=== PATIENT | female | born 1940 | race Caucasian/White ===

== ENCOUNTER 2019-04-09 14:47 | Inpatient (IN) | payer MEDICARE, MEDICAID ==
[~2019-04-09] VITALS: Ht 170 cm; Wt 60.4 kg
[~2019-04-09 14:47] MED LIST: ASP81TEC PO; ATOR80TA PO; BPR150TCR PO; CLOP75TA PO; CPR250T PO; CYCL10TA9 PO; DIAZ-345 PO; ETD400T PO; HCT25T PO; INSULIN 70/30 SQ; LOSA100T16 PO; LRT10T PO; LVT.1T PO; MTF500T PO; MTP100TCR PO; NPH,100V SQ; OMEP20CA6 PO; SERT50TA PO; SITA100T PO; TIOT18CA IH
[2019-04-09] MEDS ORDERED: RT-ALBUTEROL/IPRATROPIUM 3 ML (DUONEB) VIAL INH ONE (16:00)
[2019-04-09 16:09] LABS: INR 0.8 (0.8-1.4); PROTHROMBIN TIME PATIENT 11.8 SEC (12.2-14.7)
--- NOTE | 2019-04-09 16:13 | Diagnostic Imaging Report ---
EXAMINATION: PA and lateral chest at 03:34 p.m. INDICATION: Shortness of breath. FINDINGS: The heart size is within normal limits and stable when compared to 02/29/2012. The sternotomy wires and surgical clips noted previously are again evident and no different. The lungs are clear. There is no sign of failure, pneumonia, or pleural effusion. The mediastinum is not widened. The osseous structures are intact. The distal left clavicle does seem elevated with respect to the acromion. This finding was not present on the prior exam and may be related to acromioclavicular separation which has occurred in the interval since the previous study. Clinical follow-up is recommended. IMPRESSION: 1. There is evidence of prior cardiac surgery, but there is no sign of an acute cardiopulmonary abnormality. 2. There appears to have been an interval acromioclavicular separation on the left. Clinical follow-up is recommended. Dictated by: Dictated on workstation # [id number]
[2019-04-09 16:15] LABS: BASOPHILS % (AUTO) 1 % (0-10); EOSINOPHILS % (AUTO) 3 % (0-10); HEMATOCRIT 33 % (35-52); HEMOGLOBIN 10.4 G/DL (11.5-16.0); LYMPHOCYTES # (AUTO) 1.3 X 10^3 (1.0-4.0); LYMPHOCYTES % (AUTO) 24 % (12-44); MEAN CORPUSCULAR HEMOGLOBIN 27 PG (25-34); MEAN CORPUSCULAR HGB CONC 31 G/DL (32-36); MEAN CORPUSCULAR VOLUME 86 FL (80-99); MEAN PLATELET VOLUME 10.5 FL (7.4-10.4); MONOCYTES # (AUTO) 0.6 X 10^3 (0.0-1.0); MONOCYTES % (AUTO) 11 % (0-12); NEUTROPHILS # (AUTO) 3.4 X 10^3 (1.8-7.8); NEUTROPHILS % (AUTO) 61 % (42-75); PLATELET COUNT 262 10^3/uL (130-400); RED CELL DISTRIBUTION WIDTH 13.7 % (10.0-14.5); WHITE BLOOD COUNT 5.5 10^3/uL (4.3-11.0)
[2019-04-09 16:16] LABS: EOSINOPHILS # (AUTO) 0.2 10^3/uL (0.0-0.3)
[2019-04-09 16:27] LABS: BUN/CREATININE RATIO 14; CARBON DIOXIDE 23 MMOL/L (21-32); CHLORIDE 100 MMOL/L (98-107); CREATININE SERUM 2.22 MG/DL (0.60-1.30); GFR ESTIMATED 21; POTASSIUM 4.9 MMOL/L (3.6-5.0); SODIUM 136 MMOL/L (135-145)
[2019-04-09 16:28] LABS: ALANINE AMINOTRANSFERASE 17 U/L (0-55); ALBUMIN 3.6 GM/DL (3.2-4.5); ALKALINE PHOSPHATASE 75 U/L (40-136); BILIRUBIN,TOTAL 0.2 MG/DL (0.1-1.0); GLUCOSE 228 MG/DL (70-105); TOTAL PROTEIN 6.5 GM/DL (6.4-8.2)
[2019-04-09] MEDS ORDERED: hydrALAZINE (APESOLINE) 20 MG/ML VIAL IV ONE (16:45)
[2019-04-09] MEDS ORDERED: NS IV 500 ML 500 ML IV ONE (16:53)
--- NOTE | 2019-04-09 17:21 | ED Respiratory ---
General Chief Complaint: Respiratory Problems Stated Complaint: SOB Nursing Triage Note: Patient states she has had increasing shortness of breath over the past 5 days and is having difficulty doing her normal walking down the hallway at [facility]. Also states she has had a cough and intermittent chest pain. Is not having any pain right now. History of Present Illness Date Seen by Provider: Apr 09, 2019 Time Seen by Provider: 15:15 Initial Comments The patient is a 78-year-old female with a history of hypertension, hyperlipidemia, chronic kidney disease with a baseline creatinine of less than 1 .[address] [facility], diabetes on insulin and no significant prior history of respiratory disease/tobacco abuse. The patient presents with concern for 1 week of progressive fatigue, generalized weakness and dyspnea with exertion. Patient states she has not had her usual "get up and go" at her assisted living facility over that period of time. She denies any shortness of breath at rest. She reports mild "twinges" of anterior sternal chest discomfort which last for just a few seconds at times recently, although not now. She denies fevers, nausea or vomiting, new productive cough (although she notes a mild dry cough at times recently), abdominal pain, flank pain, back pain, dysuria or hematuria, changes in bowel habits. Patient is alert and oriented and pleasantly and appropriately interactive and in absolutely no distress upon initial assessment in the emergency department. Vital signs are reassuring aside from degree of systolic hypertension noted on the monitor. Allergies and Home Medications Allergies Coded Allergies: Codeine (Unverified Allergy, NERVOUSNESS, 02/29/12) IV Dye, Iodine Containing Contrast (Unverified Allergy, HIVES, 02/29/12) Latex (Unverified Allergy, ITCHING, RASH, 02/29/12) Home Medications Aspirin 81 Mg Tabec, 81 MG PO DAILY, (Reported) Atorvastatin Calcium 80 Mg Tablet, 1 EACH PO DAILY, (Reported) Bupropion Hcl 150 Mg Tablet, 1 TAB PO DAILY, (Reported) Ciprofloxacin Hcl 250 Mg Tablet, 1 TAB PO BID, (Reported) Clopidogrel Bisulfate 75 Mg Tablet, 1 EACH PO DAILY, (Reported) Cyclobenzaprine Hcl 10 Mg Tablet, 1 EACH PO DAILY, (Reported) Diazepam 5 Mg Tablet, 1 EACH PO NEEDED, (Reported) FOR ANXIETY Etodolac 400 Mg Tab, 400 MG PO BID, (Reported) Hydrochlorothiazide 25 Mg Tablet, 1 EACH PO DAILY, (Reported) Insulin Nph Human Recom 100 U/Ml Vial, 20 U SQ EVENING, (Reported) Levothyroxine Sodium 100 Mcg Tablet, 1 EACH PO DAILY, (Reported) Loratadine 10 Mg Tab, 10 MG PO DAILY, (Reported) Losartan Potassium 100 Mg Tablet, 1 EACH PO DAILY, (Reported) Metformin Hcl 500 Mg Tab, 1,000 MG PO BID, (Reported) Metoprolol Succinate 100 Mg Tab.sr.24h, 1 EACH PO 1300, (Reported) Omeprazole 20 Mg Capsule.dr, 20 MG PO DAILY, (Reported) Sertraline Hcl 50 Mg Tablet, 50 MG PO DAILY, (Reported) Sitagliptin Phosphate 100 Mg Tablet, 1 EACH PO DAILY, (Reported) Tiotropium Lavina 1 Inh Aerp, 0 IH DAILY, (Reported) 1 INHALATION [Insulin 70/30] , 30 UNITS SQ DAILY, (Reported) Patient Home Medication List Home Medication List Reviewed: Yes Review of Systems Review of Systems Constitutional: see HPI All Other Systems Reviewed Negative Unless Noted: Yes (Negative excepted noted.) Past Kxajymx-Mibudu-Vwakjo Hx Past Med/Social Hx: Reviewed Nursing Past Med/Soc Hx Patient Social History Recent Foreign Travel: No Contact w/Someone Who Travel: No Recent Infectious Disease Expo: No Immunizations Up To Date Date of Pneumonia Vaccine: Apr 08, 2011 Past Medical History Reproductive Disorders: No Family Medical History Reviewed Nursing Family Hx Physical Exam Vital Signs - First Documented 04/09/19 14:56 Temp 37.0 Pulse 58 Resp 14 B/P (MAP) 191/61 (104) Pulse Ox 96 Capillary Refill : Less Than 3 Seconds Height: 5'8.00" Weight: 165lbs. 0.0oz. [id number]; 20.00 BMI Method: General Appearance: no apparent distress This is an elderly female appearing nontoxic and in no acute distress. Head is normocephalic and atraumatic. Neck is supple and nontender. Oropharynx is moist. Lungs are clear to auscultation in all stations. There is a normal S1 and S2 without rubs or gallops and capillary refill is appropriate, less than 2 seconds globally. Abdomen is soft, nontender and nondistended. Skin is warm and dry without cyanosis, clubbing or edema. Psychiatrically, the patient demonstrates appropriate mood and affect and is alert. Progress/Results/Core Measures Suspected Sepsis Recent Fever Within 48 Hours: No Infection Criteria Present: Suspected New Infection New/Unexplained Altered Menta: No Sepsis Screen: No Definite Risk SIRS Temperature: Pulse: 58 Respiratory Rate: 14 Laboratory Tests 04/09/19 15:13: White Blood Count 5.5 Blood Pressure 191 /61 Mean: 104 Laboratory Tests 04/09/19 15:13: Creatinine 2.22H, INR Comment 0.8, Platelet Count 262, Total Bilirubin 0.2 Results/Orders Lab Results Laboratory Tests Test 04/09/19 15:13 04/09/19 16:12 Range/Units White Blood Count 5.5 4.3-11.0 10^3/uL Red Blood Count 3.88 L 4.35-5.85 10^6/uL Hemoglobin 10.4 L 11.5-16.0 G/DL Hematocrit 33 L 35-52 % Mean Corpuscular Volume 86 80-99 FL Mean Corpuscular Hemoglobin 27 25-34 PG Mean Corpuscular Hemoglobin Concent 31 L 32-36 G/DL Red Cell Distribution Width 13.7 10.0-14.5 % Platelet Count 262 130-400 10^3/uL Mean Platelet Volume 10.5 H 7.4-10.4 FL Neutrophils (%) (Auto) 61 42-75 % Lymphocytes (%) (Auto) 24 12-44 % Monocytes (%) (Auto) 11 0-12 % Eosinophils (%) (Auto) 3 0-10 % Basophils (%) (Auto) 1 0-10 % Neutrophils # (Auto) 3.4 1.8-7.8 X 10^3 Lymphocytes # (Auto) 1.3 1.0-4.0 X 10^3 Monocytes # (Auto) 0.6 0.0-1.0 X 10^3 Eosinophils # (Auto) 0.2 0.0-0.3 10^3/uL Basophils # (Auto) 0.0 0.0-0.1 10^3/uL Prothrombin Time 11.8 L 12.2-14.7 SEC INR Comment 0.8 0.8-1.4 Activated Partial Thromboplast Time 27 24-35 SEC Sodium Level 136 135-145 MMOL/L Potassium Level 4.9 3.6-5.0 MMOL/L Chloride Level 100 98-107 MMOL/L Carbon Dioxide Level 23 21-32 MMOL/L Anion Gap 13 5-14 MMOL/L Blood Urea Nitrogen 30 H 7-18 MG/DL Creatinine 2.22 H 0.60-1.30 MG/DL Estimat Glomerular Filtration Rate 21 BUN/Creatinine Ratio 14 Glucose Level 228 H 70-105 MG/DL Calcium Level 9.0 8.5-10.1 MG/DL Corrected Calcium 9.3 8.5-10.1 MG/DL Total Bilirubin 0.2 0.1-1.0 MG/DL Aspartate Amino Transf (AST/SGOT) 20 5-34 U/L Alanine Aminotransferase (ALT/SGPT) 17 0-55 U/L Alkaline Phosphatase 75 40-136 U/L Troponin I < 0.30 <0.30 NG/ML Pro-B-Type Natriuretic Peptide 1259.0 H <75.0 PG/ML Total Protein 6.5 6.4-8.2 GM/DL Albumin 3.6 3.2-4.5 GM/DL Glucometer 194 H 70-110 MG/DL My Orders Orders - EDY HOOK MD Cbc With Automated Diff (04/09/19 15:32) Comprehensive Metabolic Panel (04/09/19 15:32) Troponin I Fs (04/09/19 15:32) Ekg Tracing (04/09/19 15:32) Probnp Fs (04/09/19 15:32) Chest Pa/Lat (2 View) (04/09/19 15:32) Protime With Inr (04/09/19 15:32) Partial Thromboplastin Time (04/09/19 15:32) Albuterol/Ipra Inhalation Soln (Duoneb I (04/09/19 16:00) Svn Small Volume Nebulizer (04/09/19 15:53) Hydralazine Injection (Apresoline Inject (04/09/19 16:45) Ua Culture If Indicated (04/09/19 16:53) Ed Iv/Invasive Line Start (04/09/19 16:53) Ns Iv 500 Ml (Sodium Chloride 0.9%) (04/09/19 16:53) Medications Given in ED Current Medications Medications Dose Ordered Sig/Nicole Route Start Time Stop Time Status Last Admin Dose Admin Albuterol/ Ipratropium 3 ml ONCE ONCE INH 04/09/19 16:00 04/09/19 16:01 DC 04/09/19 16:33 3 ML Hydralazine HCl 10 mg ONCE ONCE IV 04/09/19 16:45 04/09/19 16:46 DC 04/09/19 16:54 10 MG Vital Signs/I&O 04/09/19 14:56 Temp 37.0 Pulse 58 Resp 14 B/P (MAP) 191/61 (104) Pulse Ox 96 Capillary Refill : Less Than 3 Seconds Blood Pressure Mean: 104 Point of Care Testing Finger Stick Blood Glucose: 194 Blood Glucose Action Taken: told RN Progress Note : Time: 17:00 Progress Note Workup unremarkable and reassuring aside from apparent acute on chronic renal insufficiency with BUN and creatinine both elevated above the patient's baseline. Suspect there is a component of intravascular dehydration to the patient's overall presentationpatient does have a somewhat elevated BNP but no clinical examination findings to suggest fluid overload and chest x-rays clear and oxygenation is not negatively affected. Blood sugar mildly elevated as well and suspect hyperglycemia may have contributed to dehydration. Small fluid bolus given. Given age and comorbidities and generalized fatigue/shortness of breath, we'll bring in for observation on telemetry and further care as indicated. Patient will likely need serial troponins as well given shortness of breath and atypical chest discomfort over the past few days. Urine still pending at this time. Given bradycardia on arrival, patient given hydralazine to provide some additional blood pressure control. Patient is graciously accepted for admission to [facility] by Dr. Rivera. ECG Comment Sinus rhythm, first-degree AV block, no acute ST elevation or depression, rate 53, PO2 42, QRS 92, QTC 441, EP interpretation. Diagnostic Imaging Comments XR chest: no acute cardiopulmonary process, EP interp Departure Impression Primary Impression: Acute renal insufficiency Additional Impressions: Hyperglycemia Shortness of breath Dehydration Elevated brain natriuretic peptide (BNP) level Other chest pain Disposition: XFER SHT-TRM HOSP Condition: Improved Departure-Patient Inst. Referrals: ADOLFO RHODES MD (PCP/Family) Primary Care Physician EDY HOOK MD Apr 09, 2019 17:21
[2019-04-09 17:31] LABS: BILIRUBIN,URINE NEGATIVE (NEGATIVE); CLARITY,URINE CLEAR; COLOR,URINE YELLOW; GLUCOSE, URINE (UA) NEGATIVE (NEGATIVE); KETONES,URINE NEGATIVE (NEGATIVE); LEUKOCYTE ESTERASE ,URINE TRACE (NEGATIVE); NITRITE,URINE NEGATIVE (NEGATIVE); PROTEIN,URINE 3+ (NEGATIVE); UROBILINOGEN,URINE 0.2 MG/DL (NORMAL)
[2019-04-09 17:32] LABS: BACTERIA,URINE NEGATIVE /HPF; SQUAMOUS EPITHELIAL CELL,UR 0-2 /HPF; WBC,URINE 0-2 /HPF
[2019-04-09] MEDS ORDERED: HYDROCHLOROTHIAZIDE 25 MG (HCTZ) TAB PO STA (19:30)
[2019-04-09] MEDS ORDERED: hydrALAZINE (APESOLINE) 20 MG/ML VIAL IV STA (19:30)
[2019-04-09 23:30] VITALS: BP 148/88
[2019-04-10] MEDS: NS IV 1000 ML 1,000 ML IV SCH ×2 (01:03→13:47)
[2019-04-10 04:00] VITALS: BP 148/78
[2019-04-10 06:25] LABS: BASOPHILS % (AUTO) 0 % (0-10); EOSINOPHILS # (AUTO) 0.1 10^3/uL (0.0-0.3); EOSINOPHILS % (AUTO) 3 % (0-10); HEMATOCRIT 32 % (35-52); HEMOGLOBIN 10.1 G/DL (11.5-16.0); LYMPHOCYTES # (AUTO) 1.2 X 10^3 (1.0-4.0); LYMPHOCYTES % (AUTO) 26 % (12-44); MEAN CORPUSCULAR HEMOGLOBIN 27 PG (25-34); MEAN CORPUSCULAR HGB CONC 32 G/DL (32-36); MEAN CORPUSCULAR VOLUME 84 FL (80-99); MEAN PLATELET VOLUME 10.1 FL (7.4-10.4); MONOCYTES # (AUTO) 0.6 X 10^3 (0.0-1.0); MONOCYTES % (AUTO) 12 % (0-12); NEUTROPHILS # (AUTO) 2.7 X 10^3 (1.8-7.8); NEUTROPHILS % (AUTO) 58 % (42-75); PLATELET COUNT 214 10^3/uL (130-400); WHITE BLOOD COUNT 4.6 10^3/uL (4.3-11.0)
[2019-04-10 06:44] LABS: ALANINE AMINOTRANSFERASE 15 U/L (0-55); ALBUMIN 3.2 GM/DL (3.2-4.5); ALKALINE PHOSPHATASE 66 U/L (40-136); BILIRUBIN,TOTAL 0.4 MG/DL (0.1-1.0); BUN/CREATININE RATIO 11; CALCIUM 8.8 MG/DL (8.5-10.1); CARBON DIOXIDE 23 MMOL/L (21-32); CHLORIDE 109 MMOL/L (98-107); CREATININE SERUM 2.18 MG/DL (0.60-1.30); GFR ESTIMATED 22; GLUCOSE 125 MG/DL (70-105); POTASSIUM 4.2 MMOL/L (3.6-5.0); SODIUM 141 MMOL/L (135-145); TOTAL PROTEIN 5.6 GM/DL (6.4-8.2)
[2019-04-10 08:14] VITALS: BP 238/78
[2019-04-10] MEDS ORDERED: LOSA100T57 PO (08:39)
[2019-04-10] MEDS ORDERED: ATOR80TA76 PO (08:39)
[2019-04-10] MEDS ORDERED: INSU100I13 SC (08:39)
[2019-04-10] MEDS ORDERED: LEVO112T55 PO (08:39)
[2019-04-10] MEDS ORDERED: MEMA10TA22 PO (08:39)
[2019-04-10] MEDS ORDERED: PEG15DRO5 OU (08:39)
[2019-04-10] MEDS ORDERED: METO-395 PO (08:39)
[2019-04-10] MEDS ORDERED: CLOP75TA28 PO (08:39)
[2019-04-10] MEDS ORDERED: ALBU2.5V4 NEB (08:39)
[2019-04-10] MEDS ORDERED: DEXT15LI5 PO (08:39)
[2019-04-10] MEDS ORDERED: ACET-2267 PO (08:39)
[2019-04-10] MEDS ORDERED: BUPR200T PO (08:39)
[2019-04-10] MEDS ORDERED: BRIM5DRO OU (08:39)
[2019-04-10] MEDS ORDERED: CHOL20003 PO (08:39)
[2019-04-10] MEDS ORDERED: MAGN400T39 PO (08:39)
[2019-04-10] MEDS ORDERED: OMEP40CA36 PO (08:39)
[2019-04-10] MEDS ORDERED: DIAZ5TAB PO (08:39)
[2019-04-10] MEDS ORDERED: CELE-63 PO (08:39)
[2019-04-10] MEDS ORDERED: POLY17PO6 PO (08:39)
[2019-04-10] MEDS ORDERED: RT-ALBUINH INH (08:39)
[2019-04-10] MEDS ORDERED: DONE5TAB30 PO (08:39)
[2019-04-10] MEDS ORDERED: HYDR25TA4 PO (08:39)
[2019-04-10] MEDS ORDERED: DOCU-143 PO (08:39)
[2019-04-10] MEDS ORDERED: FLUT1DIS28 INH (08:39)
[2019-04-10] MEDS ORDERED: AMLO5TAB9 PO (08:39)
[2019-04-10] MEDS ORDERED: HYDR-3923 PO (08:39)
[2019-04-10] MEDS ORDERED: FLUT16SP22 NS (08:39)
[2019-04-10] MEDS ORDERED: MULT1TAB69 PO (08:39)
[2019-04-10] MEDS ORDERED: INSU100I10 SQ (08:39)
[2019-04-10] MEDS ORDERED: MIRT15TA6 PO (08:39)
[2019-04-10] MEDS ORDERED: CALC-6 PO (08:39)
[2019-04-10] MEDS ORDERED: METF-399 PO (08:39)
[2019-04-10] MEDS ORDERED: LORA10TA7 PO (08:39)
[2019-04-10] MEDS ORDERED: BUPR150T14 PO (08:49)
[2019-04-10] MEDS ORDERED: DONE10TA41 PO (08:49)
--- NOTE | 2019-04-10 08:50 | NUR ---
UPDATED MED REC WITH PHARMACY ORDERS FROM [facility]. THE ORDER FOR WELLBUTRIN AND DONEPEZIL ARE DIFFERENT STRENGTHS THAN WHAT I CAN SEE THE EXT MED HX SHOWS NIRANJAN MOST RECENTLY FILLED. I CALLED THEM TO VERIFY. WELLBUTRIN SR 200MG DAILY HAS BEEN CHANGED TO TAKE 2 TABS OF THE 150MG DAILY. DONEPEZIL 5MG HS HAS BEEN CHANGED TO 10MG. THE NURSE VERIFIED THE CELEBREX HAS BEEN BEING ADMINISTERED, IT HAS NOT BEEN FILLED IN SOME TIME ACCORDING TO THE EXT MED HX BUT THEY STATE THE PATIENT BROUGHT IN AN OLD FILL FROM HOME AND THAT IS THE SUPPLY THEY HAVE BEEN USING. THEY ALSO VERIFIED THE INSULIN SLIDING SCALE BEFORE MEALS AND THE SCHEDULED LONG ACTING INSULIN ARE HER ONLY INSULIN ORDERS. TOWARD THE BACK OF THE ORDER SHEET THERE IS ANOTHER ENTRY FOR INSULIN 3X DAILY HOWEVER THAT IS IN REFERENCE TO THE SLIDING SCALE.
--- NOTE | 2019-04-10 09:00 | NUR ---
LEFT MESSAGE ON DR ZAMARRIPA'S PHONE REGARDING ELEVATED BLOOD PRESSURE
[2019-04-10] MEDS ORDERED: HYDROCHLOROTHIAZIDE 25 MG (HCTZ) TAB PO SCH (10:06)
[2019-04-10] MEDS: meTOprolol SUCCINATE 100 MG (TOPROL XL) TAB PO SCH (10:22)
[2019-04-10] MEDS: hydrALAZINE (APRESOLINE) 25 MG TAB PO SCH ×3 (10:22→21:02)
[2019-04-10] MEDS: amLODIPine 5 MG (NORVASC) TAB PO SCH (10:22)
[2019-04-10] MEDS ORDERED: RT-ALBUTEROL SULF 2.5 MG/3 ML PRE-MIX VIAL INH PRN (10:30)
[2019-04-10] MEDS ORDERED: DIAZEPAM 5 MG (VALIUM) TABLET PO PRN (10:45)
[2019-04-10] MEDS ORDERED: ACETAMINOPHEN 500 MG TAB (TYLENOL) PO PRN (10:45)
[2019-04-10] MEDS ORDERED: ARTIFICAL TEARS 0.4 ML UNIT DOSE (REFRESH PLUS) OU PRN (11:00)
[2019-04-10 11:31] VITALS: BP 242/72
[2019-04-10] MEDS: CALCIUM CARB + VIT D 600 MG (CALCARB + D) TAB PO SCH (11:36)
--- NOTE | 2019-04-10 11:36 | NUR ---
left message on dr clement's phone about continued high blood pressure
[2019-04-10] MEDS ORDERED: amLODIPine 5 MG (NORVASC) TAB PO NR (11:45)
[2019-04-10] MEDS: BRIMONIDINE 0.2% (ALPHAGAN) OPHTH SOLN 5 ML BTL OU SCH ×2 (12:01→21:04)
--- NOTE | 2019-04-10 12:04 | History & Physical ---
KJ ADAM, 04/10/19 1204: HPI History of Present Illness: CC: SOB at appointment on Tuesday HPI: Pt went to receive her allergy shots and was SOB. Nurse there thought she needed seen. Has occasional SOB, but work up has been negative thus far. At ER, pt stated they told her her kidneys were failing, dehydrated, hypertensive, and hyperglycemic. Source: patient Exam Limitations: no limitations Date seen by provider: Apr 10, 2019 Time Seen by Provider: 07:41 Attending Physician Erwin Rivera MD PCP Self,Yaron MENDOZA Consult Date of Admission Apr 09, 2019 at 18:35 Home Medications Home Medications Reviewed patient Home Medication Reconciliation performed by pharmacy medication reconciliations architecture technician and/or nursing. Patients Allergies have been reviewed. Allergies Coded Allergies: Iodinated Contrast Media (Unverified Allergy, Unknown, HIVES, 04/09/19) codeine (Unverified Allergy, Unknown, NERVOUSNESS, 04/09/19) latex (Unverified Allergy, Unknown, ITCHING, RASH, 04/09/19) GXK-Lbtxij-Wljnij Hx Patient Social History Number of Children: 2 Alcohol Use: Denies Use Recreational Drug Use: No Smoking Status: Never a Smoker 2nd Hand Smoke Exposure: No Recent Foreign Travel: No Contact w/other who traveled: No Recent Hopitalizations: No Recent Infectious Disease Expo: No Immunizations Up To Date Date of Pneumonia Vaccine: Apr 08, 2011 Date of Influenza Vaccine: Mar 11, 2018 Past Medical History PMHx: 1. HTN 2. DM 3. Hypercholesterolemia 4. Diabetic retinopathy, R worse than L 5. Cervical spinal stenosis 6. Lumbar spinal stenosis PSHx: 1. Appendectomy 2. Cholecystectomy Family Medical History Significant Family History: Cancer (aunt had breast cancer), Diabetes (sister, dad), Renal Disease (PKD in most family on mom's side) Review of Systems ([facility]) Constitutional: No chills, No fever EENTM: vision loss, other (phlegm in throat) Respiratory: cough (from allergies); No orthopnea Cardiovascular: chest pain (comes with SOB; nonreproducible); No palpitations Gastrointestinal: No abdominal pain, No constipation, No diarrhea, No nausea, No vomiting Genitourinary: No dysuria, No frequency Musculoskeletal: muscle pain, neck pain Skin: No lesions, No rash Psychiatric/Neurological: Denies Anxiety; Depressed, Numbness (feet) Physical Exam-([facility]) Physical Exam Vital Signs VS - Last 72 Hours, by Label 04/09/19 04/09/19 04/09/19 04/09/19 14:56 20:14 23:30 23:30 Temp 37.0 37.0 36.6 Pulse 58 57 88 Resp 14 21 18 B/P (MAP) 191/61 (104) 168/61 148/88 Pulse Ox 96 96 96 96 O2 Delivery Room Air Room Air Room Air 04/10/19 04/10/19 04/10/19 04/10/19 00:05 01:00 04:00 07:00 Temp 37.0 Pulse 63 61 78 64 Resp 20 B/P (MAP) 148/78 (101) Pulse Ox 98 O2 Delivery Room Air 04/10/19 04/10/19 04/10/19 08:00 08:14 11:31 Temp 36.9 37.1 Pulse 66 57 Resp 20 18 B/P (MAP) 238/78 (131) 242/72 (128) Pulse Ox 95 94 O2 Delivery Room Air Room Air Room Air Capillary Refill : Less Than 3 SecondsLess Than 3 Seconds General Appearance: WD/WN, no apparent distress Eyes: Bilateral Eye Normal Inspection, Bilateral Eye EOMI HEENT: pharynx normal; No pale conjunctivae (R), No pale conjunctivae (L) Neck: supple, normal inspection Respiratory: lungs clear, normal breath sounds, no respiratory distress, no accessory muscle use Cardiovascular: regular rate, rhythm, no murmur Gastrointestinal: normal bowel sounds, non tender, soft Extremities: normal inspection, no pedal edema Neurologic/Psychiatric: alert, normal mood/affect Skin: normal color, warm/dry Lymphatic: no adenopathy Assessment/Plan Assessment/Plan Assessment & Plan Assessment: 1. Chronic kidney failure 2. Hx of HTN, DM 3. Elevated BNP and elevated BP Plan: 1. Continue fluids. Diuretics not indicated as pt has no swelling and negative CXR for fluid overload. 2. Continue home medications and start new if needed 3. Consult cardiology for BNP and elevated BP despite meds. Clinical Quality Measures DVT/VTE Risk/Contraindication: Risk Factor Score Per Nursin RFS Level Per Nursing on Admit: 2=Moderate ERWIN RIVERA MD 04/10/19 1438: HPI History of Present Illness: Date seen by provider: Apr 10, 2019 Time Seen by Provider: 10:45 Home Medications Allergies Coded Allergies: Iodinated Contrast Media (Unverified Allergy, Unknown, HIVES, 04/09/19) codeine (Unverified Allergy, Unknown, NERVOUSNESS, 04/09/19) latex (Unverified Allergy, Unknown, ITCHING, RASH, 04/09/19) Reviewed Test Results Reviewed Test Results Lab Laboratory Tests Test 04/09/19 15:13 04/09/19 16:12 04/09/19 17:10 04/10/19 00:25 Range/Units White Blood Count 5.5 4.3-11.0 10^3/uL Red Blood Count 3.88 L 4.35-5.85 10^6/uL Hemoglobin 10.4 L 11.5-16.0 G/DL Hematocrit 33 L 35-52 % Mean Corpuscular Volume 86 80-99 FL Mean Corpuscular Hemoglobin 27 25-34 PG Mean Corpuscular Hemoglobin Concent 31 L 32-36 G/DL Red Cell Distribution Width 13.7 10.0-14.5 % Platelet Count 262 130-400 10^3/uL Mean Platelet Volume 10.5 H 7.4-10.4 FL Neutrophils (%) (Auto) 61 42-75 % Lymphocytes (%) (Auto) 24 12-44 % Monocytes (%) (Auto) 11 0-12 % Eosinophils (%) (Auto) 3 0-10 % Basophils (%) (Auto) 1 0-10 % Neutrophils # (Auto) 3.4 1.8-7.8 X 10^3 Lymphocytes # (Auto) 1.3 1.0-4.0 X 10^3 Monocytes # (Auto) 0.6 0.0-1.0 X 10^3 Eosinophils # (Auto) 0.2 0.0-0.3 10^3/uL Basophils # (Auto) 0.0 0.0-0.1 10^3/uL Prothrombin Time 11.8 L 12.2-14.7 SEC INR Comment 0.8 0.8-1.4 Activated Partial Thromboplast Time 27 24-35 SEC Sodium Level 136 135-145 MMOL/L Potassium Level 4.9 3.6-5.0 MMOL/L Chloride Level 100 98-107 MMOL/L Carbon Dioxide Level 23 21-32 MMOL/L Anion Gap 13 5-14 MMOL/L Blood Urea Nitrogen 30 H 7-18 MG/DL Creatinine 2.22 H 0.60-1.30 MG/DL Estimat Glomerular Filtration Rate 21 BUN/Creatinine Ratio 14 Glucose Level 228 H 70-105 MG/DL Calcium Level 9.0 8.5-10.1 MG/DL Corrected Calcium 9.3 8.5-10.1 MG/DL Total Bilirubin 0.2 0.1-1.0 MG/DL Aspartate Amino Transf (AST/SGOT) 20 5-34 U/L Alanine Aminotransferase (ALT/SGPT) 17 0-55 U/L Alkaline Phosphatase 75 40-136 U/L Troponin I < 0.30 < 0.028 <0.028 NG/ML Pro-B-Type Natriuretic Peptide 1259.0 H <75.0 PG/ML Total Protein 6.5 6.4-8.2 GM/DL Albumin 3.6 3.2-4.5 GM/DL Glucometer 194 H 70-110 MG/DL Urine Color YELLOW Urine Clarity CLEAR Urine pH 7.0 5-9 Urine Specific [place] 1.015 L 1.016-1.022 Urine Protein 3+ H NEGATIVE Urine Glucose (UA) NEGATIVE NEGATIVE Urine Ketones NEGATIVE NEGATIVE Urine Nitrite NEGATIVE NEGATIVE Urine Bilirubin NEGATIVE NEGATIVE Urine Urobilinogen 0.2 NORMAL MG/DL Urine Leukocyte Esterase TRACE H NEGATIVE Urine RBC (Auto) NEGATIVE NEGATIVE Urine RBC NONE /HPF Urine WBC 0-2 /HPF Urine Squamous Epithelial Cells 0-2 /HPF Urine Crystals NONE /LPF Urine Bacteria NEGATIVE /HPF Urine Casts NONE /LPF Urine Mucus NONE /LPF Urine Culture Indicated NO Test 04/10/19 06:10 04/10/19 12:10 Range/Units White Blood Count 4.6 4.3-11.0 10^3/uL Red Blood Count 3.77 L 4.35-5.85 10^6/uL Hemoglobin 10.1 L 11.5-16.0 G/DL Hematocrit 32 L 35-52 % Mean Corpuscular Volume 84 80-99 FL Mean Corpuscular Hemoglobin 27 25-34 PG Mean Corpuscular Hemoglobin Concent 32 32-36 G/DL Red Cell Distribution Width 14.0 10.0-14.5 % Platelet Count 214 130-400 10^3/uL Mean Platelet Volume 10.1 7.4-10.4 FL Neutrophils (%) (Auto) 58 42-75 % Lymphocytes (%) (Auto) 26 12-44 % Monocytes (%) (Auto) 12 0-12 % Eosinophils (%) (Auto) 3 0-10 % Basophils (%) (Auto) 0 0-10 % Neutrophils # (Auto) 2.7 1.8-7.8 X 10^3 Lymphocytes # (Auto) 1.2 1.0-4.0 X 10^3 Monocytes # (Auto) 0.6 0.0-1.0 X 10^3 Eosinophils # (Auto) 0.1 0.0-0.3 10^3/uL Basophils # (Auto) 0.0 0.0-0.1 10^3/uL Sodium Level 141 135-145 MMOL/L Potassium Level 4.2 3.6-5.0 MMOL/L Chloride Level 109 H 98-107 MMOL/L Carbon Dioxide Level 23 21-32 MMOL/L Anion Gap 9 5-14 MMOL/L Blood Urea Nitrogen 25 H 7-18 MG/DL Creatinine 2.18 H 0.60-1.30 MG/DL Estimat Glomerular Filtration Rate 22 BUN/Creatinine Ratio 11 Glucose Level 125 H 70-105 MG/DL Calcium Level 8.8 8.5-10.1 MG/DL Corrected Calcium 9.4 8.5-10.1 MG/DL Total Bilirubin 0.4 0.1-1.0 MG/DL Aspartate Amino Transf (AST/SGOT) 17 5-34 U/L Alanine Aminotransferase (ALT/SGPT) 15 0-55 U/L Alkaline Phosphatase 66 40-136 U/L Troponin I < 0.028 < 0.028 <0.028 NG/ML Total Protein 5.6 L 6.4-8.2 GM/DL Albumin 3.2 3.2-4.5 GM/DL Physical Exam-([facility]) Physical Exam General Appearance: WD/WN, no apparent distress Respiratory: normal breath sounds, no respiratory distress, no accessory muscle use, wheezing ([place]) Cardiovascular: regular rate, rhythm, no murmur Gastrointestinal: normal bowel sounds, non tender, soft Extremities: no pedal edema Neurologic/Psychiatric: alert, normal mood/affect Skin: normal color, warm/dry Assessment/Plan Assessment/Plan Admission Status: Observation (1) Shortness of breath Status: Acute Assessment & Plan: Difficult to obtain history, but is on inhalers at home, will resume. CXR without pneumonia. (2) Acute renal insufficiency Status: Acute Assessment & Plan: Creatinine relatively near baseline after small amount of IVF last night. (3) Elevated brain natriuretic peptide (BNP) level Status: Acute Assessment & Plan: Suspect related to renal disease, but will follow up Cardiology recommendations. (4) Other chest pain Status: Acute Assessment & Plan: Troponin negative, BNP elevated. Cardiology consulted. (5) AC separation Assessment & Plan: Seen on CXR. Unknown chronicity, no current complaint. Qualifiers: (6) Dementia Status: Chronic Assessment & Plan: Resume home donepezil and memantine (7) Emphysema/COPD Status: Chronic (8) Chronic kidney disease Status: Chronic (9) Hypothyroidism Status: Chronic Assessment & Plan: Resume levothyroxine (10) B12 deficiency Status: Chronic (11) Iron deficiency anemia Status: Chronic (12) Coronary artery disease Status: Chronic (13) DVT prophylaxis Status: Acute Assessment & Plan: Enoxaparin Supervisory-Addendum Brief Verification & Attestation Participated in pt care: history, MDM, physical Personally performed: exam, history, MDM Care discussed with: Medical Student Procedures: n/a Verification and Attestation of Medical Student E/M Service A medical student performed and documented this service in my presence. I reviewed and verified all information documented by the medical student and made modifications to such information, when appropriate. I personally performed the physical exam and medical decision making. See my note portion for my physical exam and problem list for my assessment and plan. Erwin Rivera, Apr 10, 2019,14:43 KJ ADAM, Apr 10, 2019 12:04 ERWIN RIVERA MD Apr 10, 2019 14:38
[2019-04-10] MEDS ORDERED: NON-FORMULARY MEDICATION 1 EA EA (Hydralazine HCl 25 MG) PO SCH (13:00)
--- NOTE | 2019-04-10 14:03 | Consultation-Cardiology ---
HPI-Cardiology Cardiology Consultation: Date of Consultation 04/10/19 Time Seen by a Provider: 13:30 Date of Admission 04-09-19 Attending Physician Viki Rivera MD Admitting Physician Yaron Malik MD Consulting Physician Xu Alvarado MD HPI: Chief Complaint: Chest pain Progressive HALL Ms. Arce is a 78 year old female admitted to 423 from [facility] ED. She currently resides at [facility] in [place], [place]. She states she went to her PCP office yesterday for "allergy shots" and report SOB to the nurse, at which time she was directed to the ED in [facility]. She reports she has had progressive HALL for the last 4-5 days with ambulation of a short distance. She reports she has had episodes of ACW pain, sharp, lasting a few minutes, mild in intensity with assoc increase in SOB. No other assoc symptoms. She reports progressive gen weakness. No c/o palpitations, syncope, near syncope or LE swelling. No c/o n/v/d. No c/o fever or chills. No c/o cough. Review of Systems-Cardiology Review of Systems Constitutional: No chills, No fever; tiredness Eyes: No blindness; vision change Ears/Nose/Throat: No epistaxis, No nasal drainage, No recent hearing loss Respiratory: As described under HPI Cardiovascular: As described under HPI Gastrointestinal: No constipation, No diarrhea, No nausea, No vomiting Genitourinary: No dysuria, No hematuria Musculoskeletal: back pain (chronic) Skin: No rash on exposed areas, No ulcerations on exposed areas Psychiatric/Neurological: No anxiety, No depression, No seizure, No focal weakness, No syncope Hematologic: No bleeding abnormalities All Other Systems Reviewed Negative Unless Noted: Yes (Negative excepted noted.) DEJ-Dkxizp-Kddavh Hx Patient Social History Number of Children: 2 Alcohol Use: Denies Use Recreational Drug Use: No Smoking Status: Never a Smoker 2nd Hand Smoke Exposure: No Recent Foreign Travel: No Recent Infectious Disease Expo: No Immunizations Up To Date Date of Pneumonia Vaccine: Apr 08, 2011 Date of Influenza Vaccine: Mar 11, 2018 Past Medical History PMH As described under Assessment. Family Medical History Family Medical History: She reports her mother passed from an DC at age 66. She reports a brother with "heart trouble". Allergies and Home Medications Allergies Coded Allergies: Iodinated Contrast Media (Unverified Allergy, Unknown, HIVES, 04/09/19) codeine (Unverified Allergy, Unknown, NERVOUSNESS, 04/09/19) latex (Unverified Allergy, Unknown, ITCHING, RASH, 04/09/19) Home Medications Acetaminophen 500 Mg Tablet, 1,000 MG PO Q6H PRN for PAIN-MILD, (Reported) Albuterol Sulfate 2.5 Mg/3 Ml Vial.neb, 2.5 MG NEB Q6H PRN for SHORTNESS OF BREATH, (Reported) Albuterol Sulfate 1 Puff Puff, 2 PUFF INH Q6H PRN for SHORTNESS OF BREATH, (Reported) 1 PUFF = 90 MCG Amlodipine Besylate 5 Mg Tablet, 5 MG PO DAILY, (Reported) Atorvastatin Calcium 80 Mg Tablet, 80 MG PO HS, (Reported) Brimonidine Tartrate/Timolol 5 Ml Drops, 1 DROP OU BID, (Reported) Bupropion HCl 150 Mg Tablet.er, 300 MG PO DAILY, (Reported) TAKES 2 (150MG) TABLETS Calcium Carbonate/Vitamin D3 1 Each Tablet, 2 TAB PO DAILY, (Reported) Celecoxib 200 Mg Capsule, 200 MG PO BID, (Reported) Cholecalciferol (Vitamin D3) 2,000 Unit Capsule, 2,000 UNIT PO 1000, (Reported) Clopidogrel Bisulfate 75 Mg Tablet, 75 MG PO DAILY, (Reported) Dextromethorphan HBr 15 Mg/5 Ml Liquid, 10 ML PO Q4H PRN for COUGH, (Reported) Diazepam 5 Mg Tablet, 5 MG PO Q12H PRN for ANXIETY, (Reported) Docusate Sodium 100 Mg Capsule, 100 MG PO DAILY, (Reported) Donepezil HCl 10 Mg Tablet, 10 MG PO HS, (Reported) Fluticasone Propionate 16 Gm [place].susp, 1 SPRAY NS DAILY PRN for ALLERGIES, (Reported) Fluticasone/Salmeterol 1 Each Blst.w.dev, 1 PUFF INH BID, (Reported) Hydralazine HCl 25 Mg Tablet, 25 MG PO QID, (Reported) Hydrochlorothiazide 25 Mg Tablet, 25 MG PO DAILY, (Reported) Insulin Glargine,Hum.rec.anlog 100 Unit/1 Ml Insuln.pen, 4 UNIT SQ HS, (Reported) Insuln Asp Prt/Insulin Aspart 300 Units/3 Ml Solution, SC TIDAC, (Reported) 120 OR LESS = 0 UNITS 121-140 = 6 UNITS 141-160 = 8 UNITS 161-200 = 12 UNITS 201-250 = 14 UNITS OVER 250 = 18 UNITS Levothyroxine Sodium 112 Mcg Tablet, 112 MCG PO 0600, (Reported) Loratadine 10 Mg Tablet, 10 MG PO DAILY PRN for ALLERGIES, (Reported) Losartan Potassium 100 Mg Tablet, 100 MG PO DAILY, (Reported) Magnesium Oxide 400 Mg Tablet, 400 MG PO BID, (Reported) Memantine HCl 10 Mg Tablet, 10 MG PO DAILY, (Reported) Metformin HCl 1,000 Mg Tablet, 1,000 MG PO BID WITH MEALS, (Reported) Metoprolol Succinate 100 Mg Tab.er.24h, 100 MG PO DAILY, (Reported) Mirtazapine 15 Mg Tablet, 22.5 MG PO HS, (Reported) TAKES 1 & 1/2 (15MG) TABLET Multivitamin 1 Each Tablet, 1 TAB PO DAILY, (Reported) Omeprazole 40 Mg Capsule.dr, 40 MG PO DAILY, (Reported) Peg 400/Hypromellose/Glycerin 15 Ml Drops, 1 DROP OU UD PRN for DRY EYES, (Reported) Polyethylene Glycol 3350 17 Gm Powd.pack, 17 GM PO DAILY, (Reported) Patient Home Medication List Home Medication List Reviewed: Yes Physical Exam-Cardiology Physical Exam Vital Signs/I&O 04/11/19 04/11/19 04/11/19 04/11/19 00:00 01:00 04:20 07:00 Temp 37.0 36.9 Pulse 59 47 47 72 Resp 19 20 B/P (MAP) 169/63 (98) 191/61 (104) Pulse Ox 97 95 O2 Delivery Room Air Room Air 04/11/19 04/11/19 08:00 08:38 Temp 37.0 Pulse 70 Resp 24 B/P (MAP) 197/75 (115) Pulse Ox 95 O2 Delivery Room Air Room Air 04/11/19 00:00 Intake Total 2150 ml Output Total 1750 ml Balance 400 ml Capillary Refill : Less Than 3 SecondsLess Than 3 Seconds Constitutional: AAO x 3, well-developed, well-nourished HEENT: PERRL, hearing is well preserved, oral hygience is good Neck: No carotid bruit; carotid pulses are 2 + bilaterally Respiratory: No accessory muscle use, No respiratory distress; chest expansion is symmetric, chest is bilaterally symmetric, lungs clear to auscultation Cardiovascular: regular rate-rhythm; No JVD; S1 and S2, systolic murmur Gastrointestinal: No tender; soft, round, audible bowel sounds Rectal: deferred Extremities: no lower extremity edema bilateral Neurologic/Psychiatric: grossly intact Skin: No rash on exposed areas, No ulcerations on exposed areas Data Review Labs Laboratory Tests 04/10/19 12:10: Troponin I < 0.028 04/10/19 20:47: Glucometer 309H 04/11/19 05:20: White Blood Count 4.1L, Red Blood Count 3.64L, Hemoglobin 9.7L, Hematocrit 31L, Mean Corpuscular Volume 84, Mean Corpuscular Hemoglobin 27, Mean Corpuscular Hemoglobin Concent 32, Red Cell Distribution Width 14.1, Platelet Count 206, Mean Platelet Volume 10.2, Sodium Level 141, Potassium Level 3.8, Chloride Level 109H, Carbon Dioxide Level 24, Anion Gap 8, Blood Urea Nitrogen 23H, Creatinine 2.06H, Estimat Glomerular Filtration Rate 23, BUN/Creatinine Ratio 11, Glucose Level 112H, Calcium Level 8.7, Corrected Calcium 9.6, Magnesium Level 2.0, Total Bilirubin 0.4, Aspartate Amino Transf (AST/SGOT) 19, Alanine Aminotransferase (ALT/SGPT) 18, Alkaline Phosphatase 55, Total Protein 5.2L, Albumin 2.9L, Triglycerides Level 235H, Cholesterol Level 125, LDL Cholesterol Direct 44, VLDL Cholesterol 47H, HDL Cholesterol 34L, Thyroid Stimulating Hormone (TSH) 3.73 Radiology NAME: BECCA ARCE [facility] REC#: [id number] PT STATUS: REG ER : 1940 PHYSICIAN: EDY HOOK MD ADMIT DATE: 04/09/19/ER FS Signed Date of Exam: 04/09/19 CHEST PA/LAT (2 VIEW) EXAMINATION: PA and lateral chest at 03:34 p.m. INDICATION: Shortness of breath. FINDINGS: The heart size is within normal limits and stable when compared to 02/29/2012. The sternotomy wires and surgical clips noted previously are again evident and no different. The lungs are clear. There is no sign of failure, pneumonia, or pleural effusion. The mediastinum is not widened. The osseous structures are intact. The distal left clavicle does seem elevated with respect to the acromion. This finding was not present on the prior exam and may be related to acromioclavicular separation which has occurred in the interval since the previous study. Clinical follow-up is recommended. IMPRESSION: 1. There is evidence of prior cardiac surgery, but there is no sign of an acute cardiopulmonary abnormality. 2. There appears to have been an interval acromioclavicular separation on the left. Clinical follow-up is recommended. Dictated by: Dictated on workstation # [id number] Dict: 04/09/19 1605 Trans: 04/09/19 1654 Interpreted by: JASWANT NELSON MD Electronically signed by: JASWANT NELSON MD 04/09/19 1655 ECG Impression ECG Initial ECG Rhythm: Normal Sinus A/P-Cardiology Assessment/Admission Diagnosis Chest pain of undetermined etiology Progressive HALL Elevated BNP with no clinical evidence of CHF, likely r/t CKD H/O CAD - reports 3 vessel CABG in 2002 at [facility] Reports h/o renal disease - details unknown (records from [facility] Facility showd CKD 3) Reports h/o bilat carotid dz - details unknown HTN - uncontrolled Reports h/o TIA's DM II HLD - statin tx Chronic back pain d/t spinal stenosis Macular degeneration Family h/o CAD - mother passed from [place] age 66 Discussion and Recomendations Chest pain of undetermined etiology - no evidence of ACS thus far Acute on chronic renal insufficiency - hold diuretics Elevated BNP without clinical evidence of CHF - likely d/t acute on CKD Uncontrolled hypertension - adjust anti-hypertensive regimen Echocardiogram to eval structure and function Request records Monitor lab closely Not a suitable candidate for JADEN or ARB d/t CKD Monitor lab Further recs will be based on her hospital course We would like to thank medical services for this consult Clinical Quality Measures DVT/VTE Risk/Contraindication: Risk Factor Score Per Nursin RFS Level Per Nursing on Admit: 2=Moderate BRYAN CHARLES Apr 10, 2019 14:03
[2019-04-10] MEDS: ENOXAPARIN 30 MG/0.3 ML (LOVENOX) SYR SC SCH (15:17)
--- NOTE | 2019-04-10 15:23 | NUR ---
PATIENT REPORTED THAT SHE DID NOT WANT TO GET THE FLU VACCINE HERE. SHE WILL GET IT AT THE [facility].
[2019-04-10 16:00] VITALS: BP 156/84
--- NOTE | 2019-04-10 17:16 | Consultation-Cardiology ---
HPI-Cardiology Cardiology Consultation: Date of Consultation 04/10/19 Time Seen by a Provider: 15:00 Date of Admission Attending Physician Viki Rivera MD Admitting Physician Yaron Malik MD Consulting Physician DACIA YEUNG MD, MA, FACP, FACC, [facility], CCDS Physician requesting consult: Dr Rivera HPI: Chief Complaint: CC: Chest pain, exertional shortness of breath HPI Ms. Ross is a 78 year old female admitted to [facility] from [facility] ED. She currently resides at [facility] in [place], [place]. She states she went to her PCP office yesterday for "allergy shots" and report SOB to the nurse, at which time she was directed to the ED in [facility]. She reports she has had progressive HALL for the last 4-5 days with ambulation of a short distance. She reports she has had episodes of ACW pain, sharp, lasting a few minutes, mild in intensity with assoc increase in SOB, no radiation, sharp or dull, w/o agg ravating or relieving factors symptoms. She reports progressive gen weakness. No c/o palpitations, syncope, near syncope or LE swelling. No c/o n/v/d. No c/o fever or chills. No c/o cough. Review of Systems-Cardiology Review of Systems Constitutional: No chills, No fever; tiredness Eyes: No blindness; vision change Ears/Nose/Throat: No epistaxis, No nasal drainage, No recent hearing loss Respiratory: As described under HPI Cardiovascular: As described under HPI Gastrointestinal: No constipation, No diarrhea, No nausea, No vomiting Genitourinary: No dysuria, No hematuria Musculoskeletal: back pain (chronic) Skin: No rash on exposed areas, No ulcerations on exposed areas Psychiatric/Neurological: No anxiety, No depression, No seizure, No focal weakness, No syncope Hematologic: No bleeding abnormalities All Other Systems Reviewed Negative Unless Noted: Yes (Negative excepted noted.) DDJ-Oimwcc-Lmcvpj Hx Patient Social History Number of Children: 2 Alcohol Use: Denies Use Recreational Drug Use: No Smoking Status: Never a Smoker 2nd Hand Smoke Exposure: No Recent Foreign Travel: No Recent Infectious Disease Expo: No Immunizations Up To Date Date of Pneumonia Vaccine: Apr 08, 2011 Date of Influenza Vaccine: Mar 11, 2018 Past Medical History PMH As described under Assessment. Family Medical History Family Medical History: She reports her mother passed from an MD at age 66. She reports a brother with "heart trouble". Allergies and Home Medications Allergies Coded Allergies: Iodinated Contrast Media (Unverified Allergy, Unknown, HIVES, 04/09/19) codeine (Unverified Allergy, Unknown, NERVOUSNESS, 04/09/19) latex (Unverified Allergy, Unknown, ITCHING, RASH, 04/09/19) Home Medications Acetaminophen 500 Mg Tablet, 1,000 MG PO Q6H PRN for PAIN-MILD, (Reported) Albuterol Sulfate 2.5 Mg/3 Ml Vial.neb, 2.5 MG NEB Q6H PRN for SHORTNESS OF BREATH, (Reported) Albuterol Sulfate 1 Puff Puff, 2 PUFF INH Q6H PRN for SHORTNESS OF BREATH, (Reported) 1 PUFF = 90 MCG Amlodipine Besylate 5 Mg Tablet, 5 MG PO DAILY, (Reported) Atorvastatin Calcium 80 Mg Tablet, 80 MG PO HS, (Reported) Brimonidine Tartrate/Timolol 5 Ml Drops, 1 DROP OU BID, (Reported) Bupropion HCl 150 Mg Tablet.er, 300 MG PO DAILY, (Reported) TAKES 2 (150MG) TABLETS Calcium Carbonate/Vitamin D3 1 Each Tablet, 2 TAB PO DAILY, (Reported) Celecoxib 200 Mg Capsule, 200 MG PO BID, (Reported) Cholecalciferol (Vitamin D3) 2,000 Unit Capsule, 2,000 UNIT PO 1000, (Reported) Clopidogrel Bisulfate 75 Mg Tablet, 75 MG PO DAILY, (Reported) Dextromethorphan HBr 15 Mg/5 Ml Liquid, 10 ML PO Q4H PRN for COUGH, (Reported) Diazepam 5 Mg Tablet, 5 MG PO Q12H PRN for ANXIETY, (Reported) Docusate Sodium 100 Mg Capsule, 100 MG PO DAILY, (Reported) Donepezil HCl 10 Mg Tablet, 10 MG PO HS, (Reported) Fluticasone Propionate 16 Gm [place].susp, 1 SPRAY NS DAILY PRN for ALLERGIES, (Reported) Fluticasone/Salmeterol 1 Each Blst.w.dev, 1 PUFF INH BID, (Reported) Hydralazine HCl 25 Mg Tablet, 25 MG PO QID, (Reported) Hydrochlorothiazide 25 Mg Tablet, 25 MG PO DAILY, (Reported) Insulin Glargine,Hum.rec.anlog 100 Unit/1 Ml Insuln.pen, 4 UNIT SQ HS, (Reported) Insuln Asp Prt/Insulin Aspart 300 Units/3 Ml Solution, SC TIDAC, (Reported) 120 OR LESS = 0 UNITS 121-140 = 6 UNITS 141-160 = 8 UNITS 161-200 = 12 UNITS 201-250 = 14 UNITS OVER 250 = 18 UNITS Levothyroxine Sodium 112 Mcg Tablet, 112 MCG PO 0600, (Reported) Loratadine 10 Mg Tablet, 10 MG PO DAILY PRN for ALLERGIES, (Reported) Losartan Potassium 100 Mg Tablet, 100 MG PO DAILY, (Reported) Magnesium Oxide 400 Mg Tablet, 400 MG PO BID, (Reported) Memantine HCl 10 Mg Tablet, 10 MG PO DAILY, (Reported) Metformin HCl 1,000 Mg Tablet, 1,000 MG PO BID WITH MEALS, (Reported) Metoprolol Succinate 100 Mg Tab.er.24h, 100 MG PO DAILY, (Reported) Mirtazapine 15 Mg Tablet, 22.5 MG PO HS, (Reported) TAKES 1 & 1/2 (15MG) TABLET Multivitamin 1 Each Tablet, 1 TAB PO DAILY, (Reported) Omeprazole 40 Mg Capsule.dr, 40 MG PO DAILY, (Reported) Peg 400/Hypromellose/Glycerin 15 Ml Drops, 1 DROP OU UD PRN for DRY EYES, (Reported) Polyethylene Glycol 3350 17 Gm Powd.pack, 17 GM PO DAILY, (Reported) Patient Home Medication List Home Medication List Reviewed: Yes Physical Exam-Cardiology Physical Exam Vital Signs/I&O 04/10/19 04/10/19 04/10/19 04/10/19 07:00 08:00 08:14 11:31 Temp 36.9 37.1 Pulse 64 66 57 Resp 20 18 B/P (MAP) 238/78 (131) 242/72 (128) Pulse Ox 95 94 O2 Delivery Room Air Room Air Room Air 04/10/19 04/10/19 12:15 16:00 Temp 37.6 Pulse 54 52 Resp 16 B/P (MAP) 156/84 (108) Pulse Ox 95 O2 Delivery Room Air 04/10/19 00:00 Intake Total 500 ml Balance 500 ml Capillary Refill : Less Than 3 SecondsLess Than 3 Seconds Constitutional: AAO x 3, well-developed, well-nourished HEENT: PERRL, hearing is well preserved, oral hygience is good Neck: No carotid bruit; carotid pulses are 2 + bilaterally Respiratory: No accessory muscle use, No respiratory distress; chest expansion is symmetric, chest is bilaterally symmetric, lungs clear to auscultation Cardiovascular: regular rate-rhythm; No JVD; S1 and S2, systolic murmur Gastrointestinal: No tender; soft, round, audible bowel sounds Rectal: deferred Extremities: no lower extremity edema bilateral Neurologic/Psychiatric: grossly intact Skin: No rash on exposed areas, No ulcerations on exposed areas Data Review Labs Laboratory Tests 04/10/19 00:25: Troponin I < 0.028 04/10/19 06:10: Troponin I < 0.028, White Blood Count 4.6, Red Blood Count 3.77L, Hemoglobin 10.1L, Hematocrit 32L, Mean Corpuscular Volume 84, Mean Corpuscular Hemoglobin 27, Mean Corpuscular Hemoglobin Concent 32, Red Cell Distribution Width 14.0, Platelet Count 214, Mean Platelet Volume 10.1, Neutrophils (%) (Auto) 58, Lymphocytes (%) (Auto) 26, Monocytes (%) (Auto) 12, Eosinophils (%) (Auto) 3, Basophils (%) (Auto) 0, Neutrophils # (Auto) 2.7, Lymphocytes # (Auto) 1.2, Monocytes # (Auto) 0.6, Eosinophils # (Auto) 0.1, Basophils # (Auto) 0.0, Sodium Level 141, Potassium Level 4.2, Chloride Level 109H, Carbon Dioxide Level 23, Anion Gap 9, Blood Urea Nitrogen 25H, Creatinine 2.18H, Estimat Glomerular Filtration Rate 22, BUN/Creatinine Ratio 11, Glucose Level 125H, Calcium Level 8.8, Corrected Calcium 9.4, Total Bilirubin 0.4, Aspartate Amino Transf (AST/SGOT) 17, Alanine Aminotransferase (ALT/SGPT) 15, Alkaline Phosphatase 66, Total Protein 5.6L, Albumin 3.2 04/10/19 12:10: Troponin I < 0.028 Laboratory Tests 04/09/19 15:13 04/10/19 06:10 A/P-Cardiology Assessment/Admission Diagnosis Chest pain of undetermined etiology; no evidence of ACS Uncontrolled hypertension Shortness of breath of undetermined etiology. Elevated BNP w/o any distinct evidence of CHF, likely r/t CKD H/O CAD - reports 3 vessel CABG in 2002 at [facility] Renal insufficiency, likely diabetic nephropathy (records from [facility] Facility reports CKD 3) managed by Dr Rivera Reports h/o bilat carotid dz - details unknown Reports h/o TIA's DM II HLD - statin tx Chronic back pain d/t spinal stenosis Macular degeneration Family h/o CAD - mother passed from [place] age 66 Discussion and Recomendations Add doxazosin Increase hydralzine Not a suitable candidate for JADEN or ARB d/t CKD Monitor labs Echo done and reported above I discussed her case with Dr Rivera on the phone this am Further recs will be based on her hospital course We would like to thank Medical Services for this consult Clinical Quality Measures DVT/VTE Risk/Contraindication: Risk Factor Score Per Nursin RFS Level Per Nursing on Admit: 2=Moderate DACIA YEUNG MD FACP FAC CCDS Apr 10, 2019 17:16
[2019-04-10 19:47] VITALS: BP 228/74
[2019-04-10] MEDS ORDERED: doxAzosin 4 MG (CARDURA) TAB PO SCH (21:00)
[2019-04-10] MEDS: DONEPEZIL 10 MG (ARICEPT) TAB PO SCH (21:01)
[2019-04-10] MEDS: MAGNESIUM OXIDE (MAG-OX)400 MG TAB PO SCH (21:01)
[2019-04-10] MEDS: MIRTAZAPINE 15 MG (REMERON) TAB PO SCH (21:02)
[2019-04-10] MEDS: TIMOLOL MALEATE 0.5% 5 ML (TIMOPTIC) BTL OU SCH (21:04)
[2019-04-10] MEDS: RT-ADVAIR HFA 45/21 MCG PER PUFF IH SCH (23:24)
[2019-04-11] VITALS: BP 169/63
[2019-04-11] MEDS: NS IV 1000 ML 1,000 ML IV SCH ×2 (02:30→05:08)
[2019-04-11 04:20] VITALS: BP 191/61
[2019-04-11] MEDS: hydrALAZINE (APRESOLINE) 25 MG TAB PO SCH ×3 (05:08→21:00)
[2019-04-11] MEDS: LEVOTHYROXINE 112 MCG (LEVOTHROID) TAB PO SCH (05:08)
[2019-04-11 06:05] LABS: HEMOGLOBIN 9.7 G/DL (11.5-16.0); MEAN PLATELET VOLUME 10.2 FL (7.4-10.4); RED CELL DISTRIBUTION WIDTH 14.1 % (10.0-14.5); WHITE BLOOD COUNT 4.1 10^3/uL (4.3-11.0)
[2019-04-11 06:25] LABS: ALBUMIN 2.9 GM/DL (3.2-4.5); BILIRUBIN,TOTAL 0.4 MG/DL (0.1-1.0); CALCIUM 8.7 MG/DL (8.5-10.1); CREATININE SERUM 2.06 MG/DL (0.60-1.30); POTASSIUM 3.8 MMOL/L (3.6-5.0); TOTAL PROTEIN 5.2 GM/DL (6.4-8.2)
[2019-04-11 08:00] VITALS: BP 197/75
[2019-04-11] MEDS: RT-ADVAIR HFA 45/21 MCG PER PUFF IH SCH ×2 (08:37→20:06)
[2019-04-11] MEDS ORDERED: NON-FORMULARY MEDICATION 1 EA EA (Amlodipine Besylate 5 MG) PO SCH (09:00)
[2019-04-11] MEDS ORDERED: meTOprolol SUCCINATE 100 MG (TOPROL XL) TAB PO SCH (09:00)
[2019-04-11] MEDS ORDERED: NON-FORMULARY MEDICATION 1 EA EA (Hydrochlorothiazide 25 MG) PO SCH (09:00)
[2019-04-11] MEDS: POLYETHYLENE GLYCOL 17 GM (MIRALAX) PACK PO SCH (09:45)
--- NOTE | 2019-04-11 09:45 | NUR ---
AM MEDICATIONS: 100MG METOPROLOL AND 5MG NORVASC GIVEN FOR BP 197/75.
[2019-04-11] MEDS: MEMANTINE 10 MG (NAMENDA) TABLET PO SCH (09:47)
[2019-04-11] MEDS: amLODIPine 5 MG (NORVASC) TAB PO SCH (09:47)
[2019-04-11] MEDS: meTOprolol SUCCINATE 100 MG (TOPROL XL) TAB PO SCH (09:47)
[2019-04-11] MEDS: PANTOPRAZOLE 40 MG (PROTONIX) TAB PO SCH (09:47)
[2019-04-11] MEDS: MAGNESIUM OXIDE (MAG-OX)400 MG TAB PO SCH ×2 (09:48→21:01)
[2019-04-11] MEDS: VITAMIN D3 1,000 UNITS (CHOLECALCIFEROL) TABLET PO SCH (09:48)
[2019-04-11] MEDS: CALCIUM CARB + VIT D 600 MG (CALCARB + D) TAB PO SCH (09:48)
[2019-04-11] MEDS: CLOPIDOGREL 75 MG (PLAVIX) TABLET PO SCH (09:48)
[2019-04-11] MEDS: MULTIVIT W/MINERALS TAB (THERAGRAN M) PO SCH (09:48)
[2019-04-11] MEDS: buPROPion SR 150 MG (WELLBUTRIN SR) TAB PO SCH (09:48)
[2019-04-11] MEDS: BRIMONIDINE 0.2% (ALPHAGAN) OPHTH SOLN 5 ML BTL OU SCH ×3 (09:53→21:03)
[2019-04-11] MEDS: TIMOLOL MALEATE 0.5% 5 ML (TIMOPTIC) BTL OU SCH ×2 (09:54→21:03)
--- NOTE | 2019-04-11 10:04 | Progress Note - Cardiology ---
Cardiology SOAP Progress Note Subjective: Sitting up in bed. Denies any c/o CP or SOB this morning. No c/o palpitations. Objective: I&O/Vital Signs 04/11/19 04/11/19 04/11/19 04/11/19 04:20 07:00 08:00 08:38 Temp 36.9 37.0 Pulse 47 72 70 Resp 20 24 B/P (MAP) 191/61 (104) 197/75 (115) Pulse Ox 95 95 O2 Delivery Room Air Room Air Room Air 04/11/19 04/11/19 08:45 13:00 Pulse 62 Pulse Ox 95 O2 Delivery Room Air 04/11/19 00:00 Intake Total 2150 ml Output Total 1750 ml Balance 400 ml Weight (Pounds): 165 Weight (Ounces): 0.0 Weight (Calculated Kilograms): [phone] Constitutional: AAO x 3, well-developed, well-nourished Respiratory: No accessory muscle use, No respiratory distress; chest expansion is symmetric, chest is bilaterally symmetric, lungs clear to auscultation Cardiovascular: regular rate-rhythm; No JVD; S1 and S2, systolic murmur Gastrointestional: No tender; soft, round, audible bowel sounds Extremities: no lower extremity edema bilateral Neurologic/Psychiatric: grossly intact Skin: No rash on exposed areas, No ulcerations on exposed areas Results/Procedures: Labs Laboratory Tests 04/10/19 20:47: Glucometer 309H 04/11/19 05:20: White Blood Count 4.1L, Red Blood Count 3.64L, Hemoglobin 9.7L, Hematocrit 31L, Mean Corpuscular Volume 84, Mean Corpuscular Hemoglobin 27, Mean Corpuscular Hemoglobin Concent 32, Red Cell Distribution Width 14.1, Platelet Count 206, Mean Platelet Volume 10.2, Sodium Level 141, Potassium Level 3.8, Chloride Level 109H, Carbon Dioxide Level 24, Anion Gap 8, Blood Urea Nitrogen 23H, Creatinine 2.06H, Estimat Glomerular Filtration Rate 23, BUN/Creatinine Ratio 11, Glucose Level 112H, Calcium Level 8.7, Corrected Calcium 9.6, Magnesium Level 2.0, Total Bilirubin 0.4, Aspartate Amino Transf (AST/SGOT) 19, Alanine Aminotransferase (ALT/SGPT) 18, Alkaline Phosphatase 55, Total Protein 5.2L, Albumin 2.9L, Triglycerides Level 235H, Cholesterol Level 125, LDL Cholesterol Direct 44, VLDL Cholesterol 47H, HDL Cholesterol 34L, Thyroid Stimulating Hormone (TSH) 3.73 A/P: Assessment: Chest pain of undetermined etiology; no evidence of ACS Uncontrolled hypertension Shortness of breath of undetermined etiology. Elevated BNP w/o any distinct evidence of CHF, likely r/t CKD Echo of 04/10/19: LVEF 55-65%, mild MR, RVSP 25 mmHg H/O CAD - reports 3 vessel CABG in 2002 at [facility] Renal insufficiency, likely diabetic nephropathy (records from [facility] Facility reports CKD 3) managed by Dr Rivera Reports h/o bilat carotid dz - details unknown Reports h/o TIA's DM II HLD - statin tx Chronic back pain d/t spinal stenosis Macular degeneration Family h/o CAD - mother passed from [place] age 66 Plan: BP improved, but not ideal - adjust anti-hypertensive regimen Not a suitable candidate for JADEN or ARB d/t CKD Monitor labs Renal function improving Physician Assessment Physician Assessment Shortness of breath improved No cp or palp or syncope Lungs: fair bilat air entry Cor: reg Ext: no significant edema A&R * As documented in our note above that I updated (italics) and as noted below * BP still not well controlled * Adjust meds as needed and as tolerated * Monitor labs BRYAN CHARLES [employer] Apr 11, 2019 10:04 DACIA YEUNG MD [facility] CCDS Apr 11, 2019 14:21
[2019-04-11 12:00] VITALS: BP 198/58
--- NOTE | 2019-04-11 12:02 | NUR ---
RD ASSESSMENT PMHx: DM, HTN, Hypercholesterolemia PT INTERACTION: Pt was awake and pleasant during nutrition assessment. Pt states current appetite is good and that she is "not generally a big eater." Pt states no current problems with chewing/swallowing. Pt states no current issues with n/v at this time. Pt states some episodes of constipation and has not had a BM since 04/08. Pt states no recent weight changes. Note unable to determine recent wt hx, per chart review. Pt states current management of DM is good. Note current glu of 112, as of this AM. ABNORMAL NUTRITION-RELATED LAB VALUES: Cl 109 (H); BUN 23 (H); cr 2.06 (H); glu 112 (H); TG 235 (H); Pro 5.2 (L); alb 2.9 (L); Hgb 9.7 (L); Hct 31 (L); Est. kcal needs: 6225-5844 kcal (25-30 kcal/kg) Est. Pro needs: 60-72 g Pro (1.0-1.2 g Pro/kg) PES STATEMENT: Altered GI function related to changes in gastric motility as evidenced by constipation | No BM since 04/08 INTERVENTION: Continue with current diet order of CHO 75g/m 3snack. Pt may require bowel regimen if constipation persists. MONITOR/EVALUATE: PO Intake Stool Output Weight Status Hydration Status Lab Values Rajesh Virk, MS, RD [phone]
[2019-04-11] MEDS ORDERED: amLODIPine 5 MG (NORVASC) TAB PO NR (12:20)
--- NOTE | 2019-04-11 12:30 | NUR ---
DR ZAMARRIPA AWARE OF ELEVATED BP. WILL GIVE SECOND DOSE OF 5MG PO NORVASC ORDERED.
--- NOTE | 2019-04-11 14:15 | NUR ---
CM/SS, initial interview. Patient resides at [facility] in [place] and will return there when released. She has been there since July 2018. Patient's daughter, Gi Dyer, will transport her when she is discharged. Patient uses FWW when ambulating. She converses well, activities as independent as able. No needs indicated. Patient said physician told her once her blood pressure is better controlled she could return home.
--- NOTE | 2019-04-11 14:56 | Progress Note ---
KJ ADAM, 04/11/19 1456: Subjective Subjective/Events-last exam Pt denies chest pain and shortness of breath. Has not been ambulating around halls but is walking to the bathroom. Takes her a bit to get going once she's up but she can ambulate there. C/o sore R arm. Feels fine. Denies other complaints. On exam, pt is having uncontrolled BP despite adjusting medications. Objective Exam Last Set of Vital Signs Vital Signs Date Time Temp Pulse Resp B/P (MAP) Pulse Ox O2 Delivery O2 Flow Rate FiO2 04/11/19 13:00 62 04/11/19 12:00 37.0 16 198/58 (104) 93 Room Air Capillary Refill : Less Than 3 SecondsLess Than 3 Seconds I&O Intake and Output 04/11/19 00:00 Intake Total 2250 ml Output Total 2100 ml Balance 150 ml Intake Oral 1250 ml IV Total 1000 ml Output Urine Total 2100 ml General: Alert, Cooperative Lungs: Clear to Auscultation Heart: Regular Rate, No Murmurs Abdomen: Normal Bowel Sounds, No Tenderness Results/Procedures Lab Laboratory Tests 04/10/19 20:47: Glucometer 309H 04/11/19 05:20: White Blood Count 4.1L, Red Blood Count 3.64L, Hemoglobin 9.7L, Hematocrit 31L, Mean Corpuscular Volume 84, Mean Corpuscular Hemoglobin 27, Mean Corpuscular Hemoglobin Concent 32, Red Cell Distribution Width 14.1, Platelet Count 206, Mean Platelet Volume 10.2, Sodium Level 141, Potassium Level 3.8, Chloride Level 109H, Carbon Dioxide Level 24, Anion Gap 8, Blood Urea Nitrogen 23H, Creatinine 2.06H, Estimat Glomerular Filtration Rate 23, BUN/Creatinine Ratio 11, Glucose Level 112H, Calcium Level 8.7, Corrected Calcium 9.6, Magnesium Level 2.0, Total Bilirubin 0.4, Aspartate Amino Transf (AST/SGOT) 19, Alanine Aminotransferase (ALT/SGPT) 18, Alkaline Phosphatase 55, Total Protein 5.2L, Albumin 2.9L, Triglycerides Level 235H, Cholesterol Level 125, LDL Cholesterol Direct 44, VLDL Cholesterol 47H, HDL Cholesterol 34L, Thyroid Stimulating Hormone (TSH) 3.73 Radiology NAME: BECCA ARCE [facility] REC#: [id number] PT STATUS: REG ER : 1940 PHYSICIAN: EDY HOOK MD ADMIT DATE: 04/09/19/ER FS Signed Date of Exam: 04/09/19 CHEST PA/LAT (2 VIEW) EXAMINATION: PA and lateral chest at 03:34 p.m. INDICATION: Shortness of breath. FINDINGS: The heart size is within normal limits and stable when compared to 02/29/2012. The sternotomy wires and surgical clips noted previously are again evident and no different. The lungs are clear. There is no sign of failure, pneumonia, or pleural effusion. The mediastinum is not widened. The osseous structures are intact. The distal left clavicle does seem elevated with respect to the acromion. This finding was not present on the prior exam and may be related to acromioclavicular separation which has occurred in the interval since the previous study. Clinical follow-up is recommended. IMPRESSION: 1. There is evidence of prior cardiac surgery, but there is no sign of an acute cardiopulmonary abnormality. 2. There appears to have been an interval acromioclavicular separation on the left. Clinical follow-up is recommended. Dictated by: Dictated on workstation # [id number] Dict: 04/09/19 1605 Trans: 04/09/194 Interpreted by: JASWANT NELSON MD Electronically signed by: JASWANT NELSON MD 04/09/19 1654 Assessment/Plan Assessment/Plan Assessment & Plan Assessment: 1. Chronic kidney failure 2. Uncontrolled HTN 3. Elevated BNP Plan: 1. Continue fluids. Diuretics not indicated as pt has no swelling and negative CXR for fluid overload. 2. Keep inpatient to further monitor BP and response to medications. Cardiology has increased doxazosin dosage. 3. Likely d/t kidney failure (1) Shortness of breath Status: Resolved Assessment & Plan: Difficult to obtain history, but is on inhalers at home, will resume. CXR without pneumonia. (2) Acute renal insufficiency Status: Acute Assessment & Plan: Creatinine relatively near baseline after small amount of IVF last night. (3) Elevated brain natriuretic peptide (BNP) level Status: Resolved Assessment & Plan: Suspect related to renal disease, but will follow up C ardiology recommendations. (4) Other chest pain Status: Resolved Assessment & Plan: Troponin negative, BNP elevated. Cardiology consulted. (5) AC separation Assessment & Plan: Seen on CXR. Unknown chronicity, no current complaint. Qualifiers: (6) Dementia Status: Chronic Assessment & Plan: Resume home donepezil and memantine (7) Emphysema/COPD Status: Chronic (8) Chronic kidney disease Status: Chronic (9) Hypothyroidism Status: Chronic Assessment & Plan: Resume levothyroxine (10) B12 deficiency Status: Chronic (11) Iron deficiency anemia Status: Chronic (12) Coronary artery disease Status: Chronic (13) DVT prophylaxis Status: Acute Assessment & Plan: Enoxaparin Clinical Quality Measures DVT/VTE Risk/Contraindication: Risk Factor Score Per Nursin RFS Level Per Nursing on Admit: 2=Moderate VIKI ZAMARRIPA MD 04/12/192027: Supervisory-Addendum Brief Verification & Attestation Participated in pt care: history, MDM, physical Personally performed: exam, history, MDM Care discussed with: Medical Student Procedures: n/a Verification and Attestation of Medical Student E/M Service A medical student performed and documented this service in my presence. I reviewed and verified all information documented by the medical student and made modifications to such information, when appropriate. I personally performed the physical exam and medical decision making. Viki Zamarripa, Apr 12, 2019,20:28 KJ ADAM, Apr 11, 2019 14:56 VIKI ZAMARRIPA MD Apr 12, 2019 20:28
--- NOTE | 2019-04-11 15:53 | Physical Therapy Evaluation ---
PT Evaluation-General Medical Diagnosis Admission Date Apr 11, 2019 at 13:40 Medical Diagnosis: SOB Onset Date: Apr 10, 2019 Therapy Diagnosis Therapy Diagnosis: impaired mobility, strength, endurance Height/Weight Height (Feet): 5 Height (Inches): 8.00 Weight (Pounds): 165 Weight (Ounces): 0.0 Precautions Precautions/Isolations: Fall Prevention, Standard Precautions Weight Bear Status Right Lower Extremity: Right Weight Bearing/Tolerated Left Lower Extremity: Left Weight Bearing/Tolerated Referral Physician: Miguel Reason for Referral: Evaluation/Treatment Medical History Additional Medical History Past Medical History PMHx: 1. HTN 2. DM 3. Hypercholesterolemia 4. Diabetic retinopathy, R worse than L 5. Cervical spinal stenosis 6. Lumbar spinal stenosis PSHx: 1. Appendectomy 2. Cholecystectomy Social History Home: Snf Entry Into Home: Level Entry Prior Prior Level of Function Therapy Quality Codes: 6 Independent with activity with or without an assistive device 5 Patient requires set up or clean up by helper. Patient completes activity by themselves 4 Supervision or touching assist (CGA). Phillips provide cues , steadying assist 3 The helper provides less than half the effort to complete the activity 2 The helper provides more than half the effort to complete the activity 1 Dependent. The helper does all the effort to complete an activity 7 Patient refused to complete or attempt activity 9 The patient did not perform the activity before the current illness or injury 88 Not attempted due to Medical conditions or safety concerns Bed Mobility: 6 Transfers (B,C,W/C): 6 Gait: 6 Indoor Mobility (Ambulation): Independent Patient used a 4-wheeled walker previously. PT Evaluation-Current Subjective Patient in bed pre tx, agrees to PT, has no complaints of pain at rest. Pt/Family Goals to be independent at home Objective Patient Orientation: Person, Place, Situation ROM/Strength ROM Lower Extremities WNL Strength Lower Extremities 4/5 gross BLE Sensory Hearing: Functional Sensation Right Lower Extremit: Intact Sensation Left Lower Extremity: Intact Transfers Roll Left to Right (QC): 6 Sit to Lying (QC): 6 Lying to Sitting/Side of Bed(Q: 6 Sit to Stand (QC): 4 Chair/Doj-up-Bmqhk Xfer(QC): 4 SBA for sit to stand and transfers Gait Does the Patient Walk?: Yes Anticipated Mode of Locomotion: Walk Walk 10 feet (QC): 4 Walk 50 ft with 2 Turns(QC): 4 Walk 150 ft (QC): 4 Distance: 200' Gait Level of Assist: 5 Gait Persons Needed: 1 Gait Assistive Device: FWW Comments/Gait Description slow but steady ambulation Balance Sitting Static: Normal Sitting Dynamic: Normal Standing Static: Good Standing Dynamic: Good Treatment seated BLE exercises x15 (AP, LAQ), patient on toilet post tx, instructed to use nurse call when done Assessment/Needs Patient has impaired mobility, strength, endurance. Steady ambulation, no dizziness or LOB. Rehab Potential: Fair PT Short Term Goals Short Term Goals Time Frame: Apr 18, 2019 Gait Distance Comment: 300' Gait Assistive Device: FWW (SBA) Additional Short Term Goals bed mobility and transfers mod I PT Plan Problem List Problem List: Activity Tolerance, Functional Strength, Safety, Balance, Gait, Transfer Treatment/Plan Treatment Plan: Continue Plan of Care Treatment Plan: Bed Mobility, Education, Functional Activity Jenny, Functional Strength, Gait, Safety, Therapeutic Exercise, Transfers Treatment Duration: Apr 18, 2019 Frequency: 6 times per week Estimated Hrs Per Day: .25 hour per day Patient and/or Family Agrees t: Yes Safety Risks/Education Patient Education: Gait Training, Transfer Techniques, Correct Positioning, Safety Issues Teaching Recipient: Patient Teaching Methods: Demonstration, Discussion Response to Teaching: Reinforcement Needed Discharge Recommendations Plan Patient will perform bed mobility and transfer training, balance and endurance training, functional strengthening, gait training, and education, to improve functional mobility and independence at home. Therapy Discharge Recommendati: Other, See Comments (back to NH) Time/GCodes Time In: 1325 Time Out: 1344 Total Billed Treatment Time: 19 Total Billed Treatment 1 visit EVM 19' MAURO WRIGHT PT Apr 11, 2019 15:53
[2019-04-11] MEDS: ENOXAPARIN 30 MG/0.3 ML (LOVENOX) SYR SC SCH (16:24)
[2019-04-11 16:30] VITALS: BP 172/59
[2019-04-11 20:53] VITALS: BP 170/52
[2019-04-11] MEDS ORDERED: doxAzosin 4 MG (CARDURA) TAB PO SCH (21:00)
[2019-04-11] MEDS: DONEPEZIL 10 MG (ARICEPT) TAB PO SCH (21:00)
[2019-04-11] MEDS: MIRTAZAPINE 15 MG (REMERON) TAB PO SCH (21:01)
[2019-04-12 00:15] VITALS: BP 184/87
[2019-04-12 04:00] VITALS: BP 187/89
[2019-04-12] MEDS: hydrALAZINE (APRESOLINE) 25 MG TAB PO SCH ×2 (05:20→14:20)
[2019-04-12] MEDS: LEVOTHYROXINE 112 MCG (LEVOTHROID) TAB PO SCH (05:20)
[2019-04-12 06:53] LABS: BASOPHILS % (AUTO) 1 % (0-10); EOSINOPHILS # (AUTO) 0.2 10^3/uL (0.0-0.3); EOSINOPHILS % (AUTO) 5 % (0-10); HEMATOCRIT 30 % (35-52); HEMOGLOBIN 9.6 G/DL (11.5-16.0); LYMPHOCYTES % (AUTO) 30 % (12-44); MEAN CORPUSCULAR HEMOGLOBIN 27 PG (25-34); MEAN CORPUSCULAR HGB CONC 32 G/DL (32-36); MEAN CORPUSCULAR VOLUME 85 FL (80-99); MEAN PLATELET VOLUME 10.7 FL (7.4-10.4); MONOCYTES # (AUTO) 0.5 X 10^3 (0.0-1.0); MONOCYTES % (AUTO) 16 % (0-12); NEUTROPHILS # (AUTO) 1.6 X 10^3 (1.8-7.8); NEUTROPHILS % (AUTO) 48 % (42-75); PLATELET COUNT 190 10^3/uL (130-400); RED CELL DISTRIBUTION WIDTH 13.9 % (10.0-14.5); WHITE BLOOD COUNT 3.4 10^3/uL (4.3-11.0)
[2019-04-12 07:14] LABS: CALCIUM 8.6 MG/DL (8.5-10.1); CREATININE SERUM 2.14 MG/DL (0.60-1.30); POTASSIUM 3.8 MMOL/L (3.6-5.0)
[2019-04-12] MEDS: RT-ADVAIR HFA 45/21 MCG PER PUFF IH SCH (08:05)
[2019-04-12 08:49] VITALS: BP 136/80
--- NOTE | 2019-04-12 08:49 | Progress Note - Cardiology ---
Cardiology SOAP Progress Note Subjective: Sitting up in bed eating morning meal. States she feels well and would like to go home. No c/o CP, palpitations, dyspnea, syncope or near syncope. Objective: I&O/Vital Signs 04/12/19 04/12/19 04/12/19 04/12/19 01:45 04:00 07:00 08:00 Temp 36.0 Pulse 61 58 55 Resp 21 B/P (MAP) 187/89 (121) Pulse Ox 92 O2 Delivery Room Air Room Air 04/12/19 04/12/19 04/12/19 08:07 08:49 12:00 Temp 36.6 36.8 Pulse 57 51 Resp 18 18 B/P (MAP) 136/80 (98) 174/90 (118) Pulse Ox 95 94 O2 Delivery Room Air Room Air Room Air FiO2 94 04/12/19 00:00 Intake Total 1280 ml Output Total 2000 ml Balance -720 ml Weight (Pounds): 165 Weight (Ounces): 0.0 Weight (Calculated Kilograms): 74.762994 Constitutional: AAO x 3, well-developed, well-nourished Respiratory: No accessory muscle use, No respiratory distress; chest expansion is symmetric, chest is bilaterally symmetric, lungs clear to auscultation Cardiovascular: regular rate-rhythm; No JVD; S1 and S2, systolic murmur Gastrointestional: No tender; soft, round, audible bowel sounds Extremities: no lower extremity edema bilateral Neurologic/Psychiatric: grossly intact Skin: No rash on exposed areas, No ulcerations on exposed areas Results/Procedures: Labs Laboratory Tests 04/11/19 21:01: Glucometer 249H 04/12/19 05:49: White Blood Count 3.4L, Red Blood Count 3.56L, Hemoglobin 9.6L, Hematocrit 30L, Mean Corpuscular Volume 85, Mean Corpuscular Hemoglobin 27, Mean Corpuscular Hem oglobin Concent 32, Red Cell Distribution Width 13.9, Platelet Count 190, Mean Platelet Volume 10.7H, Neutrophils (%) (Auto) 48, Lymphocytes (%) (Auto) 30, Monocytes (%) (Auto) 16H, Eosinophils (%) (Auto) 5, Basophils (%) (Auto) 1, Neutrophils # (Auto) 1.6L, Lymphocytes # (Auto) 1.0, Monocytes # (Auto) 0.5, Eosinophils # (Auto) 0.2, Basophils # (Auto) 0.0, Sodium Level 141, Potassium Level 3.8, Chloride Level 108H, Carbon Dioxide Level 27, Anion Gap 6, Blood Urea Nitrogen 19H, Creatinine 2.14H, Estimat Glomerular Filtration Rate 22, BUN/Creatinine Ratio 9, Glucose Level 132H, Calcium Level 8.6 A/P: Assessment: Chest pain of undetermined etiology; no evidence of ACS Uncontrolled hypertension - improving Shortness of breath of undetermined etiology. Elevated BNP w/o any distinct evidence of CHF, likely r/t CKD Echo of 04/10/19: LVEF 55-65%, mild MR, RVSP 25 mmHg H/O CAD - reports 3 vessel CABG in 2002 at [facility] Renal insufficiency, likely diabetic nephropathy (records from [facility] Facility reports CKD 3) managed by Dr Rivera Reports h/o bilat carotid dz - details unknown Reports h/o TIA's DM II HLD - statin tx Chronic back pain d/t spinal stenosis Macular degeneration Family h/o CAD - mother passed from [place] age 66 Plan: BP improved, but not ideal - adjust anti-hypertensive regimen Not a suitable candidate for JADEN or ARB d/t CKD Monitor labs Renal function stable OK to discharge home from cardiac stand point with close out pt f/u Physician Assessment Physician Assessment Feels better. Denies short of breath. No cp or palp or syncope Wishes to go home Lungs: fair to good air entry Cor: reg Ext: no c/c/e A&R * As documented in our note above that I updated (italics) and as noted below * Increase doxazosin for bp control * Advised to keep log of bp at home * Close outpt f/u advised * Ok to d/c from card standpoint * I answered her questions in detail BRYAN CHARLES [employer] INVESTIGATOR Apr 12, 2019 08:49 DACIA YEUNG MD [facility] Apr 12, 2019 13:25
[2019-04-12] MEDS ORDERED: HYDR-3924 PO (08:58)
[2019-04-12] MEDS ORDERED: AMLO10TA4 PO (08:58)
[2019-04-12] MEDS ORDERED: DOXA4TAB PO (08:58)
[2019-04-12] MEDS ORDERED: amLODIPine 5 MG (NORVASC) TAB PO SCH (09:00)
[2019-04-12] MEDS: TIMOLOL MALEATE 0.5% 5 ML (TIMOPTIC) BTL OU SCH (09:13)
[2019-04-12] MEDS ORDERED: doxAzosin 4 MG (CARDURA) TAB PO NR (09:15)
[2019-04-12] MEDS: VITAMIN D3 1,000 UNITS (CHOLECALCIFEROL) TABLET PO SCH (09:22)
[2019-04-12] MEDS: buPROPion SR 150 MG (WELLBUTRIN SR) TAB PO SCH (09:22)
[2019-04-12] MEDS: CALCIUM CARB + VIT D 600 MG (CALCARB + D) TAB PO SCH (09:22)
[2019-04-12] MEDS: BRIMONIDINE 0.2% (ALPHAGAN) OPHTH SOLN 5 ML BTL OU SCH ×2 (09:26→14:21)
[2019-04-12] MEDS: MEMANTINE 10 MG (NAMENDA) TABLET PO SCH (09:27)
[2019-04-12] MEDS: PANTOPRAZOLE 40 MG (PROTONIX) TAB PO SCH (09:27)
[2019-04-12] MEDS: meTOprolol SUCCINATE 100 MG (TOPROL XL) TAB PO SCH (09:27)
[2019-04-12] MEDS: MULTIVIT W/MINERALS TAB (THERAGRAN M) PO SCH (09:27)
[2019-04-12] MEDS: CLOPIDOGREL 75 MG (PLAVIX) TABLET PO SCH (09:28)
[2019-04-12] MEDS: MAGNESIUM OXIDE (MAG-OX)400 MG TAB PO SCH (09:28)
[2019-04-12] MEDS: POLYETHYLENE GLYCOL 17 GM (MIRALAX) PACK PO SCH (09:36)
[2019-04-12 12:00] VITALS: BP 174/90
--- NOTE | 2019-04-12 12:25 | Discharge Summary ---
Discharge Summary Hospital Course Problems Reviewed?: Yes Problems/Diagnosis: (1) Shortness of breath Status: Resolved Resolution Date/Time: 04/12/19 @ 12:15 Assessment & Plan: Difficult to obtain history, but is on inhalers at home, will resume. CXR without pneumonia. (2) Acute renal insufficiency Status: Acute Assessment & Plan: Creatinine relatively near baseline after small amount of IVF last night. 04/12 creatinine on d/c 2.14, stable during admission (3) Elevated brain natriuretic peptide (BNP) level Status: Resolved Resolution Date/Time: 04/12/19 @ 12:19 Assessment & Plan: Suspect related to renal disease rather than congestive heart failure given no symptoms of congestive failure (4) Other chest pain Status: Resolved Resolution Date/Time: 04/12/19 @ 12:18 Assessment & Plan: Troponin negative, BNP elevated. Cardiology consulted. Echocardiogram done and EF 55-65%, mild MR. (5) AC separation Assessment & Plan: Seen on CXR. Unknown chronicity, no current complaint. Qualifiers: (6) Dementia Status: Chronic Assessment & Plan: Resume home donepezil and memantine (7) Emphysema/COPD Status: Chronic (8) Chronic kidney disease Status: Chronic (9) Hypothyroidism Status: Chronic Assessment & Plan: Resume levothyroxine (10) B12 deficiency Status: Chronic (11) Iron deficiency anemia Status: Chronic (12) Coronary artery disease Status: Chronic (13) Diabetes mellitus, type 2 Status: Chronic Assessment & Plan: Stopped metformin due to GFR, continued home insulin. (14) HTN (hypertension) Assessment & Plan: Difficult to control, Cardiology adjusted meds- discontinued HCTZ and losartan, added Cardura, increased dose of hydralazine and amlodipine and continued metoprolol. Qualifiers: Qualified Codes: I10 - Essential (primary) hypertension Hospital Course Date of Admission: Apr 11, 2019 at 13:40 Admission Diagnosis : Family Physician/Provider: Yaron Malik MD Date of Discharge: 04/12/19 Discharge Diagnosis: See problems Hospital Course: See problems Labs and Pending Lab Test: Laboratory Tests 04/11/19 21:01: Glucometer 249H 04/12/19 05:49: White Blood Count 3.4L, Red Blood Count 3.56L, Hemoglobin 9.6L, Hematocrit 30L, Mean Corpuscular Volume 85, Mean Corpuscular Hemoglobin 27, Mean Corpuscular Hemoglobin Concent 32, Red Cell Distribution Width 13.9, Platelet Count 190, Mean Platelet Volume 10.7H, Neutrophils (%) (Auto) 48, Lymphocytes (%) (Auto) 30, Monocytes (%) (Auto) 16H, Eosinophils (%) (Auto) 5, Basophils (%) (Auto) 1, Neutrophils # (Auto) 1.6L, Lymphocytes # (Auto) 1.0, Monocytes # (Auto) 0.5, Eosinophils # (Auto) 0.2, Basophils # (Auto) 0.0, Sodium Level 141, Potassium Level 3.8, Chloride Level 108H, Carbon Dioxide Level 27, Anion Gap 6, Blood Urea Nitrogen 19H, Creatinine 2.14H, Estimat Glomerular Filtration Rate 22, BUN/Creatinine Ratio 9, Glucose Level 132H, Calcium Level 8.6 Home Meds Active Norvasc (Amlodipine Besylate) 10 Mg Tablet 10 Mg PO DAILY Cardura (Doxazosin Mesylate) 4 Mg Tablet 4 Mg PO BID Hold for SBP less than 150 mmHg Hydralazine HCl 50 Mg Tablet 50 Mg PO Q8H Reported Bupropion HCl Sr (Bupropion HCl) 150 Mg Tablet.er 300 Mg PO DAILY TAKES 2 (150MG) TABLETS Donepezil HCl 10 Mg Tablet 10 Mg PO HS Fluticasone Propionate 16 Gm [place].susp 1 [place] NS DAILY PRN Loratadine 10 Mg Tablet 10 Mg PO DAILY PRN Artificial Tears Drops (Peg 400/Hypromellose/Glycerin) 15 Ml Drops 1 Drop OU UD PRN Ventolin Hfa (Albuterol Sulfate) 1 Puff Puff 2 Puff INH Q6H PRN 1 PUFF = 90 MCG Albuterol Sulfate 2.5 Mg/3 Ml Vial.neb 2.5 Mg NEB Q6H PRN Valium (Diazepam) 5 Mg Tablet 5 Mg PO Q12H PRN Tylenol Extra Strength (Acetaminophen) 500 Mg Tablet 1,000 Mg PO Q6H PRN Tussin Cough (Dextromethorphan HBr) 15 Mg/5 Ml Liquid 10 Ml PO Q4H PRN Combigan Eye Drops (Brimonidine Tartrate/Timolol) 5 Ml Drops 1 Drop OU BID Clopidogrel (Clopidogrel Bisulfate) 75 Mg Tablet 75 Mg PO DAILY Memantine HCl 10 Mg Tablet 10 Mg PO DAILY Miralax (Polyethylene Glycol 3350) 17 Gm Powd.pack 17 Gm PO DAILY Vitamin D3 (Cholecalciferol (Vitamin D3)) 2,000 Unit Capsule 2,000 Unit PO 1000 Multivitamins (Multivitamin) 1 Each Tablet 1 Tab PO DAILY Omeprazole 40 Mg Capsule.dr 40 Mg PO DAILY Mirtazapine 15 Mg Tablet 22.5 Mg PO HS TAKES 1 & 1/2 (15MG) TABLET Metoprolol Succinate 100 Mg Tab.er.24h 100 Mg PO DAILY Colace (Docusate Sodium) 100 Mg Capsule 100 Mg PO DAILY Calcium 600 + Vit D 200 Tablet (Calcium Carbonate/Vitamin D3) 1 Each Tablet 2 Tab PO DAILY Atorvastatin Calcium 80 Mg Tablet 80 Mg PO HS Levothyroxine Sodium 112 Mcg Tablet 112 Mcg PO 0600 Advair 100-50 Diskus (Fluticasone/Salmeterol) 1 Each Blst.w.dev 1 Puff INH BID Lantus Solostar (Insulin Glargine,Hum.rec.anlog) 100 Unit/1 Ml Insuln.pen 4 Unit SQ HS Novolog Mix 70-30 Flexpen Syrn (Insuln Asp Prt/Insulin Aspart) 300 Units/3 Ml Solution SC TIDAC 120 OR LESS = 0 UNITS 121-140 = 6 UNITS 141-160 = 8 UNITS 161-200 = 12 UNITS 201-250 = 14 UNITS OVER 250 = 18 UNITS Assessment/Pt DC Instructions Follow up with Dr. Malik on 04/16 at 9:45 am. Follow up with Cardiology in a week. Discharge Diet: ADA Diet, Cardiac Diet Consulations Consultations Dr. Alvarado, Cardiology Discharge Physical Examination Allergies: Coded Allergies: Iodinated Contrast Media (Unverified Allergy, Unknown, HIVES, 04/09/19) codeine (Unverified Allergy, Unknown, NERVOUSNESS, 04/09/19) latex (Unverified Allergy, Unknown, ITCHING, RASH, 04/09/19) General Appearance: No Apparent Distress, WD/WN Respiratory: Lungs Clear, Normal Breath Sounds Cardiovascular: Regular Rate, Rhythm, No Edema, No Murmur Gastrointestinal: Normal Bowel Sounds, Non Tender, Soft Extremity: No Pedal Edema Skin: Normal Color, Warm/Dry Neurologic/Psychiatric: Alert, Normal Mood/Affect Copy Copies To 1: YARON MALIK MD Discharge Summary Date of Admission Apr 11, 2019 at 13:40 Date of Discharge Clinical Quality Measures DVT/VTE Risk/Contraindication: Risk Factor Score Per Nursin RFS Level Per Nursing on Admit: 2=Moderate ERWIN ZAMARRIPA MD Apr 12, 2019 12:21
--- NOTE | 2019-04-12 13:42 | NUR ---
CM/SS faxed discharge information to [facility]. Daughter will transport this day around 1430. Patient was trying to get herself ready and asked PCCTs to assist her.
[2019-04-12 15:00] VITALS: BP 174/90
--- NOTE | 2019-04-12 15:00 | NUR ---
BECCA ARCE demonstrates understanding of discharge instructions and accurately returns instructions upon questioning. Copy of Post-Discharge Instructions given to PT AND [facility] [place]. BECCA ARCE is able to manage continuing needs after discharge WITH ASSISTANCE OF [facility]. Patients belongings returned to PT. Patient discharged from [facility]- on 04/12/19 at 1500. BECCA ARCE left floor via W/C, accompanied by STAFF AND DAUGHTER PER AUTO.
[2019-04-12] MEDS ORDERED: doxAzosin 4 MG (CARDURA) TAB PO SCH (21:00)
== END 2019-04-12 15:00 | DRG 700 ==
LOC: EDUNIT# 14:47 → ER FS 14:48 → 4TH 18:35 → UNDOADMOB 18:35 → 4TH 23:00 → UNDOADMOB 23:00 → INTOOBSV 04-11 13:40 → OBSVTOIN 04-11 13:40 → UNDODISIN 04-12 15:00
PROVIDERS: ADMIT Family Medicine; ATTEND Family Medicine
DX: N28.9 Disorder of kidney and ureter, unspecified (principal); E11.22 Type 2 diabetes mellitus with diabetic chronic kidney disease; E86.0 Dehydration; I12.9 Hypertensive chronic kidney disease with stage 1 through stage 4 chronic kidney disease, or unspecified chronic kidney disease; N18.3 Chronic kidney disease, stage 3 (moderate); E11.65 Type 2 diabetes mellitus with hyperglycemia; R07.89 Other chest pain; J43.9 Emphysema, unspecified; F03.90 Unspecified dementia, unspecified severity, without behavioral disturbance, psychotic disturbance, mood disturbance, and anxiety; E78.5 Hyperlipidemia, unspecified; E03.9 Hypothyroidism, unspecified; E53.8 Deficiency of other specified B group vitamins; D50.9 Iron deficiency anemia, unspecified; I25.10 Atherosclerotic heart disease of native coronary artery without angina pectoris; I65.23 Occlusion and stenosis of bilateral carotid arteries; Z82.49 Family history of ischemic heart disease and other diseases of the circulatory system
CPT/HCPCS: 36415; 71046; 80048; 80053; 80061; 81000; 82962; 83735; 83880; 84443; 84484; 85025; 85027; 85610; 85730; 93005; 93306; 94640; 94760; 96361; 96374; 96376; G0378

== ENCOUNTER → 2019-05-07 | Outpatient (CLI) | payer MEDICARE, MEDICAID ==
[~2019-05-07] MED LIST changes: +ACET-2267 PO; +ALBU2.5V4 NEB; +AMLO10TA4 PO; +AMLO5TAB9 PO; +ATOR80TA76 PO; +BRIM5DRO OU; +BUPR150T14 PO; +BUPR200T PO; +CALC-6 PO; +CELE-63 PO; +CHOL20003 PO; +CLOP75TA28 PO; +DEXT15LI5 PO; +DIAZ5TAB PO; +DOCU-143 PO; +DONE10TA41 PO; +DONE5TAB30 PO; +DOXA4TAB PO; +FLUT16SP22 NS; +FLUT1DIS28 INH; +HYDR-3923 PO; +HYDR-3924 PO; +HYDR25TA4 PO; +INSU100I10 SQ; +INSU100I13 SC; +LEVO112T55 PO; +LORA10TA7 PO; +LOSA100T57 PO; +MAGN400T39 PO; +MEMA10TA22 PO; +METF-399 PO; +METO-395 PO; +MIRT15TA6 PO; +MULT1TAB69 PO; +OMEP40CA36 PO; +PEG15DRO5 OU; +POLY17PO6 PO; +RT-ALBUINH INH
[2019-05-07 14:55] LABS: WHITE BLOOD COUNT 3.9 10^3/uL (4.3-11.0)
[2019-05-07 14:56] LABS: HEMATOCRIT 27 % (35-52); HEMOGLOBIN 8.5 G/DL (11.5-16.0); MEAN CORPUSCULAR HEMOGLOBIN 28 PG (25-34); MEAN CORPUSCULAR HGB CONC 31 G/DL (32-36); MEAN CORPUSCULAR VOLUME 88 FL (80-99); MEAN PLATELET VOLUME 10.5 FL (7.4-10.4); NEUTROPHILS % (AUTO) 69 % (42-75); PLATELET COUNT 191 10^3/uL (130-400); RED CELL DISTRIBUTION WIDTH 14.4 % (10.0-14.5)
[2019-05-07 14:57] LABS: BASOPHILS % (AUTO) 1 % (0-10); EOSINOPHILS # (AUTO) 0.1 10^3/uL (0.0-0.3); EOSINOPHILS % (AUTO) 3 % (0-10); LYMPHOCYTES # (AUTO) 0.6 X 10^3 (1.0-4.0); LYMPHOCYTES % (AUTO) 15 % (12-44); MONOCYTES # (AUTO) 0.5 X 10^3 (0.0-1.0); MONOCYTES % (AUTO) 12 % (0-12); NEUTROPHILS # (AUTO) 2.7 X 10^3 (1.8-7.8)
[2019-05-07 15:16] LABS: CALCIUM 8.6 MG/DL (8.5-10.1); CREATININE SERUM 2.44 MG/DL (0.60-1.30); POTASSIUM 4.3 MMOL/L (3.6-5.0)
[2019-05-07 15:17] LABS: BILIRUBIN,TOTAL 0.4 MG/DL (0.1-1.0); TOTAL PROTEIN 6.4 GM/DL (6.4-8.2)
--- NOTE | 2019-05-07 15:23 | Diagnostic Imaging Report ---
INDICATION: Cough and wheeze. COMPARISON: 04/09/2019. FINDINGS: There is a left pleural effusion having developed in the interim, [id number], and there is a tiny right pleural effusion also new. There is some air trapping as a chronic finding. Adjacent to the left pleural fluid there is some pulmonary opacity likely partial atelectasis. Component of pneumonia could not be definitively excluded. The heart is stable in size. The sternal wires are midline. IMPRESSION: Left greater than right pleural effusions as a new finding. Likely subjacent left basilar partial atelectasis superimposed. Dictated by: Dictated on workstation # [id number]
== END ==
LOC: RAD FS 14:28
PROVIDERS: ATTEND Family Medicine
DX: J90 Pleural effusion, not elsewhere classified (principal); N18.4 Chronic kidney disease, stage 4 (severe)
CPT/HCPCS: 36415; 71046; 80053; 85025

== ENCOUNTER 2019-05-08 12:35 | Emergency (ER) | payer MEDICARE, MEDICAID | END 2019-05-08 12:51 | disposition left against medical advice (07) | LOC: EDUNIT# 12:35 → ER FS 12:36 | DX: R07.89 Other chest pain (principal) ==

== ENCOUNTER → 2019-05-15 | Outpatient (CLI) | payer MEDICARE, MEDICAID ==
[~2019-05-15] VITALS: Ht 170 cm; Wt 62.0 kg
[~2019-05-15] MED LIST changes: +REGADENOSON 0.4 MG/5 ML SYR (LEXISCAN) IV ONE
[2019-05-15] MEDS: CATHETER FLUSH 10 ML SYR IV PRN ×2 (11:21→12:49)
[2019-05-15 12:47] VITALS: BP 231/69
--- NOTE | 2019-05-17 13:14 | STRESS TEST ---
DATE OF SERVICE: 05/15/2019 RESTING AND POST REGADENOSON TECHNETIUM-99M TETROFOSMIN SPECT CT IMAGING Baseline images were carried out after injection of 10.43 mCi of technetium-99m Tetrofosmin. This was followed by 0.4 mg regadenoson and 28.3 mCi of technetium-99m Tetrofosmin for stress imaging. The electrocardiogram showed sinus rhythm at baseline. The electrocardiogram did not change significantly with regadenoson infusion. The patient noted mild shortness of breath following regadenoson infusion, which resolved in a few minutes. Review of images at rest and following stress does not indicate any significant perfusion defects consistent with significant myocardial ischemia or infarction. Gated images show normal global left ventricular systolic function with normal regional wall motion. Left ventricular ejection fraction is calculated to be 71%. Left ventricular end diastolic volume is 70 mL. TID is absent (1.04). CONCLUSIONS: 1. No evidence of any significant myocardial ischemia or infarction on this study. 2. Normal regional wall motion. 3. Normal global left ventricular systolic function with a calculated ejection fraction of 71%. Job ID: [id number] DocumentID: [id number] Dictated Date: 05/17/2019 13:04:39 [place] Coper Date: 05/17/2019 13:14:03 Dictated By: DACIA YEUNG MD, MA, FACP, FACC,
== END ==
LOC: CARD 10:49
PROVIDERS: ATTEND Internal Medicine Cardiovascular Disease
DX: E78.5 Hyperlipidemia, unspecified (principal); E11.9 Type 2 diabetes mellitus without complications; I10 Essential (primary) hypertension; R07.89 Other chest pain; R06.02 Shortness of breath
CPT/HCPCS: 78452; 93017

== ENCOUNTER 2019-06-13 13:25 | Emergency (ER) | payer MEDICARE, MEDICAID ==
[~2019-06-13] VITALS: Ht 170.1 cm; Wt 67.5 kg
[~2019-06-13 13:25] MED LIST changes: -MEMA10TA22 PO; +MEMA10TA57 PO; -METO-395 PO; +OMEP40CA27 PO; -OMEP40CA36 PO; -REGADENOSON 0.4 MG/5 ML SYR (LEXISCAN) IV ONE
--- NOTE | 2019-06-13 14:00 | NUR ---
Call to Transfer [place] [facility] aand reached a triage nurse for assistance. Pt report given that ER physician needs to speak with Dr Mendes, Telephone Advice Nurse regarding the request to administer liter LR then redraw labs as a common practice with pt's PCP doing NS bolus in office when rising CR/BUN. The nurse reports last visit 05/24/19 and pt was elevated to Stage 4 CKD from Stage 3 and she was given a detailed discussion of entrance into worsening kidney function and began educating on risks and benefits of dialysis. Pt's labs are over 1 yr old in office. Reported the 05/26/19 and 06/13/19 labs drawn thru [facility]. Pt's GFR 18 [address] Mendes to return call to ED for MD to discuss best plan for patient with these labs.
--- NOTE | 2019-06-13 14:08 | ED General ---
General Chief Complaint: General Problems/Pain Stated Complaint: ABNORMAL LAB RESULTS History of Present Illness Date Seen by Provider: Jun 13, 2019 Time Seen by Provider: 13:50 Initial Comments Patient is here to get IV fluids evidently had a rising creatinine with a GFR in the teens reason creatinine 2.7 does produce a lot of urine is able to consume fluids got lab and fluids about a month ago and was sent here for another liter today. She has no complaints is not sure why they're doing this is seen in stoneworking sander in [place] and saw him a couple weeks ago evidently they had a plan at that point Timing/Duration: Changing Over Time Associated Systoms: No Chest Pain, No Cough, No Loss of Appetite, No Malaise, No Nausea/Vomiting, No Syncope, No Weakness Allergies and Home Medications Allergies Coded Allergies: Iodinated Contrast Media (Unverified Allergy, Unknown, HIVES, 04/09/19) codeine (Unverified Allergy, Unknown, NERVOUSNESS, 04/09/19) latex (Unverified Allergy, Unknown, ITCHING, RASH, 04/09/19) Home Medications Acetaminophen 500 Mg Tablet, 1,000 MG PO Q6H PRN for PAIN-MILD, (Reported) Albuterol Sulfate 2.5 Mg/3 Ml Vial.neb, 2.5 MG NEB Q6H PRN for SHORTNESS OF BREATH, (Reported) Albuterol Sulfate 1 Puff Puff, 2 PUFF INH Q6H PRN for SHORTNESS OF BREATH, (Reported) 1 PUFF = 90 MCG Amlodipine Besylate 10 Mg Tablet, 10 MG PO DAILY Prescribed by: BRYAN CHARLES on 04/12/19 0858 Atorvastatin Calcium 80 Mg Tablet, 80 MG PO HS, (Reported) Brimonidine Tartrate/Timolol 5 Ml Drops, 1 DROP OU BID, (Reported) Bupropion HCl 150 Mg Tablet.er, 300 MG PO DAILY, (Reported) TAKES 2 (150MG) TABLETS Calcium Carbonate/Vitamin D3 1 Each Tablet, 2 TAB PO DAILY, (Reported) Cholecalciferol (Vitamin D3) 2,000 Unit Capsule, 2,000 UNIT PO 1000, (Reported) Clopidogrel Bisulfate 75 Mg Tablet, 75 MG PO DAILY, (Reported) Dextromethorphan HBr 15 Mg/5 Ml Liquid, 10 ML PO Q4H PRN for COUGH, (Reported) Diazepam 5 Mg Tablet, 5 MG PO Q12H PRN for ANXIETY, (Reported) Docusate Sodium 100 Mg Capsule, 100 MG PO DAILY, (Reported) Donepezil HCl 10 Mg Tablet, 10 MG PO HS, (Reported) Doxazosin Mesylate 4 Mg Tablet, 4 MG PO BID Hold for SBP less than 150 mmHg Prescribed by: BRYAN CHALRES on 04/12/19857 Fluticasone Propionate 16 Gm [place].susp, 1 SPRAY NS DAILY PRN for ALLERGIES, (Reported) Fluticasone/Salmeterol 1 Each Blst.w.dev, 1 PUFF INH BID, (Reported) Hydralazine HCl 50 Mg Tablet, 50 MG PO Q8H Prescribed by: BRYAN CHARLES on 04/12/19857 Insulin Glargine,Hum.rec.anlog 100 Unit/1 Ml Insuln.pen, 4 UNIT SQ HS, (Reported) Insuln Asp Prt/Insulin Aspart 300 Units/3 Ml Solution, SC TIDAC, (Reported) 120 OR LESS = 0 UNITS 121-140 = 6 UNITS 141-160 = 8 UNITS 161-200 = 12 UNITS 201-250 = 14 UNITS OVER 250 = 18 UNITS Levothyroxine Sodium 112 Mcg Tablet, 112 MCG PO 0600, (Reported) Loratadine 10 Mg Tablet, 10 MG PO DAILY PRN for ALLERGIES, (Reported) Memantine HCl 10 Mg Tablet, 10 MG PO DAILY, (Reported) Metoprolol Succinate 100 Mg Tab.er.24h, 100 MG PO DAILY, (Reported) Mirtazapine 15 Mg Tablet, 22.5 MG PO HS, (Reported) TAKES 1 & 1/2 (15MG) TABLET Multivitamin 1 Each Tablet, 1 TAB PO DAILY, (Reported) Omeprazole 40 Mg Capsule.dr, 40 MG PO DAILY, (Reported) Peg 400/Hypromellose/Glycerin 15 Ml Drops, 1 DROP OU UD PRN for DRY EYES, (Reported) Polyethylene Glycol 3350 17 Gm Powd.pack, 17 GM PO DAILY, (Reported) Patient Home Medication List Home Medication List Reviewed: Yes Review of Systems Review of Systems Constitutional: no symptoms reported EENTM: no symptoms reported Respiratory: no symptoms reported Cardiovascular: no symptoms reported Gastrointestinal: No abdominal pain, No nausea, No vomiting Genitourinary: no symptoms reported Musculoskeletal: no symptoms reported Skin: no symptoms reported Review of systems could not be ascertained due to patient's mentation. All Other Systems Reviewed Negative Unless Noted: Yes Past Tlxfeya-Rvijim-Iwwtml Hx Past Med/Social Hx: Reviewed Nursing Past Med/Soc Hx Patient Social History 2nd Hand Smoke Exposure: No Recent Foreign Travel: No Recent Hopitalizations: No Immunizations Up To Date Date of Pneumonia Vaccine: Apr 08, 2011 Date of Influenza Vaccine: Mar 11, 2018 Seasonal Allergies Seasonal Allergies: No Past Medical History Appendectomy, CABG, Gallbladder, 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, Oophorectomy, Orthopedic Respiratory: Yes Emphysema Cardiac: Yes (hypertensive crisis; ) Angina, High Cholesterol, Hypertension Neurological: Yes Reproductive Disorders: No Genitourinary: Yes (incontinence) Gastrointestinal: Yes (hepatitis B) Gastroesophageal Reflux Musculoskeletal: Yes (neck injury ) Arthritis Endocrine: Yes Hypothyroidsim, Diabetes, Non-Insulin dep, Lupus HEENT: Yes Cataract, Glaucoma Psychosocial: Yes Depression Blood Disorders: Yes Family Medical History Cancer, Diabetes, Renal Disease Physical Exam Vital Signs Vital Signs - First Documented 06/13/19 13:35 Temp 36.3 Pulse 58 Resp 16 B/P (MAP) 154/40 (78) Pulse Ox 97 O2 Delivery Room Air Capillary Refill : Height, Weight, BMI Height: 5'8.00" Weight: 165lbs. 0.0oz. [id number]; 21.45 BMI Method: General Appearance: No Apparent Distress, WD/WN, Thin Eyes: Bilateral Eye PERRL, Bilateral Eye EOMI HEENT: PERRL/EOMI, TMs Normal, Pharynx Normal Neck: Normal Inspection, Non Tender Respiratory: Lungs Clear, Normal Breath Sounds Cardiovascular: Regular Rate, Rhythm, No Murmur Gastrointestinal: Normal Bowel Sounds, Non Tender; No Distended Extremity: Normal Range of Motion, Non Tender Neurologic/Psychiatric: Alert, Oriented x3 Progress/Results/Core Measures Suspected Sepsis SIRS Temperature: Pulse: Respiratory Rate: Blood Pressure / Mean: Results/Orders Vital Signs/I&O 06/13/19 13:35 Temp 36.3 Pulse 58 Resp 16 B/P (MAP) 154/40 (78) Pulse Ox 97 O2 Delivery Room Air Capillary Refill : Progress Note : Time: 14:58 Progress Note This point understand the episodic fluid boluses attempted to contact her stoneworking sander got in touch of the office which was able to access the chart and see that the renal disease is progressive but no mention of any sort of fluid bolus strategy at this time will redirect her back to her stoneworking sander continue to consume her normal amounts of fluid will follow-up with him for a longer term plan Departure Impression Primary Impression: Chronic kidney disease Qualified Codes: N18.4 - Chronic kidney disease, stage 4 (severe) Disposition: 01 HOME, SELF-CARE Condition: Stable Departure-Patient Inst. Referrals: SELF,ADOLFO MENDOZA (PCP/Family) Primary Care Physician Patient Instructions: Chronic Kidney Disease BENITA KIDD JR, MD Jun 13, 2019 14:08 POS
--- NOTE | 2019-06-13 15:00 | NUR ---
Return call from [employer] at [facility] to speak with Dr Wade. Plan for re-evaluation in near future with dgt to call to get appt to be seen soon in their office. Will send [facility] labs with dgt to that appt. No IV fluids recommended, pt reports eating and drinking well. Pt states she is still voiding sometimes even every few hrs.
[2019-06-13 15:10] VITALS: BP 163/39
--- NOTE | 2019-06-13 15:10 | NUR ---
Pt discharged at this time with dgt verbalizing understanding of instructions reviewed.
--- OUTSIDE RECORDS SUMMARY | 2019-07-09 08:46 | XMS REPORT | Continuity of Care Document ---
Author Organization Unknown Address Unknown Phone Unavailable Allergies Active Description Code Type Severity Reaction Onset Reported/Identified Relationship to Patient Clinical Status Yes codeine [id number] Drug Allergy Unknown NERVOUSNESS 04/09/2019 Yes Iodinated Contrast Media [id number] Drug Allergy Unknown HIVES 04/09/2019 Yes latex [id number] Drug Allergy Unknown ITCHING, RASH 04/09/2019 Medications There is no data. 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 04/12/2019 ERWIN ZAMARRIPA MD, Ot E11.65 TYPE 2 DIABETES MELLITUS WITH HYPERGLYCE 04/12/2019 ERWIN ZAMARRIPA MD, Ot E53 .8 DEFICIENCY OF OTHER SPECIFIED B GROUP 04/12/2019 ERWIN ZAMARRIPA MD, Ot E78 .5 HYPERLIPIDEMIA, UNSPECIFIED 04/12/2019 ERWIN ZAMARRIPA MD, Ot E86 .0 DEHYDRATION 04/12/2019 ERWIN ZAMARRIPA MD Ot F03.90 UNSPECIFIED DEMENTIA WITHOUT BEHAVIORAL 04/12/2019 ERWIN ZAMARRPIA MD, Ot I12 .9 HYPERTENSIVE CHRONIC KIDNEY DISEASE W ST 04/12/2019 ERWIN ZAMARRIPA MD, Ot I25.10 ATHSCL HEART DISEASE OF [place] CORONARY 04/12/2019 ERWIN ZAMARRIPA MD, Ot I65.23 OCCLUSION AND STENOSIS OF BILATERAL [place] 04/12/2019 ERWIN ZAMARRIPA MD, Ot J43 .9 EMPHYSEMA, UNSPECIFIED 04/12/2019 ERWIN ZAMARRIPA MD, Ot N18 .3 CHRONIC KIDNEY DISEASE, STAGE 3 (MODERAT 04/12/2019 ERWIN ZAMARRIPA MD, Ot N28 .9 DISORDER OF KIDNEY AND URETER, UNSPECIFI 04/12/2019 ERWIN ZAMARRIPA MD Ot R07.89 OTHER CHEST PAIN 04/12/2019 ERWIN ZAMARRIPA MD Ot Z82.49 FAMILY HX OF ISCHEM HEART DIS AND OTH DI 05/11/2019 REBEKA SANTIAGO DO Ot R07.89 OTHER CHEST PAIN 05/11/2019 REBEKA SANTIAGO DO Ot R07 .9 CHEST PAIN, UNSPECIFIED 05/17/2019 GAMAL MENDOZA FACC, ALI FACP CCDS Ot E11.9 TYPE 2 DIABETES MELLITUS WITHOUT COMPLIC 05/17/2019 GAMAL MENDOZA FACC, ALI FACP CCDS Ot E78.5 HYPERLIPIDEMIA, UNSPECIFIED 05/17/2019 GAMAL MENDOZA FACC, ALI FACP CCDS Ot I10 ESSENTIAL (PRIMARY) HYPERTENSION 05/17/2019 GAMAL MENDOZA FACC, ALI FACP CCDS Ot R06.02 SHORTNESS OF BREATH 05/17/2019 GAMAL MENDOZA FACC, ALI FACP CCDS Ot R07.89 OTHER CHEST PAIN 05/31/2019 REBEKA SANTIAGO DO Ot R07.89 OTHER CHEST PAIN 05/31/2019 REBEKA SANTIAGO DO Ot R07 .9 CHEST PAIN, UNSPECIFIED 05/31/2019 ADOLFO RHODES MD Ot J90 PLEURAL EFFUSION, NOT ELSEWHERE CLASSIFI 05/31/2019 ADOLFO RHODES MD Ot N18.4 CHRONIC KIDNEY DISEASE, STAGE 4 (SEVERE) 06/05/2019 GAMAL GALLARDOC, ALI FACP CCDS Ot E11.9 TYPE 2 DIABETES MELLITUS WITHOUT COMPLIC 06/05/2019 GAMAL MENDOZA FACC, ALI FACP CCDS Ot E78.5 HYPERLIPIDEMIA, UNSPECIFIED 06/05/2019 GAMAL MENDOZA FACC, ALI FACP CCDS Ot I10 ESSENTIAL (PRIMARY) HYPERTENSION 06/05/2019 GAMAL MENDOZA FACC, ALI FACP CCDS Ot R06.02 SHORTNESS OF BREATH 06/05/2019 GAMAL MENDOZA FACC, ALI FACP CCDS Ot R07.89 OTHER CHEST PAIN 06/06/2019 ADOLFO RHODES MD Ot J90 PLEURAL EFFUSION, NOT ELSEWHERE CLASSIFI 06/06/2019 ADOLFO RHODES MD Ot N18.4 CHRONIC KIDNEY DISEASE, STAGE 4 (SEVERE) 06/18/2019 BENITA KIDD MD Ot E03.9 HYPOTHYROIDISM, UNSPECIFIED 06/18/2019 BENITA KIDD MD Ot 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 06/18/2019 BENITA KIDD MD, Ot E78.00 PURE HYPERCHOLESTEROLEMIA, UNSPECIFIED 06/18/2019 BENITA KIDD MD, Ot F32.9 MAJOR DEPRESSIVE DISORDER, SINGLE EPISOD 06/18/2019 BENITA KIDD MD, Ot I12.9 HYPERTENSIVE CHRONIC KIDNEY DISEASE W ST 06/18/2019 BENITA KIDD MD, Ot I16.9 HYPERTENSIVE CRISIS, UNSPECIFIED 06/18/2019 BENITA KIDD MD, Ot J43.9 EMPHYSEMA, UNSPECIFIED 06/18/2019 BENITA KIDD MD, Ot K21.9 GASTRO-ESOPHAGEAL REFLUX DISEASE WITHOUT 06/18/2019 BENITA KIDD MD, Ot N18.9 CHRONIC KIDNEY DISEASE, UNSPECIFIED 06/18/2019 BENITA KIDD MD, Ot Z79.02 HALFWAY (CURRENT) USE OF ANTITHROMBOTI 06/18/2019 BENITA KIDD MD, Ot Z79.4 INTERNATIONAL MARKETING MANAGER (CURRENT) USE OF INSULIN 06/18/2019 BENITA KIDD MD, Ot Z79.51 INTERNATIONAL MARKETING MANAGER (CURRENT) USE OF INHALED STERO 06/18/2019 BENITA KIDD MD, Ot Z88.5 ALLERGY STATUS TO NARCOTIC AGENT STATUS 06/18/2019 BENITA KIDD MD, Ot Z90.49 ACQUIRED ABSENCE OF OTHER SPECIFIED PART 06/18/2019 BENITA KIDD MD, Ot Z90.710 ACQUIRED ABSENCE OF BOTH CERVIX AND UTER 06/18/2019 BENITA KIDD MD, Ot Z91.040 LATEX ALLERGY STATUS 06/18/2019 BENITA KIDD MD, Ot Z91.041 RADIOGRAPHIC DYE ALLERGY STATUS 06/18/2019 BENITA KIDD MD, Ot Z95.1 PRESENCE OF AORTOCORONARY BYPASS GRAFT 07/05/2019 ADOLFO RHODES MD Ot J90 PLEURAL EFFUSION, NOT ELSEWHERE CLASSIFI 07/05/2019 ADOLFO RHODES MD, Ot N18.4 CHRONIC KIDNEY DISEASE, STAGE 4 (SEVERE) Procedures There is no data. Results Test Result Range Complete blood count (CBC) with automate d white blood cell (WBC) differential - 04/09/19 15:13 Blood leukocytes automated count (number/volume) 5.5 10*3/uL 4.3-11.0 Blood erythrocytes automated count (number/volume) 3.88 10*6/uL 4.35-5.85 Venous blood hemoglobin measurement (mass/volume) 10.4 g/dL 11.5-16.0 Blood hematocrit (volume fraction) 33 % 35-52 Automated erythrocyte mean corpuscular volume 86 [ foz_us] 80-99 Automated erythrocyte mean corpuscular h emoglobin (mass per erythrocyte) 27 pg 25-34 Automated erythrocyte mean corpuscular h emoglobin concentration measurement (mass/volume) 31 g/dL 32-36 Automated erythrocyte distribution width ratio 13. 7 % 10.0- 14.5 Automated blood platelet count (count/volume) 262 10*3/uL 130-400 Automated blood platelet mean volume measurement 10.5 [foz_us] 7.4-10.4 Automated blood neutrophils/100 leukocytes 61 % 42-75 Automated blood lymphocytes/100 leukocytes 24 % 12-44 Blood monocytes/100 leukocytes 11 % 0-12 Automated blood eosinophils/100 leukocytes 3 % 0-10 Automated blood basophils/100 leukocytes 1 % 0-10 Blood neutrophils automated count (number/volume) 3.4 10*3 1.8-7.8 Blood lymphocytes automated count (number/volume) 1.3 10*3 1.0-4.0 Blood monocytes automated count (number/volume) 0. 6 10*3 0.0-1.0 Automated eosinophil count 0.2 10*3/uL 0 .0-0.3 Automated blood basophil count (count/volume) 0.0 10*3/uL 0.0-0.1 PT panel in platelet poor plasma by coag ulation assay - 04/09/19 15:13 Prothrombin time (PT) in platelet poor plasma by coagu lation assay 11.8 s 12.2-14.7 INR in platelet poor plasma or blood by coagulation as say 0.8 0.8-1.4 Activated partial thromboplastin time (a PTT) in platelet poor plasma bycoagulation assay - 04/09/19 15:13 Activated partial thromboplastin time (a PTT) in platelet poor plasma bycoagulation assay 27 s 24-35 Comprehensive metabolic panel - 04/09/19 15:13 Serum or plasma sodium measurement (moles/volume) 136 mmol/L 135-145 Serum or plasma potassium measurement (moles/volume) 4.9 mmol/L 3.6-5.0 Serum or plasma chloride measurement (moles/volume) 100 mmol/L 98-107 Carbon dioxide 23 mmol/L 21-32 Serum or plasma anion gap determination (moles/volume) 13 mmol/L 5-14 Serum or plasma urea nitrogen measurement (mass/volume ) 30 mg/dL 7-18 Serum or plasma creatinine measurement (mass/volume) 2.22 mg/dL 0.60-1.30 Serum or plasma urea nitrogen/creatinine mass ratio 14 NRG Serum or plasma creatinine measurement w ith calculation of estimated glomerular filtration rate 21 NRG Serum or plasma glucose measurement (mass/volume) 228 mg/dL 70-105 Serum or plasma calcium measurement (mass/volume) 9.0 mg/dL 8.5-10.1 Serum or plasma total bilirubin measurement (mass/volu me) 0.2 mg/dL 0.1-1.0 Serum or plasma alkaline phosphatase frank surement (enzymatic activity/volume) 75 U/L 40-136 Serum or plasma aspartate aminotransfera se measurement (enzymatic activity/volume) 20 U/L 5-34 Serum or plasma alanine aminotransferase measurement (enzymatic activity/volume) 17 U/L 0-55 Serum or plasma protein measurement (mass/volume) 6.5 g/dL 6.4-8.2 Serum or plasma albumin measurement (mass/volume) 3.6 g/dL 3.2-4.5 CALCIUM CORRECTED 9.3 mg/dL 8.5-10.1 TROPONIN I FS - 04/09/19 15:13 TROPONIN I FS < 0.30 <0.30 PROBNP FS - 04/09/19 15:13 PROBNP FS 1259.0 pg/mL <75.0 Capillary blood glucose measurement by g lucometer (mass/volume) - 04/09/19 16:12 Capillary blood glucose measurement by glucometer (mas s/volume) 194 mg/dL 70-110 Complete urinalysis with reflex to cultu re - 04/09/19 17:10 Urine color determination YELLOW NRG Urine clarity determination CLEAR NR G Urine pH measurement by test strip 7.0 5-9 Specific gravity of urine by test strip 1.015 1.016-1.022 Urine protein assay by test strip, semi-quantitative 3+ NEGATIVE Urine glucose detection by automated test strip NE GATIVE NEGATIVE Erythrocytes detection in urine sediment by light micr oscopy NEGATIVE NEGATIVE Urine ketones detection by automated test strip NE GATIVE NEGATIVE Urine nitrite detection by test strip NEGATIVE NEGATIVE Urine total bilirubin detection by test strip NEGA TIVE NEGATIVE Urine urobilinogen measurement by automated test strip (mass/volume) 0.2 mg/dL NORMAL Urine leukocyte esterase detection by dipstick TRA CE NEGATIVE Automated urine sediment erythrocyte cou nt by microscopy (number/high power field) NONE NRG Automated urine sediment leukocyte count by microscopy (number/high power field) [HPF] NRG Bacteria detection in urine sediment by light microsco py NEGATIVE NRG Squamous epithelial cells detection in u rine sediment by light microscopy 0-2 NRG Crystals detection in urine sediment by light microsco py NONE NRG Casts detection in urine sediment by light microscopy NONE NRG Mucus detection in urine sediment by light microscopy NONE NRG Complete urinalysis with reflex to culture NO NRG Serum or plasma troponin i.cardiac measu rement (mass/volume) - 04/10/19 00:25 Serum or plasma troponin i.cardiac measurement (mass/v olume) < ng/mL <0.028 Complete blood count (CBC) with automate d white blood cell (WBC) differential - 04/10/19 06:10 Blood leukocytes automated count (number/volume) 4.6 10*3/uL 4.3-11.0 Blood erythrocytes automated count (number/volume) 3.77 10*6/uL 4.35-5.85 Venous blood hemoglobin measurement (mass/volume) 10.1 g/dL 11.5-16.0 Blood hematocrit (volume fraction) 32 % 35-52 Automated erythrocyte mean corpuscular volume 84 [ foz_us] 80-99 Automated erythrocyte mean corpuscular h emoglobin (mass per erythrocyte) 27 pg 25-34 Automated erythrocyte mean corpuscular h emoglobin concentration measurement (mass/volume) 32 g/dL 32-36 Automated erythrocyte distribution width ratio 14. 0 % 10.0- 14.5 Automated blood platelet count (count/volume) 214 10*3/uL 130-400 Automated blood platelet mean volume measurement 10.1 [foz_us] 7.4-10.4 Automated blood neutrophils/100 leukocytes 58 % 42-75 Automated blood lymphocytes/100 leukocytes 26 % 12-44 Blood monocytes/100 leukocytes 12 % 0-12 Automated blood eosinophils/100 leukocytes 3 % 0-10 Automated blood basophils/100 leukocytes 0 % 0-10 Blood neutrophils automated count (number/volume) 2.7 10*3 1.8-7.8 Blood lymphocytes automated count (number/volume) 1.2 10*3 1.0-4.0 Blood monocytes automated count (number/volume) 0. 6 10*3 0.0-1.0 Automated eosinophil count 0.1 10*3/uL 0 .0-0.3 Automated blood basophil count (count/volume) 0.0 10*3/uL 0.0-0.1 Comprehensive metabolic panel - 04/10/19 06:10 Serum or plasma sodium measurement (moles/volume) 141 mmol/L 135-145 Serum or plasma potassium measurement (moles/volume) 4.2 mmol/L 3.6-5.0 Serum or plasma chloride measurement (moles/volume) 109 mmol/L 98-107 Carbon dioxide 23 mmol/L 21-32 Serum or plasma anion gap determination (moles/volume) 9 mmol/L 5-14 Serum or plasma urea nitrogen measurement (mass/volume ) 25 mg/dL 7-18 Serum or plasma creatinine measurement (mass/volume) 2.18 mg/dL 0.60-1.30 Serum or plasma urea nitrogen/creatinine mass ratio 11 NRG Serum or plasma creatinine measurement w ith calculation of estimated glomerular filtration rate 22 NRG Serum or plasma glucose measurement (mass/volume) 125 mg/dL 70-105 Serum or plasma calcium measurement (mass/volume) 8.8 mg/dL 8.5-10.1 Serum or plasma total bilirubin measurement (mass/volu me) 0.4 mg/dL 0.1-1.0 Serum or plasma alkaline phosphatase frank surement (enzymatic activity/volume) 66 U/L 40-136 Serum or plasma aspartate aminotransfera se measurement (enzymatic activity/volume) 17 U/L 5-34 Serum or plasma alanine aminotransferase measurement (enzymatic activity/volume) 15 U/L 0-55 Serum or plasma protein measurement (mass/volume) 5.6 g/dL 6.4-8.2 Serum or plasma albumin measurement (mass/volume) 3.2 g/dL 3.2-4.5 CALCIUM CORRECTED 9.4 mg/dL 8.5-10.1 Serum or plasma troponin i.cardiac measu rement (mass/volume) - 04/10/19 06:10 Serum or plasma troponin i.cardiac measurement (mass/v olume) < ng/mL <0.028 Serum or plasma troponin i.cardiac measu rement (mass/volume) - 04/10/19 12:10 Serum or plasma troponin i.cardiac measurement (mass/v olume) < ng/mL <0.028 Capillary blood glucose measurement by g lucometer (mass/volume) - 04/10/19 20:47 Capillary blood glucose measurement by glucometer (mas s/volume) 309 mg/dL 70-110 Automated blood complete blood count (he mogram) panel - 04/11/19 05:20 Blood leukocytes automated count (number/volume) 4.1 10*3/uL 4.3-11.0 Blood erythrocytes automated count (number/volume) 3.64 10*6/uL 4.35-5.85 Venous blood hemoglobin measurement (mass/volume) 9.7 g/dL 11.5-16.0 Blood hematocrit (volume fraction) 31 % 35-52 Automated erythrocyte mean corpuscular volume 84 [ foz_us] 80-99 Automated erythrocyte mean corpuscular h emoglobin (mass per erythrocyte) 27 pg 25-34 Automated erythrocyte mean corpuscular h emoglobin concentration measurement (mass/volume) 32 g/dL 32-36 Automated erythrocyte distribution width ratio 14. 1 % 10.0- 14.5 Automated blood platelet count (count/volume) 206 10*3/uL 130-400 Automated blood platelet mean volume measurement 10.2 [foz_us] 7.4-10.4 Comprehensive metabolic panel - 04/11/19 05:20 Serum or plasma sodium measurement (moles/volume) 141 mmol/L 135-145 Serum or plasma potassium measurement (moles/volume) 3.8 mmol/L 3.6-5.0 Serum or plasma chloride measurement (moles/volume) 109 mmol/L 98-107 Carbon dioxide 24 mmol/L 21-32 Serum or plasma anion gap determination (moles/volume) 8 mmol/L 5-14 Serum or plasma urea nitrogen measurement (mass/volume ) 23 mg/dL 7-18 Serum or plasma creatinine measurement (mass/volume) 2.06 mg/dL 0.60-1.30 Serum or plasma urea nitrogen/creatinine mass ratio 11 NRG Serum or plasma creatinine measurement w ith calculation of estimated glomerular filtration rate 23 NRG Serum or plasma glucose measurement (mass/volume) 112 mg/dL 70-105 Serum or plasma calcium measurement (mass/volume) 8.7 mg/dL 8.5-10.1 Serum or plasma total bilirubin measurement (mass/volu me) 0.4 mg/dL 0.1-1.0 Serum or plasma alkaline phosphatase frank surement (enzymatic activity/volume) 55 U/L 40-136 Serum or plasma aspartate aminotransfera se measurement (enzymatic activity/volume) 19 U/L 5-34 Serum or plasma alanine aminotransferase measurement (enzymatic activity/volume) 18 U/L 0-55 Serum or plasma protein measurement (mass/volume) 5.2 g/dL 6.4-8.2 Serum or plasma albumin measurement (mass/volume) 2.9 g/dL 3.2-4.5 CALCIUM CORRECTED 9.6 mg/dL 8.5-10.1 Magnesium - 04/11/19 05:20 Magnesium 2.0 mg/dL 1.6-2.4 Lipid 1996 panel - 04/11/19 05:20 Serum or plasma triglyceride measurement (mass/volume) 235 mg/dL <150 Serum or plasma cholesterol measurement (mass/volume) 125 mg/dL < 200 Serum or plasma cholesterol in HDL measurement (mass/v olume) 34 mg/dL 40-60 Cholesterol in LDL [mass/volume] in serum or plasma by direct assay 44 mg/dL 1-129 Serum or plasma cholesterol in VLDL measurement (mass/ volume) 47 mg/dL 5-40 THYROID STIMULATING HORMONE - 04/11/19 0 5:20 THYROID STIMULATING HORMONE 3.73 u[iU]/mL 0.35-4.94 Capillary blood glucose measurement by g lucometer (mass/volume) - 04/11/19 21:01 Capillary blood glucose measurement by glucometer (mas s/volume) 249 mg/dL 70-110 Complete blood count (CBC) with automate d white blood cell (WBC) differential - 04/12/19 05:49 Blood leukocytes automated count (number/volume) 3.4 10*3/uL 4.3-11.0 Blood erythrocytes automated count (number/volume) 3.56 10*6/uL 4.35-5.85 Venous blood hemoglobin measurement (mass/volume) 9.6 g/dL 11.5-16.0 Blood hematocrit (volume fraction) 30 % 35-52 Automated erythrocyte mean corpuscular volume 85 [ foz_us] 80-99 Automated erythrocyte mean corpuscular h emoglobin (mass per erythrocyte) 27 pg 25-34 Automated erythrocyte mean corpuscular h emoglobin concentration measurement (mass/volume) 32 g/dL 32-36 Automated erythrocyte distribution width ratio 13. 9 % 10.0- 14.5 Automated blood platelet count (count/volume) 190 10*3/uL 130-400 Automated blood platelet mean volume measurement 10.7 [foz_us] 7.4-10.4 Automated blood neutrophils/100 leukocytes 48 % 42-75 Automated blood lymphocytes/100 leukocytes 30 % 12-44 Blood monocytes/100 leukocytes 16 % 0-12 Automated blood eosinophils/100 leukocytes 5 % 0-10 Automated blood basophils/100 leukocytes 1 % 0-10 Blood neutrophils automated count (number/volume) 1.6 10*3 1.8-7.8 Blood lymphocytes automated count (number/volume) 1.0 10*3 1.0-4.0 Blood monocytes automated count (number/volume) 0. 5 10*3 0.0-1.0 Automated eosinophil count 0.2 10*3/uL 0 .0-0.3 Automated blood basophil count (count/volume) 0.0 10*3/uL 0.0-0.1 Whole blood basic metabolic panel - 09/26 05:49 Serum or plasma sodium measurement (moles/volume) 141 mmol/L 135-145 Serum or plasma potassium measurement (moles/volume) 3.8 mmol/L 3.6-5.0 Serum or plasma chloride measurement (moles/volume) 108 mmol/L 98-107 Carbon dioxide 27 mmol/L 21-32 Serum or plasma anion gap determination (moles/volume) 6 mmol/L 5-14 Serum or plasma urea nitrogen measurement (mass/volume ) 19 mg/dL 7-18 Serum or plasma creatinine measurement (mass/volume) 2.14 mg/dL 0.60-1.30 Serum or plasma urea nitrogen/creatinine mass ratio 9 NRG Serum or plasma creatinine measurement w ith calculation of estimated glomerular filtration rate 22 NRG Serum or plasma glucose measurement (mass/volume) 132 mg/dL 70-105 Serum or plasma calcium measurement (mass/volume) 8.6 mg/dL 8.5-10.1 Complete blood count (CBC) with automate d white blood cell (WBC) differential - 05/07/19 14:44 Blood leukocytes automated count (number/volume) 3.9 10*3/uL 4.3-11.0 Blood erythrocytes automated count (number/volume) 3.07 10*6/uL 4.35-5.85 Venous blood hemoglobin measurement (mass/volume) 8.5 g/dL 11.5-16.0 Blood hematocrit (volume fraction) 27 % 35-52 Automated erythrocyte mean corpuscular volume 88 [ foz_us] 80-99 Automated erythrocyte mean corpuscular h emoglobin (mass per erythrocyte) 28 pg 25-34 Automated erythrocyte mean corpuscular h emoglobin concentration measurement (mass/volume) 31 g/dL 32-36 Automated erythrocyte distribution width ratio 14. 4 % 10.0- 14.5 Automated blood platelet count (count/volume) 191 10*3/uL 130-400 Automated blood platelet mean volume measurement 10.5 [foz_us] 7.4-10.4 Automated blood neutrophils/100 leukocytes 69 % 42-75 Automated blood lymphocytes/100 leukocytes 15 % 12-44 Blood monocytes/100 leukocytes 12 % 0-12 Automated blood eosinophils/100 leukocytes 3 % 0-10 Automated blood basophils/100 leukocytes 1 % 0-10 Blood neutrophils automated count (number/volume) 2.7 10*3 1.8-7.8 Blood lymphocytes automated count (number/volume) 0.6 10*3 1.0-4.0 Blood monocytes automated count (number/volume) 0. 5 10*3 0.0-1.0 Automated eosinophil count 0.1 10*3/uL 0 .0-0.3 Automated blood basophil count (count/volume) 0.0 10*3/uL 0.0-0.1 Comprehensive metabolic panel - 05/07/19 14:44 Serum or plasma sodium measurement (moles/volume) 137 mmol/L 135-145 Serum or plasma potassium measurement (moles/volume) 4.3 mmol/L 3.6-5.0 Serum or plasma chloride measurement (moles/volume) 102 mmol/L 98-107 Carbon dioxide 23 mmol/L 21-32 Serum or plasma anion gap determination (moles/volume) 12 mmol/L 5-14 Serum or plasma urea nitrogen measurement (mass/volume ) 30 mg/dL 7-18 Serum or plasma creatinine measurement (mass/volume) 2.44 mg/dL 0.60-1.30 Serum or plasma urea nitrogen/creatinine mass ratio 12 NRG Serum or plasma creatinine measurement w ith calculation of estimated glomerular filtration rate 19 NRG Serum or plasma glucose measurement (mass/volume) 332 mg/dL 70-105 Serum or plasma calcium measurement (mass/volume) 8.6 mg/dL 8.5-10.1 Serum or plasma total bilirubin measurement (mass/volu me) 0.4 mg/dL 0.1-1.0 Serum or plasma alkaline phosphatase frank surement (enzymatic activity/volume) 69 U/L 40-136 Serum or plasma aspartate aminotransfera se measurement (enzymatic activity/volume) 16 U/L 5-34 Serum or plasma alanine aminotransferase measurement (enzymatic activity/volume) 16 U/L 0-55 Serum or plasma protein measurement (mass/volume) 6.4 g/dL 6.4-8.2 Serum or plasma albumin measurement (mass/volume) 3.0 g/dL 3.2-4.5 CALCIUM CORRECTED 9.4 mg/dL 8.5-10.1 Encounters ACCT No. Visit Date/Time Discharge Status Pt. Type Provider Facility Loc./Unit Complaint [id number] 06/13/2019 13:27:00 15:10:00 DIS Outpatient BENITA KIDD MD [facility] ER FS ABNORMAL LAB RESULTS [id number] 05/15/2019 10:49:00 23:59:59 CLS Outpatient GAMAL MENDOZA FACC, DACIA LEVINE CC DS [facility] CARD CHEST DISCOMFORT,SOB,HYPERLIPIDEMIA [id number] 05/08/2019 12:36:00 12:51:00 DIS Outpatient REBEKA SANTIAGO DO [facility] ER FS LUNG PAIN [id number] 05/07/2019 14:28:00 23:59:59 CLS Outpatient ADOLFO RHODES MD [facility] RAD FS R05 N18.4 [id number] 04/11/2019 13:40:00 15:00:00 DIS Inpatient MARILOU MENDOZA, ERWIN Mathews [facility] 4TH ARNOLDO ON CVD DEHYDRATIO N CHEST PAIN SOA
[2019-08-06] MEDS ORDERED: DOXA4TAB PO (13:15)
[2019-08-06] MEDS ORDERED: HYDR-3924 PO (13:15)
[2019-08-06] MEDS ORDERED: CYAN250010 PO (13:15)
[2019-08-06] MEDS ORDERED: CHOL200012 PO (13:15)
[2019-08-06] MEDS ORDERED: AMLO10TA4 PO (13:15)
== END 2019-06-13 15:10 | disposition home or self-care (01) ==
LOC: EDUNIT# 13:25 → ER FS 13:27
DX: E11.22 Type 2 diabetes mellitus with diabetic chronic kidney disease (principal); I12.9 Hypertensive chronic kidney disease with stage 1 through stage 4 chronic kidney disease, or unspecified chronic kidney disease; N18.9 Chronic kidney disease, unspecified; J43.9 Emphysema, unspecified; I16.9 Hypertensive crisis, unspecified; E78.00 Pure hypercholesterolemia, unspecified; K21.9 Gastro-esophageal reflux disease without esophagitis; E03.9 Hypothyroidism, unspecified; F32.9 Major depressive disorder, single episode, unspecified; Z90.49 Acquired absence of other specified parts of digestive tract; Z90.710 Acquired absence of both cervix and uterus; Z95.1 Presence of aortocoronary bypass graft; Z88.5 Allergy status to narcotic agent; Z91.041 Radiographic dye allergy status; Z91.040 Latex allergy status; Z79.02 Long term (current) use of antithrombotics/antiplatelets; Z79.51 Long term (current) use of inhaled steroids; Z79.4 Long term (current) use of insulin
CPT/HCPCS: 99281

== ENCOUNTER 2019-08-03 16:57 | Emergency (ER) | payer MEDICARE, MEDICAID ==
[~2019-08-03] VITALS: Ht 170 cm; Wt 85.6 kg
[2019-08-03] MEDS ORDERED: NS IV 500 ML 500 ML IV ONE ×2 (17:45→18:30)
--- NOTE | 2019-08-03 17:50 | ED Cough/URI ---
General Chief Complaint: Cough/Cold/Flu Symptoms Stated Complaint: FLU SYMPTOMS Nursing Triage Note: COUGHING FOR 3-4 DAYS Sepsis Screen: No Definite Risk Source: patient Exam Limitations: clinical condition (feels weak) History of Present Illness Date Seen by Provider: Aug 03, 2019 Time Seen by Provider: 17:26 Initial Comments 78-year-old female with 5 day history of coughing 4 days of coughing up phlegm yellow patient admits that she's feeling worse and worse has chills and fever patient on chest x-ray shows that she has some consolidation consistent with pneumonia. Patient has given informed consent for diagnostic and therapeutic services. Azithromycin 500 and ceftriaxone 2 g IV have been ordered for the patient. Also because of the congestion and exacerbation of COPD DuoNeb will be given as a nebulizer. Timing/Duration: week Severity/Quality: moderate, productive cough (with yellow sputum), sputum (at times yellow) Prior Episodes/Possible Cause: occasional episodes (but this is the worst episode) Modifying Factors: Improves With Activity, Improves With Lying Down Associated Symptoms: chest pain/soreness (from coughing), cough, lightheadedness, nasal congestion, sore throat Allergies and Home Medications Allergies Coded Allergies: Iodinated Contrast Media (Unverified Allergy, Unknown, HIVES, 04/09/19) codeine (Unverified Allergy, Unknown, NERVOUSNESS, 04/09/19) latex (Unverified Allergy, Unknown, ITCHING, RASH, 04/09/19) Home Medications Acetaminophen 500 Mg Tablet, 1,000 MG PO Q6H PRN for PAIN-MILD, (Reported) Albuterol Sulfate 2.5 Mg/3 Ml Vial.neb, 2.5 MG NEB Q6H PRN for SHORTNESS OF BREATH, (Reported) Albuterol Sulfate 1 Puff Puff, 2 PUFF INH Q6H PRN for SHORTNESS OF BREATH, (Reported) 1 PUFF = 90 MCG Amlodipine Besylate 10 Mg Tablet, 10 MG PO DAILY Prescribed by: BRYAN CHARLES on 04/12/19 0858 Atorvastatin Calcium 80 Mg Tablet, 80 MG PO HS, (Reported) Brimonidine Tartrate/Timolol 5 Ml Drops, 1 DROP OU BID, (Reported) Bupropion HCl 150 Mg Tablet.er, 300 MG PO DAILY, (Reported) TAKES 2 (150MG) TABLETS Calcium Carbonate/Vitamin D3 1 Each Tablet, 2 TAB PO DAILY, (Reported) Cholecalciferol (Vitamin D3) 2,000 Unit Capsule, 2,000 UNIT PO 1000, (Reported) Clopidogrel Bisulfate 75 Mg Tablet, 75 MG PO DAILY, (Reported) Dextromethorphan HBr 15 Mg/5 Ml Liquid, 10 ML PO Q4H PRN for COUGH, (Reported) Diazepam 5 Mg Tablet, 5 MG PO Q12H PRN for ANXIETY, (Reported) Docusate Sodium 100 Mg Capsule, 100 MG PO DAILY, (Reported) Donepezil HCl 10 Mg Tablet, 10 MG PO HS, (Reported) Doxazosin Mesylate 4 Mg Tablet, 4 MG PO BID Hold for SBP less than 150 mmHg Prescribed by: BRYAN CHARLES on 04/12/19857 Fluticasone Propionate 16 Gm [place].susp, 1 SPRAY NS DAILY PRN for ALLERGIES, (Reported) Fluticasone/Salmeterol 1 Each Blst.w.dev, 1 PUFF INH BID, (Reported) Hydralazine HCl 50 Mg Tablet, 50 MG PO Q8H Prescribed by: BRYAN CHARLES on 04/12/19857 Insulin Glargine,Hum.rec.anlog 100 Unit/1 Ml Insuln.pen, 4 UNIT SQ HS, (Reported) Insuln Asp Prt/Insulin Aspart 300 Units/3 Ml Solution, SC TIDAC, (Reported) 120 OR LESS = 0 UNITS 121-140 = 6 UNITS 141-160 = 8 UNITS 161-200 = 12 UNITS 201-250 = 14 UNITS OVER 250 = 18 UNITS Levothyroxine Sodium 112 Mcg Tablet, 112 MCG PO 0600, (Reported) Loratadine 10 Mg Tablet, 10 MG PO DAILY PRN for ALLERGIES, (Reported) Memantine HCl 10 Mg Tablet, 10 MG PO DAILY, (Reported) Metoprolol Succinate 100 Mg Tab.er.24h, 100 MG PO DAILY, (Reported) Mirtazapine 15 Mg Tablet, 22.5 MG PO HS, (Reported) TAKES 1 & 1/2 (15MG) TABLET Multivitamin 1 Each Tablet, 1 TAB PO DAILY, (Reported) Omeprazole 40 Mg Capsule.dr, 40 MG PO DAILY, (Reported) Peg 400/Hypromellose/Glycerin 15 Ml Drops, 1 DROP OU UD PRN for DRY EYES, (Reported) Polyethylene Glycol 3350 17 Gm Powd.pack, 17 GM PO DAILY, (Reported) Patient Home Medication List Home Medication List Reviewed: Yes Review of Systems Review of Systems Constitutional: chills, fever, malaise, weakness EENTM: hearing loss, throat pain Respiratory: cough, dyspnea on exertion, phlegm, short of breath, wheezing Cardiovascular: other (weakness) Gastrointestinal: nausea (with coughing) Genitourinary: no symptoms reported Musculoskeletal: back pain, muscle stiffness Skin: no symptoms reported Psychiatric/Neurological: Anxiety Hematologic/Lymphatic: No Symptoms Reported Immunological/Allergic: no symptoms reported Past Txehdiu-Dslhko-Ustdsr Hx Patient Social History Alcohol Use: Denies Use Recreational Drug Use: No 2nd Hand Smoke Exposure: No Recent Foreign Travel: No Contact w/Someone Who Travel: No Recent Infectious Disease Expo: No Recent Hopitalizations: No Physical Abuse: No Sexual Abuse: No Mistreated: No Fear: No Immunizations Up To Date Date of Pneumonia Vaccine: Apr 08, 2011 Date of Influenza Vaccine: Apr 23, 2019 Seasonal Allergies Seasonal Allergies: No Past Medical History Surgeries: Yes (inguinal hernia repair; egd; colonoscopy; ) Appendectomy, CABG, Gallbladder, 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, Oophorectomy, Orthopedic Respiratory: Yes Emphysema Cardiac: Yes (hypertensive crisis ) Angina, High Cholesterol, Hypertension Neurological: Yes Neuropathy Reproductive Disorders: No Genitourinary: Yes (incontinence) Gastrointestinal: Yes (Hepatitis B) Gastroesophageal Reflux Musculoskeletal: Yes (neck injury ) Arthritis Endocrine: Yes Hypothyroidsim, Diabetes, Non-Insulin dep, Lupus HEENT: Yes Cataract, Glaucoma Cancer: No Psychosocial: Yes Depression Integumentary: No Blood Disorders: Yes Family Medical History Reviewed Nursing Family Hx Cancer, Diabetes, Renal Disease Physical Exam Vital Signs - First Documented 08/03/19 17:19 Temp 37.3 Pulse 75 Resp 20 B/P (MAP) 221/52 (108) Pulse Ox 95 O2 Delivery Room Air Capillary Refill : Less Than 3 Seconds Height: 5'8.00" Weight: 165lbs. 0.0oz. 74.634925bf; 29.00 BMI Method: General Appearance: moderate distress, other (coughing muscle aches feels weak) Eyes: Bilateral Eye Normal Inspection, Bilateral Eye PERRL, Bilateral Eye EOMI HEENT: PERRL/EOMI, normal ENT inspection, pharynx normal, other (missing teeth) Neck: non-tender, full range of motion, supple, normal inspection Respiratory: chest non-tender, no accessory muscle use, crackles, rales, wheezing, expiration Cardiovascular: regular rate, rhythm, no edema, no gallop, no JVD, no murmur Gastrointestinal: normal bowel sounds, non tender, soft, no organomegaly, no pulsatile mass Extremities: normal range of motion (with arthritic changes consistent with age), non-tender, normal inspection, no pedal edema, no calf tenderness 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, normal mood/affect, oriented x 3, abnormal gait (weak), motor weakness Skin: normal color, warm/dry, damp Focused Exam Lactate Level 08/03/19 17:55: Lactic Acid Level 1.07 Lactic Acid Level Laboratory Tests Test 08/03/19 17:55 Lactic Acid Level 1.07 MMOL/L (0.50-2.00) Progress/Results/Core Measures Suspected Sepsis Recent Fever Within 48 Hours: Yes Infection Criteria Present: Suspected New Infection New/Unexplained Altered Menta: No Sepsis Screen: No Definite Risk SIRS Temperature: Pulse: 75 Respiratory Rate: 20 Laboratory Tests 08/03/19 17:30: White Blood Count 5.6 Blood Pressure 221 /52 Mean: 108 08/03/19 17:55: Lactic Acid Level 1.07 Laboratory Tests 08/03/19 17:30: Platelet Count 145 08/03/19 17:55: Creatinine 3.29H, Total Bilirubin 0.3 Results/Orders Lab Results Laboratory Tests Test 08/03/19 17:30 08/03/19 17:55 Range/Units White Blood Count 5.6 4.3-11.0 10^3/uL Red Blood Count 3.63 L 4.35-5.85 10^6/uL Hemoglobin 9.9 L 11.5-16.0 G/DL Hematocrit 32 L 35-52 % Mean Corpuscular Volume 88 80-99 FL Mean Corpuscular Hemoglobin 27 25-34 PG Mean Corpuscular Hemoglobin Concent 31 L 32-36 G/DL Red Cell Distribution Width 13.4 10.0-14.5 % Platelet Count 145 130-400 10^3/uL Mean Platelet Volume 10.6 H 7.4-10.4 FL Neutrophils (%) (Auto) 83 H 42-75 % Lymphocytes (%) (Auto) 8 L 12-44 % Monocytes (%) (Auto) 8 0-12 % Eosinophils (%) (Auto) 0 0-10 % Basophils (%) (Auto) 0 0-10 % Neutrophils # (Auto) 4.6 1.8-7.8 X 10^3 Lymphocytes # (Auto) 0.5 L 1.0-4.0 X 10^3 Monocytes # (Auto) 0.5 0.0-1.0 X 10^3 Eosinophils # (Auto) 0.0 0.0-0.3 10^3/uL Basophils # (Auto) 0.0 0.0-0.1 10^3/uL Neutrophils % (Manual) 90 % Lymphocytes % (Manual) 3 % Monocytes % (Manual) 5 % Eosinophils % (Manual) 0 % Basophils % (Manual) 0 % Band Neutrophils 2 % Platelet Estimate ADEQUATE Sodium Level 138 135-145 MMOL/L Potassium Level 4.5 3.6-5.0 MMOL/L Chloride Level 103 98-107 MMOL/L Carbon Dioxide Level 19 L 21-32 MMOL/L Anion Gap 16 H 5-14 MMOL/L Blood Urea Nitrogen 52 H 7-18 MG/DL Creatinine 3.29 H 0.60-1.30 MG/DL Estimat Glomerular Filtration Rate 14 BUN/Creatinine Ratio 16 Glucose Level 253 H 70-105 MG/DL Lactic Acid Level 1.07 0.50-2.00 MMOL/L Calcium Level 8.9 8.5-10.1 MG/DL Corrected Calcium 9.4 8.5-10.1 MG/DL Total Bilirubin 0.3 0.1-1.0 MG/DL Aspartate Amino Transf (AST/SGOT) 25 5-34 U/L Alanine Aminotransferase (ALT/SGPT) 24 0-55 U/L Alkaline Phosphatase 86 40-136 U/L Total Protein 6.6 6.4-8.2 GM/DL Albumin 3.4 3.2-4.5 GM/DL Micro Results Microbiology 08/03/19 Influenza Types A,B Antigen (AUGIE) - Final, Complete My Orders Orders - CAMERON ZAMORA DO Influenza A And B Antigens (08/03/19 17:02) Urinalysis (08/03/19 17:02) Cbc And Manual Diff (08/03/19 17:37) Comprehensive Metabolic Panel (08/03/19 17:37) Lactic Acid Analyzer (08/03/19 17:37) Blood Culture (08/03/19 17:37) Chest Pa/Lat (2 View) (08/03/19 17:37) Ns Iv 500 Ml (Sodium Chloride 0.9%) (08/03/19 17:45) Ns Iv 500 Ml (Sodium Chloride 0.9%) (08/03/19 18:30) Ns Iv 500 Ml (Sodium Chloride 0.9%) (08/03/19 18:30) Azithromycin Injection (Zithromax Inject (08/03/19 18:30) Ceftriaxone For Iv Use (Rocephin For I (08/03/19 18:30) Albuterol/Ipra Inhalation Soln (Duoneb I (08/03/19 18:30) Svn Small Volume Nebulizer (08/03/19 18:19) Ekg Tracing (08/03/19 18:24) Medications Given in ED Current Medications Medications Dose Ordered Sig/Nicole Route Start Time Stop Time Status Last Admin Dose Admin Albuterol/ Ipratropium 3 ml ONCE ONCE INH 08/03/19 18:30 08/03/19 18:31 DC 08/03/19 18:28 3 ML Azithromycin 500 mg/Sodium Chloride 250 ml @ 250 mls/hr ONCE ONCE IV 08/03/19 18:30 08/03/19 19:29 DC 08/03/19 18:32 250 MLS/HR Ceftriaxone Sodium 2000 mg/ Sterile Water 20 ml @ 240 mls/hr ONCE ONCE IV 08/03/19 18:30 08/03/19 18:34 DC 08/03/19 18:29 240 MLS/HR Sodium Chloride 500 ml @ 30 mls/hr [id number] ONCE IV 08/03/19 17:45 08/04/19 10:24 08/03/19 17:57 30 MLS/HR Sodium Chloride 500 ml @ 30 mls/hr [id number] ONCE IV 08/03/19 18:30 08/04/19 11:09 08/03/19 18:32 30 MLS/HR Vital Signs/I&O 08/03/19 17:19 Temp 37.3 Pulse 75 Resp 20 B/P (MAP) 221/52 (108) Pulse Ox 95 O2 Delivery Room Air Capillary Refill : Less Than 3 Seconds 2 Blood Pressure Mean: 108 Departure Impression Primary Impression: Acute bronchitis Additional Impression: COPD exacerbation Disposition: [facility] Condition: Stable Departure-Patient Inst. Decision time for Depature: 19:53 Referrals: ADOLFO RHODES MD (PCP/Family) Primary Care Physician Patient Instructions: Acute Bronchitis Add. Discharge Instructions: Patient has been evaluated for acute exacerbation of chronic bronchitis. She was given azithromycin 500 mg IV and ceftriaxone 2 g IV. Patient will follow up with azithromycin 250 daily. She'll be monitored in the extended care facility and I have recommended that she receive chest percussion and clot meant to help produce and clear her chronic bronchitis with acute exacerbation. The patient become short of breath febrile or unstable she should return to the emergency room. Follow-up with Dr. Rhodes All discharge instructions reviewed with patient and/or family. Voiced understanding. Scripts Azithromycin (Azithromycin) 250 Mg Tablet 250 MG PO UD for 6 Days, #6 TAB TAKE 2 TABLETS ON DAY ONE THEN TAKE 1 TABLET DAILY FOR FOUR MORE DAYS Prov: CAMERON ZAMORA DO 08/03/19 CAMERON ZAMORA DO Aug 03, 2019 17:50
[2019-08-03 17:54] LABS: WHITE BLOOD COUNT 5.6 10^3/uL (4.3-11.0)
[2019-08-03 17:55] LABS: HEMATOCRIT 32 % (35-52); HEMOGLOBIN 9.9 G/DL (11.5-16.0); MEAN CORPUSCULAR HEMOGLOBIN 27 PG (25-34); MEAN CORPUSCULAR HGB CONC 31 G/DL (32-36); MEAN CORPUSCULAR VOLUME 88 FL (80-99); MEAN PLATELET VOLUME 10.6 FL (7.4-10.4); NEUTROPHILS % (AUTO) 83 % (42-75); PLATELET COUNT 145 10^3/uL (130-400); RED CELL DISTRIBUTION WIDTH 13.4 % (10.0-14.5)
[2019-08-03 17:56] LABS: BASOPHILS % (AUTO) 0 % (0-10); EOSINOPHILS % (AUTO) 0 % (0-10); LYMPHOCYTES # (AUTO) 0.5 X 10^3 (1.0-4.0); LYMPHOCYTES % (AUTO) 8 % (12-44); MONOCYTES # (AUTO) 0.5 X 10^3 (0.0-1.0); MONOCYTES % (AUTO) 8 % (0-12); NEUTROPHILS # (AUTO) 4.6 X 10^3 (1.8-7.8)
[2019-08-03 18:02] LABS: BAND NEUTROPHILS 2 %; BASOPHILS % (MANUAL) 0 %; EOSINOPHILS % (MANUAL) 0 %; LYMPHOCYTES % (MANUAL) 3 %; MONOCYTES % (MANUAL) 5 %; NEUTROPHILS % (MANUAL) 90 %
--- NOTE | 2019-08-03 18:02 | Diagnostic Imaging Report ---
EXAMINATION: Chest 2 views. HISTORY: Cough. COMPARISON: 05/07/2019. FINDINGS: The lung volumes are hyperexpanded. Patchy opacities are seen in the left lung base with possible small left pleural effusion. No large pneumothorax is seen. The cardiomediastinal silhouette is normal in size and contour. Post-CABG changes are noted. There is calcified aortic atherosclerotic plaque. No acute osseous abnormality is seen. IMPRESSION: 1. Patchy opacities in the left lung base with possible small left pleural effusion. 2. Hyperexpanded lungs, which can be seen with COPD. Dictated by: Dictated on workstation # [id number]
[2019-08-03 18:03] LABS: PLATELET ESTIMATE ADEQUATE
[2019-08-03] MEDS ORDERED: cefTRIAXone FOR IV USE 2,000 MG in WATER (STERILE) FOR INJECTION 20 ML IV ONE (18:30)
[2019-08-03] MEDS ORDERED: AZITHROMYCIN INJECTION 500 MG in NS (IVPB) 250 ML IV ONE (18:30)
[2019-08-03] MEDS ORDERED: RT-ALBUTEROL/IPRATROPIUM 3 ML (DUONEB) VIAL INH ONE (18:30)
[2019-08-03] MEDS ORDERED: NS IV 500 ML 500 ML IV SCH (18:30)
[2019-08-03 18:39] LABS: CREATININE SERUM 3.29 MG/DL (0.60-1.30); POTASSIUM 4.5 MMOL/L (3.6-5.0)
[2019-08-03 18:40] LABS: ALBUMIN 3.4 GM/DL (3.2-4.5); BILIRUBIN,TOTAL 0.3 MG/DL (0.1-1.0); CALCIUM 8.9 MG/DL (8.5-10.1); TOTAL PROTEIN 6.6 GM/DL (6.4-8.2)
[2019-08-03] MEDS ORDERED: AZIT250T12 PO (19:55)
[2019-08-03 20:10] VITALS: BP 188/53
[2019-08-03] MEDS ORDERED: ONDANSETRON 4 MG/2 ML (SDV) Z0FRAN IVP ONE (20:15)
[2019-08-06] MEDS ORDERED: AMLO10TA4 PO (13:15)
[2019-08-06] MEDS ORDERED: CHOL200012 PO (13:15)
[2019-08-06] MEDS ORDERED: DOXA4TAB PO (13:15)
[2019-08-06] MEDS ORDERED: CYAN250010 PO (13:15)
[2019-08-06] MEDS ORDERED: HYDR-3924 PO (13:15)
== END 2019-08-03 20:10 ==
LOC: EDUNIT# 16:57 → ER FS 16:59
DX: J20.9 Acute bronchitis, unspecified (principal); J44.1 Chronic obstructive pulmonary disease with (acute) exacerbation; I10 Essential (primary) hypertension; E78.00 Pure hypercholesterolemia, unspecified; I16.9 Hypertensive crisis, unspecified; E11.40 Type 2 diabetes mellitus with diabetic neuropathy, unspecified; F32.9 Major depressive disorder, single episode, unspecified; K21.9 Gastro-esophageal reflux disease without esophagitis; E03.9 Hypothyroidism, unspecified; Z88.5 Allergy status to narcotic agent; Z91.040 Latex allergy status; Z91.041 Radiographic dye allergy status; Z79.02 Long term (current) use of antithrombotics/antiplatelets; Z87.39 Personal history of other diseases of the musculoskeletal system and connective tissue; Z79.51 Long term (current) use of inhaled steroids; Z79.4 Long term (current) use of insulin; Z95.1 Presence of aortocoronary bypass graft; Z90.710 Acquired absence of both cervix and uterus
CPT/HCPCS: 36415; 71046; 80053; 83605; 85007; 85027; 87804; 93005

== ENCOUNTER 2019-10-21 00:03 | Emergency (ER) | payer MEDICARE, MEDICAID ==
[~2019-10-21] VITALS: Ht 170 cm; Wt 69.0 kg
[~2019-10-21 00:03] MED LIST changes: +AZIT250T12 PO; +CHOL200012 PO; +CYAN250010 PO
--- NOTE | 2019-10-21 00:12 | ED Fall/Injury ---
General Stated Complaint: FALL Source: patient, EMS, RN notes reviewed, EMS notes reviewed, old records History of Present Illness Date Seen by Provider: Oct 21, 2019 Time Seen by Provider: 00:03 Initial Comments This patient is a 78-year-old female presents to the emergency department complaining of small follow-up bubble head. Patient states she had a little bit of a scratch in a posterior head that was bleeding. Patient was sent to the emerge from for laceration evaluation. Patient has no complaints and has no active bleeding at this time. Patient had no loss of consciousness is an awake and alert 3 with no other complaints. Occurred: just prior to arrival Severity: mild Injuries/Pain Location: head Context: lost balance Loss of Consciousness: no loss of consciousness Modifying Factors: Improves With Cold Therapy; Worse With Immobilization, Worse With Jarring, Worse With Movement, Worse With Pain Medication, Worse With Rest, Worse With Other Associated Symptoms (Fall): No Denies Symptoms, No Abdominal Pain, No Chest Pain, No Confusion, No Dizziness, No Headache, No Lightheadedness, No Muscle Spasms, No Nausea/Vomiting, No Neck Pain, No Ringing in Ears, No Seizures, No Shortness of Air, No Slurred Speech, No Trouble Walking, No Vision Changes, No Other Allergies and Home Medications Allergies Coded Allergies: Iodinated Contrast Media (Unverified Allergy, Unknown, HIVES, 04/09/19) codeine (Unverified Allergy, Unknown, NERVOUSNESS, 04/09/19) latex (Unverified Allergy, Unknown, ITCHING, RASH, 04/09/19) Home Medications Acetaminophen 500 Mg Tablet, 1,000 MG PO Q6H PRN for PAIN-MILD, (Reported) Albuterol Sulfate 2.5 Mg/3 Ml Vial.neb, 2.5 MG NEB Q6H PRN for SHORTNESS OF BREATH, (Reported) Albuterol Sulfate 1 Puff Puff, 2 PUFF INH Q6H PRN for SHORTNESS OF BREATH, (Reported) Amlodipine Besylate 10 Mg Tablet, 10 MG PO DAILY, (Reported) Atorvastatin Calcium 80 Mg Tablet, 80 MG PO HS, (Reported) Brimonidine Tartrate/Timolol 5 Ml Drops, 1 DROP OU BID, (Reported) Bupropion HCl 150 Mg Tablet.er, 300 MG PO DAILY, (Reported) TAKES 2 (150MG) TABLETS Calcium Carbonate/Vitamin D3 1 Each Tablet, 2 TAB PO DAILY, (Reported) Cholecalciferol (Vitamin D3) 50 Mcg Capsule, 50 MCG PO 1000, (Reported) Clopidogrel Bisulfate 75 Mg Tablet, 75 MG PO DAILY, (Reported) Cyanocobalamin (Vitamin B-12) 2,500 Mcg Tablet, 2,500 MCG PO DAILY, (Reported) Dextromethorphan HBr 15 Mg/5 Ml Liquid, 10 ML PO Q4H PRN for COUGH, (Reported) Diazepam 5 Mg Tablet, 5 MG PO Q12H PRN for ANXIETY, (Reported) Docusate Sodium 100 Mg Capsule, 100 MG PO DAILY, (Reported) Donepezil HCl 10 Mg Tablet, 10 MG PO HS, (Reported) Doxazosin Mesylate 4 Mg Tablet, 4 MG PO BID, (Reported) HOLD FOR SYSTOLIC BP KESS THEN 150 Fluticasone Propionate 16 Gm [place].susp, 1 SPRAY NS DAILY PRN for ALLERGIES, (Reported) Fluticasone/Salmeterol 1 Each Blst.w.dev, 1 PUFF INH BID, (Reported) Hydralazine HCl 50 Mg Tablet, 50 MG PO Q8H, (Reported) TAKES AT 0600, 1400 AND 2200 Insulin Glargine,Hum.rec.anlog 100 Unit/1 Ml Insuln.pen, 4 UNIT SQ HS, (Reported) Insuln Asp Prt/Insulin Aspart 300 Units/3 Ml Solution, SC TIDAC, (Reported) 120 OR LESS = 0 UNITS 121-140 = 6 UNITS 141-160 = 8 UNITS 161-200 = 12 UNITS 201-250 = 14 UNITS OVER 250 = 18 UNITS Levothyroxine Sodium 112 Mcg Tablet, 112 MCG PO 0600, (Reported) Loratadine 10 Mg Tablet, 10 MG PO DAILY PRN for ALLERGIES, (Reported) Memantine HCl 10 Mg Tablet, 10 MG PO DAILY, (Reported) Metoprolol Succinate 100 Mg Tab.er.24h, 100 MG PO DAILY, (Reported) Mirtazapine 15 Mg Tablet, 22.5 MG PO HS, (Reported) TAKES 1 & 1/2 (15MG) TABLET Multivitamin 1 Each Tablet, 1 TAB PO DAILY, (Reported) Omeprazole 40 Mg Capsule.dr, 40 MG PO DAILY, (Reported) Peg 400/Hypromellose/Glycerin 15 Ml Drops, 1 DROP OU UD PRN for DRY EYES, (Reported) Polyethylene Glycol 3350 17 Gm Powd.pack, 17 GM PO DAILY, (Reported) Patient Home Medication List Home Medication List Reviewed: Yes Review of Systems Review of Systems Constitutional: see HPI Eyes: Denies No Symptoms Reported, Denies See HPI, Denies Blindness, Denies Blurred Vision, Denies Drainage, Denies Decreased Acuity, Denies Foreign Body Sensation, Denies Inflammation, Denies Pain, Denies Photophobia, Denies Previous Injury, Denies Shadows, Denies Tunnel Vision, Denies Vision Changes, Denies Contact Lenses, Denies Glasses, Denies Other Ears, Nose, Mouth, Throat: denies no symptoms reported, denies see HPI, denies ear pain, denies ear discharge, denies nose pain, denies nose discharge, denies epistaxis, denies mouth pain, denies mouth swelling, denies loose teeth, denies throat pain, denies throat swelling Respiratory: No no symptoms reported, No see HPI, No cough, No dyspnea on exertion, No hemoptysis, No orthopnea, No phlegm, No short of breath, No stridor, No wheezing, No other Cardiovascular: No no symptoms reported, No see HPI, No chest pain, No edema, No Hx of Intervention, No palpitations, No syncope, No vascular heart diseas, No other Gastrointestinal: No RUQ, No LUQ, No RLQ, No LLQ, No no symptoms reported, No see HPI, No abdominal pain, No constipation, No diarrhea, No dysphagia, No hematemesis, No heartburn, No jaundice, No loss of appetite, No melena, No nausea, No vomiting, No other Musculoskeletal: No no symptoms reported, No see HPI, No back pain, No gout, No joint pain, No joint swelling, No muscle pain, No muscle stiffness, No muscle cramps, No muscle twitching, No muscle weakness, No neck pain, No other Skin: see HPI All Other Systems Reviewed Negative Unless Noted: Yes Past Lnhcwvu-Hdkikn-Fohsig Hx Patient Social History Type Used: Cigarettes 2nd Hand Smoke Exposure: No Recent Foreign Travel: No Contact w/Someone Who Travel: No Recent Hopitalizations: No Immunizations Up To Date Date of Pneumonia Vaccine: Apr 08, 2011 Date of Influenza Vaccine: Jun 25, 2019 Seasonal Allergies Seasonal Allergies: No Past Medical History Surgeries: Yes (inguinal hernia repair; egd; colonoscopy; ) Appendectomy, CABG, Gallbladder, 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, Oophorectomy, Orthopedic Respiratory: Yes Emphysema Cardiac: Yes (hypertensive crisis ) High Cholesterol, Hypertension Neurological: Yes Dementia, Neuropathy Reproductive Disorders: No [employer] History: 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 Genitourinary: Yes (incontinence) Gastrointestinal: Yes (Hepatitis B) Gastroesophageal Reflux Musculoskeletal: Yes (neck injury ) Arthritis, Back Injury Endocrine: Yes Diabetes, Insulin dep, Hypothyroidsim, Lupus HEENT: Yes Cataract, Glaucoma Loss of Vision: Bilateral Hearing Impairment: Denies Cancer: No Psychosocial: Yes Depression Integumentary: No Blood Disorders: Yes Family Medical History Heart Disease, Cancer, Diabetes, Renal Disease Physical Exam Vital Signs Capillary Refill : Height, Weight, BMI Height: 5'8.00" Weight: 165lbs. 0.0oz. 74.275243nd; 24.67 BMI Method: General Appearance: WD/WN, no apparent distress HEENT: PERRL/EOMI, normal ENT inspection, TMs normal, pharynx normal, other (small scalp contusion posteriorly and right lower side. Small abrasion that does not require any sutures or ronel. Patient is awake and alert and has no complaints.) Neck: non-tender, full range of motion, supple, normal inspection Cardiovascular: normal peripheral pulses, regular rate, rhythm, no edema, no gallop, no JVD, no murmur Respiratory: chest non-tender, lungs clear, normal breath sounds, no respiratory distress, no accessory muscle use Gastrointestinal: normal bowel sounds, non tender, soft, no organomegaly, no pulsatile mass Back: normal inspection, no CVA tenderness, no vertebral tenderness Extremities: normal range of motion, non-tender, normal inspection, no pedal edema, no calf tenderness, normal capillary refill 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 Patient states she does want to make sure she didn't need a stitch are stable. I did discuss with the reji lott about all her chronic medications and chronic conditions and on for a full medical screening exam and the patient has declined. I had my and the nurse were present in the room and I asked multiple times if she would like me to do a CT scan on her head to rule out any intracranial hemorrhage or any injury. Her do any lab work. Patient states that she will decline. Patient states she has chronic conditions but are stable. And has a long history of slipping and losing her balance when she bends over forward. Patient states she bent over forward plug-in according to the wall because her to fall. Patient states she has no complaints. She was just concerned because she had a little bleeding on her scalp. Review patient's injury. Very minimal blood loss of any. Small abrasion that does not require any suturing or stapling. We'll have her put a small dressing over the wound. He patient's Tylenol. Patient will be discharged back to her living facility per her request. Patient is instructed in nursing staff at the facility will be instructed her that the patient return immediately that the symptoms don't improve or worsen. Further medical screening exam patient states understanding. Departure Impression Primary Impression: Fall Additional Impressions: Scalp abrasion Scalp contusion Disposition: SNF Condition: Stable Departure-Patient Inst. Decision time for Depature: 00:30 Referrals: ADOLFO RHODES MD (PCP/Family) Primary Care Physician Patient Instructions: Preventing Falls in the Older Adult, Skin Abrasions (DC), Skin Abrasions Add. Discharge Instructions: Small abrasion that does not require any suturing or stapling. We'll have her put a small dressing over the wound. patient's Tylenol. Patient will be discharged back to her living facility per her request. Patient is instructed in nursing staff at the facility will be instructed her that the patient return immediately that the symptoms don't improve or worsen. Further medical screening exam patient states understanding. Patient be discharged per her request EDUARDO ONEIL MD Oct 21, 2019 00:12
[2019-10-21 00:18] VITALS: BP 184/61
--- OUTSIDE RECORDS SUMMARY | 2019-10-21 05:22 | XMS REPORT | Continuity of Care Document ---
Author Organization Unknown Address Unknown Phone Unavailable Allergies Active Description Code Type Severity Reaction Onset Reported/Identified Relationship to Patient Clinical Status Yes codeine [id number] Drug Allergy Unknown NERVOUSNESS 04/09/2019 Yes Iodinated Contrast Media [id number] Drug Allergy Unknown HIVES 04/09/2019 Yes latex [id number] Drug Allergy Unknown ITCHING, RASH 04/09/2019 Medications There is no data. 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 04/12/2019 ERWIN ZAMARRIPA MD, Ot E11.65 TYPE 2 DIABETES MELLITUS WITH HYPERGLYCE 04/12/2019 ERWIN ZAMARRIPA MD, Ot E53 .8 DEFICIENCY OF OTHER SPECIFIED B GROUP 04/12/2019 ERWIN ZAMARRIPA MD, Ot E78 .5 HYPERLIPIDEMIA, UNSPECIFIED 04/12/2019 ERWIN ZAMARRIPA MD, Ot E86 .0 DEHYDRATION 04/12/2019 ERWIN ZAMARRIPA MD Ot F03.90 UNSPECIFIED DEMENTIA WITHOUT BEHAVIORAL 04/12/2019 ERWIN ZAMARRIPA MD, Ot I12 .9 HYPERTENSIVE CHRONIC KIDNEY DISEASE W ST 04/12/2019 ERWIN ZAMARRIPA MD, Ot I25.10 ATHSCL HEART DISEASE OF [place] CORONARY 04/12/2019 ERWIN ZAMARRIPA MD, Ot I65.23 [...] N18.4 CHRONIC KIDNEY DISEASE, STAGE 4 (SEVERE) 06/13/2019 BENITA KIDD MD Ot E03.9 HYPOTHYROIDISM, UNSPECIFIED 06/13/2019 BENITA KIDD MD Ot 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 06/13/2019 BENITA KIDD MD Ot E78.00 PURE HYPERCHOLESTEROLEMIA, UNSPECIFIED 06/13/2019 BENITA KIDD MD, Ot F32.9 MAJOR DEPRESSIVE DISORDER, SINGLE EPISOD 06/13/2019 BENITA KIDD MD Ot I12.9 HYPERTENSIVE CHRONIC KIDNEY DISEASE W ST 06/13/2019 BENITA KIDD MD Ot I16.9 HYPERTENSIVE CRISIS, UNSPECIFIED 06/13/2019 BENITA KIDD MD Ot J43.9 EMPHYSEMA, UNSPECIFIED 06/13/2019 BNEITA KIDD MD Ot K21.9 GASTRO-ESOPHAGEAL REFLUX DISEASE WITHOUT 06/13/2019 BENITA KIDD MD, Ot N18.9 CHRONIC KIDNEY DISEASE, UNSPECIFIED 06/13/2019 BENITA KIDD MD, Ot Z79.02 [facility] (CURRENT) USE OF ANTITHROMBOTI 06/13/2019 BENITA KIDD MD Ot Z79.4 SCUTCHER TENDER (CURRENT) USE OF INSULIN 06/13/2019 BENITA KIDD MD Ot Z79.51 SCUTCHER TENDER (CURRENT) USE OF INHALED STERO 06/13/2019 BENITA KIDD MD Ot Z88.5 ALLERGY STATUS TO NARCOTIC AGENT STATUS 06/13/2019 BENITA KIDD MD Ot Z90.49 ACQUIRED ABSENCE OF OTHER SPECIFIED PART 06/13/2019 BENITA KIDD MD Ot Z90.710 ACQUIRED ABSENCE OF BOTH CERVIX AND UTER 06/13/2019 BENITA KIDD MD Ot Z91.040 LATEX ALLERGY STATUS 06/13/2019 BENITA KIDD MD Ot Z91.041 RADIOGRAPHIC DYE ALLERGY STATUS 06/13/2019 BENITA KIDD MD Ot Z95.1 PRESENCE OF AORTOCORONARY BYPASS GRAFT 06/18/2019 BENITA KIDD MD Ot E03.9 HYPOTHYROIDISM, UNSPECIFIED 06/18/2019 BENITA KIDD MD Ot 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 06/18/2019 BENITA KIDD MD, Ot E78.00 PURE HYPERCHOLESTEROLEMIA, UNSPECIFIED 06/18/2019 BENITA KIDD MD, Ot F32.9 MAJOR DEPRESSIVE DISORDER, SINGLE EPISOD 06/18/2019 BENITA KIDD MD Ot I12.9 HYPERTENSIVE CHRONIC KIDNEY DISEASE W ST 06/18/2019 BENITA KIDD MD Ot I16.9 HYPERTENSIVE CRISIS, UNSPECIFIED 06/18/2019 BENITA KIDD MD Ot J43.9 EMPHYSEMA, UNSPECIFIED 06/18/2019 BENITA KIDD MD, Ot K21.9 GASTRO-ESOPHAGEAL REFLUX DISEASE WITHOUT 06/18/2019 BENITA KIDD MD, Ot N18.9 CHRONIC KIDNEY DISEASE, UNSPECIFIED 06/18/2019 BENITA KIDD MD Ot Z79.02 [facility] (CURRENT) USE OF ANTITHROMBOTI 06/18/2019 BENITA KIDD MD Ot Z79.4 [facility] (CURRENT) USE OF INSULIN 06/18/2019 BENITA KIDD MD, Ot Z79.51 SCUTCH[employer] TENDER (CURRENT) USE OF INHALED STERO 06/18/2019 BENITA KIDD MD Ot Z88.5 ALLERGY STATUS TO NARCOTIC AGENT STATUS 06/18/2019 BENITA KIDD MD, Ot Z90.49 ACQUIRED ABSENCE OF OTHER SPECIFIED PART 06/18/2019 BENITA KIDD MD Ot Z90.710 ACQUIRED ABSENCE OF BOTH CERVIX AND UTER 06/18/2019 BENITA KIDD MD Ot Z91.040 LATEX ALLERGY STATUS 06/18/2019 BENITA KIDD MD, Ot Z91.041 RADIOGRAPHIC DYE ALLERGY STATUS 06/18/2019 BENITA KIDD MD Ot Z95.1 PRESENCE OF AORTOCORONARY BYPASS GRAFT 07/05/2019 ADOLFO RHODES MD Ot J90 PLEURAL EFFUSION, NOT ELSEWHERE CLASSIFI 07/05/2019 ADOLFO RHODES MD Ot N18.4 CHRONIC KIDNEY DISEASE, STAGE 4 (SEVERE) 08/03/2019 SERA CAMERON HANLEY Ot E03.9 HYPOTHYROIDISM, UNSPECIFIED 08/03/2019 [facility] DOC[facility] Ot E11.40 TYPE 2 DIABETES MELLITUS WITH DIABETIC N 08/03/2019 SERA CAMERON HANLEY Ot E78.00 PURE HYPERCHOLESTEROLEMIA, UNSPECIFIED 08/03/[address] [facility] F[facility].9 MAJOR DEPRESSIVE DISORDER, SINGLE EPISOD 08/03/2019 [facility] Ot I1 0 ESSENTIAL (PRIMARY) HYPERTENSION 08/03/2019 SERA CAMERON HANLEY Ot I16.9 HYPERTENSIVE CRISIS, UNSPECIFIED 08/03/[address] [facility] Ot J20.9 ACUTE BRONCHITIS, UNSPECIFIED 08/03/2019 [facility] CAMERON HANLEY Ot J44.1 CHRONIC OBSTRUCTIVE PULMONARY DISEASE W 08/03/2019 SERA CAMERON HANLEY Ot K21.9 GASTRO-ESOPHAGEAL REFLUX DISEASE WITHOUT 08/03/[address] [facility] [place] Castillo Ot R09.89 OTH SYMPTOMS AND SIGNS INVOLVING THE CIR 08/03/[address] [facility] [place] Castillo Ot Z79.02 [facility] (CURRENT) USE OF ANTITHROMBOTI 08/03/[address] [facility] [place] Castillo Ot Z79.4 [facility] (CURRENT) USE OF INSULIN 08/03/[address] [facility] [place] Castillo Ot Z79.51 [facility] (CURRENT) USE OF INHALED STERO 08/03/[address] [facility] [place] Castillo Ot Z87.39 PERSONAL HISTORY OF DISEASES OF THE MS S 08/03/[address] [facility] [place] Castillo Ot Z88.5 ALLERGY STATUS TO NARCOTIC AGENT STATUS 08/03/[address] [facility] [place] Castillo Ot Z90.710 ACQUIRED ABSENCE OF BOTH CERVIX AND UTER 08/03/[address] [facility] [place] Castillo Ot Z91.040 LATEX ALLERGY STATUS 08/03/[address] [facility] Ot Z91.041 RADIOGRAPHIC DYE ALLERGY STATUS 08/03/[address] [facility] [place] Castillo Ot Z95.1 PRESENCE OF AORTOCORONARY BYPASS GRAFT 08/08/2019 MINNIE HANLEY MALIHA Ot B19.10 UNSPECIFIED VIRAL HEPATITIS B WITHOUT HE 08/08/2019 MINNIE HANLEY, MALIHA Ot E03.9 HYPOTHYROIDISM, UNSPECIFIED 08/08/2019 MINNIE DO MALIHA Ot E11.40 TYPE 2 DIABETES MELLITUS WITH DIABETIC N 08/08/2019 MINNIE DO, MALIHA Ot E78.00 PURE HYPERCHOLESTEROLEMIA, UNSPECIFIED 08/08/2019 MINNIE DO, MALIHA Ot F32.9 MAJOR DEPRESSIVE DISORDER, SINGLE EPISOD 08/08/2019 MINNIE DO MALIHA Ot F41.9 ANXIETY DISORDER, UNSPECIFIED 08/08/2019 HARTMAN DO, MALIHA Ot H40.9 UNSPECIFIED GLAUCOMA 08/08/2019 MINNIE DO, MALIHA Ot I12.9 HYPERTENSIVE CHRONIC KIDNEY DISEASE W ST 08/08/2019 MINNIE DO MALIHA Ot I20.9 ANGINA PECTORIS, UNSPECIFIED 08/08/2019 MINNIE DO, MALIHA Ot I51.7 CARDIOMEGALY 08/08/2019 MINNIE DO MALIHA Ot J18.9 PNEUMONIA, UNSPECIFIED ORGANISM 08/08/2019 MINNIE HANLEY MALIHA Ot J43.9 EMPHYSEMA, UNSPECIFIED 08/08/2019 HARTMAN DO, MALIHA Ot J90 PLEURAL EFFUSION, NOT ELSEWHERE CLASSIFI 08/08/2019 HARTMAN DO, MALIHA Ot K21.9 GASTRO-ESOPHAGEAL REFLUX DISEASE WITHOUT 08/08/2019 HARTMAN DO, MALIHA Ot M19.91 PRIMARY OSTEOARTHRITIS, UNSPECIFIED SITE 08/08/2019 HARTMAN DO, MALIHA Ot M54.9 DORSALGIA, UNSPECIFIED 08/08/2019 HARTMAN DO, MALIHA Ot N18.9 CHRONIC KIDNEY DISEASE, UNSPECIFIED 08/08/2019 HARTMAN DO, MALIHA Ot R32 UNSPECIFIED URINARY INCONTINENCE 08/08/2019 HARTMAN DO, MALIHA Ot Z87.89 1 PERSONAL HISTORY OF NICOTINE DEPENDENCE 08/08/2019 HARTMAN DO, MALIHA Ot Z95.1 PRESENCE OF AORTOCORONARY BYPASS GRAFT 08/09/2019 HARTMAN DO, MALIHA Ot B19.10 UNSPECIFIED VIRAL HEPATITIS B WITHOUT HE 08/09/2019 HARTMAN DO, MALIHA Ot E03.9 HYPOTHYROIDISM, UNSPECIFIED 08/09/2019 HARTMAN DO, MALIHA Ot E11.40 TYPE 2 DIABETES MELLITUS WITH DIABETIC N 08/09/2019 HARTMAN DO, MALIHA Ot E78.00 PURE HYPERCHOLESTEROLEMIA, UNSPECIFIED 08/09/2019 HARTMAN DO, MALIHA Ot F32.9 MAJOR DEPRESSIVE DISORDER, SINGLE EPISOD 08/09/2019 HARTMAN DO, MALIHA Ot F41.9 ANXIETY DISORDER, UNSPECIFIED 08/09/2019 HARTMAN DO, MALIHA Ot H40.9 UNSPECIFIED GLAUCOMA 08/09/2019 HARTMAN DO, MALIHA Ot I12.9 HYPERTENSIVE CHRONIC KIDNEY DISEASE W ST 08/09/2019 HARTMAN DO, MALIHA Ot I20.9 ANGINA PECTORIS, UNSPECIFIED 08/09/2019 HARTMAN DO, MALIHA Ot I51.7 CARDIOMEGALY 08/09/2019 HARTMAN DO, MALIHA Ot J18.9 PNEUMONIA, UNSPECIFIED ORGANISM 08/09/2019 HARTMAN DO, MALIHA Ot J43.9 EMPHYSEMA, UNSPECIFIED 08/09/2019 HARTMAN DO, MALIHA Ot J90 PLEURAL EFFUSION, NOT ELSEWHERE CLASSIFI 08/09/2019 HARTMAN DO, MALIHA Ot K21.9 GASTRO-ESOPHAGEAL REFLUX DISEASE WITHOUT 08/09/2019 HARTMAN DO, MALIHA Ot M19.91 PRIMARY OSTEOARTHRITIS, UNSPECIFIED SITE 08/09/2019 HARTMAN DO, MALIHA Ot M54.9 DORSALGIA, UNSPECIFIED 08/09/2019 HARTMAN DO, MALIHA Ot N18.9 CHRONIC KIDNEY DISEASE, UNSPECIFIED 08/09/2019 HARTMAN DO, MALIHA Ot R32 UNSPECIFIED URINARY INCONTINENCE 08/09/2019 HARTMAN DO, MALIHA Ot Z87.89 1 PERSONAL HISTORY OF NICOTINE DEPENDENCE 08/09/2019 HARTMAN DO, MALIHA Ot Z95.1 PRESENCE OF AORTOCORONARY BYPASS GRAFT 08/09/2019 HARTMAN DO, MALIHA Ot B19.10 UNSPECIFIED VIRAL HEPATITIS B WITHOUT HE 08/09/2019 HARTMAN DO, MALIHA Ot E03.9 HYPOTHYROIDISM, UNSPECIFIED 08/09/2019 HARTMAN DO, MALIHA Ot E11.40 TYPE 2 DIABETES MELLITUS WITH DIABETIC N 08/09/2019 HARTMAN DO, MALIHA Ot E11.64 9 TYPE 2 DIABETES MELLITUS WITH HYPOGLYCEM 08/09/2019 HARTMAN DO, MALIHA Ot E78.00 PURE HYPERCHOLESTEROLEMIA, UNSPECIFIED 08/09/2019 HARTMAN DO, MALIHA Ot E87.2 ACIDOSIS 08/09/2019 HARTMAN DO, MALIHA Ot F32.9 MAJOR DEPRESSIVE DISORDER, SINGLE EPISOD 08/09/2019 HARTMAN DO, MALIHA Ot F41.9 ANXIETY DISORDER, UNSPECIFIED 08/09/2019 HARTMAN DO, MALIHA Ot H40.9 UNSPECIFIED GLAUCOMA 08/09/2019 HARTMAN DO, MALIHA Ot I12.9 HYPERTENSIVE CHRONIC KIDNEY DISEASE W ST 08/09/2019 HARTMAN DO, MALIHA Ot I25.11 9 ATHSCL HEART DISEASE OF [place] COR ART W 08/09/2019 HARTMAN DO, MALIHA Ot I51.7 CARDIOMEGALY 08/09/2019 HARTMAN DO, MALIHA Ot J18.9 PNEUMONIA, UNSPECIFIED ORGANISM 08/09/2019 HARTMAN DO, MALIHA Ot J43.9 EMPHYSEMA, UNSPECIFIED 08/09/2019 HARTMAN DO, MALIHA Ot J90 PLEURAL EFFUSION, NOT ELSEWHERE CLASSIFI 08/09/2019 HARTMAN DO, MALIHA Ot K21.9 GASTRO-ESOPHAGEAL REFLUX DISEASE WITHOUT 08/09/2019 HARTMAN DO, MALIHA Ot M19.91 PRIMARY OSTEOARTHRITIS, UNSPECIFIED SITE 08/09/2019 HARTMAN DO, MALIHA Ot M54.9 DORSALGIA, UNSPECIFIED 08/09/2019 HARTMAN DO, MALIHA Ot N17.9 ACUTE KIDNEY FAILURE, UNSPECIFIED 08/09/2019 GABBY HARTMAN DOI Ot N18.4 CHRONIC KIDNEY DISEASE, STAGE 4 (SEVERE) 08/09/2019 MALIHA HARTMAN DO Ot R32 UNSPECIFIED URINARY INCONTINENCE 08/09/2019 GABBY HARTMAN DOI Ot Z79.4 [facility] (CURRENT) USE OF INSULIN 08/09/2019 GABBY HARTMAN DOI Ot Z87.89 1 PERSONAL HISTORY OF NICOTINE DEPENDENCE 08/09/2019 MINNIE HANLEY MALIHA Ot Z90.49 ACQUIRED ABSENCE OF OTHER SPECIFIED PART 08/09/2019 MINNIE HANLEY MALIHA Ot Z90.71 0 ACQUIRED ABSENCE OF BOTH CERVIX AND UTER 08/09/2019 GABBY HARTMAN DOI Ot Z90.72 2 ACQUIRED ABSENCE OF OVARIES, BILATERAL 08/09/2019 GABBY HARTMAN DOI Ot Z95.1 PRESENCE OF AORTOCORONARY BYPASS GRAFT Procedures There is no data. Results Test [...] mg/dL 70-110 Automated blood complete blood count ( mogram) panel - 04/11/19 05:20 Blood leukocytes [...] g/dL 3.2-4.5 CALCIUM CORRECTED 9.4 mg/dL 8.5-10.1 Influenza virus A and B antigen detectio n - 08/03/19 17:07 FLU RESULT NEGATIVE FOR INFLUENZA A AND B ANTIGENS BY IA NRG Blood CBC with ordered manual differenti al panel - 08/03/19 17:30 Blood leukocytes automated count (number/volume) 5.6 10*3/uL 4.3-11.0 Blood erythrocytes automated count (number/volume) 3.63 10*6/uL 4.35-5.85 Venous blood hemoglobin measurement (mass/volume) 9.9 g/dL 11.5-16.0 Blood hematocrit (volume fraction) 32 % 35-52 Automated erythrocyte mean corpuscular volume 88 [ foz_us] 80-99 Automated erythrocyte mean corpuscular h emoglobin (mass per erythrocyte) 27 pg 25-34 Automated erythrocyte mean corpuscular h emoglobin concentration measurement (mass/volume) 31 g/dL 32-36 Automated erythrocyte distribution width ratio 13. 4 % 10.0- 14.5 Automated blood platelet count (count/volume) 145 10*3/uL 130-400 Automated blood platelet mean volume measurement 10.6 [foz_us] 7.4-10.4 Automated blood neutrophils/100 leukocytes 83 % 42-75 Automated blood lymphocytes/100 leukocytes 8 % 12-44 Blood monocytes/100 leukocytes 5 % NRG Automated blood eosinophils/100 leukocytes 0 % 0-10 Automated blood basophils/100 leukocytes 0 % 0-10 Blood neutrophils automated count (number/volume) 4.6 10*3 1.8-7.8 Blood lymphocytes automated count (number/volume) 0.5 10*3 1.0-4.0 Blood monocytes automated count (number/volume) 0. 5 10*3 0.0-1.0 Automated eosinophil count 0.0 10*3/uL 0 .0-0.3 Automated blood basophil count (count/volume) 0.0 10*3/uL 0.0-0.1 Manual blood segmented neutrophils/100 leukocytes 90 % NRG Blood band neutrophils/100 leukocytes 2 % NRG Manual blood lymphocytes/100 leukocytes 3 % NRG Manual eosinophils/100 leukocytes in nose 0 % NRG Manual blood basophils/100 leukocytes 0 % NRG Blood platelet adequacy detection by light microscopy ADEQUATE NRG Comprehensive metabolic panel - 08/03/19 17:55 Serum or plasma sodium measurement (moles/volume) 138 mmol/L 135-145 Serum or plasma potassium measurement (moles/volume) 4.5 mmol/L 3.6-5.0 Serum or plasma chloride measurement (moles/volume) 103 mmol/L 98-107 Carbon dioxide 19 mmol/L 21-32 Serum or plasma anion gap determination (moles/volume) 16 mmol/L 5-14 Serum or plasma urea nitrogen measurement (mass/volume ) 52 mg/dL 7-18 Serum or plasma creatinine measurement (mass/volume) 3.29 mg/dL 0.60-1.30 Serum or plasma urea nitrogen/creatinine mass ratio 16 NRG Serum or plasma creatinine measurement w ith calculation of estimated glomerular filtration rate 14 NRG Serum or plasma glucose measurement (mass/volume) 253 mg/dL 70-105 Serum or plasma calcium measurement (mass/volume) 8.9 mg/dL 8.5-10.1 Serum or plasma total bilirubin measurement (mass/volu me) 0.3 mg/dL 0.1-1.0 Serum or plasma alkaline phosphatase frank surement (enzymatic activity/volume) 86 U/L 40-136 Serum or plasma aspartate aminotransfera se measurement (enzymatic activity/volume) 25 U/L 5-34 Serum or plasma alanine aminotransferase measurement (enzymatic activity/volume) 24 U/L 0-55 Serum or plasma protein measurement (mass/volume) 6.6 g/dL 6.4-8.2 Serum or plasma albumin measurement (mass/volume) 3.4 g/dL 3.2-4.5 CALCIUM CORRECTED 9.4 mg/dL 8.5-10.1 Blood lactic acid measurement (moles/vol ume) - 08/03/19 17:55 Blood lactic acid measurement (moles/volume) 1.07 mmol/L 0.50-2.00 Blood CBC with ordered manual differenti al panel - 08/05/19 16:10 Blood leukocytes automated count (number/volume) 4.8 10*3/uL 4.3-11.0 Blood erythrocytes automated count (number/volume) 3.44 10*6/uL 4.35-5.85 Venous blood hemoglobin measurement (mass/volume) 9.5 g/dL 11.5-16.0 Blood hematocrit (volume fraction) 30 % 35-52 Automated erythrocyte mean corpuscular volume 87 [ foz_us] 80-99 Automated erythrocyte mean corpuscular h emoglobin (mass per erythrocyte) 28 pg 25-34 Automated erythrocyte mean corpuscular h emoglobin concentration measurement (mass/volume) 32 g/dL 32-36 Automated erythrocyte distribution width ratio 13. 2 % 10.0- 14.5 Automated blood platelet count (count/volume) 149 10*3/uL 130-400 Automated blood platelet mean volume measurement 10.7 [foz_us] 7.4-10.4 Automated blood neutrophils/100 leukocytes 69 % 42-75 Automated blood lymphocytes/100 leukocytes 17 % 12-44 Blood monocytes/100 leukocytes 13 % NRG Automated blood eosinophils/100 leukocytes 0 % 0-10 Automated blood basophils/100 leukocytes 1 % 0-10 Blood neutrophils automated count (number/volume) 3.3 10*3 1.8-7.8 Blood lymphocytes automated count (number/volume) 0.8 10*3 1.0-4.0 Blood monocytes automated count (number/volume) 0. 6 10*3 0.0-1.0 Automated eosinophil count 0.0 10*3/uL 0 .0-0.3 Automated blood basophil count (count/volume) 0.1 10*3/uL 0.0-0.1 Manual blood segmented neutrophils/100 leukocytes 71 % NRG Blood band neutrophils/100 leukocytes 1 % NRG Manual blood lymphocytes/100 leukocytes 14 % NRG Manual eosinophils/100 leukocytes in nose 1 % NRG Blood platelet adequacy detection by light microscopy ADEQUATE NRG Blood lactic acid measurement (moles/vol ume) - 08/05/19 16:10 Blood lactic acid measurement (moles/volume) 0.93 mmol/L 0.50-2.00 Comprehensive metabolic panel - 08/05/19 16:10 Serum or plasma sodium measurement (moles/volume) 139 mmol/L 135-145 Serum or plasma potassium measurement (moles/volume) 3.9 mmol/L 3.6-5.0 Serum or plasma chloride measurement (moles/volume) 105 mmol/L 98-107 Carbon dioxide 18 mmol/L 21-32 Serum or plasma anion gap determination (moles/volume) 16 mmol/L 5-14 Serum or plasma urea nitrogen measurement (mass/volume ) 66 mg/dL 7-18 Serum or plasma creatinine measurement (mass/volume) 3.81 mg/dL 0.60-1.30 Serum or plasma urea nitrogen/creatinine mass ratio 17 NRG Serum or plasma creatinine measurement w ith calculation of estimated glomerular filtration rate 11 NRG Serum or plasma glucose measurement (mass/volume) 94 mg/dL 70-105 Serum or plasma calcium measurement (mass/volume) 8.3 mg/dL 8.5-10.1 Serum or plasma total bilirubin measurement (mass/volu me) 0.3 mg/dL 0.1-1.0 Serum or plasma alkaline phosphatase frank surement (enzymatic activity/volume) 79 U/L 40-136 Serum or plasma aspartate aminotransfera se measurement (enzymatic activity/volume) 38 U/L 5-34 Serum or plasma alanine aminotransferase measurement (enzymatic activity/volume) 22 U/L 0-55 Serum or plasma protein measurement (mass/volume) 6.0 g/dL 6.4-8.2 Serum or plasma albumin measurement (mass/volume) 3.1 g/dL 3.2-4.5 CALCIUM CORRECTED 9.0 mg/dL 8.5-10.1 Magnesium - 08/05/19 16:10 Magnesium 2.3 mg/dL 1.6-2.4 TROPONIN I FS - 08/05/19 16:10 TROPONIN I FS < 0.30 <0.30 Bacterial blood culture - 08/05/19 16:10 Bacterial blood culture NG NRG Bacterial blood culture - 08/05/19 17:15 Bacterial blood culture NG NRG Complete blood count (CBC) with automate d white blood cell (WBC) differential - 08/06/19 06:15 Blood leukocytes automated count (number/volume) 2.5 10*3/uL 4.3-11.0 Blood erythrocytes automated count (number/volume) 3.19 10*6/uL 4.35-5.85 Venous blood hemoglobin measurement (mass/volume) 8.6 g/dL 11.5-16.0 Blood hematocrit (volume fraction) 27 % 35-52 Automated erythrocyte mean corpuscular volume 86 [ foz_us] 80-99 Automated erythrocyte mean corpuscular h emoglobin (mass per erythrocyte) 27 pg 25-34 Automated erythrocyte mean corpuscular h emoglobin concentration measurement (mass/volume) 31 g/dL 32-36 Automated erythrocyte distribution width ratio 13. 4 % 10.0- 14.5 Automated blood platelet count (count/volume) 142 10*3/uL 130-400 Automated blood platelet mean volume measurement 10.9 [foz_us] 7.4-10.4 Automated blood neutrophils/100 leukocytes 84 % 42-75 Automated blood lymphocytes/100 leukocytes 13 % 12-44 Blood monocytes/100 leukocytes 2 % 0-12 Automated blood eosinophils/100 leukocytes 0 % 0-10 Automated blood basophils/100 leukocytes 0 % 0-10 Blood neutrophils automated count (number/volume) 2.1 10*3 1.8-7.8 Blood lymphocytes automated count (number/volume) 0.3 10*3 1.0-4.0 Blood monocytes automated count (number/volume) 0. 1 10*3 0.0-1.0 Automated eosinophil count 0.0 10*3/uL 0 .0-0.3 Automated blood basophil count (count/volume) 0.0 10*3/uL 0.0-0.1 Comprehensive metabolic panel - 08/06/19 06:15 Serum or plasma sodium measurement (moles/volume) 138 mmol/L 135-145 Serum or plasma potassium measurement (moles/volume) 4.4 mmol/L 3.6-5.0 Serum or plasma chloride measurement (moles/volume) 112 mmol/L 98-107 Carbon dioxide 12 mmol/L 21-32 Serum or plasma anion gap determination (moles/volume) 14 mmol/L 5-14 Serum or plasma urea nitrogen measurement (mass/volume ) 64 mg/dL 7-18 Serum or plasma creatinine measurement (mass/volume) 3.77 mg/dL 0.60-1.30 Serum or plasma urea nitrogen/creatinine mass ratio 17 NRG Serum or plasma creatinine measurement w ith calculation of estimated glomerular filtration rate 12 NRG Serum or plasma glucose measurement (mass/volume) 249 mg/dL 70-105 Serum or plasma calcium measurement (mass/volume) 7.3 mg/dL 8.5-10.1 Serum or plasma total bilirubin measurement (mass/volu me) 0.3 mg/dL 0.1-1.0 Serum or plasma alkaline phosphatase frank surement (enzymatic activity/volume) 65 U/L 40-136 Serum or plasma aspartate aminotransfera se measurement (enzymatic activity/volume) 58 U/L 5-34 Serum or plasma alanine aminotransferase measurement (enzymatic activity/volume) 52 U/L 0-55 Serum or plasma protein measurement (mass/volume) 5.6 g/dL 6.4-8.2 Serum or plasma albumin measurement (mass/volume) 2.8 g/dL 3.2-4.5 CALCIUM CORRECTED 8.3 mg/dL 8.5-10.1 Serum or plasma lithium measurement (mol es/volume) - 08/06/19 06:15 BNP PT 454.6 pg/mL <100.0 Complete blood count (CBC) with automate d white blood cell (WBC) differential - 08/07/19 05:40 Blood leukocytes automated count (number/volume) 4.2 10*3/uL 4.3-11.0 Blood erythrocytes automated count (number/volume) 3.42 10*6/uL 4.35-5.85 Venous blood hemoglobin measurement (mass/volume) 9.3 g/dL 11.5-16.0 Blood hematocrit (volume fraction) 29 % 35-52 Automated erythrocyte mean corpuscular volume 84 [ foz_us] 80-99 Automated erythrocyte mean corpuscular h emoglobin (mass per erythrocyte) 27 pg 25-34 Automated erythrocyte mean corpuscular h emoglobin concentration measurement (mass/volume) 32 g/dL 32-36 Automated erythrocyte distribution width ratio 13. 0 % 10.0- 14.5 Automated blood platelet count (count/volume) 154 10*3/uL 130-400 Automated blood platelet mean volume measurement 10.8 [foz_us] 7.4-10.4 Automated blood neutrophils/100 leukocytes 86 % 42-75 Automated blood lymphocytes/100 leukocytes 10 % 12-44 Blood monocytes/100 leukocytes 4 % 0-12 Automated blood eosinophils/100 leukocytes 0 % 0-10 Automated blood basophils/100 leukocytes 0 % 0-10 Blood neutrophils automated count (number/volume) 3.6 10*3 1.8-7.8 Blood lymphocytes automated count (number/volume) 0.4 10*3 1.0-4.0 Blood monocytes automated count (number/volume) 0. 2 10*3 0.0-1.0 Automated eosinophil count 0.0 10*3/uL 0 .0-0.3 Automated blood basophil count (count/volume) 0.0 10*3/uL 0.0-0.1 Comprehensive metabolic panel - 08/07/19 05:40 Serum or plasma sodium measurement (moles/volume) 134 mmol/L 135-145 Serum or plasma potassium measurement (moles/volume) 4.2 mmol/L 3.6-5.0 Serum or plasma chloride measurement (moles/volume) 111 mmol/L 98-107 Carbon dioxide 11 mmol/L 21-32 Serum or plasma anion gap determination (moles/volume) 12 mmol/L 5-14 Serum or plasma urea nitrogen measurement (mass/volume ) 62 mg/dL 7-18 Serum or plasma creatinine measurement (mass/volume) 3.68 mg/dL 0.60-1.30 Serum or plasma urea nitrogen/creatinine mass ratio 17 NRG Serum or plasma creatinine measurement w ith calculation of estimated glomerular filtration rate 12 NRG Serum or plasma glucose measurement (mass/volume) 445 mg/dL 70-105 Serum or plasma calcium measurement (mass/volume) 7.5 mg/dL 8.5-10.1 Serum or plasma total bilirubin measurement (mass/volu me) 0.2 mg/dL 0.1-1.0 Serum or plasma alkaline phosphatase frank surement (enzymatic activity/volume) 58 U/L 40-136 Serum or plasma aspartate aminotransfera se measurement (enzymatic activity/volume) 40 U/L 5-34 Serum or plasma alanine aminotransferase measurement (enzymatic activity/volume) 56 U/L 0-55 Serum or plasma protein measurement (mass/volume) 5.5 g/dL 6.4-8.2 Serum or plasma albumin measurement (mass/volume) 2.8 g/dL 3.2-4.5 CALCIUM CORRECTED 8.5 mg/dL 8.5-10.1 Capillary blood glucose measurement by g lucometer (mass/volume) - 08/07/19 11:13 Capillary blood glucose measurement by glucometer (mas s/volume) 410 mg/dL 70-110 Capillary blood glucose measurement by g lucometer (mass/volume) - 08/07/19 15:41 Capillary blood glucose measurement by glucometer (mas s/volume) 163 mg/dL 70-110 Vancomycin trough - 08/07/19 20:59 Vancomycin trough 22.7 ug/mL 10.0-20.0 Complete blood count (CBC) with automate d white blood cell (WBC) differential - 08/08/19 06:00 Blood leukocytes automated count (number/volume) 8.5 10*3/uL 4.3-11.0 Blood erythrocytes automated count (number/volume) 3.73 10*6/uL 4.35-5.85 Venous blood hemoglobin measurement (mass/volume) 10.1 g/dL 11.5-16.0 Blood hematocrit (volume fraction) 31 % 35-52 Automated erythrocyte mean corpuscular volume 83 [ foz_us] 80-99 Automated erythrocyte mean corpuscular h emoglobin (mass per erythrocyte) 27 pg 25-34 Automated erythrocyte mean corpuscular h emoglobin concentration measurement (mass/volume) 33 g/dL 32-36 Automated erythrocyte distribution width ratio 13. 4 % 10.0- 14.5 Automated blood platelet count (count/volume) 221 10*3/uL 130-400 Automated blood platelet mean volume measurement 10.7 [foz_us] 7.4-10.4 Automated blood neutrophils/100 leukocytes 91 % 42-75 Automated blood lymphocytes/100 leukocytes 7 % 12-44 Blood monocytes/100 leukocytes 2 % 0-12 Automated blood eosinophils/100 leukocytes 0 % 0-10 Automated blood basophils/100 leukocytes 0 % 0-10 Blood neutrophils automated count (number/volume) 7.7 10*3 1.8-7.8 Blood lymphocytes automated count (number/volume) 0.6 10*3 1.0-4.0 Blood monocytes automated count (number/volume) 0. 1 10*3 0.0-1.0 Automated eosinophil count 0.0 10*3/uL 0 .0-0.3 Automated blood basophil count (count/volume) 0.0 10*3/uL 0.0-0.1 Comprehensive metabolic panel - 08/08/19 06:00 Serum or plasma sodium measurement (moles/volume) 140 mmol/L 135-145 Serum or plasma potassium measurement (moles/volume) 3.5 mmol/L 3.6-5.0 Serum or plasma chloride measurement (moles/volume) 117 mmol/L 98-107 Carbon dioxide 12 mmol/L 21-32 Serum or plasma anion gap determination (moles/volume) 11 mmol/L 5-14 Serum or plasma urea nitrogen measurement (mass/volume ) 64 mg/dL 7-18 Serum or plasma creatinine measurement (mass/volume) 3.62 mg/dL 0.60-1.30 Serum or plasma urea nitrogen/creatinine mass ratio 18 NRG Serum or plasma creatinine measurement w ith calculation of estimated glomerular filtration rate 12 NRG Serum or plasma glucose measurement (mass/volume) 53 mg/dL 70-105 Serum or plasma calcium measurement (mass/volume) 7.8 mg/dL 8.5-10.1 Serum or plasma total bilirubin measurement (mass/volu me) 0.2 mg/dL 0.1-1.0 Serum or plasma alkaline phosphatase frank surement (enzymatic activity/volume) 56 U/L 40-136 Serum or plasma aspartate aminotransfera se measurement (enzymatic activity/volume) 44 U/L 5-34 Serum or plasma alanine aminotransferase measurement (enzymatic activity/volume) 61 U/L 0-55 Serum or plasma protein measurement (mass/volume) 5.8 g/dL 6.4-8.2 Serum or plasma albumin measurement (mass/volume) 2.9 g/dL 3.2-4.5 CALCIUM CORRECTED 8.7 mg/dL 8.5-10.1 Vancomycin trough - 08/08/19 06:00 Vancomycin trough 20.0 ug/mL 10.0-20.0 Capillary blood glucose measurement by g lucometer (mass/volume) - 08/08/19 07:58 Capillary blood glucose measurement by glucometer (mas s/volume) 39 mg/dL 70-110 Capillary blood glucose measurement by g lucometer (mass/volume) - 08/08/19 08:23 Capillary blood glucose measurement by glucometer (mas s/volume) 154 mg/dL 70-110 Capillary blood glucose measurement by g lucometer (mass/volume) - 08/08/19 11:51 Capillary blood glucose measurement by glucometer (mas s/volume) 166 mg/dL 70-110 Capillary blood glucose measurement by g lucometer (mass/volume) - 08/08/19 15:43 Capillary blood glucose measurement by glucometer (mas s/volume) 183 mg/dL 70-110 Capillary blood glucose measurement by g lucometer (mass/volume) - 08/09/19 04:45 Capillary blood glucose measurement by glucometer (mas s/volume) 214 mg/dL 70-110 Complete blood count (CBC) with automate d white blood cell (WBC) differential - 08/09/19 05:00 Blood leukocytes automated count (number/volume) 7.9 10*3/uL 4.3-11.0 Blood erythrocytes automated count (number/volume) 3.78 10*6/uL 4.35-5.85 Venous blood hemoglobin measurement (mass/volume) 10.5 g/dL 11.5-16.0 Blood hematocrit (volume fraction) 32 % 35-52 Automated erythrocyte mean corpuscular volume 85 [ foz_us] 80-99 Automated erythrocyte mean corpuscular h emoglobin (mass per erythrocyte) 28 pg 25-34 Automated erythrocyte mean corpuscular h emoglobin concentration measurement (mass/volume) 33 g/dL 32-36 Automated erythrocyte distribution width ratio 13. 6 % 10.0- 14.5 Automated blood platelet count (count/volume) 210 10*3/uL 130-400 Automated blood platelet mean volume measurement 10.5 [foz_us] 7.4-10.4 Automated blood neutrophils/100 leukocytes 82 % 42-75 Automated blood lymphocytes/100 leukocytes 7 % 12-44 Blood monocytes/100 leukocytes 11 % 0-12 Automated blood eosinophils/100 leukocytes 0 % 0-10 Automated blood basophils/100 leukocytes 0 % 0-10 Blood neutrophils automated count (number/volume) 6.5 10*3 1.8-7.8 Blood lymphocytes automated count (number/volume) 0.6 10*3 1.0-4.0 Blood monocytes automated count (number/volume) 0. 9 10*3 0.0-1.0 Automated eosinophil count 0.0 10*3/uL 0 .0-0.3 Automated blood basophil count (count/volume) 0.0 10*3/uL 0.0-0.1 Manual absolute plasma cell count - 07/13 05:00 Blood monocytes/100 leukocytes 10 % NRG Manual blood segmented neutrophils/100 leukocytes 82 % NRG Blood band neutrophils/100 leukocytes 0 % NRG Manual blood lymphocytes/100 leukocytes 8 % NRG Manual eosinophils/100 leukocytes in nose 0 % NRG Manual blood basophils/100 leukocytes 0 % NRG Blood poikilocytosis detection by light microscopy SLIGHT NRG Blood caryn cells detection by light microscopy I [facility] Comprehensive metabolic panel - 08/09/19 05:00 Serum or plasma sodium measurement (moles/volume) 141 mmol/L 135-145 Serum or plasma potassium measurement (moles/volume) 3.9 mmol/L 3.6-5.0 Serum or plasma chloride measurement (moles/volume) 121 mmol/L 98-107 Carbon dioxide 9 mmol/L 21-32 Serum or plasma anion gap determination (moles/volume) 11 mmol/L 5-14 Serum or plasma urea nitrogen measurement (mass/volume ) 55 mg/dL 7-18 Serum or plasma creatinine measurement (mass/volume) 3.45 mg/dL 0.60-1.30 Serum or plasma urea nitrogen/creatinine mass ratio 16 NRG Serum or plasma creatinine measurement w ith calculation of estimated glomerular filtration rate 13 NRG Serum or plasma glucose measurement (mass/volume) 203 mg/dL 70-105 Serum or plasma calcium measurement (mass/volume) 7.3 mg/dL 8.5-10.1 Serum or plasma total bilirubin measurement (mass/volu me) 0.2 mg/dL 0.1-1.0 Serum or plasma alkaline phosphatase frank surement (enzymatic activity/volume) 56 U/L 40-136 Serum or plasma aspartate aminotransfera se measurement (enzymatic activity/volume) 82 U/L 5-34 Serum or plasma alanine aminotransferase measurement (enzymatic activity/volume) 107 U/L 0-55 Serum or plasma protein measurement (mass/volume) 5.3 g/dL 6.4-8.2 Serum or plasma albumin measurement (mass/volume) 2.6 g/dL 3.2-4.5 CALCIUM CORRECTED 8.4 mg/dL 8.5-10.1 Arterial blood gas measurement - 0 11:03 Blood pCO2 27 mm[Hg] 35-45 Blood pO2 66 mm[Hg] 79-93 Arterial blood bicarbonate measurement (moles/volume) 13 mmol/L 23-27 Arterial blood base excess by calculation -12.0 mm ol/L -2.5-2.5 Arterial blood oxygen saturation measurement 94 % 94-100 * Inhaled oxygen flow rate ROOM AIR NRG Arterial blood pH measurement with patient temperature correction 7.31 7.37-7.43 Arterial blood carbon dioxide, total measurement (mole s/volume) 13.8 mmol/L 21.0-31.0 Body site RT RADIAL NRG Assessment of wrist artery patency prior to arterial p uncture YES-POS NRG Setting of ventilation mode NO NR G Measurement of body temperature 37.0 NRG Blood lactic acid measurement (moles/vol ume) - 08/09/19 11:05 Blood lactic acid measurement (moles/volume) 0.56 mmol/L 0.50-2.00 Serum or plasma phosphate measurement (m ass/volume) - 08/09/19 11:05 Serum or plasma phosphate measurement (mass/volume) 3.9 mg/dL 2.3-4.7 Magnesium - 08/09/19 11:05 Magnesium 1.8 mg/dL 1.6-2.4 Capillary blood glucose measurement by g lucometer (mass/volume) - 08/09/19 11:40 Capillary blood glucose measurement by glucometer (mas s/volume) 216 mg/dL 70-110 Encounters ACCT No. Visit Date/Time Discharge Status Pt. Type Provider Facility Loc./Unit Complaint [id number] 08/05/2019 18:01:00 15:45:00 DIS Inpatient MALIHA HARTMAN DO, [facility] 4TH COUGH,SOB,CHEST PAIN [id number] 08/03/2019 16:59:00 20:10:00 DIS Emergency CAMERON ZAMORA DO [facility] ER FS FLU SYMPTOMS [id number] 06/13/2019 13:27:00 15:10:00 DIS Emergency BENITA KIDD MD [facility] ER FS ABNORMAL LAB RESULTS [id number] 05/15/2019 10:49:00 23:59:59 CLS Outpatient GAMAL MENDOZA FACC, DACIA LEVINE CC DS [facility] CARD CHEST DISCOMFORT,SOB,HYPERLIPIDEMIA [id number] 05/08/2019 12:36:00 12:51:00 DIS Outpatient REBEKA SANTIAGO DO [facility] ER FS LUNG PAIN [id number] 05/07/2019 14:28:00 23:59:59 CLS Outpatient ADOLFO RHODES MD [facility] RAD FS R05 N18.4 [id number] 04/11/2019 13:40:00 15:00:00 DIS Inpatient ERWIN ZAMARRIPA MD [facility] 4TH ARNOLDO ON CVD DEHYDRATIO N CHEST PAIN SOA
== END 2019-10-21 00:26 ==
LOC: EDUNIT# 00:03 → ER FS 00:05
DX: S00.03XA Contusion of scalp, initial encounter (principal); J43.9 Emphysema, unspecified; I10 Essential (primary) hypertension; E78.00 Pure hypercholesterolemia, unspecified; E11.40 Type 2 diabetes mellitus with diabetic neuropathy, unspecified; E03.9 Hypothyroidism, unspecified; K21.9 Gastro-esophageal reflux disease without esophagitis; F32.9 Major depressive disorder, single episode, unspecified; F03.90 Unspecified dementia, unspecified severity, without behavioral disturbance, psychotic disturbance, mood disturbance, and anxiety; Z91.040 Latex allergy status; Z91.041 Radiographic dye allergy status; Z88.5 Allergy status to narcotic agent; Z79.02 Long term (current) use of antithrombotics/antiplatelets; Z79.51 Long term (current) use of inhaled steroids; Z79.4 Long term (current) use of insulin; Z95.1 Presence of aortocoronary bypass graft; Z82.49 Family history of ischemic heart disease and other diseases of the circulatory system; W18.39XA Other fall on same level, initial encounter
CPT/HCPCS: 99283

== ENCOUNTER 2020-01-16 11:43 | Emergency (ER) | payer MEDICARE, MEDICAID ==
[~2020-01-16] VITALS: Ht 172.7 cm; Wt 74.9 kg
[~2020-01-16 11:43] MED LIST changes: +MULT-567 PO; -MULT1TAB69 PO
[2020-01-16 12:08] LABS: BACTERIA,URINE NEGATIVE /HPF; BILIRUBIN,URINE NEGATIVE (NEGATIVE); CLARITY,URINE CLEAR; COLOR,URINE YELLOW; GLUCOSE, URINE (UA) 3+ (NEGATIVE); KETONES,URINE NEGATIVE (NEGATIVE); LEUKOCYTE ESTERASE ,URINE NEGATIVE (NEGATIVE); NITRITE,URINE NEGATIVE (NEGATIVE); PROTEIN,URINE 2+ (NEGATIVE); RENAL EPITHELIAL CELLS,URINE 0-2 /HPF; SQUAMOUS EPITHELIAL CELL,UR RARE /HPF; WBC,URINE 0-2 /HPF
[2020-01-16 12:19] LABS: BASOPHILS % (AUTO) 1 % (0-10); EOSINOPHILS % (AUTO) 3 % (0-10); HEMATOCRIT 33 % (35-52); HEMOGLOBIN 10.3 G/DL (11.5-16.0); LYMPHOCYTES % (AUTO) 14 % (12-44); MEAN CORPUSCULAR HEMOGLOBIN 29 PG (25-34); MEAN CORPUSCULAR HGB CONC 31 G/DL (32-36); MEAN CORPUSCULAR VOLUME 92 FL (80-99); MONOCYTES % (AUTO) 10 % (0-12); NEUTROPHILS % (AUTO) 73 % (42-75); PLATELET COUNT 226 10^3/uL (130-400); RED CELL DISTRIBUTION WIDTH 13.8 % (10.0-14.5)
[2020-01-16 12:20] LABS: EOSINOPHILS # (AUTO) 0.2 10^3/uL (0.0-0.3); LYMPHOCYTES # (AUTO) 0.7 X 10^3 (1.0-4.0); MONOCYTES # (AUTO) 0.5 X 10^3 (0.0-1.0); NEUTROPHILS # (AUTO) 3.6 X 10^3 (1.8-7.8)
--- NOTE | 2020-01-16 12:37 | ED Psychosocial ---
General Chief Complaint: Psych/Social Disorder Stated Complaint: AMS Nursing Triage Note: Patient to ED via POV, dgt Brenda brought patient from Dr Lopez office @ [facility]. Pt reportedly used a lancet for diab testing and scratched left forearm yesterday stating "I tried to draw blood as I wanted to kill myself." Pt reports Xochitl RN at her facility yelling all the time at her and is her older dgt Brenda. Pt reports shutting her phone off to avoid conversations with older dgt. History of Present Illness Date Seen by Provider: Jan 16, 2020 Time Seen by Provider: 12:36 Initial Comments 79-year-old female lives in assisted living has a long list of medications has insulin-dependent diabetes COPD renal insuff patient says she was just playing bingo and suddenly they whisked her off to the ER, but would like her kidneys checked while she's here she thinks they may be going bad she's been very upset with one of the caretakers or personnel at her living facility and also with one of her daughters in frustration she caused a bunch of scratches to her left antecubital and left wrist yesterday today she was seeing a clinical psychologist who discovered this and sent her to the ER she is alert oriented 3 vaguely describes some dyspnea on exertion some low back pain neither of those is acute or is the reason for her ER visit denies intent to cause further harm to herself Allergies and Home Medications Allergies Coded Allergies: Iodinated Contrast Media (Unverified Allergy, Unknown, HIVES, 04/09/19) codeine (Unverified Allergy, Unknown, NERVOUSNESS, 04/09/19) latex (Unverified Allergy, Unknown, ITCHING, RASH, 04/09/19) Home Medications Acetaminophen 500 Mg Tablet, 1,000 MG PO Q6H PRN for PAIN-MILD, (Reported) Albuterol Sulfate 2.5 Mg/3 Ml Vial.neb, 2.5 MG NEB Q6H PRN for SHORTNESS OF BREATH, (Reported) Albuterol Sulfate 1 Puff Puff, 2 PUFF INH Q6H PRN for SHORTNESS OF BREATH, (Reported) Amlodipine Besylate 10 Mg Tablet, 10 MG PO DAILY, (Reported) Atorvastatin Calcium 80 Mg Tablet, 80 MG PO HS, (Reported) Brimonidine Tartrate/Timolol 5 Ml Drops, 1 DROP OU BID, (Reported) Bupropion HCl 150 Mg Tablet.er, 300 MG PO DAILY, (Reported) TAKES 2 (150MG) TABLETS Calcium Carbonate/Vitamin D3 1 Each Tablet, 2 TAB PO DAILY, (Reported) Cholecalciferol (Vitamin D3) 50 Mcg Capsule, 50 MCG PO 1000, (Reported) Clopidogrel Bisulfate 75 Mg Tablet, 75 MG PO DAILY, (Reported) Cyanocobalamin (Vitamin B-12) 2,500 Mcg Tablet, 2,500 MCG PO DAILY, (Reported) Dextromethorphan HBr 15 Mg/5 Ml Liquid, 10 ML PO Q4H PRN for COUGH, (Reported) Diazepam 5 Mg Tablet, 5 MG PO Q12H PRN for ANXIETY, (Reported) Docusate Sodium 100 Mg Capsule, 100 MG PO DAILY, (Reported) Donepezil HCl 10 Mg Tablet, 10 MG PO HS, (Reported) Doxazosin Mesylate 4 Mg Tablet, 4 MG PO BID, (Reported) HOLD FOR SYSTOLIC BP KESS THEN 150 Fluticasone Propionate 16 Gm [place].susp, 1 SPRAY NS DAILY PRN for ALLERGIES, (Reported) Fluticasone/Salmeterol 1 Each Blst.w.dev, 1 PUFF INH BID, (Reported) Hydralazine HCl 50 Mg Tablet, 50 MG PO Q8H, (Reported) TAKES AT 0600, 1400 AND 2200 Insulin Glargine,Hum.rec.anlog 100 Unit/1 Ml Insuln.pen, 4 UNIT SQ HS, (Reported) Insuln Asp Prt/Insulin Aspart 300 Units/3 Ml Solution, SC TIDAC, (Reported) 120 OR LESS = 0 UNITS 121-140 = 6 UNITS 141-160 = 8 UNITS 161-200 = 12 UNITS 201-250 = 14 UNITS OVER 250 = 18 UNITS Levothyroxine Sodium 112 Mcg Tablet, 112 MCG PO 0600, (Reported) Loratadine 10 Mg Tablet, 10 MG PO DAILY PRN for ALLERGIES, (Reported) Memantine HCl 10 Mg Tablet, 10 MG PO DAILY, (Reported) Metoprolol Succinate 100 Mg Tab.er.24h, 100 MG PO DAILY, (Reported) Mirtazapine 15 Mg Tablet, 22.5 MG PO HS, (Reported) TAKES 1 & 1/2 (15MG) TABLET Multivitamin 1 Each Tablet, 1 TAB PO DAILY, (Reported) Omeprazole 40 Mg Capsule.dr, 40 MG PO DAILY, (Reported) Peg 400/Hypromellose/Glycerin 15 Ml Drops, 1 DROP OU UD PRN for DRY EYES, (Reported) Polyethylene Glycol 3350 17 Gm Powd.pack, 17 GM PO DAILY, (Reported) Patient Home Medication List Home Medication List Reviewed: Yes Review of Systems Constitutional: no symptoms reported EENTM: no symptoms reported Respiratory: other (HALL) Cardiovascular: no symptoms reported Gastrointestinal: no symptoms reported Musculoskeletal: other (chronic low back pain) Skin: other (self-inflicted scratches left arm) Psychiatric/Neurological: Depressed (upset with others as described) Past Hftdpfg-Vuysxh-Vgxllz Hx Patient Social History Type Used: Cigarettes 2nd Hand Smoke Exposure: No Recent Foreign Travel: No Contact w/Someone Who Travel: No Recent Infectious Disease Expo: No Recent Hopitalizations: No Immunizations Up To Date Date of Pneumonia Vaccine: Apr 08, 2011 Date of Influenza Vaccine: Jun 25, 2019 Seasonal Allergies Seasonal Allergies: No Past Medical History Surgeries: Yes (inguinal hernia repair; egd; colonoscopy; ) Appendectomy, CABG, Gallbladder, 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, Oophorectomy, Orthopedic Respiratory: Yes Emphysema Cardiac: Yes (hypertensive crisis ) High Cholesterol, Hypertension Neurological: Yes Dementia, Neuropathy Reproductive Disorders: No [employer] TE[employer] History: 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 Genitourinary: Yes (incontinence) Gastrointestinal: Yes (Hepatitis B) Gastroesophageal Reflux Musculoskeletal: Yes (neck injury ) Arthritis, Back Injury Endocrine: Yes Diabetes, Insulin dep, Hypothyroidsim, Lupus HEENT: Yes Cataract, Glaucoma Loss of Vision: Bilateral Hearing Impairment: Denies Cancer: No Psychosocial: Yes Depression Integumentary: No Blood Disorders: Yes Family Medical History Heart Disease, Cancer, Diabetes, Renal Disease Physical Exam Vital Signs - First Documented 01/16/20 11:50 Temp 36.7 Pulse 112 Resp 20 B/P (MAP) 127/65 (85) Pulse Ox 99 O2 Delivery Room Air Capillary Refill : Less Than 3 Seconds Height, Weight, BMI Height: 5'8.00" Weight: 165lbs. 0.0oz. 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, no motor/sensory deficits, alert, normal mood/affect Progress/Results/Core Measures Results/Orders Lab Results Laboratory Tests Test 01/16/20 11:50 01/16/20 12:08 Range/Units Urine Color YELLOW Urine Clarity CLEAR Urine pH 7.0 5-9 Urine Specific [place] 1.020 1.016-1.022 Urine Protein 2+ H NEGATIVE Urine Glucose (UA) 3+ H NEGATIVE Urine Ketones NEGATIVE NEGATIVE Urine Nitrite NEGATIVE NEGATIVE Urine Bilirubin NEGATIVE NEGATIVE Urine Urobilinogen 0.2 < = 1.0 MG/DL Urine Leukocyte Esterase NEGATIVE NEGATIVE Urine RBC (Auto) NEGATIVE NEGATIVE Urine RBC NONE /HPF Urine WBC 0-2 /HPF Urine Squamous Epithelial Cells RARE /HPF Urine Renal Epithelial Cells 0-2 /HPF Urine Crystals NONE /LPF Urine Bacteria NEGATIVE /HPF Urine Casts NONE /LPF Urine Mucus NEGATIVE /LPF Urine Culture Indicated NO White Blood Count 5.0 4.3-11.0 10^3/uL Red Blood Count 3.56 L 4.35-5.85 10^6/uL Hemoglobin 10.3 L 11.5-16.0 G/DL Hematocrit 33 L 35-52 % Mean Corpuscular Volume 92 80-99 FL Mean Corpuscular Hemoglobin 29 25-34 PG Mean Corpuscular Hemoglobin Concent 31 L 32-36 G/DL Red Cell Distribution Width 13.8 10.0-14.5 % Platelet Count 226 130-400 10^3/uL Mean Platelet Volume 10.0 7.4-10.4 FL Neutrophils (%) (Auto) 73 42-75 % Lymphocytes (%) (Auto) 14 12-44 % Monocytes (%) (Auto) 10 0-12 % Eosinophils (%) (Auto) 3 0-10 % Basophils (%) (Auto) 1 0-10 % Neutrophils # (Auto) 3.6 1.8-7.8 X 10^3 Lymphocytes # (Auto) 0.7 L 1.0-4.0 X 10^3 Monocytes # (Auto) 0.5 0.0-1.0 X 10^3 Eosinophils # (Auto) 0.2 0.0-0.3 10^3/uL Basophils # (Auto) 0.0 0.0-0.1 10^3/uL Sodium Level 139 135-145 MMOL/L Potassium Level 5.3 H 3.6-5.0 MMOL/L Chloride Level 102 98-107 MMOL/L Carbon Dioxide Level 23 21-32 MMOL/L Anion Gap 14 5-14 MMOL/L Blood Urea Nitrogen 75 H 7-18 MG/DL Creatinine 5.32 H 0.60-1.30 MG/DL Estimat Glomerular Filtration Rate 8 BUN/Creatinine Ratio 14 Glucose Level 279 H 70-105 MG/DL Calcium Level 9.1 8.5-10.1 MG/DL Corrected Calcium 9.7 8.5-10.1 MG/DL Total Bilirubin 0.3 0.1-1.0 MG/DL Aspartate Amino Transf (AST/SGOT) 23 5-34 U/L Alanine Aminotransferase (ALT/SGPT) 21 0-55 U/L Alkaline Phosphatase 86 40-136 U/L Troponin I < 0.30 <0.30 NG/ML Total Protein 6.4 6.4-8.2 GM/DL Albumin 3.3 3.2-4.5 GM/DL Salicylates Level < 0.3 L 5.0-20.0 MG/DL Acetaminophen Level < 10 L 10-30 UG/ML Serum Alcohol < 10 <10 MG/DL My Orders Orders - SIDNEY CARRASCO MD Urinalysis (01/16/20 11:46) Cbc With Automated Diff (01/16/20 12:06) Comprehensive Metabolic Panel (01/16/20 12:06) Ct Head Wo (01/16/20 12:06) Ekg Tracing (01/16/20 12:06) Troponin I Fs (01/16/20 12:06) Alcohol (01/16/20 12:06) Acetaminophen (01/16/20 12:06) Salicylate (01/16/20 12:06) Monitor-Rhythm Ecg Trace Only (01/16/20 12:06) Chest Pa/Lat (2 View) (01/16/20 12:34) Tetanus/Diphtheria Inj (Adult) (Tenivac (01/16/20 12:45) Insulin (Regular) Human (Novolin R (Per (01/16/20 13:45) Ed Iv/Invasive Line Start (01/16/20 13:40) Ns Iv 1000 Ml (Sodium Chloride 0.9%) (01/16/20 13:40) Insulin (Regular) Human (Novolin R (Per (01/16/20 13:48) Ekg Tracing (01/16/20 13:17) Medications Given in ED Current Medications Medications Dose Ordered Sig/Nicole Route Start Time Stop Time Status Last Admin Dose Admin Tetanus/ Diphtheria Toxoids 0.5 ml ONCE ONCE IM 01/16/20 12:45 01/16/20 12:46 DC 01/16/20 13:03 0.5 ML Vital Signs/I&O 01/16/20 11:50 Temp 36.7 Pulse 112 Resp 20 B/P (MAP) 127/65 (85) Pulse Ox 99 O2 Delivery Room Air Blood Pressure Mean: 85 Initial ECG Impression Date: Jan 16, 2020 Initial ECG Impression Time: 12:44 EKG : Comment EKG shows a narrow complex rate of 96 mostly regular but occasional irregular beat the computer reads this as atrial flutter 2-1 it does appear that flutter waves map out a 2-1 in lead V1 can't find that this has been noted before CT head -atrophic changes moderate chronic ischemic chnages 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 Malik [facility] discussed with hospitalist Dr. Salvador feeling is that with a creatinine now over 5 she should go where nephrology is available no nephrology available in [place] she has seen nephrology at call has been placed there to arrange transfer Pt accepted for transfer to [facility] Dr. Alison Callaway awaiting bed assignment Departure Impression Primary Impression: Renal failure (ARF), acute on chronic Qualified Codes: N17.9 - Acute kidney failure, unspecified; N18.9 - Chronic kidney disease, unspecified Additional Impressions: Atrial flutter Qualified Codes: I48.92 - Unspecified atrial flutter Suicide gesture Qualified Codes: X83.8XXA - Intentional self-harm by other specified means, initial encounter Disposition: XF [facility]-TRM HOSP Condition: Stable Transfer Transfer Reason: Exceeds level of care (discussed with hospitalist they request transfer were nephrology available) Time Spoke to Accepting Phy: 13:53 Transfer Facility: Patient has seen nephrology [facility] discussed with family will transfer there Method of Transfer: EMS Departure-Patient Inst. Referrals: ADOLFO MALIK MD (PCP/Family) Primary Care Physician SIDNEY CARRASCO MD Jan 16, 2020 12:37
[2020-01-16 12:45] LABS: BILIRUBIN,TOTAL 0.3 MG/DL (0.1-1.0); BUN/CREATININE RATIO 14; CALCIUM 9.1 MG/DL (8.5-10.1); CARBON DIOXIDE 23 MMOL/L (21-32); CHLORIDE 102 MMOL/L (98-107); CREATININE SERUM 5.32 MG/DL (0.60-1.30); GFR ESTIMATED 8; GLUCOSE 279 MG/DL (70-105); POTASSIUM 5.3 MMOL/L (3.6-5.0); SODIUM 139 MMOL/L (135-145)
[2020-01-16] MEDS ORDERED: TETANUS & DIPHTHERIA TOX,ADULT 0.5 ML (TENIVAC) IM ONE (12:45)
[2020-01-16 12:46] LABS: ALANINE AMINOTRANSFERASE 21 U/L (0-55); ALBUMIN 3.3 GM/DL (3.2-4.5); ALKALINE PHOSPHATASE 86 U/L (40-136); SALICYLATE < 0.3 MG/DL (5.0-20.0); TOTAL PROTEIN 6.4 GM/DL (6.4-8.2)
[2020-01-16 12:47] LABS: ACETAMINOPHEN < 10 UG/ML (10-30)
--- NOTE | 2020-01-16 12:57 | Diagnostic Imaging Report ---
EXAMINATION: CHEST (PA AND LATERAL). CLINICAL INDICATION: 79-year-old female, altered mental status. COMPARISON: August 09, 2019. CT chest August 07, 2019. FINDINGS: There are median sternotomy wires. Stable overall appearance of the cardiomediastinal silhouette. There is no identified pneumothorax. There is mild blunting of the right lateral costophrenic angle. There is significantly improved aeration of the right lung base since the comparison radiograph. There are streaky opacities in the left lung base which appear similar to the comparison exam. There is a redemonstrated displaced fracture deformity of the left clavicle. IMPRESSION: 1. Significantly improved aeration of the right lung base since the comparison exam with persistent mild blunting of the right lateral costophrenic angle which could relate to scarring, small effusion, atelectasis, and/or infiltrate. 2. Persistent nonspecific left basilar airspace consolidation which may relate to small effusion, scarring, atelectasis, and/or infiltrate. Dictated by: Dictated on workstation # [id number]
--- NOTE | 2020-01-16 13:02 | Diagnostic Imaging Report ---
INDICATION: Altered mental status. TECHNIQUE: Multiple contiguous axial images were obtained through the brain without the use of intravenous contrast. Auto Exposure Controls were utilized during the CT exam to meet ALARA standards for radiation dose reduction. There is no previous study for comparison. There are mild diffuse atrophic changes. There is no subdural or epidural collection. There is no intracranial hemorrhage. There are patchy low-density changes throughout the deep white matter and subcortical white matter both hemispheres compatible with chronic ischemic change. There appears to be an old infarct in the right occipital lobe medially. Ventricles are nondilated. Calvarial windows appear normal. IMPRESSION: Atrophic changes with moderate chronic ischemic changes in the deep and subcortical white matter of both hemispheres. 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 Dictated by: Dictated on workstation # [id number]
--- OUTSIDE RECORDS SUMMARY | 2020-01-16 13:05 | XMS REPORT | Continuity of Care Document ---
Author Organization Unknown Address Unknown Phone Unavailable Allergies Active Description Code Type Severity Reaction Onset Reported/Identified Relationship to Patient Clinical Status Yes codeine [id number] Drug Allergy Unknown NERVOUSNESS 04/09/2019 Yes Iodinated Contrast Media [id number] Drug Allergy Unknown HIVES 04/09/2019 Yes latex [id number] Drug Allergy Unknown ITCHING, RASH 04/09/2019 Medications There is no data. 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 06/13/2019 BENITA KIDD MD Ot E78.00 PURE HYPERCHOLESTEROLEMIA, UNSPECIFIED 06/13/2019 BENITA KIDD MD, Ot F32.9 MAJOR DEPRESSIVE DISORDER, SINGLE EPISOD 06/13/2019 BENITA KIDD MD Ot I12.9 HYPERTENSIVE CHRONIC KIDNEY DISEASE W ST 06/13/2019 BENITA KIDD MD Ot I16.9 HYPERTENSIVE CRISIS, UNSPECIFIED 06/13/2019 BENITA KIDD MD Ot J43.9 EMPHYSEMA, UNSPECIFIED 06/13/2019 BENITA KIDD MD Ot K21.9 GASTRO-ESOPHAGEAL REFLUX DISEASE WITHOUT 06/13/2019 BENITA KIDD MD, Ot N18.9 CHRONIC KIDNEY DISEASE, UNSPECIFIED 06/13/2019 BENITA KIDD MD, Ot Z79.02 MCC (CURRENT) USE OF ANTITHROMBOTI 06/13/2019 BENITA KIDD MD Ot 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 06/13/2019 BENITA KIDD MD Ot 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 06/13/2019 BENITA KIDD MD Ot Z88.5 ALLERGY STATUS TO NARCOTIC AGENT STATUS 06/13/2019 BEINTA KIDD MD Ot Z90.49 ACQUIRED ABSENCE OF [...] 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 06/18/2019 BENITA KIDD MD, Ot E78.00 PURE [...] UNSPECIFIED 06/18/2019 BENITA KIDD MD Ot 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.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 06/18/2019 BENITA KIDD MD Ot Z79.4 MCC (CURRENT) USE OF INSULIN 06/18/2019 BENITA KIDD MD, Ot 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 06/18/2019 BENITA [...] CAMERON HANLEY Ot E03.9 HYPOTHYROIDISM, UNSPECIFIED 08/03/2019 [facility] DOC[facility] Ot E11.40 TYPE 2 DIABETES MELLITUS WITH DIABETIC N 08/03/2019 SERA CAMERON HANLEY Ot E78.00 PURE HYPERCHOLESTEROLEMIA, UNSPECIFIED 08/03/2019 [facility] MAJOR DEPRESSIVE DISORDER, SINGLE EPISOD 08/03/2019 [facility] DOC[facility] Ot I1 0 ESSENTIAL (PRIMARY) HYPERTENSION 08/03/2019 SERA CAMERON HANLEY Ot I16.9 HYPERTENSIVE CRISIS, UNSPECIFIED 08/03/2019 [facility] J20.9 ACUTE BRONCHITIS, UNSPECIFIED 08/03/2019 [facility] CAMERON HANLEY Ot J44.1 CHRONIC OBSTRUCTIVE PULMONARY DISEASE W 08/03/2019 SERA CAMERON HANLEY Ot K21.9 GASTRO-ESOPHAGEAL REFLUX DISEASE WITHOUT 08/03/2019 [facility], CAMERON Castillo Ot R09.89 OTH SYMPTOMS AND SIGNS INVOLVING THE CIR 08/03/2019 [facility], CAMERON Castillo Ot 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.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 08/03/2019 [facility], CAMERON Castillo Ot Z79.4 MCC (CURRENT) USE OF INSULIN 08/03/2019 [facility], CAMERON Castillo Ot 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 08/03/2019 [facility], CAMERON Castillo Ot Z87.39 PERSONAL HISTORY OF DISEASES OF THE MS S 08/03/2019 [facility], CAMERON Castillo Ot Z88.5 ALLERGY STATUS TO NARCOTIC AGENT STATUS 08/03/2019 [facility], CAMERON Castillo Ot Z90.710 ACQUIRED ABSENCE OF BOTH CERVIX AND UTER 08/03/2019 [facility], CAMERON Castillo Ot Z91.040 LATEX ALLERGY STATUS 08/03/2019 [facility] Z91.041 RADIOGRAPHIC DYE ALLERGY STATUS 08/03/2019 [facility], CAMERON Castillo Ot Z95.1 PRESENCE OF AORTOCORONARY [...] DO, MALIHA Ot H40.9 UNSPECIFIED GLAUCOMA 08/09/2019 AHRTMAN DO, MALIHA Ot I12.9 HYPERTENSIVE CHRONIC KIDNEY [...] Ot I25.11 9 ATHSCL HEART DISEASE OF [place] COR ART W 08/09/2019 HARTMAN DO, MALIHA [...] Ot N17.9 ACUTE KIDNEY FAILURE, UNSPECIFIED 08/09/2019 HARTMAN DO, MALIHA Ot N18.4 CHRONIC KIDNEY DISEASE, STAGE 4 (SEVERE) 08/09/2019 HARTMAN DO, MALIHA Ot R32 UNSPECIFIED URINARY INCONTINENCE 08/09/2019 MINNIE HANLEY, MALIHA Ot Z79.4 MCC (CURRENT) USE OF INSULIN 08/09/2019 MINNIE HANLEY, MALIHA Ot Z87.89 1 PERSONAL HISTORY OF NICOTINE DEPENDENCE 08/09/2019 MINNIE HANLEY, MALIHA Ot Z90.49 ACQUIRED ABSENCE OF OTHER SPECIFIED PART 08/09/2019 HARTMAN DO, MALIHA Ot Z90.71 0 ACQUIRED ABSENCE OF BOTH CERVIX AND UTER 08/09/2019 HARTMAN DO, MALIHA Ot Z90.72 2 ACQUIRED ABSENCE OF OVARIES, BILATERAL 08/09/2019 MINNIE HANLEY, MALIHA Ot Z95.1 PRESENCE OF AORTOCORONARY BYPASS GRAFT 10/21/2019 EDUARDO ONEIL MD, Ot E03.9 HYPOTHYROIDISM, UNSPECIFIED 10/21/2019 EDUARDO ONEIL MD, Ot E11.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 2 DIABETES MELLITUS WITH DIABETIC N 10/21/2019 EDUARDO ONEIL MD, Ot E78.00 PURE HYPERCHOLESTEROLEMIA, UNSPECIFIED 10/21/2019 EDUARDO ONEIL MD, Ot F03.90 UNSPECIFIED DEMENTIA WITHOUT BEHAVIORAL 10/21/2019 EDUARDO ONEIL MD, Ot F32.9 MAJOR DEPRESSIVE DISORDER, SINGLE EPISOD 10/21/2019 EDUARDO ONEIL MD, Ot I1 0 ESSENTIAL (PRIMARY) HYPERTENSION 10/21/2019 EDUARDO ONEIL MD, Ot J43.9 EMPHYSEMA, UNSPECIFIED 10/21/2019 EDUARDO ONEIL MD, Ot K21.9 GASTRO-ESOPHAGEAL REFLUX DISEASE WITHOUT 10/21/2019 EDUARDO ONEIL MD, Ot S00.03XA CONTUSION OF SCALP, INITIAL ENCOUNTER 10/21/2019 EDUARDO ONEIL MD, Ot W18.39XA OTHER FALL ON SAME LEVEL, INITIAL ENCOUN 10/21/2019 EDUARDO ONEIL MD, Ot Z79.02 MCC (CURRENT) USE OF ANTITHROMBOTI 10/21/2019 EDUARDO ONEIL MD, Ot 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 10/21/2019 EDUARDO ONEIL MD, Ot 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 10/21/2019 EDUARDO ONEIL MD, Ot Z82.49 FAMILY HX OF [place] HEART DIS AND OTH DI 10/21/2019 EDUARDO ONEIL MD, Ot Z88.5 ALLERGY STATUS TO NARCOTIC AGENT STATUS 10/21/2019 EDUARDO ONEIL MD Ot Z91.040 LATEX ALLERGY STATUS 10/21/2019 EDUARDO ONEIL MD, Ot Z91.041 RADIOGRAPHIC DYE ALLERGY STATUS 10/21/2019 EDUARDO ONEIL MD, Ot Z95.1 PRESENCE OF AORTOCORONARY BYPASS GRAFT 10/23/2019 EDUARDO ONEIL MD, Ot E03.9 HYPOTHYROIDISM, UNSPECIFIED 10/23/2019 EDUARDO ONEIL MD, Ot E11.40 TYPE 2 DIABETES MELLITUS WITH DIABETIC N 10/23/2019 EDUARDO ONEIL MD, Ot E78.00 PURE HYPERCHOLESTEROLEMIA, UNSPECIFIED 10/23/2019 EDUARDO ONEIL MD, Ot F03.90 UNSPECIFIED DEMENTIA WITHOUT BEHAVIORAL 10/23/2019 EDUARDO ONEIL MD, Ot F32.9 MAJOR DEPRESSIVE DISORDER, SINGLE EPISOD 10/23/2019 EDUARDO ONEIL MD, Ot I1 0 ESSENTIAL (PRIMARY) HYPERTENSION 10/23/2019 EDUARDO ONEIL MD, Ot J43.9 EMPHYSEMA, UNSPECIFIED 10/23/2019 EDUARDO ONEIL MD, Ot K21.9 GASTRO-ESOPHAGEAL REFLUX DISEASE WITHOUT 10/23/2019 EDUARDO ONEIL MD, Ot S00.03XA CONTUSION OF SCALP, INITIAL ENCOUNTER 10/23/2019 EDUARDO ONEIL MD, Ot W18.39XA OTHER FALL ON SAME LEVEL, INITIAL ENCOUN 10/23/2019 EDUARDO ONEIL MD, Ot Z79.02 MCC (CURRENT) USE OF ANTITHROMBOTI 10/23/2019 EDUARDO ONEIL MD, Ot Z79.4 MCC (CURRENT) USE OF INSULIN 10/23/2019 EDUARDO ONEIL MD, Ot Z79.51 MCC (CURRENT) USE OF INHALED STERO 10/23/2019 EDUARDO ONEIL MD, Ot Z82.49 FAMILY HX OF [place] HEART DIS AND OTH DI 10/23/2019 EDUARDO ONEIL MD, Ot Z88.5 ALLERGY STATUS TO NARCOTIC AGENT STATUS 10/23/2019 EDUARDO ONEIL MD, Ot Z91.040 LATEX ALLERGY STATUS 10/23/2019 EDUARDO ONEIL MD, Ot Z91.041 RADIOGRAPHIC DYE ALLERGY STATUS 10/23/2019 EDUARDO ONEIL MD, Ot Z95.1 PRESENCE OF AORTOCORONARY BYPASS GRAFT 10/23/2019 EDUARDO ONEIL MD, Ot E03.9 HYPOTHYROIDISM, UNSPECIFIED 10/23/2019 EDUARDO ONEIL MD, Ot E11.40 TYPE 2 DIABETES MELLITUS WITH DIABETIC N 10/23/2019 EDUARDO ONEIL MD, Ot E78.00 PURE HYPERCHOLESTEROLEMIA, UNSPECIFIED 10/23/2019 EDUARDO ONEIL MD, Ot F03.90 UNSPECIFIED DEMENTIA WITHOUT BEHAVIORAL 10/23/2019 EDUARDO ONEIL MD, Ot F32.9 MAJOR DEPRESSIVE DISORDER, SINGLE EPISOD 10/23/2019 EDUARDO ONEIL MD, Ot I1 0 ESSENTIAL (PRIMARY) HYPERTENSION 10/23/2019 EDUARDO ONEIL MD, Ot J43.9 EMPHYSEMA, UNSPECIFIED 10/23/2019 EDUARDO ONEIL MD, Ot K21.9 GASTRO-ESOPHAGEAL REFLUX DISEASE WITHOUT 10/23/2019 EDUARDO ONEIL MD, Ot S00.03XA CONTUSION OF SCALP, INITIAL ENCOUNTER 10/23/2019 EDUARDO ONEIL MD, Ot W18.39XA OTHER FALL ON SAME LEVEL, INITIAL ENCOUN 10/23/2019 EDUARDO ONEIL MD, Ot Z79.02 MCC (CURRENT) USE OF ANTITHROMBOTI 10/23/2019 EDUARDO ONEIL MD, Ot Z79.4 MCC (CURRENT) USE OF INSULIN 10/23/2019 EDUARDO ONEIL MD, Ot 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 10/23/2019 EDUARDO ONEIL MD, Ot Z82.49 FAMILY HX OF [place] HEART DIS AND OTH DI 10/23/2019 EDUARDO ONEIL MD, Ot Z88.5 ALLERGY STATUS TO NARCOTIC AGENT STATUS 10/23/2019 EDUARDO ONEIL MD, Ot Z91.040 LATEX ALLERGY STATUS 10/23/2019 EDUARDO ONEIL MD, Ot Z91.041 RADIOGRAPHIC DYE ALLERGY STATUS 10/23/2019 EDUARDO ONEIL MD, Ot Z95.1 PRESENCE OF AORTOCORONARY BYPASS [...] 0.0-0.1 Whole blood basic metabolic panel - 1009/26 05:49 Serum or plasma sodium measurement (moles/volume) [...] INFLUENZA A AND B ANTIGENS BY [facility] Blood CBC with ordered manual differenti al [...] platelet adequacy detection by light microscopy [facility] Comprehensive metabolic panel - 08/03/19 17:55 Serum [...] CALCIUM CORRECTED 9.0 mg/dL 8.5-10.1 Magnesium - 01/26/20 16:10 Magnesium 2.3 mg/dL 1.6-2.4 TROPONIN I [...] Blood caryn cells detection by light microscopy [facility] Comprehensive metabolic panel - 08/09/19 05:00 Serum [...] by glucometer (mas s/volume) 216 mg/dL 70-110 Complete urinalysis with reflex to cultu re - 01/16/20 11:50 Urine color determination YELLOW NRG Urine clarity determination CLEAR NR G Urine pH measurement by test strip 7.0 5-9 Specific gravity of urine by test strip 1.020 1.016-1.022 Urine protein assay by test strip, semi-quantitative 2+ NEGATIVE Urine glucose detection by automated test strip 3+ NEGATIVE Erythrocytes detection in urine sediment by light micr oscopy NEGATIVE NEGATIVE Urine ketones detection by automated test strip NE GATIVE NEGATIVE Urine nitrite detection by test strip NEGATIVE NEGATIVE Urine total bilirubin detection by test strip NEGA TIVE NEGATIVE Urine urobilinogen measurement by automated test strip (mass/volume) 0.2 mg/dL < = 1.0 Urine leukocyte esterase detection by dipstick NEG ATIVE NEGATIVE Automated urine sediment erythrocyte cou nt by microscopy (number/high power field) NONE NRG Automated urine sediment leukocyte count by microscopy (number/high power field) [HPF] NRG Bacteria detection in urine sediment by light microsco py NEGATIVE NRG Squamous epithelial cells detection in u rine sediment by light microscopy RARE NRG Crystals detection in urine sediment by light microsco py NONE NRG Casts detection in urine sediment by light microscopy NONE NRG Mucus detection in urine sediment by light microscopy NEGATIVE NRG Complete urinalysis with reflex to culture NO NRG Renal epithelial cells detection in urin e sediment by light microscopy 0-2 NRG Complete blood count (CBC) with automate d white blood cell (WBC) differential - 01/16/20 12:08 Blood leukocytes automated count (number/volume) 5.0 10*3/uL 4.3-11.0 Blood erythrocytes automated count (number/volume) 3.56 10*6/uL 4.35-5.85 Venous blood hemoglobin measurement (mass/volume) 10.3 g/dL 11.5-16.0 Blood hematocrit (volume fraction) 33 % 35-52 Automated erythrocyte mean corpuscular volume 92 [ foz_us] 80-99 Automated erythrocyte mean corpuscular h emoglobin (mass per erythrocyte) 29 pg 25-34 Automated erythrocyte mean corpuscular h emoglobin concentration measurement (mass/volume) 31 g/dL 32-36 Automated erythrocyte distribution width ratio 13. 8 % 10.0- 14.5 Automated blood platelet count (count/volume) 226 10*3/uL 130-400 Automated blood platelet mean volume measurement 10.0 [foz_us] 7.4-10.4 Automated blood neutrophils/100 leukocytes 73 % 42-75 Automated blood lymphocytes/100 leukocytes 14 % 12-44 Blood monocytes/100 leukocytes 10 % 0-12 Automated blood eosinophils/100 leukocytes 3 % 0-10 Automated blood basophils/100 leukocytes 1 % 0-10 Blood neutrophils automated count (number/volume) 3.6 10*3 1.8-7.8 Blood lymphocytes automated count (number/volume) 0.7 10*3 1.0-4.0 Blood monocytes automated count (number/volume) 0. 5 10*3 0.0-1.0 Automated eosinophil count 0.2 10*3/uL 0 .0-0.3 Automated blood basophil count (count/volume) 0.0 10*3/uL 0.0-0.1 Comprehensive metabolic panel - 01/16/20 12:08 Serum or plasma sodium measurement (moles/volume) 139 mmol/L 135-145 Serum or plasma potassium measurement (moles/volume) 5.3 mmol/L 3.6-5.0 Serum or plasma chloride measurement (moles/volume) 102 mmol/L 98-107 Carbon dioxide 23 mmol/L 21-32 Serum or plasma anion gap determination (moles/volume) 14 mmol/L 5-14 Serum or plasma urea nitrogen measurement (mass/volume ) 75 mg/dL 7-18 Serum or plasma creatinine measurement (mass/volume) 5.32 mg/dL 0.60-1.30 Serum or plasma urea nitrogen/creatinine mass ratio 14 NRG Serum or plasma creatinine measurement w ith calculation of estimated glomerular filtration rate 8 NRG Serum or plasma glucose measurement (mass/volume) 279 mg/dL 70-105 Serum or plasma calcium measurement (mass/volume) 9.1 mg/dL 8.5-10.1 Serum or plasma total bilirubin measurement (mass/volu me) 0.3 mg/dL 0.1-1.0 Serum or plasma alkaline phosphatase frank surement (enzymatic activity/volume) 86 U/L 40-136 Serum or plasma aspartate aminotransfera se measurement (enzymatic activity/volume) 23 U/L 5-34 Serum or plasma alanine aminotransferase measurement (enzymatic activity/volume) 21 U/L 0-55 Serum or plasma protein measurement (mass/volume) 6.4 g/dL 6.4-8.2 Serum or plasma albumin measurement (mass/volume) 3.3 g/dL 3.2-4.5 CALCIUM CORRECTED 9.7 mg/dL 8.5-10.1 TROPONIN I FS - 01/16/20 12:08 TROPONIN I FS < 0.30 <0.30 Serum or plasma salicylates measurement (mass/volume) - 01/16/20 12:08 Serum or plasma salicylates measurement (mass/volume) < mg/dL 5.0-20.0 Serum or plasma acetaminophen measuremen t (mass/volume) - 01/16/20 12:08 Serum or plasma acetaminophen measurement (mass/volume ) < ug/mL 10-30 Serum or plasma ethanol measurement (mas s/volume) - 01/16/20 12:08 Serum or plasma ethanol measurement (mass/volume) < mg/dL <10 Encounters ACCT No. Visit Date/Time Discharge Status Pt. Type Provider Facility Loc./Unit Complaint [id number] 10/21/2019 00:05:00 00:26:00 DIS Emergency THAD MENDOZA, EDUARDO Velasquez [facility] ER FS FALL [id number] 08/05/2019 18:01:00 15:45:00 DIS Inpatient MALIHA HARTMAN DO, V [facility] 4TH COUGH,SOB,CHEST PAIN [id number] 08/03/2019 16:59:00 20:10:00 DIS Emergency CAMERON ZAMORA DO [facility] ER FS FLU SYMPTOMS [id number] 06/13/2019 13:27:00 15:10:00 DIS Emergency BERNABE MENDOZA, BENITA Billingsley [facility] ER FS ABNORMAL LAB RESULTS [id number] 05/15/2019 10:49:00 23:59:59 CLS Outpatient GAMAL MENDOZA FACC, DACIA GALLARDOP CC DS [facility] CARD CHEST DISCOMFORT,SOB,HYPERLIPIDEMIA [id number] 05/08/2019 12:36:00 12:51:00 DIS Outpatient REBEKA SANTIAGO DO [facility] ER FS LUNG PAIN [id number] 05/07/2019 14:28:00 23:59:59 CLS Outpatient ADOLFO RHODES MD [facility] RAD FS R05 N18.4 [id number] 04/11/2019 13:40:00 15:00:00 DIS Inpatient ERWIN ZAMARRIPA MD [facility] 4TH ARNOLDO ON CVD DEHYDRATIO N CHEST PAIN SOA [id number] 01/16/2020 12:09:00 Document Registration
[2020-01-16] MEDS ORDERED: NS IV 1000 ML 1,000 ML IV SCH (13:40)
[2020-01-16] MEDS ORDERED: inSUlin (REGULAR) HUMAN 1 UNIT/0.01 ML (CHARGE PER UNIT) IV SCH (13:45)
[2020-01-16] MEDS ORDERED: inSUlin (REGULAR) HUMAN 1 UNIT/0.01 ML (CHARGE PER UNIT) ONE (13:48)
--- NOTE | 2020-01-16 14:00 | NUR ---
Pt's dgt Brenda Sharif notified of planned admit to [facility] for renal failure. Pt with worsening lab values since beginning of year CR/BUN. Per Dgt, Rossi was to see a Clinical Pathologist Dr Mendes at [facility] on Tuesday.
--- NOTE | 2020-01-16 14:15 | NUR ---
Call to [facility] to report admission to [facility] plan r/t renal failure
--- NOTE | 2020-01-16 14:59 | NUR ---
Accepted to [facility] per Dr Alison Callaway.
--- NOTE | 2020-01-16 15:13 | NUR ---
Spoke with Rina BAUTISTA at [facility] Call Center and pt has no bed assignment as they have no beds currently. They will return a call in a few hrs.
--- NOTE | 2020-01-16 15:20 | NUR ---
Call to patient's dgt October to report the delay in transfer. No beds availaable at [facility]. Pt wants her wheeled walker picked up and she will take her purse/glasses with her. Pt placing her houseshoes in the storage on walker.
--- NOTE | 2020-01-16 16:30 | NUR ---
Continue to pend transfer as no bed avaialble currently at [facility]. Pt resting at intervals in room, no voiced c/o. Pt remains oriented to name, place, time, situation. Monitor remains ST around 107, no PVC's noted. SaO2 95% Rm Air.
--- NOTE | 2020-01-16 17:30 | NUR ---
Continue to observe patient resting quietly in bed. No verbalized c/o. Monitor ST 106 without ectopy. VSS, pt's saba cath patent light clear urine. Pt's IV patent NS at 100 ml/hr to RAC.
--- NOTE | 2020-01-16 18:06 | NUR ---
Patient bed number called to . [id number]. Phone number for report rec'd
--- NOTE | 2020-01-16 18:08 | NUR ---
EMS CALLED FOR TRANSFER AT THIS TIME.
--- NOTE | 2020-01-16 18:20 | NUR ---
Call to give report and RN busy with new admit. Wait a return call from Winnie.
--- NOTE | 2020-01-16 18:28 | NUR ---
Call to Dgt, October and notified of Rm assigned @ [facility] [id number], report pt resting and no new c/o, and plan for EMS departure at 1900.
--- NOTE | 2020-01-16 18:50 | NUR ---
Winnie BAUTISTA called from [facility] to receive report from this RN. Pt is planned for depart around 1900 with oncoming ACLS crew.
--- NOTE | 2020-01-16 19:12 | NUR ---
Continue to await EMS arrival.
--- NOTE | 2020-01-16 19:15 | NUR ---
Call for EMS ETA. Approx 5 min to arrival.
--- NOTE | 2020-01-16 19:20 | NUR ---
EMS presently pulling into ER.
[2020-01-16 19:30] VITALS: BP 121/57
--- NOTE | 2020-01-16 19:30 | NUR ---
EMS departing to [facility] with patient in stable condition. VSS. Continue to remain on cardiac monitoring and IV fluids NS at 100 ml/hr. Ledesma catheter remains in place with output 300 ml. Pt did void 200 ml on arrival.
== END 2020-01-16 19:30 | disposition short-term general hospital (02) ==
LOC: EDUNIT# 11:43 → ER FS 11:45
DX: N17.9 Acute kidney failure, unspecified (principal); E11.22 Type 2 diabetes mellitus with diabetic chronic kidney disease; I12.9 Hypertensive chronic kidney disease with stage 1 through stage 4 chronic kidney disease, or unspecified chronic kidney disease; N18.9 Chronic kidney disease, unspecified; I48.92 Unspecified atrial flutter; R45.851 Suicidal ideations; J43.9 Emphysema, unspecified; E78.00 Pure hypercholesterolemia, unspecified; E11.40 Type 2 diabetes mellitus with diabetic neuropathy, unspecified; K21.9 Gastro-esophageal reflux disease without esophagitis; E03.9 Hypothyroidism, unspecified; F32.9 Major depressive disorder, single episode, unspecified; F03.90 Unspecified dementia, unspecified severity, without behavioral disturbance, psychotic disturbance, mood disturbance, and anxiety; Z82.49 Family history of ischemic heart disease and other diseases of the circulatory system; Z91.041 Radiographic dye allergy status; Z79.51 Long term (current) use of inhaled steroids; Z88.5 Allergy status to narcotic agent; Z79.890 Hormone replacement therapy; Z91.040 Latex allergy status; Z79.4 Long term (current) use of insulin; Z95.1 Presence of aortocoronary bypass graft; Z79.02 Long term (current) use of antithrombotics/antiplatelets
CPT/HCPCS: 36415; 51702; 70450; 71046; 80053; 81000; 84484; 85025; 93005; 93041; 99285; G0480 ×3; 80320; 80329; 90714

== ENCOUNTER → 2020-04-08 | Outpatient (CLI) | payer MEDICARE, MEDICAID | LOC: CARD 11:36 | PROVIDERS: ATTEND Internal Medicine Cardiovascular Disease | DX: I48.0 Paroxysmal atrial fibrillation (principal); E78.5 Hyperlipidemia, unspecified; I25.10 Atherosclerotic heart disease of native coronary artery without angina pectoris; I12.9 Hypertensive chronic kidney disease with stage 1 through stage 4 chronic kidney disease, or unspecified chronic kidney disease; N18.3 Chronic kidney disease, stage 3 (moderate) | CPT/HCPCS: 93225; 93226 ==

== ENCOUNTER 2020-08-24 15:17 | Emergency (ER) | payer MEDICARE, MEDICAID ==
[~2020-08-24] VITALS: Ht 170.1 cm; Wt 77.2 kg
[~2020-08-24 15:17] MED LIST changes: +AMLO-250 PO; -AMLO5TAB9 PO; -BUPR200T PO; +BUPR200T3 PO; -CALC-6 PO; +CALC1TAB84 PO
[2020-08-24] MEDS ORDERED: ONDANSETRON 4 MG/2 ML (SDV) Z0FRAN IVP ONE (15:45)
[2020-08-24] MEDS ORDERED: fentaNYL INJECTION 100 MCG/2 ML AMP IVP ONE (15:45)
[2020-08-24 15:54] LABS: BASOPHILS % (AUTO) 1 % (0-10); EOSINOPHILS # (AUTO) 0.1 10^3/uL (0.0-0.3); EOSINOPHILS % (AUTO) 3 % (0-10); HEMATOCRIT 33 % (35-52); HEMOGLOBIN 10.7 G/DL (11.5-16.0); LYMPHOCYTES # (AUTO) 0.8 X 10^3 (1.0-4.0); LYMPHOCYTES % (AUTO) 16 % (12-44); MEAN CORPUSCULAR HEMOGLOBIN 28 PG (25-34); MEAN CORPUSCULAR HGB CONC 32 G/DL (32-36); MEAN CORPUSCULAR VOLUME 88 FL (80-99); MEAN PLATELET VOLUME 10.5 FL (7.4-10.4); MONOCYTES # (AUTO) 0.5 X 10^3 (0.0-1.0); MONOCYTES % (AUTO) 11 % (0-12); NEUTROPHILS # (AUTO) 3.3 X 10^3 (1.8-7.8); NEUTROPHILS % (AUTO) 69 % (42-75); PLATELET COUNT 210 10^3/uL (130-400); WHITE BLOOD COUNT 4.7 10^3/uL (4.3-11.0)
[2020-08-24 16:12] LABS: BACTERIA,URINE LARGE /HPF; BILIRUBIN,URINE NEGATIVE (NEGATIVE); CLARITY,URINE SL CLOUDY; COLOR,URINE YELLOW; GLUCOSE, URINE (UA) 2+ (NEGATIVE); KETONES,URINE NEGATIVE (NEGATIVE); LEUKOCYTE ESTERASE ,URINE 1+ (NEGATIVE); NITRITE,URINE NEGATIVE (NEGATIVE); PH,URINE 6.5 (5-9); PROTEIN,URINE 2+ (NEGATIVE); WBC,URINE 25-50 /HPF
[2020-08-24 16:18] LABS: ALANINE AMINOTRANSFERASE < 5 U/L (0-55); ALBUMIN 3.5 GM/DL (3.2-4.5); ALKALINE PHOSPHATASE 87 U/L (40-136); BILIRUBIN,TOTAL 0.2 MG/DL (0.1-1.0); BUN/CREATININE RATIO 10; CALCIUM 8.6 MG/DL (8.5-10.1); CARBON DIOXIDE 24 MMOL/L (21-32); CHLORIDE 100 MMOL/L (98-107); CREATININE SERUM 5.04 MG/DL (0.60-1.30); GFR ESTIMATED 8; GLUCOSE 318 MG/DL (70-105); POTASSIUM 4.6 MMOL/L (3.6-5.0); SODIUM 138 MMOL/L (135-145); TOTAL PROTEIN 6.4 GM/DL (6.4-8.2)
--- NOTE | 2020-08-24 17:41 | ED General ---
General Chief Complaint: Back Problems Stated Complaint: RT LUNG PAIN Nursing Triage Note: Pt present to ED per POV brought by [email or web address]. Pt reports pain to right side of thoracic back region. Denies fall/injury/fever/or dysuria. Pt describes an increase of pain with movement/inspiration Nursing Sepsis Screen: No Definite Risk Exam Limitations: No Limitations History of Present Illness Date Seen by Provider: Aug 24, 2020 Time Seen by Provider: 16:00 Initial Comments Patient is an 79-year-old skilled nursing patient with history of chronic kidney disease and dementia who presents with intermittent right flank pain for the past several days. Patient denies trauma or injury. Pain is described as dull moderate and worse with position change and movement. She denies fever chills, nausea vomiting or sweats. She denies lower abdominal pain., Urinary frequency urgency dysuria and hematuria. No diarrhea. No other acute symptoms or comp laints. No history of kidney stones. History is limited due to the presence of dementia. Timing/Duration: 3-4 Days, Other Associated Systoms: Other Allergies and Home Medications Allergies Coded Allergies: Iodinated Contrast Media (Unverified Allergy, Unknown, HIVES, 04/09/19) codeine (Unverified Allergy, Unknown, NERVOUSNESS, 04/09/19) latex (Unverified Allergy, Unknown, ITCHING, RASH, 04/09/19) lisinopril (Unverified Adverse Reaction, Unknown, 08/24/20) Per [facility] records shrimp (Unverified Adverse Reaction, Unknown, 08/24/20) per [facility] records sulfamethoxazole (Unverified Adverse Reaction, Unknown, 08/24/20) per [facility] record trimethoprim (Unverified Adverse Reaction, Unknown, 08/24/20) per [facility] record Home Medications Acetaminophen 500 Mg Tablet, 1,000 MG PO Q6H PRN for PAIN-MILD, (Reported) Albuterol Sulfate 2.5 Mg/3 Ml Vial.neb, 2.5 MG NEB Q6H PRN for SHORTNESS OF BREATH, (Reported) Albuterol Sulfate 1 Puff Puff, 2 PUFF INH Q6H PRN for SHORTNESS OF BREATH, (Reported) Amlodipine Besylate 10 Mg Tablet, 10 MG PO DAILY, (Reported) Atorvastatin Calcium 80 Mg Tablet, 80 MG PO HS, (Reported) Brimonidine Tartrate/Timolol 5 Ml Drops, 1 DROP OU BID, (Reported) Bupropion HCl 150 Mg Tablet.er, 300 MG PO DAILY, (Reported) TAKES 2 (150MG) TABLETS Calcium Carbonate/Vitamin D3 1 Each Tablet, 2 TAB PO DAILY, (Reported) Cholecalciferol (Vitamin D3) 50 Mcg Capsule, 50 MCG PO 1000, (Reported) Clopidogrel Bisulfate 75 Mg Tablet, 75 MG PO DAILY, (Reported) Cyanocobalamin (Vitamin B-12) 2,500 Mcg Tablet, 2,500 MCG PO DAILY, (Reported) Dextromethorphan HBr 15 Mg/5 Ml Liquid, 10 ML PO Q4H PRN for COUGH, (Reported) Diazepam 5 Mg Tablet, 5 MG PO Q12H PRN for ANXIETY, (Reported) Docusate Sodium 100 Mg Capsule, 100 MG PO DAILY, (Reported) Donepezil HCl 10 Mg Tablet, 10 MG PO HS, (Reported) Doxazosin Mesylate 4 Mg Tablet, 4 MG PO BID, (Reported) HOLD FOR SYSTOLIC BP KESS THEN 150 Fluticasone Propionate 16 Gm [place].susp, 1 SPRAY NS DAILY PRN for ALLERGIES, (Reported) Fluticasone/Salmeterol 1 Each Blst.w.dev, 1 PUFF INH BID, (Reported) Hydralazine HCl 50 Mg Tablet, 50 MG PO Q8H, (Reported) TAKES AT 0600, 1400 AND 2200 Insulin Glargine,Hum.rec.anlog 100 Unit/1 Ml Insuln.pen, 4 UNIT SQ HS, (Reported) Insuln Asp Prt/Insulin Aspart 300 Units/3 Ml Solution, SC TIDAC, (Reported) 120 OR LESS = 0 UNITS 121-140 = 6 UNITS 141-160 = 8 UNITS 161-200 = 12 UNITS 201-250 = 14 UNITS OVER 250 = 18 UNITS Levothyroxine Sodium 112 Mcg Tablet, 112 MCG PO 0600, (Reported) Loratadine 10 Mg Tablet, 10 MG PO DAILY PRN for ALLERGIES, (Reported) Memantine HCl 10 Mg Tablet, 10 MG PO DAILY, (Reported) Metoprolol Succinate 100 Mg Tab.er.24h, 100 MG PO DAILY, (Reported) Mirtazapine 15 Mg Tablet, 22.5 MG PO HS, (Reported) TAKES 1 & 1/2 (15MG) TABLET Multivitamin 1 Each Tablet, 1 TAB PO DAILY, (Reported) Omeprazole 40 Mg Capsule.dr, 40 MG PO DAILY, (Reported) Peg 400/Hypromellose/Glycerin 15 Ml Drops, 1 DROP OU UD PRN for DRY EYES, (Reported) Polyethylene Glycol 3350 17 Gm Powd.pack, 17 GM PO DAILY, (Reported) Patient Home Medication List Home Medication List Reviewed: Yes Review of Systems Review of Systems Constitutional: see HPI EENTM: see HPI Respiratory: see HPI Cardiovascular: see HPI Gastrointestinal: see HPI Genitourinary: see HPI Musculoskeletal: see HPI Skin: see HPI Psychiatric/Neurological: See HPI Hematologic/Lymphatic: See HPI Immunological/Allergic: see HPI All Other Systems Reviewed Negative Unless Noted: Yes Past Wycbqel-[place]-Acswsd Hx Past Med/Social Hx: Reviewed Nursing Past Med/Soc Hx Patient Social History Alcohol Use: Denies Use Smoking Status: Unknown if Ever Smoked Type Used: Cigarettes 2nd Hand Smoke Exposure: No Recent Infectious Disease Expo: No Recent Hopitalizations: No Immunizations Up To Date Tetanus Booster (TDap): Less than 5yrs Date of Pneumonia Vaccine: Apr 08, 2011 Date of Influenza Vaccine: May 11, 2020 Seasonal Allergies Seasonal Allergies: No Past Medical History Surgeries: Yes (inguinal hernia repair; EGD; colonoscopy; ) Appendectomy, CABG, Gallbladder, 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, Oophorectomy, Orthopedic Respiratory: Yes Emphysema Cardiac: Yes (hypertensive crisis ) High Cholesterol, Hypertension Neurological: Yes Dementia, Neuropathy, TIA Reproductive Disorders: No [employer] History: 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 Genitourinary: Yes (incontinence, acute on chronic renal failure) Renal Failure Gastrointestinal: Yes (Hepatitis B) Gastroesophageal Reflux Musculoskeletal: Yes (neck injury ) Arthritis, Back Injury Endocrine: Yes (Hyponatremia hx) Diabetes, Insulin dep, Hypothyroidsim, Lupus HEENT: Yes Cataract, Glaucoma Loss of Vision: Bilateral Hearing Impairment: Denies Cancer: No Psychosocial: Yes Depression Integumentary: No Blood Disorders: Yes (Anemia, Iron deficiency) Family Medical History Heart Disease, Cancer, Diabetes, Renal Disease Physical Exam Vital Signs Vital Signs - First Documented 08/24/20 15:25 Temp 37.1 Pulse 55 Resp 14 B/P (MAP) 195/51 (99) Pulse Ox 96 O2 Delivery Room Air Capillary Refill : Less Than 3 Seconds Height, Weight, BMI Height: 5'8.00" Weight: 165lbs. 0.0oz. [id number]; 26.00 BMI Method: General Appearance: Mild Distress Eyes: Bilateral Eye Normal Inspection, Bilateral Eye PERRL, Bilateral Eye Abnormal EOM HEENT: Normal ENT Inspection, Pharynx Normal Neck: Full Range of Motion, Non Tender, Supple Respiratory: Chest Non Tender, Lungs Clear Gastrointestinal: Non Tender, Soft Back: No Vertebral Tenderness, CVA Tenderness (R) Neurologic/Psychiatric: Alert, No Motor/Sensory Deficits, Normal Mood/Affect Skin: Normal Color Focused Exam Sepsis Stage: Ruled Out Progress/Results/Core Measures Suspected Sepsis Recent Fever Within 48 Hours: No Infection Criteria Present: None New/Unexplained Altered Menta: No Sepsis Screen: No Definite Risk SIRS Temperature: Pulse: 55 Respiratory Rate: 14 Laboratory Tests 08/24/20 15:45: White Blood Count 4.7 Blood Pressure 195 /51 Mean: 99 Laboratory Tests 08/24/20 15:45: Creatinine 5.04H, Platelet Count 210, Total Bilirubin 0.2 Results/Orders Lab Results Laboratory Tests Test 08/24/20 15:45 08/24/20 15:55 Range/Units White Blood Count 4.7 4.3-11.0 10^3/uL Red Blood Count 3.78 L 4.35-5.85 10^6/uL Hemoglobin 10.7 L 11.5-16.0 G/DL Hematocrit 33 L 35-52 % Mean Corpuscular Volume 88 80-99 FL Mean Corpuscular Hemoglobin 28 25-34 PG Mean Corpuscular Hemoglobin Concent 32 32-36 G/DL Red Cell Distribution Width 15.4 H 10.0-14.5 % Platelet Count 210 130-400 10^3/uL Mean Platelet Volume 10.5 H 7.4-10.4 FL Immature Granulocyte % (Auto) 0 % Neutrophils (%) (Auto) 69 42-75 % Lymphocytes (%) (Auto) 16 12-44 % Monocytes (%) (Auto) 11 0-12 % Eosinophils (%) (Auto) 3 0-10 % Basophils (%) (Auto) 1 0-10 % Neutrophils # (Auto) 3.3 1.8-7.8 X 10^3 Lymphocytes # (Auto) 0.8 L 1.0-4.0 X 10^3 Monocytes # (Auto) 0.5 0.0-1.0 X 10^3 Eosinophils # (Auto) 0.1 0.0-0.3 10^3/uL Basophils # (Auto) 0.0 0.0-0.1 10^3/uL Immature Granulocyte # (Auto) 0.0 0.0-0.1 10^3/uL Sodium Level 138 135-145 MMOL/L Potassium Level 4.6 3.6-5.0 MMOL/L Chloride Level 100 98-107 MMOL/L Carbon Dioxide Level 24 21-32 MMOL/L Anion Gap 14 5-14 MMOL/L Blood Urea Nitrogen 52 H 7-18 MG/DL Creatinine 5.04 H 0.60-1.30 MG/DL Estimat Glomerular Filtration Rate 8 BUN/Creatinine Ratio 10 Glucose Level 318 H 70-105 MG/DL Calcium Level 8.6 8.5-10.1 MG/DL Corrected Calcium 9.0 8.5-10.1 MG/DL Total Bilirubin 0.2 0.1-1.0 MG/DL Aspartate Amino Transf (AST/SGOT) 18 5-34 U/L Alanine Aminotransferase (ALT/SGPT) < 5 0-55 U/L Alkaline Phosphatase 87 40-136 U/L Total Protein 6.4 6.4-8.2 GM/DL Albumin 3.5 3.2-4.5 GM/DL Urine Color YELLOW Urine Clarity SL CLOUDY Urine pH 6.5 5-9 Urine Specific [place] 1.015 L 1.016-1.022 Urine Protein 2+ H NEGATIVE Urine Glucose (UA) 2+ H NEGATIVE Urine Ketones NEGATIVE NEGATIVE Urine Nitrite NEGATIVE NEGATIVE Urine Bilirubin NEGATIVE NEGATIVE Urine Urobilinogen NORMAL < = 1.0 MG/DL Urine Leukocyte Esterase 1+ H NEGATIVE Urine RBC (Auto) NEGATIVE NEGATIVE Urine RBC NONE /HPF Urine WBC 25-50 H /HPF Urine Squamous Epithelial Cells 5-10 /HPF Urine Crystals NONE /LPF Urine Bacteria LARGE H /HPF Urine Casts NONE /LPF Urine Mucus NEGATIVE /LPF Urine Culture Indicated YES My Orders Orders - LANA LEDESMA DO Cbc With Automated Diff (08/24/20 15:43) Comprehensive Metabolic Panel (08/24/20 15:43) Urinalysis (08/24/20 15:43) Fentanyl Injection (Sublimaze Injection (08/24/20 15:45) Ondansetron Injection (Zofran Injectio (08/24/20 15:45) Urine Culture (08/24/20 15:55) Ct Abdomen/Pelvis Wo (08/24/20 17:34) Medications Given in ED Current Medications Medications Dose Ordered Sig/Nicole Route Start Time Stop Time Status Last Admin Dose Admin Fentanyl Citrate 50 mcg ONCE ONCE IVP 08/24/20 15:45 08/24/20 15:47 DC 08/24/20 16:57 50 MCG Ondansetron HCl 4 mg ONCE ONCE IVP 08/24/20 15:45 08/24/20 15:47 DC 08/24/20 16:57 4 MG Vital Signs/I&O 08/24/20 08/24/20 15:25 16:57 Temp 37.1 37.1 Pulse 55 Resp 14 B/P (MAP) 195/51 (99) Pulse Ox 96 O2 Delivery Room Air Capillary Refill : Less Than 3 Seconds Blood Pressure Mean: 99 Departure Communication (Admissions) CT abdomen pelvis: Minor atelectasis in the lower lung marsh. No acute findings per radiology report. Suspect pain is more arthritic in nature. Pain improved with treatment. Patient with history of chronic kidney disease closely followed by [facility]. Will discharge to nursing facility with continued supportive care and PCP follow-up. Return precautions reviewed. Patient verbalizes understanding and agreement with discharge instructions prior to departure. Impression Primary Impression: Acute thoracic back pain Disposition: 01 HOME, SELF-CARE Condition: Stable Departure-Patient Inst. Decision time for Depature: 19:00 Referrals: ADOLFO RHODES MD (PCP/Family) Primary Care Physician Patient Instructions: Back Muscle Strain (DC) Add. Discharge Instructions: Your evaluated in the emergency department for back pain. Lab and imaging studies were performed and are nondiagnostic. 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 Return to the ED if new or worsening symptoms. All discharge instructions reviewed with patient and/or family. Voiced understanding. Scripts Hydrocodone/Acetaminophen (Hydrocodone-Acetamin 5-325 mg) 1 Each Tablet 1 TAB PO Q4H PRN for PAIN-MODERATE (5-7), #12 TAB Prov: LANA LEDESMA DO 08/24/20 Cyclobenzaprine HCl (Cyclobenzaprine HCl) 10 Mg Tablet 10 MG PO Q8H, #30 TAB Prov: LANA LEDESMA DO 08/24/20 LANA LEDESMA DO Aug 24, 2020 17:41
--- NOTE | 2020-08-24 18:43 | Diagnostic Imaging Report ---
CLINICAL INDICATION: Patient having right-sided flank pain. EXAM: Axial CT scan of the abdomen and pelvis performed without IV contrast. Sagittal and coronal reformatted images were created. Auto Exposure Controls were utilized during the CT exam to meet ALARA standards for radiation dose reduction. COMPARISON: None. FINDINGS: There is mild atelectasis and/or scarring involving both lung bases. There are degenerative spurs involving both hips. There is sclerosis of the bilateral sacroiliac joint regions. There is lower lumbar spine facet arthropathy. There are degenerative spurs involving the lower thoracic spine and lumbar spine. The liver, spleen and pancreas are unremarkable. There is a small calcified granuloma within the spleen. The gallbladder is not visualized and may be surgically absent. Clinical correlation would better evaluate. Adrenal glands are unremarkable. Atrophic kidneys are noted, bilaterally. There is no renal stone or mass seen. Vascular calcifications involving both kidneys are noted. There is no hydronephrosis. There is no stone in the ureters seen. The bladder is partially fluid-filled with no gross abnormality seen. The uterus is surgically absent. The ovaries are not well visualized and may possibly be surgically resected. There is no diverticulosis seen. There is a small hiatal hernia noted. There is no intestinal obstruction. There is no intra-abdominal free air or free fluid. There is a small amount of stool seen throughout the colon. There is no lymphadenopathy involving the abdomen or pelvis. The extra-abdominal and extra-pelvis soft tissue structures are unremarkable. There is atherosclerotic disease involving the abdominal aorta and common iliac arteries with no gross aneurysmal dilation. There are phleboliths seen in the pelvis. IMPRESSION: 1: There is no CT evidence of acute abdominal or pelvic process. The gallbladder is not visualized and may possibly be surgically resected. Clinical correlation would better evaluate. 2: There are urinary tract stones seen. There is no hydronephrosis. There are vascular calcifications involving both kidneys. 3: The remainder of this exam shows no other significant abnormality. Dictated by: Dictated on workstation # [id number]
[2020-08-24] MEDS ORDERED: CYCL10TA9 PO (19:02)
[2020-08-24] MEDS ORDERED: ACHD5005 PO (19:02)
[2020-08-24 19:08] VITALS: BP 161/52
== END 2020-08-24 19:08 | disposition home or self-care (01) ==
LOC: EDUNIT# 15:17 → ER FS 15:20
DX: M54.6 Pain in thoracic spine (principal); I10 Essential (primary) hypertension; E78.00 Pure hypercholesterolemia, unspecified; E11.9 Type 2 diabetes mellitus without complications; F32.9 Major depressive disorder, single episode, unspecified; E03.9 Hypothyroidism, unspecified; K21.9 Gastro-esophageal reflux disease without esophagitis; F03.90 Unspecified dementia, unspecified severity, without behavioral disturbance, psychotic disturbance, mood disturbance, and anxiety; H40.9 Unspecified glaucoma; Z88.2 Allergy status to sulfonamides; Z88.1 Allergy status to other antibiotic agents; Z91.041 Radiographic dye allergy status; Z91.040 Latex allergy status; Z88.5 Allergy status to narcotic agent; Z88.8 Allergy status to other drugs, medicaments and biological substances; Z95.1 Presence of aortocoronary bypass graft; Z86.73 Personal history of transient ischemic attack (TIA), and cerebral infarction without residual deficits; Z82.49 Family history of ischemic heart disease and other diseases of the circulatory system; Z80.9 Family history of malignant neoplasm, unspecified; Z83.3 Family history of diabetes mellitus; Z79.890 Hormone replacement therapy; Z79.4 Long term (current) use of insulin
CPT/HCPCS: 36415; 51701; 74176; 80053; 81000; 85025; 87088; 96374; 96375

== ENCOUNTER → 2021-01-08 | Outpatient (CLI) | payer MEDICARE, MEDICAID ==
[~2021-01-08] MED LIST changes: +ACHD5005 PO; +MIRT-68 PO; -MIRT15TA6 PO; -OMEP40CA27 PO; +OMEP40CA6 PO
--- NOTE | 2021-01-08 17:21 | Diagnostic Imaging Report ---
INDICATION: Left knee pain COMPARISON: None FINDINGS: 3 views of the left knee demonstrate soft tissue swelling superior to the patella. Atherosclerotic disease is present. There is mild degenerative changes in all 3 compartments. Trace joint effusion noted. No fractures identified. IMPRESSION: 1. Degenerative joint disease with soft tissue swelling and trace effusion 2. Atherosclerosis Dictated by: Dictated on workstation # [id number]
== END ==
LOC: LAB FS 15:34
PROVIDERS: ATTEND Family Medicine
DX: M17.12 Unilateral primary osteoarthritis, left knee (principal); M25.462 Effusion, left knee; I70.90 Unspecified atherosclerosis
CPT/HCPCS: 73562

== ENCOUNTER → 2021-04-07 | Outpatient (CLI) | payer MEDICARE, MEDICAID ==
--- NOTE | 2021-04-07 16:08 | Diagnostic Imaging Report ---
INDICATION: Right hip pain. COMPARISON: None. FINDINGS: Two views of the right hip were obtained and show no fractures, dislocations, or other acute bony abnormalities. Joint spaces are well maintained throughout. The soft tissues appear unremarkable. No radiopaque foreign bodies are identified. Note is made of advanced calcified atherosclerosis. IMPRESSION: Unremarkable radiographic exam of the right hip. Dictated by: Dictated on workstation # [id number]
== END ==
LOC: RAD FS 15:46
PROVIDERS: ATTEND Family Medicine
DX: M25.551 Pain in right hip (principal)
CPT/HCPCS: 73502

== ENCOUNTER → 2021-05-15 | Outpatient (CLI) | payer MEDICARE, MEDICAID ==
--- NOTE | 2021-05-15 15:26 | Diagnostic Imaging Report ---
PROCEDURE: MRI lumbar spine. TECHNIQUE: Multiplanar, multisequence MRI of the lumbar spine was performed without contrast. INDICATION: Hip pain on the right. Back pain. EXAMINATION: Lumbar spine MRI without contrast 05/15/2021 FINDINGS: The tip of the conus is unremarkable in appearance and location. There is minimal grade 1 retrolisthesis of L2 on L3 with remaining alignment preserved. Vertebral body heights appear maintained. L1-L2: There is bilateral facet and ligamentum flavum hypertrophy. The central canal is patent. The neural foramina patent. L2-L3: There is disc desiccation with a broad-based bulging disc left paracentral. There is bilateral facet and ligamentum flavum hypertrophy. There is mild central narrowing with narrowing of the left lateral recess. There is moderate left neural foraminal stenosis. The right neural foramen is patent. L3-L4: There is disc desiccation with a broad-based bulging disc containing a diffuse left paracentral annular tear. There is bilateral facet and ligamentum flavum hypertrophy. There is no significant central stenosis. The neural foramina demonstrate moderate bilateral narrowing. L4-L5: There is intervertebral space narrowing and disc desiccation with a broad-based bulging disc containing an annular tear posteriorly. There is bilateral facet and ligamentum flavum hypertrophy. Findings cause severe central stenosis with narrowing of the lateral recesses bilaterally. There is moderate left and moderate to severe right neural foraminal stenosis. L5-S1: There is intervertebral space narrowing, disc desiccation and a broad-based bulging disc with bilateral facet and ligamentum flavum hypertrophy. There is no central stenosis. There is moderate bilateral neural foraminal narrowing. There are endplate changes at L2-L3 and L4-L5 consistent with Modic type I degenerative disease. The visualized intra-abdominal structures demonstrate atrophy of the kidneys. Incidentally noted is diffuse subcutaneous edema throughout the soft tissues of the back nonspecific. IMPRESSION: 1. Multilevel diffuse degenerative disease as described above. Dictated by: Dictated on workstation # [id number]
== END ==
LOC: RAD 12:30
PROVIDERS: ATTEND Family Medicine
DX: M47.816 Spondylosis without myelopathy or radiculopathy, lumbar region (principal); M47.817 Spondylosis without myelopathy or radiculopathy, lumbosacral region; M51.26 Other intervertebral disc displacement, lumbar region; M51.27 Other intervertebral disc displacement, lumbosacral region; M51.36 Other intervertebral disc degeneration, lumbar region; M51.37 Other intervertebral disc degeneration, lumbosacral region; M48.061 Spinal stenosis, lumbar region without neurogenic claudication; M48.07 Spinal stenosis, lumbosacral region; M24.28 Disorder of ligament, vertebrae
CPT/HCPCS: 72148

== ENCOUNTER 2021-05-17 14:14 | Emergency (ER) | payer MEDICARE, MEDICAID ==
--- OUTSIDE RECORDS SUMMARY | 2021-05-17 14:19 | XMS REPORT | Clinical Summary ---
Author Author [facility] Organization [facility] Address Unknown Phone Unavailable Care Team Providers Care Production Hand Name Role Phone Self, Yaron MENDOZA PCP Source Comments Some departments are not documenting in the electronic medical record. If you d o not see the information that you expected, contact Release of Information in [facility] [employer] Information Management department at [phone] for further assistan ce in locating additional records.[facility] Allergies Comments Active Allergy Reactions Severity Noted Date Codeine HALLUCINATION High 01/24/2017 S, AGITATION Iodinated Contrast Media RASH Medium 01/24 Latex RASH Medium 01/24/2017 Shrimp RASH Medium 01/24/2017 Tramadol HALLUCINATION High 05/24/2019 S Medications End Date Status Medication Sig Dispensed Refills Start Date Active omeprazole DR (PRILOSEC) Take 40 mg by 0 01/02 40 mg capsule mouth daily 7 before breakfast. Active Cholecalciferol (Vitamin Take 2,000 0 D3) 50 mcg (2,000 unit) Units by cap mouth daily. Active buPROPion SR Take 300 mg 0 (WELLBUTRIN-SR) 150 mg by mouth 7 tablet every morning. Active amLODIPine (NORVASC) 10 Take 10 mg by 0 01/02/ 201 mg tablet mouth daily. 7 Active levothyroxine (SYNTHROID) 137 mcg daily 0 12/10 137 mcg tablet 30 minutes 7 before breakfast. Active polyethylene glycol 3350 Take 17 g by 0 (MIRALAX) 17 g packet mouth daily. Active loratadine (CLARITIN) 10 Take 10 mg by 0 mg tablet mouth every morning. Active atorvastatin (LIPITOR) 80 Take 80 mg by 0 07/0 1/201 mg tablet mouth at 7 bedtime daily. Active mirtazapine (REMERON) 15 Take 1 tablet 0 mg tablet by mouth along with a 7.5mg tablet for a total dose of 22.5 mg daily at bedtime. Active Insulin Asp Prt-Insulin Inject 1-6 0 Aspart (NOVOLOG MIX 70-30 Units under FLEXPEN) 100 unit/mL the skin (70-30) inpn twice daily. Using a sliding scale Active hydrALAZINE (APRESOLINE) Take 50 mg by 0 50 mg tablet mouth three times daily. Active doxazosin (CARDURA) 4 mg Take 4 mg by 0 tablet mouth twice daily. Active docusate (COLACE) 100 mg Take 100 mg 0 capsule by mouth daily. Active albuterol 0.083% Inhale 3 mL 0 (PROVENTIL) 2.5 mg /3 mL solution by (0.083 %) nebulizer nebulizer as solution directed every 4 hours as needed for Wheezing or Shortness of Breath. Active acetaminophen (TYLENOL) Take 500 mg 0 500 mg tablet by mouth every 6 hours as needed for Pain. Max of 4,000 mg of acetaminophen in 24 hours. Active albuterol (VENTOLIN HFA) Inhale 2 0 90 mcg/actuation inhaler puffs by mouth into the lungs every 6 hours as needed for Wheezing or Shortness of Breath. Shake well before use. Active fluticasone propionate Apply 1 spray 0 (FLONASE) 50 to each mcg/actuation nasal spray nostril as directed daily as needed. Shake bottle gently before using. Active gabapentin (NEURONTIN) Take 100 mg 0 100 mg capsule by mouth at bedtime daily. Active darbepoetin edel (ARANESP Inject 0.42 0.84 mL 5 (POLYSORBATE)) 25 mL under the 0 mcg/0.42 mL syrg skin every 14 days. Active Miscellaneous Medical Check 1 each 0 11/08 Supply miscIndications: hemoglobin 0 Other iron deficiency every 2 weeks anemia prior to giving Aranesp injection. Hold for hemoglobin level >10 g/dL Active budesonide respule Inhale 0.5 mg 0 (PULMICORT) 0.5 mg/2 mL solution by nebulizer solution nebulizer as directed twice daily. Active vitamins, multi Take 1 tablet 0 w/minerals 9 mg iron-400 by mouth mcg tab every morning. Active mirtazapine (REMERON) 7.5 Take 1 tablet 0 mg tablet by mouth along with a 15mg tablet for a total dose of 22.5mg daily at bedtime. Active calcium carbonate/vitamin Take 1 tablet 0 D-3 (OSCAL-500+D) 1250 by mouth mg/200 unit tablet every morning. Calcium Carb 1250mg delivers 500mg elemental Ca Active metoprolol XL (TOPROL XL) Take one 90 tablet 0 100 mg extended release tablet by 0 tabletIndications: mouth daily. Essential hypertension Active brimonidine (ALPHAGAN) Apply 1 drop 0 0.2 % ophthalmic solution to both eyes twice daily. Active PROCRIT 20,000 unit/mL INJECT 0.5 ML 4 mL 5 0 injection 10,000 UNITS 1 UNDER THE SKIN EVERY 7 DAYS. HOLD IF HEMOGLOBIN ABOVE 10 G/DL INDICATIONS: ANEMIA IN CHRONIC KIDNEY DISEASE. Active insulin glargine (LANTUS Inject 18 0 SOLOSTAR) 100 unit/mL (3 Units under mL) injection PEN the skin at bedtime daily. Active apixaban (ELIQUIS) 2.5 mg Take 2.5 mg 0 tablet by mouth twice daily. Active ipratropium/albuterol Inhale by 0 sulfate (DUONEB IN) mouth into the lungs twice daily. Active cdvjmhfdbll-wmrrjdset-aai Inhale 1 puff 0 anter (TRELEGY ELLIPTA) by mouth into 100-62.5-25 mcg inhaler the lungs daily. Active carbidopa/levodopa Take 1 tablet 0 (SINEMET) 25/100 mg by mouth tablet three times daily. Active cyanocobalamin (VITAMIN Take one 90 tablet 3 B-12) 1,000 mcg tablet by 1 tabletIndications: B12 mouth daily. deficiency Active memantine (NAMENDA) 10 mg Take one 90 tablet 3 tabletIndications: tablet by 1 Cognitive impairment mouth at bedtime daily. Active donepeziL (ARICEPT) 5 mg Take one 90 tablet 3 0 tabletIndications: tablet by 1 Cognitive impairment mouth at bedtime daily. Active clopiDOGrel (PLAVIX) 75 Take 75 mg by 0 mg tablet mouth daily. Active brimonidine-timolol Apply 1 drop 0 (COMBIGAN) 0.2-0.5 % to left eye ophthalmic drop as directed twice daily. Active guaifenesin (TUSSIN COUGH Take 10 mL by 0 PO) mouth every 48 hours as needed. Active artificial tears multi Apply 1 drop 0 dose drop ophthalmic to both eyes solution daily as needed for Dry Eyes. Active ondansetron (ZOFRAN) 4 mg Take 4 mg by 0 tablet mouth every 8 hours as needed for Nausea or Vomiting. Active HYDROcodone/acetaminophen Take 1 tablet 0 (NORCO) 5/325 mg tablet by mouth every 4 hours as needed for Pain Active cyclobenzaprine Take 10 mg by 0 (FLEXERIL) 10 mg tablet mouth every 8 hours as needed for Muscle Cramps. Active blood-glucose meter (EASY Use as 0 CHECK BLOOD GLUCOSE MISC) directed. AC HS Active furosemide (LASIX) 40 mg TAKE 1 TABLET 12 tablet 6 tablet BY MOUTH ONCE 1 A DAY ON TUESDAY, TUESDAY, AND TUESDAY IN THE MORNING Active insulin aspart (U-100) every 8 0 08/01/2 02 (NOVOLOG FLEXPEN U-100 hours. 1 INSULIN) 100 unit/mL (3 mL) injection PEN Active ULTICARE PEN NEEDLE 31 0 gauge x 1/4" ndle 1 Active sodium bicarbonate 650 mg TAKE TWO 112 tablet 2 tablet TABLETS BY 1 MOUTH TWICE DAILY. Active Problems Problem Noted Date CKD (chronic kidney disease) 01/16/2020 Major neurocognitive disorder 02/08/2018 History of stroke 04/26/2017 Positive GURINDER (antinuclear antibody) 04/26/2017 Diabetic polyneuropathy associated with type 2 diabet es mellitus 01/24/2017 Gait abnormality 01/24/2017 Dysarthria 01/24/2017 Essential hypertension 01/24/2017 Type 2 diabetes mellitus with complication 7 Renal insufficiency 01/24/2017 Muscle weakness 01/24/2017 Encounters Care Team Description Date Type Specialty Sandra Saldaña APRN-NP 05/15/2021 Orders Only Nephrology Sandra Saldaña APRN-NP 05/12/2021 Orders Only Nephrology Sandra Saldaña APRN-NP Chronic kidney disease, stage 5 (HCC) 04/30/2021 Orders Only Nephrology Sandra Saldaña APRN-NP 04/14/2021 Orders Only Nephrology Angie Mendes MD 03/27/2021 Refill Nephrology Angie Mendes MD 03/17/2021 Orders Only Nephrology Angie Mendes MD Chronic kidney disease, stage 5 (HCC) (P rimary Dx); Essential hypertension; Anemia due to chronic kidney disease, on chronic dialysis (HCC); Proteinuria, unspecified type 03/11/2021 Office Visit Nephrology 03/11/2021 Travel Angie Mendes MD 03/09/2021 Orders Only Nephrology Angie Mendes MD Appointment 03/03/2021 Telephone Nephrology Angie Mendes MD Other 02/26/2021 Telephone Nephrology Angie Mendes MD 02/16/2021 Orders Only Nephrology from Last 3 Months Surgical History Surgery Date Site/Laterality Comments APPENDECTOMY CHOLECYSTECTOMY HX CORONARY ARTERY BYPASS GRAFT HERNIA REPAIR HYSTERECTOMY LAPAROTOMY Medical History Medical History Date Comments Cataract Stroke (HCC) Depression GERD (gastroesophageal reflux disease) Hepatitis B Hypertension Unspecified glaucoma(365.9) Carotid artery stenosis Anxiety Joint pain Chronic kidney disease ? Nausea Pulmonary emphysema (HCC) Glaucoma Spinal stenosis PONV (postoperative nausea and vomiting) DM (diabetes mellitus) (HCC) with associated retino kem (primarily right eye) and neuropathy Family History Medical History Relation Name Comments Arthritis Daughter sheron Sharif Diabetes Daughter sheron Sahrif Hypertension Daughter sheron Sharif Joint Pain Daughter sheron Sharif SLE Daughter sheron Sharif Cancer Daughter Gi Dyer Breast Diabetes Father Hypertension Father Heart Disease Mother Dianne Zaragoza Stroke Mother Dianne Zaragoza Relation Name Status Comments Daughter sheron Sharif Daughter Gi Dyer Father Mother Dianne Zaragoza Social History Date Tobacco Use Types Packs/Day Years Used Never Smoker 0 0 Smokeless Tobacco: Never Used Tobacco Cessation: Counseling Given: No Comments Alcohol Use Standard Drinks/Week Never 0 (1 standard drink = 0.6 o z pure alcohol) Sex Assigned at Date Recorded Female 04/16/2020 11:27 AM CDT Last Filed Vital Signs Reading Time Taken Comments Vital Sign 140/44 03/11/2021 1:14 PM CDT Blood Pressure 56 03/11/2021 1:14 PM CDT Pulse 36.3 C (97.4 F) 03/11/2021 1:14 PM CDT Temperature 16 03/11/2021 1:14 PM CDT Respiratory Rate 98% 03/11/2021 1:14 PM CDT Oxygen Saturation - - Inhaled Oxygen Concentration 78 kg (172 lb) 03/11/2021 1:14 PM CDT Weight 170.2 cm (5' 7") 03/11/2021 1:14 PM CDT Height 26.94 03/11/2021 1:14 PM CDT Body Mass Index Plan of Treatment Health Maintenance Due Date Last Done Comments PNEUMONIA (PPSV23) 11/10/1945 VACCINE (1 of 4 - PCV13) DILATED EYE EXAM 11/10/1957 DTAP/TDAP VACCINES (1 - 11/10/1957 Tdap) FOOT EXAM 11/10/1957 MICROALBUMIN 11/10/1957 PHYSICAL (COMPREHENSIVE) 11/10/1957 EXAM SHINGLES RECOMBINANT 11/10/1989 VACCINE (1 of 2) OSTEOPOROSIS 11/10/2004 SCREENING/MONITORING INFLUENZA VACCINE 02/08/2021 04/30/2020, 04/30/2020, 04/05/2016, Additional history exists HBA1C 09/21/2021 03/24/2021, 11/19/2020, 10/24/2020, Additional history exists Goals Goal Patient Associated Recent Progress Patient-Stat Aut hor Goal Type Problems ed? Increase water intake Diet No Mcginnis, MICHELE Gutierrez Diabetic Blood Sugar Lifestyle No Mcginnis, Monitoring MICHELE Gutierrezhat ironer Comments Procedure Name Priority Date/Time Associated Diag nosis CBC AND DIFF Routine 05/12/2021 PHOSPHORUS Routine 05/12/2021 BASIC METABOLIC PANEL Routine 05/12/2021 HEMOGLOBIN & HEMATOCRIT Routine 05/06/2021 TSH WITH FREE T4 REFLEX Routine 04/14/2021 COMPREHENSIVE METABOLIC Routine 04/14/2021 PANEL 25-OH VITAMIN D (D2 + D3) Routine 04/14/2021 Research And Evaluation Manager maco kidney disease, stage 5 (HCC) VITAMIN B12 Routine 04/14/2021 CBC AND DIFF Routine 04/14/2021 HEMOGLOBIN & HEMATOCRIT Routine 03/24/2021 PHOSPHORUS Routine 03/24/2021 HEMOGLOBIN A1C Routine 03/24/2021 PHOSPHORUS Routine 03/24/2021 BASIC METABOLIC PANEL Routine 03/24/2021 LIPID PROFILE Routine 03/24/2021 BASIC METABOLIC PANEL Routine 03/24/2021 HEMOGLOBIN & HEMATOCRIT Routine 03/10/2021 PHOSPHORUS Routine 03/10/2021 BASIC METABOLIC PANEL Routine 03/10/2021 CBC AND DIFF Routine 02/24/2021 PHOSPHORUS Routine 02/24/2021 COMPREHENSIVE METABOLIC Routine 02/24/2021 PANEL from Last 3 Months Results * CBC AND DIFF (05/12/2021) Only the most recent of 3 results within the time period is included. White Blood 4.1 OTHER OUTSIDE Cells LAB RBC 3.23 (L) OTHER OUTSIDE LAB Hemoglobin 9.7 (L) OTHER OUTSIDE LAB Hematocrit 30.5 (L) OTHER OUTSIDE LAB MCV 94.4 OTHER OUTSIDE LAB MCH 30.0 OTHER OUTSIDE LAB MCHC 31.8 (L) OTHER OUTSIDE LAB Platelet Count 242 OTHER OUTSIDE LAB MPV 10.4 OTHER OUTSIDE LAB RDW 11.7 OTHER OUTSIDE LAB Neutrophils 60.1 OTHER OUTSIDE LAB Absolute 2,464 OTHER OUTSIDE Neutrophil LAB Count Lymphocytes 24.2 OTHER OUTSIDE LAB Absolute Lymph 922 OTHER OUTSIDE Count LAB Monocytes 11.1 OTHER OUTSIDE LAB Absolute 455 OTHER OUTSIDE Monocyte Count LAB Eosinophil 3.9 OTHER OUTSIDE LAB Absolute 160 OTHER OUTSIDE Eosinophil LAB Count Basophils 0.7 OTHER OUTSIDE LAB Absolute 29 OTHER OUTSIDE Basophil Count LAB Atypical Lym OTHER OUTSIDE LAB Metamyelocyte OTHER OUTSIDE LAB Myelocyte OTHER OUTSIDE LAB Promyelocyte OTHER OUTSIDE LAB Blast OTHER OUTSIDE LAB RBC Morph OTHER OUTSIDE LAB WBC Morphology OTHER OUTSIDE LAB Specimen Blood - Blood Narrative Performed At This result has an attachment that is n ot available. Performing Organization Address City/State/ZIP Code [place] OTHER OUTSIDE LAB * PHOSPHORUS (05/12/2021) Only the most recent of 5 results within the time period is included. Phosphorus 4.8 (H) OTHER OUTSIDE LAB Specimen Blood - Blood Narrative Performed At This result has an attachment that is n ot available. Performing Organization Address City/State/ZIP Code [place] OTHER OUTSIDE LAB * BASIC METABOLIC PANEL (05/12/2021) Only the most recent of 4 results within the time period is included. Sodium 141 OTHER OUTSIDE LAB Potassium 4.6 OTHER OUTSIDE LAB Chloride 105 OTHER OUTSIDE LAB CO2 32 OTHER OUTSIDE LAB Blood Urea 43 (H) OTHER OUTSIDE Nitrogen LAB Creatinine 6.39 (H) OTHER OUTSIDE LAB Glucose 77 OTHER OUTSIDE LAB Calcium 8.0 (L) OTHER OUTSIDE LAB eGFR Non 6 (L) OTHER OUTSIDE LAB Ukrainian eGFR 6 (L) OTHER OUTSIDE Ukrainian LAB Anion Gap OTHER OUTSIDE LAB Specimen Blood - Blood Narrative Performed At This result has an attachment that is n ot available. Performing Organization Address City/State/ZIP Code [place] OTHER OUTSIDE LAB * HEMOGLOBIN & HEMATOCRIT (05/06/2021) Only the most recent of 3 results within the time period is included. Hemoglobin 10.5 (L) OTHER OUTSIDE LAB Hematocrit 33.2 (L) OTHER OUTSIDE LAB Specimen Blood - Blood Narrative Performed At This result has an attachment that is n ot available. Performing Organization Address City/State/ZIP Code [place] OTHER OUTSIDE LAB * TSH WITH FREE T4 REFLEX (04/14/2021) TSH 1.59 OTHER OUTSIDE LAB T4 -Screen 1.2 OTHER OUTSIDE LAB Specimen Blood - Blood Narrative Performed At This result has an attachment that is n ot available. Performing Organization Address City/State/ZIP Code [place] OTHER OUTSIDE LAB * 25-OH VITAMIN D (D2 + D3) (04/14/2021) Vitamin 58 OTHER OUTSIDE D(25-OH)Total LAB Specimen Blood - Blood Narrative Performed At This result has an attachment that is n ot available. Performing Organization Address City/State/ZIP Code [place] OTHER OUTSIDE LAB * VITAMIN B12 (04/14/2021) Vitamin B12 >2000 (H) OTHER OUTSIDE LAB Specimen Blood - Blood Narrative Performed At This result has an attachment that is n ot available. Performing Organization Address City/State/ZIP Code [place] OTHER OUTSIDE LAB * COMPREHENSIVE METABOLIC PANEL (04/14/2021) Only the most recent of 2 results within the time period is included. Sodium 141 OTHER OUTSIDE LAB Potassium 3.9 OTHER OUTSIDE LAB Chloride 105 OTHER OUTSIDE LAB CO2 30 OTHER OUTSIDE LAB Blood Urea 37 (H) OTHER OUTSIDE Nitrogen LAB Creatinine 5.84 (H) OTHER OUTSIDE LAB Glucose 94 OTHER OUTSIDE LAB Calcium 7.8 (L) OTHER OUTSIDE LAB Total Protein 4.5 (L) OTHER OUTSIDE LAB Total Bilirubin 0.3 OTHER OUTSIDE LAB Albumin 2.6 (L) OTHER OUTSIDE LAB Alk Phosphatase 69 OTHER OUTSIDE LAB AST (SGOT) 17 OTHER OUTSIDE LAB ALT (SGPT) 5 (L) OTHER OUTSIDE LAB eGFR Non 6 (L) OTHER OUTSIDE LAB Ukrainian eGFR 7 (L) OTHER OUTSIDE Ukrainian LAB Anion Gap OTHER OUTSIDE LAB Specimen Blood - Blood Narrative Performed At This result has an attachment that is n ot available. Performing Organization Address City/State/ZIP Code [place] OTHER OUTSIDE LAB * HEMOGLOBIN A1C (03/24/2021) Hemoglobin A1C 5.2 IN CLINIC Specimen Blood - Blood Narrative Performed At This result has an attachment that is n ot available. Performing Organization Address City/State/ZIP Code [place] IN CLINIC * LIPID PROFILE (03/24/2021) Cholesterol 98 OTHER OUTSIDE LAB Triglycerides 193 (H) OTHER OUTSIDE LAB HDL 44 (L) OTHER OUTSIDE LAB LDL 28 OTHER OUTSIDE LAB VLDL OTHER OUTSIDE LAB Non HDL 54 OTHER OUTSIDE Cholesterol LAB Cholesterol/HDL 2.2 OTHER OUTSIDE Ratio LAB Specimen Blood - Blood Narrative Performed At This result has an attachment that is n ot available. Performing Organization Address City/State/ZIP Code [place] Number OTHER OUTSIDE LAB from Last 3 Months Insurance Type Payer Benefit Subscriber ID Effective Phone Address Plan / Dates Group Medicare BCBS [place] BCBS [id number] 2020-P SUPPLEMENT resent Medicare MEDICARE MEDICARE [id number] 2004-P PART A AND resent B Medicaid [place] [employer] [id number] 2018-P STATE resent [facility] [address] (Home) [place] [phone] Advance Directives Patient Director Counseling Bureau Explanation Type Date Recorded Advance 01/24/2017 9:44 AM Directive/DPOA Date Inactivated Comments Code Status Date Activated 01/18/2020 4:19 PM Full Code 01/17/2020 3:30 AM Provider has discussed Code Status Yes w/Patient or Family? 01/17/2020 3:30 AM Full Code 01/16/2020 10:01 PM Provider has discussed Code Status No, more discussi on w/Patient or Family? needed
--- OUTSIDE RECORDS SUMMARY | 2021-05-17 14:19 | XMS REPORT | Encounter Summary ---
Author Author [facility] Organization [facility] Address Unknown Phone Unavailable Care Team Providers Care Installer Name Role Phone Self, Yaron MENDOZA PCP Encounter Details Care Team Description Date Type Department Sandra Saldaña, GLOST KILN OPERATOR-ENTREPRENEUR [address] [place] [address] 05/15/2021 Orders Only Nephrology: [facility] [address] [place] [address]. [address], [address] [address] Social History Date Tobacco Use Types Packs/Day Years Used Never Smoker 0 0 Smokeless Tobacco: Never Used Comments Alcohol Use Standard Drinks/Week Never 0 (1 standard drink = 0.6 o z pure alcohol) Sex Assigned at Date Recorded Female 04/16/2020 11:27 AM CDT documented as of this encounter Functional Status Date of Assessment Functional Status Response 10/20/2020 Does the patient have a hearing impairment: No 10/20/2020 Does the patient have a visual impairment: Yes 10/20/2020 Does the patient have impaired ambulation: Yes 10/20/2020 Does the patient have an activity of daily living Ye s (ADL) impairment: 10/20/2020 Does the patient have an instrumental activity of Ye s daily living (IADL) impairment: Date of Assessment Cognitive Status Response 10/20/2020 Does the patient have a cognitive impairment: Yes documented as of this encounter Plan of Treatment Not on filedocumented as of this encounter Goals Goal Patient Associated Recent Progress Patient-Stat Aut hor Goal Type Problems ed? Increase water intake Diet No McginnisBrenda RN Diabetic Blood Sugar Lifestyle No Mcginnis, Monitoring MICHELE Gutierrez documented as of this encounter Procedures Comments Procedure Name Priority Date/Time Associated Diag nosis CBC AND DIFF Routine 05/12/2021 PHOSPHORUS Routine 05/12/2021 BASIC METABOLIC PANEL Routine 05/12/2021 documented in this encounter Results * CBC AND DIFF (05/12/2021) White Blood 4.1 OTHER OUTSIDE Cells LAB [...] Number OTHER OUTSIDE LAB * PHOSPHORUS (05/12/2021) Phosphorus 4.8 (H) OTHER OUTSIDE LAB Specimen Blood - Blood Narrative Performed At This result has an attachment that is n ot available. Performing Organization Address City/State/ZIP Code [place] OTHER OUTSIDE LAB * BASIC METABOLIC PANEL (05/12/2021) Sodium 141 OTHER OUTSIDE LAB Potassium 4.6 OTHER OUTSIDE LAB Chloride 105 OTHER OUTSIDE LAB CO2 32 OTHER OUTSIDE LAB Blood Urea 43 (H) OTHER OUTSIDE Nitrogen LAB Creatinine 6.39 (H) OTHER OUTSIDE LAB Glucose 77 OTHER OUTSIDE LAB Calcium 8.0 (L) OTHER OUTSIDE LAB eGFR Non 6 (L) OTHER OUTSIDE LAB Jamaican eGFR 6 (L) OTHER OUTSIDE Jamaican LAB Anion Gap OTHER OUTSIDE LAB Specimen Blood - Blood Narrative Performed At This result has an attachment that is n ot available. Performing Organization Address City/State/ZIP Code [place] OTHER OUTSIDE LAB documented in this encounter Visit Diagnoses Not on filedocumented in this encounter Additional Health Concerns Assessment Noted Time A fall risk assessment has been completed for the pat ient 10/20/2020 1:41 PM CDT A Body Mass Index follow-up plan has been documented for the patient 05/12/2018 8:59 PM CDT PHQ-2 Depression Total Score: 0 03/11/2021 1:14 PM CDT documented as of this encounter
--- OUTSIDE RECORDS SUMMARY | 2021-05-17 14:19 | XMS REPORT | Encounter Summary ---
Author Author [facility] Organization [facility] Address Unknown Phone Unavailable Care Team Providers Care Integration Assistant Name Role Phone Self, Yaron MENDOZA PCP Reason for Visit * Reason Comments Medication Refill Encounter Details Care Team Description Date Type Department Angie Mendes MD [address] [facility] [address] [place] [id number] [phone] 03/27/2021 Refill Nephrology: [facility] [address] [place] [id number] Social History Date Tobacco Use Types Packs/Day Years Used Never Smoker 0 0 Smokeless Tobacco: Never Used Comments Alcohol Use Standard Drinks/Week Never 0 (1 standard drink = 0.6 o z pure alcohol) Sex Assigned at Date Recorded Female 04/16/2020 11:27 AM CDT Date Recorded COVID-19 Exposure Response 03/11/2021 12:41 PM CDT In the last month, have you been in contact with No / Unsure someone who was confirmed or suspected to have Coronavirus / COVID-19? documented as of this encounter Functional Status [...] impairment: Yes documented as of this encounter Ordered Prescriptions Start Date End Date Prescription Sig Dispensed Refills 03/27/2021 sodium bicarbonate 650 mg TAKE TWO 112 tablet 2 tablet TABLETS BY MOUTH TWICE DAILY. documented in this encounter Miscellaneous Notes * Telephone Encounter - Emmy Palm BSN - 03/27/2021 5:17 PM CDT Rec'd refill request for Sodium Bicarb per [facility] pharmacy. Pt. Has f/u with Ever Mendes 06/17/2021. Refilled per protocol. documented in this encounter Plan of Treatment Not on filedocumented as of this encounter Goals Goal Patient Associated Recent Progress Patient-Stat Aut hor Goal Type Problems ed? Increase water intake Diet No Mcginnis, MICHELE Gutierrez Diabetic Blood Sugar Lifestyle No Mcginnis, Monitoring MICHELE Gutierrez documented as of this encounter Visit Diagnoses Not on filedocumented in this encounter Discontinued Medications Start Date End Date Medication Sig Discontinue Reason 08/13/2020 03/27/2021 sodium bicarbonate 650 mg TAKE TWO tablet TABLETS BY MOUTH TWICE DAILY. documented as of this encounter Additional Health Concerns Assessment Noted Time A fall risk assessment has been completed for the pat ient 10/20/2020 1:41 PM CDT A Body Mass Index follow-up plan has been documented for the patient 05/12/2018 8:59 PM CDT PHQ-2 Depression Total Score: 0 03/11/2021 1:14 PM CDT documented as of this encounter
--- OUTSIDE RECORDS SUMMARY | 2021-05-17 14:19 | XMS REPORT | Encounter Summary ---
Author Author [facility] Organization [facility] Address Unknown Phone Unavailable Care Team Providers Care Optical Glass Sawyer Name Role Phone Self, Yaron MENDOZA PCP Encounter Details Care Team Description Date Type Department Sandra Saldaña, HEALTH EDUCATION DIRECTOR-PERFORMING [address] MANAGER [address] [place] [address] 04/14/2021 Orders Only Nephrology: [facility] [address] [place] [address]. [address], [address] [address] Social History Date Tobacco Use [...] Associated Diag nosis CBC AND DIFF Routine 04/14/2021 HEMOGLOBIN & HEMATOCRIT Routine 03/24/2021 PHOSPHORUS Routine 03/24/2021 PHOSPHORUS Routine 03/24/2021 HEMOGLOBIN A1C Routine 03/24/2021 LIPID PROFILE Routine 03/24/2021 BASIC METABOLIC PANEL Routine 03/24/2021 BASIC METABOLIC PANEL Routine 03/24/2021 documented in this encounter Results * CBC AND DIFF (04/14/2021) White Blood 3.5 (L) OTHER OUTSIDE Cells LAB RBC 3.19 (L) OTHER OUTSIDE LAB Hemoglobin 9.4 (L) OTHER OUTSIDE LAB Hematocrit 29.7 (L) OTHER OUTSIDE LAB MCV 93.1 OTHER OUTSIDE LAB MCH 29.5 OTHER OUTSIDE LAB MCHC 31.6 (L) OTHER OUTSIDE LAB Platelet Count 203 OTHER OUTSIDE LAB MPV 10.2 OTHER OUTSIDE LAB RDW 11.9 OTHER OUTSIDE LAB Neutrophils 53.8 OTHER OUTSIDE LAB Absolute 1,883 OTHER OUTSIDE Neutrophil LAB Count Lymphocytes 26.2 OTHER OUTSIDE LAB Absolute Lymph 917 OTHER OUTSIDE Count LAB Monocytes 15.6 OTHER OUTSIDE LAB Absolute 546 OTHER OUTSIDE Monocyte Count LAB Eosinophil 3.5 OTHER OUTSIDE LAB Absolute 123 OTHER OUTSIDE Eosinophil LAB Count Basophils 0.9 OTHER OUTSIDE LAB Absolute 32 OTHER OUTSIDE Basophil Count LAB Atypical Lym [...] OTHER OUTSIDE LAB * HEMOGLOBIN & HEMATOCRIT (03/24/2021) Hemoglobin 10 (L) OTHER OUTSIDE LAB Hematocrit 29.8 (L) OTHER OUTSIDE LAB Specimen Blood - Blood Narrative Performed At This result has an attachment that is n ot available. Performing Organization Address City/State/ZIP Code [place] OTHER OUTSIDE LAB * PHOSPHORUS (03/24/2021) Phosphorus 5.1 (H) OTHER OUTSIDE LAB Specimen Blood - [...] Code [place] Number IN CLINIC * PHOSPHORUS (03/24/2021) Phosphorus 4.3 OTHER OUTSIDE LAB Specimen Blood - Blood Narrative Performed At This result has an attachment that is n ot available. Performing Organization Address City/State/ZIP Code [place] OTHER OUTSIDE LAB * BASIC METABOLIC PANEL (03/24/2021) Sodium 144 OTHER OUTSIDE LAB Potassium 3.9 OTHER OUTSIDE LAB Chloride 105 OTHER OUTSIDE LAB CO2 27 OTHER OUTSIDE LAB Blood Urea 37 (H) OTHER OUTSIDE Nitrogen LAB Creatinine 6.36 (H) OTHER OUTSIDE LAB Glucose 84 OTHER OUTSIDE LAB Calcium 8.2 (L) OTHER OUTSIDE LAB eGFR Non 6 (L) OTHER OUTSIDE LAB Dominican eGFR 7 (L) OTHER OUTSIDE Dominican LAB Anion Gap OTHER OUTSIDE LAB Specimen Blood - Blood Narrative Performed At This result has an attachment that is n ot available. Performing Organization Address City/State/ZIP Code [place] OTHER OUTSIDE LAB * LIPID PROFILE (03/24/2021) Cholesterol 98 OTHER [...] OTHER OUTSIDE LAB * BASIC METABOLIC PANEL (03/24/2021) Sodium 142 OTHER OUTSIDE LAB Potassium 4.3 OTHER OUTSIDE LAB Chloride 104 OTHER OUTSIDE LAB CO2 30 OTHER OUTSIDE LAB Blood Urea 45 (H) OTHER OUTSIDE Nitrogen LAB Creatinine 6.41 (H) OTHER OUTSIDE LAB Glucose 85 OTHER OUTSIDE LAB Calcium 8.2 (L) OTHER OUTSIDE LAB eGFR Non 6 (L) OTHER OUTSIDE LAB Dominican eGFR 6 (L) OTHER OUTSIDE Dominican LAB Anion Gap OTHER OUTSIDE LAB Specimen [...]
--- OUTSIDE RECORDS SUMMARY | 2021-05-17 14:19 | XMS REPORT | Encounter Summary ---
Author Author [facility] Organization [facility] Address Unknown Phone Unavailable Care Team Providers Care Manager Strategic Partnerships Name Role Phone Self, Yaron MENDOZA PCP Encounter Details Care Team Description Date Type Department Sandra Saldaña, AUTO TIRE RECAPPER-SUPERVISOR [employer]ADING [address] [place] [address] 05/12/2021 Orders Only Nephrology: [facility] [address] [place] [address]. [address], [address] [address] Social History Date Tobacco Use [...] Procedure Name Priority Date/Time Associated Diag nosis HEMOGLOBIN & HEMATOCRIT Routine 05/06/2021 documented in this encounter Results * HEMOGLOBIN & HEMATOCRIT (05/06/2021) Hemoglobin 10.5 (L) OTHER OUTSIDE LAB Hematocrit [...]
--- OUTSIDE RECORDS SUMMARY | 2021-05-17 14:19 | XMS REPORT | Encounter Summary ---
Author Author [facility] Organization [facility] Address Unknown Phone Unavailable Care Team Providers Care Insect Control Aide Name Role Phone Self, Yaron MENDOZA PCP Encounter Details Care Team Description Date Type Department Sandra Saldaña, LABORER VEGETABLE FARM-SLURRY MAN [address] [place] [address] Chronic kidney disease, stage 5 (HCC) 04/30/2021 Orders Only Nephrology: [facility] [address] [place] [address]. [address], [address] [address] Social History Date Tobacco Use [...] Problems ed? Increase water intake Diet No Brenda Mcginnis RN Diabetic Blood Sugar Lifestyle No Mcginnis, Monitoring MICHELE Gutierrez documented as of this encounter Procedures Comments Procedure Name Priority Date/Time Associated Diag nosis TSH WITH FREE T4 REFLEX Routine 04/14/2021 25-OH VITAMIN D (D2 + D3) Routine 04/14/2021 Manager Math maco kidney disease, stage 5 (HCC) VITAMIN B12 Routine 04/14/2021 COMPREHENSIVE METABOLIC Routine 04/14/2021 PANEL documented in this encounter Results * TSH WITH FREE T4 REFLEX (04/14/2021) TSH 1.59 OTHER OUTSIDE LAB T4 -Screen 1.2 OTHER OUTSIDE LAB Specimen Blood - Blood Narrative Performed At This result has an attachment that is n ot available. Performing Organization Address City/State/ZIP Code [place] OTHER OUTSIDE LAB * COMPREHENSIVE METABOLIC PANEL (04/14/2021) Sodium 141 OTHER OUTSIDE LAB Potassium 3.9 [...] eGFR Non 6 (L) OTHER OUTSIDE LAB Tunisian eGFR 7 (L) OTHER OUTSIDE Tunisian LAB Anion Gap OTHER OUTSIDE LAB Specimen [...] LAB documented in this encounter Visit Diagnoses Diagnosis Chronic kidney disease, stage 5 (HCC) documented in this encounter Additional Health Concerns Assessment Noted Time A fall risk assessment has been completed for the pat ient 10/20/2020 1:41 PM CDT A Body Mass Index follow-up plan has been documented for the patient 05/12/2018 8:59 PM CDT PHQ-2 Depression Total Score: 0 03/11/2021 1:14 PM CDT documented as of this encounter
[2021-05-17 14:24] LABS: EOSINOPHILS % (AUTO) 0 % (0-10); HEMATOCRIT 34 % (35-52); HEMOGLOBIN 10.8 g/dL (11.5-16.0); LYMPHOCYTES % (AUTO) 9 % (12-44); MEAN CORPUSCULAR HEMOGLOBIN 30 pg (25-34); MEAN CORPUSCULAR HGB CONC 32 g/dL (32-36); MEAN CORPUSCULAR VOLUME 95 fL (80-99); MEAN PLATELET VOLUME 9.2 fL (9.0-12.2); MONOCYTES % (AUTO) 6 % (0-12); NEUTROPHILS % (AUTO) 84 % (42-75); PLATELET COUNT 280 10^3/uL (130-400); WHITE BLOOD COUNT 6.7 10^3/uL (4.3-11.0)
[2021-05-17 14:25] LABS: BASOPHILS % (AUTO) 1 % (0-10); LYMPHOCYTES # (AUTO) 0.6 X 10^3 (1.0-4.0); MONOCYTES # (AUTO) 0.4 X 10^3 (0.0-1.0); NEUTROPHILS # (AUTO) 5.6 X 10^3 (1.8-7.8)
[2021-05-17 14:43] LABS: ALANINE AMINOTRANSFERASE < 5 U/L (0-55); ALBUMIN 2.9 GM/DL (3.2-4.5); ALKALINE PHOSPHATASE 102 U/L (40-136); BILIRUBIN,TOTAL 0.2 MG/DL (0.1-1.0); BUN/CREATININE RATIO 7; CALCIUM 9.1 MG/DL (8.5-10.1); CARBON DIOXIDE 24 MMOL/L (21-32); CHLORIDE 105 MMOL/L (98-107); GFR ESTIMATED 6; GLUCOSE 72 MG/DL (70-105); POTASSIUM 4.4 MMOL/L (3.6-5.0); SODIUM 142 MMOL/L (135-145); TOTAL PROTEIN 5.8 GM/DL (6.4-8.2)
--- NOTE | 2021-05-17 14:46 | Diagnostic Imaging Report ---
EXAMINATION: Chest 1 view HISTORY: Cough. Nausea and vomiting. COMPARISON: 08/09/2019. FINDINGS: The lung volumes are normal. No focal consolidation is seen. No large pleural effusion or pneumothorax is seen. Stable cardiomegaly with post-CABG changes. No acute osseous abnormality is seen. IMPRESSION: 1. Cardiomegaly. No overt pulmonary edema. Dictated by: Dictated on workstation # [id number]
[2021-05-17 14:49] LABS: BACTERIA,URINE LARGE /HPF; BILIRUBIN,URINE NEGATIVE (NEGATIVE); CLARITY,URINE SLIGHTLY CLOUDY; COLOR,URINE YELLOW; GLUCOSE, URINE (UA) TRACE (NEGATIVE); KETONES,URINE NEGATIVE (NEGATIVE); LEUKOCYTE ESTERASE ,URINE NEGATIVE (NEGATIVE); NITRITE,URINE NEGATIVE (NEGATIVE); PH,URINE 7.5 (5-9); PROTEIN,URINE 3+ (NEGATIVE); RBC,URINE 0-2 /HPF
[2021-05-17] MEDS ORDERED: DEXTROSE 10% IV SOLUTION 250 ML IV SCH (15:00)
--- NOTE | 2021-05-17 15:10 | Diagnostic Imaging Report ---
EXAMINATION: CT head without contrast. TECHNIQUE: Multiple contiguous axial images were obtained through the brain without the use of intravenous contrast. All CT scans use one or more of the following dose optimizing techniques: automated exposure control, MA and/or KvP adjustment based on patient size and exam type or iterative reconstruction. HISTORY: Fall. Nausea and vomiting. Head pain. COMPARISON: 01/16/2020. FINDINGS: No large acute territorial ischemia, mass, or hemorrhage. No midline shift or mass effect. Old infarct is seen in the right occipital lobe. Decreased attenuation is seen in the periventricular and subcortical white matter. The ventricles and cortical sulci are prominent. The basilar cisterns are patent and unremarkable. The orbits are normal. Paranasal sinuses are normal. Mastoid air cells are clear. No soft tissue abnormality is seen. No osseus lesions or fractures are seen. IMPRESSION: 1. No large acute territorial ischemia, mass, or hemorrhage. 2. 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 3. Generalized parenchymal volume loss with scattered chronic microvascular disease. Dictated by: Dictated on workstation # [id number]
--- NOTE | 2021-05-17 15:39 | Diagnostic Imaging Report ---
PROCEDURE: CT lumbar spine without contrast. TECHNIQUE: Multiple contiguous axial images were obtained through the lumbar spine without the use of intravenous contrast. Sagittal and coronal reformations were then performed. Auto Exposure Controls were utilized during the CT exam to meet ALARA standards for radiation dose reduction. INDICATION: Trauma, pain, fall. COMPARISON: 06/23/2021 and 05/15/2021. FINDINGS: Five lumbar type vertebral bodies are present. Alignment of the lumbar spine is well maintained. Besides endplate degenerative changes, particularly at L4/L5, vertebral body heights are otherwise well maintained. Severe disc space height loss at L5/S1. Moderate disc space height loss with vacuum disc phenomenon at L4/L5. A vertically oriented lucency is identified extending through a left lateral osteophyte involving L2. This is best seen on series 9 images 25 through 33. This is not present on prior imaging from August 2020. No additional fracture or dislocation. Degenerative changes within the sacroiliac joints, though the sacroiliac joints appear intact. Scattered facet joint degenerative changes. Ligamentum flavum hypertrophy is noted within the lower lumbar spine. Diffuse disc osteophyte complex is present at L4/L5. Disc bulge is also present at L3/L4. Moderate central canal stenosis is present at L3/L4. Severe central canal stenosis is present at L4/L5. Advanced background vascular calcifications. IMPRESSION: 1. Recent appearing essentially nondisplaced fracturing involving a left lateral osteophyte of L2 which is slightly extending into the L2 vertebral body. 2. Moderate to advanced multilevel degenerative changes, as described above. Findings are greatest at L4/L5 where there is resulting high-grade central canal stenosis. 3. Advanced vascular calcifications. Dictated by: Dictated on workstation # [id number]
--- NOTE | 2021-05-17 15:40 | Diagnostic Imaging Report ---
PROCEDURE: CT pelvis without contrast. TECHNIQUE: Multiple contiguous axial images were obtained through the pelvis without the use of intravenous contrast. Sagittal and coronal reformations were performed. Auto Exposure Controls were utilized during the CT exam to meet ALARA standards for radiation dose reduction. INDICATION: Trauma, pain. COMPARISON: 08/24/2020 and imaging dated 05/17/2021. FINDINGS: Degenerative changes within the partially visualized lower lumbar spine. Significant central canal stenosis is present at the L4/L5 level. Moderate degenerative changes of the pubic symphysis. The sacroiliac joints are intact though demonstrate mild degenerative changes. No acute fracture or dislocation. No destructive osseous process. Advanced background vascular calcifications. Moderate stool ball within the rectal vault. IMPRESSION: 1. Moderate degenerative changes, particularly at L4/L5 and involving the pubic symphysis. No acute osseous abnormality. 2. Advanced background vascular calcifications. 3. Additional findings as above. Dictated by: Dictated on workstation # [id number]
--- NOTE | 2021-05-17 16:50 | ED General ---
General Chief Complaint: Glucose Problems Stated Complaint: FALL Nursing Triage Note: PT WAS BROUGHT IN BY HER DAUGHTER FROM [facility] BC SHE SHULKA BEEN VOMITING THIS AM AND HER BLOOD SUGAR WAS 67 WHEN THEY CHECKED IT THIS AFTERNOON AFTER SHE FELL IN HER ROOM. DIME SIZE SKIN TEAR TO THE LEFT ELBOW. Source of Information: Patient Exam Limitations: No Limitations History of Present Illness Date Seen by Provider: May 17, 2021 Time Seen by Provider: 14:30 Initial Comments Patient is an 80-year-old insulin-dependent female [facility] patient who presents with mid abdominal pain with nausea and vomiting. She has had decreased oral intake and had a [facility] today [facility]. Patient landed on her buttocks and has bruising to this area. She is on anticoagulation therapy. Is unsure and unclear if she hit her head. Patient denies headache and neck pain. She is alert and oriented x3. She states she tripped over clothing on the floor when attempting to use the bathroom. Patient does walk with a walker and was using her walker at the time of the fall. She denies hip or back pain. She also reports generalized weakness and decreased appetite. Timing/Duration: 12-24 Hours Severity: Moderate Modifying Factors: improves with Other Associated Systoms: Other Allergies and Home Medications Allergies Coded Allergies: Iodinated Contrast Media (Unverified Allergy, Unknown, HIVES, 04/09/19) codeine (Unverified Allergy, Unknown, NERVOUSNESS, 04/09/19) latex (Unverified Allergy, Unknown, ITCHING, RASH, 04/09/19) lisinopril (Unverified Adverse Reaction, Unknown, 08/24/20) Per [facility] records shrimp (Unverified Adverse Reaction, Unknown, 08/24/20) per [facility] records sulfamethoxazole (Unverified Adverse Reaction, Unknown, 08/24/20) per [facility] record trimethoprim (Unverified Adverse Reaction, Unknown, 08/24/20) per [facility] record Patient Home Medication List Home Medication List Reviewed: Yes Acetaminophen (Tylenol Extra Strength) 500 Mg Tablet, 1,000 MG PO Q6H PRN for PAIN-MILD, (Reported) Entered as Reported by: BRIANNE MAY on 04/10/19 0894 Albuterol Sulfate (Albuterol Sulfate) 2.5 Mg/3 Ml Vial.neb, 2.5 MG NEB Q6H PRN for SHORTNESS OF BREATH, (Reported) Entered as Reported by: BRIANNE MAY on 04/10/19838 Albuterol Sulfate (Ventolin Hfa) 1 Puff Puff, 2 PUFF INH Q6H PRN for SHORTNESS OF BREATH, (Reported) Entered as Reported by: BRIANNE MAY on 04/10/19838 Amlodipine Besylate (Norvasc) 10 Mg Tablet, 10 MG PO DAILY, (Reported) Entered as Reported by: MARCELLA SLOAN on 08/06/19 131 Atorvastatin Calcium (Atorvastatin Calcium) 80 Mg Tablet, 80 MG PO HS, (Reported) Entered as Reported by: BRIANNE MAY on 04/10/19838 Brimonidine Tartrate/Timolol (Combigan Eye Drops) 5 Ml Drops, 1 DROP OU BID, (Reported) Entered as Reported by: BRIANNE MAY on 04/10/19838 Bupropion HCl (Bupropion HCl Sr) 150 Mg Tablet.er, 300 MG PO DAILY, (Reported) Entered as Reported by: BRIANNE MAY on 04/10/19 08 Calcium Carbonate/Vitamin D3 (Calcium 600 + Vit D 200 Tablet) 1 Each Tablet, 2 TAB PO DAILY, (Reported) Entered as Reported by: BRIANNE MAY on 04/10/19838 Cholecalciferol (Vitamin D3) (D3-2000) 50 Mcg Capsule, 50 MCG PO 1000, (Report ed) Entered as Reported by: MARCELLA SLOAN on 08/06/19 131 Clopidogrel Bisulfate (Clopidogrel) 75 Mg Tablet, 75 MG PO DAILY, (Reported) Entered as Reported by: BRIANNE MAY on 04/10/19838 Cyanocobalamin (Vitamin B-12) (Vitamin B12) 2,500 Mcg Tablet, 2,500 MCG PO DAILY, (Reported) Entered as Reported by: MARCELLA SLOAN on 08/06/19 131 Cyclobenzaprine HCl (Cyclobenzaprine HCl) 10 Mg Tablet, 10 MG PO Q8H Prescribed by: LANA LEDESMA on 08/24/201901 Dextromethorphan HBr (Tussin Cough) 15 Mg/5 Ml Liquid, 10 ML PO Q4H PRN for COUGH, (Reported) Entered as Reported by: BRIANNE MAY on 04/10/19838 Diazepam (Valium) 5 Mg Tablet, 5 MG PO Q12H PRN for ANXIETY, (Reported) Entered as Reported by: BRIANNE MAY on 04/10/19838 Docusate Sodium (Colace) 100 Mg Capsule, 100 MG PO DAILY, (Reported) Entered as Reported by: BRIANNE MAY on 04/10/19838 Donepezil HCl (Donepezil HCl) 10 Mg Tablet, 10 MG PO HS, (Reported) Entered as Reported by: BRIANNE MAY on 04/10/19848 Doxazosin Mesylate (Cardura) 4 Mg Tablet, 4 MG PO BID, (Reported) Entered as Reported by: MARCELLA SLOAN on 08/06/19 131 Fluticasone Propionate (Fluticasone Propionate) 16 Gm Patterson.susp, 1 SPRAY NS DAILY PRN for ALLERGIES, (Reported) Entered as Reported by: BRIANNE MAY on 04/10/19838 Fluticasone/Salmeterol (Advair 100-50 Diskus) 1 Each Blst.w.dev, 1 PUFF INH BID, (Reported) Entered as Reported by: BRIANNE MAY on 04/10/19838 Hydralazine HCl (Hydralazine HCl) 50 Mg Tablet, 50 MG PO Q8H, (Reported) Entered as Reported by: MARCELLA SLOAN on 08/06/19 131 Hydrocodone/Acetaminophen (Hydrocodone-Acetamin 5-325 mg) 1 Each Tablet, 1 TAB PO Q4H PRN for PAIN-MODERATE (5-7) Prescribed by: LANA LEDESMA on 08/24/201901 Insulin Glargine,Hum.rec.anlog (Lantus Solostar) 100 Unit/1 Ml Insuln.pen, 4 UNIT SQ HS, (Reported) Entered as Reported by: BRIANNE MAY on 04/10/19838 Insuln Asp Prt/Insulin Aspart (Novolog Mix 70-30 Flexpen Syrn) 300 Units/3 Ml Solution, SC TIDAC, (Reported) Entered as Reported by: BRIANNE MAY on 04/10/19838 Levothyroxine Sodium (Levothyroxine Sodium) 112 Mcg Tablet, 112 MCG PO 0600, (Reported) Entered as Reported by: BRIANNE MAY on 04/10/19838 Loratadine (Loratadine) 10 Mg Tablet, 10 MG PO DAILY PRN for ALLERGIES, (Reported) Entered as Reported by: BRIANNE MAY on 04/10/19838 Memantine HCl (Memantine HCl) 10 Mg Tablet, 10 MG PO DAILY, (Reported) Entered as Reported by: BRIANNE MAY on 04/10/19838 Metoprolol Succinate (Metoprolol Succinate) 100 Mg Tab.er.24h, 100 MG PO DAILY, (Reported) Entered as Reported by: BRIANNE MAY on 04/10/19838 Mirtazapine (Mirtazapine) 15 Mg Tablet, 22.5 MG PO HS, (Reported) Entered as Reported by: BRIANNE MAY on 04/10/19838 Multivitamin (Multivitamins) 1 Each Tablet, 1 TAB PO DAILY, (Reported) Entered as Reported by: BRIANNE MAY on 04/10/19838 Omeprazole (Omeprazole) 40 Mg Capsule.dr, 40 MG PO DAILY, (Reported) Entered as Reported by: BRIANNE MAY on 04/10/19838 Peg 400/Hypromellose/Glycerin (Artificial Tears Drops) 15 Ml Drops, 1 DROP OU UD PRN for DRY EYES, (Reported) Entered as Reported by: BRIANNE MAY on 04/10/19838 Polyethylene Glycol 3350 (Miralax) 17 Gm Powd.pack, 17 GM PO DAILY, (Reported) Entered as Reported by: BRIANNE MAY on 04/10/19838 Review of Systems Review of Systems Constitutional: see HPI EENTM: see HPI Respiratory: no symptoms reported, see HPI Cardiovascular: see HPI Gastrointestinal: see HPI Musculoskeletal: see HPI Skin: see HPI Psychiatric/Neurological: See HPI Hematologic/Lymphatic: See HPI Immunological/Allergic: see HPI All Other Systems Reviewed Negative Unless Noted: Yes Past Kzwefub-Wygdxm-Nmjhbw Hx Patient Social History Tobacco Use?: Yes Smoking Status: Former Smoker Use of E-Cig and/or Vaping dev: No Substance use?: No Alcohol Use?: No Pt feels they are or have been: No Immunizations Up To Date Tetanus Booster (TDap): Less than 5yrs Seasonal Allergies Seasonal Allergies: No Past Medical History Surgeries: Yes (inguinal hernia repair; EGD; colonoscopy; ) Appendectomy, CABG, Gallbladder, 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, Oophorectomy, Orthopedic Respiratory: Yes Emphysema Cardiac: Yes (hypertensive crisis ) High Cholesterol, Hypertension Neurological: Yes Dementia, Neuropathy, TIA Reproductive Disorders: No PIN ATTACHER History: 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 Genitourinary: Yes (incontinence, acute on chronic renal failure) Renal Failure Gastrointestinal: Yes (Hepatitis B) Gastroesophageal Reflux Musculoskeletal: Yes (neck injury ) Arthritis, Back Injury Endocrine: Yes (Hyponatremia hx) Diabetes, Insulin dep, Hypothyroidsim, Lupus HEENT: Yes Cataract, Glaucoma Loss of Vision: Bilateral Hearing Impairment: Denies Cancer: No Psychosocial: Yes Depression Integumentary: No Blood Disorders: Yes (Anemia, Iron deficiency) Family Medical History Heart Disease, Cancer, Diabetes, Renal Disease Physical Exam Vital Signs Vital Signs - First Documented 05/17/21 14:26 Temp 36.1 Pulse 62 Resp 18 B/P (MAP) 158/48 (84) Pulse Ox 97 O2 Delivery Room Air Capillary Refill : Less Than 3 Seconds Height, Weight, BMI Height: 5'8.00" Weight: 165lbs. 0.0oz. 74.900011lz; 26.00 BMI Method: General Appearance: WD/WN, Other (Fatigued and pale appearing) Eyes: Bilateral Eye Normal Inspection, Bilateral Eye PERRL, Bilateral Eye EOMI HEENT: PERRL/EOMI, Normal ENT Inspection, Pharynx Normal Neck: Full Range of Motion, Non Tender, Supple Respiratory: Chest Non Tender, Lungs Clear Cardiovascular: Regular Rate, Rhythm Gastrointestinal: Non Tender, Soft Extremity: Normal Capillary Refill, Non Tender Neurologic/Psychiatric: Alert, Oriented x3 Skin: Normal Color Focused Exam Sepsis Stage: Ruled Out Progress/Results/Core Measures Suspected Sepsis SIRS Temperature: Pulse: 62 Respiratory Rate: 18 Laboratory Tests 05/17/21 14:18: White Blood Count 6.7 Blood Pressure 158 /48 Mean: 84 Laboratory Tests 05/17/21 14:18: Creatinine 6.70H, Platelet Count 280, Total Bilirubin 0.2 Results/Orders Lab Results Laboratory Tests Test 05/17/21 14:17 05/17/21 14:18 05/17/21 14:41 Range/Units Glucometer 76 70-110 MG/DL White Blood Count 6.7 4.3-11.0 10^3/uL Red Blood Count 3.56 L 3.80-5.11 10^6/uL Hemoglobin 10.8 L 11.5-16.0 g/dL Hematocrit 34 L 35-52 % Mean Corpuscular Volume 95 80-99 fL Mean Corpuscular Hemoglobin 30 25-34 pg Mean Corpuscular Hemoglobin Concent 32 32-36 g/dL Red Cell Distribution Width 12.6 10.0-14.5 % Platelet Count 280 130-400 10^3/uL Mean Platelet Volume 9.2 9.0-12.2 fL Immature Granulocyte % (Auto) 1 % Neutrophils (%) (Auto) 84 H 42-75 % Lymphocytes (%) (Auto) 9 L 12-44 % Monocytes (%) (Auto) 6 0-12 % Eosinophils (%) (Auto) 0 0-10 % Basophils (%) (Auto) 1 0-10 % Neutrophils # (Auto) 5.6 1.8-7.8 X 10^3 Lymphocytes # (Auto) 0.6 L 1.0-4.0 X 10^3 Monocytes # (Auto) 0.4 0.0-1.0 X 10^3 Eosinophils # (Auto) 0.0 0.0-0.3 10^3/uL Basophils # (Auto) 0.0 0.0-0.1 10^3/uL Immature Granulocyte # (Auto) 0.0 0.0-0.1 10^3/uL Sodium Level 142 135-145 MMOL/L Potassium Level 4.4 3.6-5.0 MMOL/L Chloride Level 105 98-107 MMOL/L Carbon Dioxide Level 24 21-32 MMOL/L Anion Gap 13 5-14 MMOL/L Blood Urea Nitrogen 45 H 7-18 MG/DL Creatinine 6.70 H 0.60-1.30 MG/DL Estimat Glomerular Filtration Rate 6 BUN/Creatinine Ratio 7 Glucose Level 72 70-105 MG/DL Calcium Level 9.1 8.5-10.1 MG/DL Corrected Calcium 10.0 8.5-10.1 MG/DL Total Bilirubin 0.2 0.1-1.0 MG/DL Aspartate Amino Transf (AST/SGOT) 18 5-34 U/L Alanine Aminotransferase (ALT/SGPT) < 5 0-55 U/L Alkaline Phosphatase 102 40-136 U/L Troponin I < 0.30 <0.30 NG/ML Total Protein 5.8 L 6.4-8.2 GM/DL Albumin 2.9 L 3.2-4.5 GM/DL Urine Color YELLOW Urine Clarity SLIGHTLY CLOUDY Urine pH 7.5 5-9 Urine Specific [place] 1.020 1.016-1.022 Urine Protein 3+ H NEGATIVE Urine Glucose (UA) TRACE H NEGATIVE Urine Ketones NEGATIVE NEGATIVE Urine Nitrite NEGATIVE NEGATIVE Urine Bilirubin NEGATIVE NEGATIVE Urine Urobilinogen 0.2 < = 1.0 MG/DL Urine Leukocyte Esterase NEGATIVE NEGATIVE Urine RBC (Auto) NEGATIVE NEGATIVE Urine RBC 0-2 /HPF Urine WBC 10-25 H /HPF Urine Crystals NONE /LPF Urine Bacteria LARGE H /HPF Urine Casts NONE /LPF Urine Mucus NEGATIVE /LPF Urine Culture Indicated YES My Orders Orders - LANA LEDESMA DO Cbc With Automated Diff (05/17/21 14:20) Comprehensive Metabolic Panel (05/17/21 14:20) Ua Culture If Indicated (05/17/21 14:20) Chest 1 View Ap/Pa Only (05/17/21 14:20) Accucheck Fasting (05/17/21 14:20) Troponin I Fs (05/17/21 14:20) Ct Head Wo (05/17/21 14:43) Urine Culture (05/17/21 14:41) Dextrose 10% Iv Solution (D10w 250 Ml Iv (05/17/21 15:00) Ct Lumbar Spine Wo (05/17/21 15:03) Ct Pelvis Wo (05/17/21 15:03) Vital Signs/I&O 05/17/21 14:26 Temp 36.1 Pulse 62 Resp 18 B/P (MAP) 158/48 (84) Pulse Ox 97 O2 Delivery Room Air Capillary Refill : Less Than 3 Seconds Blood Pressure Mean: 84 Departure Communication (Admissions) EKG: No acute ST segment changes. CT head/lumbar spine/pelvis: Nondisplaced fracture of lumbar osteophyte. No other acute findings per radiology report. Chest x-ray: Cardiomegaly without evidence of pulmonary vascular congestion. IV fluid, dextrose given. Patient coloring improved she is much more alert energetic and active. She is able to briskly walk around the emergency department with her walker. She does have good appetite and is able to eat pudding which she states is bland. Her abdomen is soft, nontender her. Her labs are otherwise consistent with known long-term disease. [facility] with instruction to reduce evening dose of insulin in half and contact penitentiary attending for further orders. Return precautions reviewed. Patient verbalizes understanding agreement discharge instructions prior to departure Impression Primary Impression: Generalized weakness Additional Impressions: Nausea Hypoglycemia Disposition: 01 HOME, SELF-CARE Condition: Stable Departure-Patient Inst. Decision time for Depature: 16:52 Referrals: SELF,ADOLFO MENDOZA (PCP/Family) Primary Care Physician Patient Instructions: Low Blood Sugar, Adult ED, Nausea and Vomiting, Adult ED Add. Discharge Instructions: Jocelyne was evaluated in the emergency department for nausea, decreased appetite, low blood sugar and fall. CT imaging of her head and lumbar spine and pelvis were performed do not show evidence of an acute significant injury. Her blood sugar improved with treatment and is greater than 100. She is able to tolerate meals. Please ensure that the patient has adequate snacks and decrease her evening insulin dose by half. Hold her morning dose of insulin. Contact her penitentiary attending this evening for additional insulin management instructions. Return to the ED if new or worsening symptoms All discharge instructions reviewed with patient and/or family. Voiced understanding. ALNA LEDESMA DO May 17, 2021 16:50
[2021-05-17 16:57] VITALS: BP 179/47
== END 2021-05-17 16:59 | disposition home or self-care (01) ==
LOC: EDUNIT# 14:14 → ER FS 14:15
DX: R53.1 Weakness (principal); R11.2 Nausea with vomiting, unspecified; E11.649 Type 2 diabetes mellitus with hypoglycemia without coma; I10 Essential (primary) hypertension; F03.90 Unspecified dementia, unspecified severity, without behavioral disturbance, psychotic disturbance, mood disturbance, and anxiety; J43.9 Emphysema, unspecified; F32.9 Major depressive disorder, single episode, unspecified; E03.9 Hypothyroidism, unspecified; E78.00 Pure hypercholesterolemia, unspecified; K21.9 Gastro-esophageal reflux disease without esophagitis; H40.9 Unspecified glaucoma; Z86.73 Personal history of transient ischemic attack (TIA), and cerebral infarction without residual deficits; Z87.891 Personal history of nicotine dependence; Z79.4 Long term (current) use of insulin; Z79.890 Hormone replacement therapy; Z79.01 Long term (current) use of anticoagulants; Z79.899 Other long term (current) drug therapy
CPT/HCPCS: 36415; 51702; 70450; 71045; 72131; 72192; 80053; 81000; 82947; 84484; 85025; 87077; 87088; 96374

== ENCOUNTER 2021-06-02 13:58 | Emergency (ER) | payer MEDICARE, MEDICAID ==
[~2021-06-02] VITALS: Ht 172 cm; Wt 77.0 kg
[~2021-06-02 13:58] MED LIST changes: +CYCL10TA25 PO
--- OUTSIDE RECORDS SUMMARY | 2021-06-02 14:02 | XMS REPORT | Encounter Summary ---
Author Author [facility] Organization [facility] Address Unknown Phone Unavailable Care Team Providers Care Bottom Precipitator Operator Name Role Phone Self, Yaron MENDOZA PCP Encounter Details Care Team Description Date Type Department Sandra Saldaña, LABEL FOLDER-INSPECTOR REPAIRER [address] [place] [address] 05/12/2021 Orders Only Nephrology: [facility] [address] [place] [address]. [address], [address] [address] Social History Date Tobacco Use [...] 33.2 (L) OTHER OUTSIDE LAB Specimen Blood specimen (specimen) - Blood Narrative Performing Organization Address City/State/ZIP Code [place] Number OTHER OUTSIDE LAB documented in this encounter Visit Diagnoses Not on filedocumented in this encounter Additional Health Concerns Noted Time Assessment 10/20/2020 1:41 PM CDT A fall risk assessment has been complet ed for the patient 05/12/2018 8:59 PM CDT A Body Mass Index follow-up plan has be en documented for the patient 03/11/2021 1:14 PM CDT PHQ-2 Depression Total Score: 0 documented as of this encounter Care Teams Start Date End Date Bottom Precipitator Operator Relationship Specialty 01/24/17 Yraon Malik MD PCP - General Family Medicine documented as of this encounter
--- OUTSIDE RECORDS SUMMARY | 2021-06-02 14:02 | XMS REPORT | Encounter Summary ---
Author Author [facility] Organization [facility] Address Unknown Phone Unavailable Care Team Providers Care Defense Analyst Name Role Phone Yaron Malik MD PCP Encounter Details Care Team Description Date Type Department Yaron Malik MD [address] [place] [address] 05/21/2021 Orders Only Nephrology: [facility] [address] [facility]. [address] [address] Social History Date Tobacco Use [...] Associated Diag nosis HEMOGLOBIN & HEMATOCRIT Routine 05/20/2021 documented in this encounter Results * HEMOGLOBIN & HEMATOCRIT (05/20/2021) Hemoglobin 10.7 (L) [facility] Hematocrit 33.2 (L) [facility] Specimen Blood specimen (specimen) - Blood Narrative Performing Organization Address City/State/ZIP Code [place] Number [address] [address] LABORATORY documented in this encounter Visit Diagnoses Not [...] encounter Care Teams Start Date End Date Defense Analyst Relationship Specialty 01/24/17 Yaron Malik MD PCP - General Family Medicine documented as of this encounter
--- OUTSIDE RECORDS SUMMARY | 2021-06-02 14:02 | XMS REPORT | Encounter Summary ---
Author Author [facility] Organization [facility] Address Unknown Phone Unavailable Care Team Providers Care Library Clerical Assistant Name Role Phone Self, Yaron MENDOZA PCP Encounter Details Care Team Description Date Type Department Sandra Saldaña, FRENCH POLISHER-TRAINING PROJECT MANAGER [address] [place] [address] 05/15/2021 Orders Only Nephrology: [facility] [address] [place] [address]. [address] [address] Social History Date Tobacco Use [...] WBC Morphology OTHER OUTSIDE LAB Specimen Blood specimen (specimen) - Blood Narrative Performing Organization Address City/State/ZIP Code [place] Number OTHER OUTSIDE LAB * PHOSPHORUS (05/12/2021) Phosphorus 4.8 (H) OTHER OUTSIDE LAB Specimen Blood specimen (specimen) [...] eGFR Non 6 (L) OTHER OUTSIDE LAB [place] eGFR 6 (L) OTHER OUTSIDE [place] LAB Anion Gap OTHER OUTSIDE LAB Specimen Blood specimen (specimen) [...] encounter Care Teams Start Date End Date Library Clerical Assistant Relationship Specialty 01/24/17 Yaron Malik MD PCP - General Family Medicine documented as of this encounter
--- OUTSIDE RECORDS SUMMARY | 2021-06-02 14:02 | XMS REPORT | Clinical Summary ---
Author Author [facility] Organization [facility] Address Unknown Phone Unavailable Care Team Providers Care Automatic Grinding Machine Operator Name Role Phone Self, Yaron MENDOZA PCP Source Comments Some departments are not documenting in the electronic medical record. If you d o not see the information that you expected, contact Release of Information in [facility] [employer] Information Management department at [phone] for further assistan ce in locating additional records.[facility] Allergies Comments Active Allergy Reactions Severity Noted [...] mouth into the lungs twice daily. Active [id number] Inhale 1 puff 0 anter (TRELEGY ELLIPTA) [...] Team Description Date Type Specialty Sandra Saldaña APRN-KASH Stage 5 chronic kidney disease not on [facility] dialysis (HCC) (Primary Dx) 05/22/2021 Orders Only Nephrology Yaron Malik MD 05/21/2021 Orders Only Nephrology Sandra Saldaña APRN-NP 05/15/2021 Orders Only Nephrology Sandra Saldaña APRN-NP 05/12/2021 Orders Only Nephrology Tillman, Sandra D, COORDINATE MEASURING MACHINE TECHNICIAN-COMMUNITY SERVICES COORDINATOR Chronic kidney disease, stage 5 (HCC) 04/30/2021 [...] Angie Mendes MD Appointment 03/03/2021 Telephone Nephrology from Last 3 Months Surgical History [...] Arthritis Daughter sheron Sharif Diabetes Daughter sheron Sharif Hypertension Daughter sheron Sharif Joint Pain Daughter [...] Blood Sugar Lifestyle No Mcginnis, Monitoring MICHELE Gutierrezlead java j2ee developer Comments Procedure Name Priority Date/Time Associated Diag nosis HEMOGLOBIN & HEMATOCRIT Routine 05/20/2021 CBC AND DIFF Routine 05/12/2021 PHOSPHORUS Routine 05/12/2021 BASIC METABOLIC PANEL Routine 05/12/2021 HEMOGLOBIN & HEMATOCRIT Routine 05/06/2021 TSH WITH FREE T4 REFLEX Routine 04/14/2021 COMPREHENSIVE METABOLIC Routine 04/14/2021 PANEL 25-OH VITAMIN D (D2 + D3) Routine 04/14/2021 Resource Development Manager maco kidney disease, stage 5 (HCC) VITAMIN B12 Routine 04/14/2021 CBC AND DIFF Routine 04/14/2021 HEMOGLOBIN & HEMATOCRIT Routine 03/24/2021 PHOSPHORUS Routine 03/24/2021 HEMOGLOBIN A1C Routine 03/24/2021 PHOSPHORUS Routine 03/24/2021 BASIC METABOLIC PANEL Routine 03/24/2021 LIPID PROFILE Routine 03/24/2021 BASIC METABOLIC PANEL Routine 03/24/2021 HEMOGLOBIN & HEMATOCRIT Routine 03/10/2021 PHOSPHORUS Routine 03/10/2021 BASIC METABOLIC PANEL Routine 03/10/2021 from Last 3 Months Results * HEMOGLOBIN & HEMATOCRIT (05/20/2021) Only the most recent of 4 results within the time period is included. Hemoglobin 10.7 (L) [facility] Hematocrit 33.2 (L) [facility] Specimen Blood specimen (specimen) - Blood Narrative Performing Organization Address City/State/ZIP Code [place] Number [address] [address] LABORATORY * CBC AND DIFF (05/12/2021) Only the most recent of 2 results [...] PHOSPHORUS (05/12/2021) Only the most recent of 4 results within the time period is included. Phosphorus 4.8 (H) OTHER OUTSIDE LAB Specimen Blood specimen (specimen) - Blood Narrative Performing Organization Address City/[facility] [place] [facility] [place] Number OTHER OUTSIDE LAB * [...] eGFR Non 6 (L) OTHER OUTSIDE LAB [place] eGFR 6 (L) OTHER OUTSIDE [place] LAB Anion Gap OTHER OUTSIDE LAB Specimen Blood specimen (specimen) - Blood Narrative Performing Organization Address City/State/ZIP Code [place] Number OTHER OUTSIDE LAB * TSH WITH FREE T4 REFLEX (04/14/2021) TSH 1.59 OTHER OUTSIDE LAB T4 -Screen 1.2 OTHER OUTSIDE LAB Specimen Blood specimen (specimen) - Blood Narrative Performing Organization Address City/State/ZIP Code [place] Number OTHER OUTSIDE LAB * 25-OH VITAMIN D (D2 + D3) (04/14/2021) Vitamin 58 OTHER OUTSIDE D(25-OH)Total LAB Specimen Blood specimen (specimen) - Blood Narrative Performing Organization Address City/[facility] [place] [facility]/ZIP Code [place] Number OTHER OUTSIDE LAB * VITAMIN B12 (04/14/2021) Vitamin B12 >2000 (H) OTHER OUTSIDE LAB Specimen Blood specimen [...] eGFR Non 6 (L) OTHER OUTSIDE LAB [place] eGFR 7 (L) OTHER OUTSIDE [place] LAB Anion Gap OTHER OUTSIDE LAB Specimen Blood specimen (specimen) - Blood Narrative Performing Organization Address City/State/ZIP Code [place] Number OTHER OUTSIDE LAB * HEMOGLOBIN A1C (03/24/2021) Hemoglobin A1C 5.2 IN CLINIC Specimen Blood specimen (specimen) - Blood Narrative Performing Organization Address City/State/ZIP Code [place] Number IN CLINIC * LIPID PROFILE (03/24/2021) Cholesterol 98 OTHER OUTSIDE LAB Triglycerides 193 (H) OTHER OUTSIDE LAB HDL 44 (L) OTHER OUTSIDE LAB LDL 28 OTHER OUTSIDE LAB VLDL OTHER OUTSIDE LAB Non HDL 54 OTHER OUTSIDE Cholesterol LAB Cholesterol/HDL 2.2 OTHER OUTSIDE Ratio LAB Specimen Blood specimen (specimen) - Blood Narrative Performing Organization Address City/State/ZIP Code [place] Number OTHER OUTSIDE LAB from Last 3 Months Insurance Type Payer Benefit Subscriber ID Effective Phone Address Plan / Dates Group Medicare BCBS [place] BCBS [id number] 2020-P [phone] [id number] [place] [address] Medicare MEDICARE MEDICARE [id number] 2004-P [phone] [address] [place] [address] Medicaid [employer] [place] [employer] [id number] 2018-P [phone] [place] [address] Guarantor Name Account Relation to Date of Phone Billin g Address Type Patient Jocelyne Ross Personal/F Self 1940 [address] (Home) [place], [place] [phone] Advance Directives Patient Extruding Machine Operator Explanation Type Date Recorded Advance 01/24/2017 9:44 AM Directive/DPOA Date Inactivated Comments Code Status Date Activated 01/18/2020 4:19 PM Full Code 01/17/2020 3:30 AM Provider has discussed Code Status Yes w/Patient or Family? 01/17/2020 3:30 AM Full Code 01/16/2020 10:01 PM Provider has discussed Code Status No, more discussi on w/Patient or Family? needed Care Teams Start Date End Date Automatic Grinding Machine Operator Relationship Specialty 01/24/17 Yaron Malik MD PCP - General Family Medicine
--- OUTSIDE RECORDS SUMMARY | 2021-06-02 14:02 | XMS REPORT | Encounter Summary ---
Author Author [facility] Organization [facility] Address Unknown Phone Unavailable Care Team Providers Care Computer Assistant Name Role Phone Self, Yaron MENDOZA PCP Reason for Referral * Consult, Test & Treat (Routine) - New Request Diagnoses / Procedures Referred By Contact Referred To Jose Martin mobley Specialty Diagnoses Stage 5 chronic kidney disease not on chronic dialysis (HCC) Sandra Saldaña APRN-NP [address] [place] [address] [facility] 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, [address] [address] Social History Date Tobacco Use [...] as of this encounter Plan of Treatment Order Schedule Name Type Priority Associated Diag noses Ordered: 05/22/2021 AMB REFERRAL TO VASCULAR Outpatient Routine Stage 5 chronic kidney SURGERY Referral disease not on [facility] dialysis (HCC) documented as of this encounter Goals Goal Patient Associated Recent Progress Patient-Stat Aut hor Goal Type Problems ed? Increase water intake Diet No Brenda Mcginnis RN Diabetic Blood Sugar Lifestyle No Mcginnis, Monitoring MICHELE Gutierrez documented as of this encounter Visit Diagnoses Diagnosis Stage 5 chronic kidney disease not on c hronic dialysis (HCC) - Primary documented in this encounter Additional Health Concerns Noted Time Assessment 10/20/2020 1:41 PM CDT A fall risk assessment has been complet ed for the patient 05/12/2018 8:59 PM CDT A Body Mass Index follow-up plan has be en documented for the patient 03/11/2021 1:14 PM CDT PHQ-2 Depression Total Score: 0 documented as of this encounter Care Teams Start Date End Date Computer Assistant Relationship Specialty 01/24/17 Yaron Malik MD PCP - General Family Medicine documented as of this encounter
[2021-06-02] MEDS ORDERED: HYDROcodone/APAP 5 MG/325 MG (LORTAB) TAB PO ONE (14:15)
--- NOTE | 2021-06-02 14:57 | Diagnostic Imaging Report ---
INDICATION: Foot pain status post fall. COMPARISON: None. FINDINGS: Three radiographic views of the right foot were obtained. There is cortical disruption involving the distal articular surface of the first proximal phalanx. This extends proximally into the medial and plantar cortex as well. Findings are consistent with acute hairline fracture. Remaining osseous structures are intact. Joint spaces are maintained. No unexpected radiopaque foreign bodies are seen. IMPRESSION: 1. Acute nondisplaced fracture of the proximal phalanx of the great toe. Dictated by: Dictated on workstation # [id number]
--- NOTE | 2021-06-02 15:01 | Diagnostic Imaging Report ---
PROCEDURE: CT head and CT cervical spine without contrast. TECHNIQUE: Multiple contiguous axial images were obtained through the brain and cervical spine without the use of intravenous contrast. Sagittal and coronal reformations through the cervical spine were then performed. Auto Exposure Controls were utilized during the CT exam to meet ALARA standards for radiation dose reduction. INDICATION: Fall. COMPARISON: Head CT from 05/17/2021. FINDINGS: CT HEAD: There is generalized prominence of the ventricles and sulci, consistent with cerebral atrophy. This is similar to the prior study. Moderate periventricular hypodensity is noted, consistent with chronic microvascular ischemia. An area of encephalomalacia in the right occipital lobe is again noted. There is no sulcal effacement or midline shift. No acute intra-axial or extra-axial hemorrhage is detected. The cisterns are patent. The visualized paranasal sinuses are clear. IMPRESSION: Stable chronic changes when compared with the exam from 05/17/2021. No acute intracranial process is detected. CT CERVICAL SPINE: There is slight reversal of the normal cervical lordotic curvature. Minimal retrolisthesis of C5 on C6 and C6 on C7 is noted. There is severe degenerative disc disease at the C5-C6 and C6-C7 levels with disc space narrowing and marginal spurring. Multilevel facet arthropathy is noted. The prevertebral tissues are within normal limits. The odontoid is intact. No fractures are seen. IMPRESSION: Cervical spondylosis. No acute fracture is detected. Dictated by: Dictated on workstation # [id number]
--- NOTE | 2021-06-02 15:05 | Diagnostic Imaging Report ---
PROCEDURE: CT lumbar spine without contrast. TECHNIQUE: Multiple contiguous axial images were obtained through the lumbar spine without the use of intravenous contrast. Sagittal and coronal reformations were then performed. Auto Exposure Controls were utilized during the CT exam to meet ALARA standards for radiation dose reduction. INDICATION: Fall and back pain. COMPARISON: CT of the lumbar spine from 05/17/2021. FINDINGS: The curvature and alignment of the lumbar spine are normal. The fracture through the left lateral aspect of the L2 vertebral body described recently is again noted. There is an increasing amount of sclerosis at the fracture site as well as some callous formation, consistent with some healing; however, the fracture line does remain clearly visible. The vertebral body heights are well-maintained. There is generalized degenerative disc disease with variable disc space narrowing and marginal spurring. There is vacuum disc at L2-L3 as well as the L4-L5 level. The abdominal aorta is heavily calcified. IMPRESSION: Healing L2 vertebral body fracture; however, the fracture line remains clearly visible. No new fracture is identified. Dictated by: Dictated on workstation # [id number]
--- NOTE | 2021-06-02 15:06 | Diagnostic Imaging Report ---
INDICATION: Knee pain. Fall. COMPARISON: None. FINDINGS: Three views of the right knee joint demonstrate no acute fracture or dislocation. Mild osteoarthritic changes are noted. No focal osseous lesions are seen. No significant joint effusion is seen. The surrounding soft tissue structures are unremarkable. There are no radiopaque foreign bodies. IMPRESSION: 1. No acute fractures or dislocations of the right knee joint. Dictated by: Dictated on workstation # [id number]
--- NOTE | 2021-06-02 15:09 | Diagnostic Imaging Report ---
PROCEDURE: CT pelvis without contrast. TECHNIQUE: Multiple contiguous axial images were obtained through the pelvis without the use of intravenous contrast. Sagittal and coronal reformations were performed. Auto Exposure Controls were utilized during the CT exam to meet ALARA standards for radiation dose reduction. INDICATION: Fall and pelvic pain. FINDINGS: Femoroacetabular alignment is normal bilaterally. Both femoral heads and necks are intact. The superior and inferior pubic rami are intact. The symphysis is non widened. SI joints are non widened. Sacral ala appear to be intact bilaterally. No fractures are seen. IMPRESSION: No acute bony abnormality is detected. Dictated by: Dictated on workstation # [id number]
--- NOTE | 2021-06-02 15:13 | ED General ---
General Chief Complaint: General Problems/Pain Stated Complaint: FALL Nursing Triage Note: PT FELL IN THE NH AND HIT THE BACK OF HER HEAD ON THE FLOOR AND HAS A SMALL SKIN TEAR TO THE RIGHT KNEE. SHE REPORTS HER KNEES GAVE OUT. NO LOC. History of Present Illness Date Seen by Provider: Jun 02, 2021 Time Seen by Provider: 15:10 Initial Comments Patient presenting to the emergency department for evaluation of multiple areas of pain status post fall as she says she lives in a assisted nursing facility and she uses a walker to ambulate and she says that she has chronic back pain issues and may have some spinal stenosis. She says that her legs give out frequently and her legs gave out again today and she fell backwards hitting her head on the ground and she also hit her right knee and right foot. She is complaining of pain in her head neck low back and pelvis in addition to her right knee and right foot. She says that her tetanus is up-to-date. She denies any chest abdomen or other back pain and no unilateral weakness numbness or tingling. She is in no acute distress with normal vital signs. Allergies and Home Medications Allergies Coded Allergies: Iodinated Contrast Media (Unverified Allergy, Unknown, HIVES, 04/09/19) codeine (Unverified Allergy, Unknown, NERVOUSNESS, 04/09/19) latex (Unverified Allergy, Unknown, ITCHING, RASH, 04/09/19) lisinopril (Unverified Adverse Reaction, Unknown, 08/24/20) Per [facility] records shrimp (Unverified Adverse Reaction, Unknown, 08/24/20) per [facility] records sulfamethoxazole (Unverified Adverse Reaction, Unknown, 08/24/20) per [facility] record trimethoprim (Unverified Adverse Reaction, Unknown, 08/24/20) per [facility] record Patient Home Medication List Home Medication List Reviewed: Yes Acetaminophen (Tylenol Extra Strength) 500 Mg Tablet, 1,000 MG PO Q6H PRN for PAIN-MILD, (Reported) Entered as Reported by: BRIANNE MAY on 04/10/19 8685 Albuterol Sulfate (Albuterol Sulfate) 2.5 Mg/3 Ml Vial.neb, 2.5 MG NEB Q6H PRN for SHORTNESS OF BREATH, (Reported) Entered as Reported by: BRIANNE MAY on 04/10/19 08 Albuterol Sulfate (Ventolin Hfa) 1 Puff Puff, 2 PUFF INH Q6H PRN for SHORTNESS OF BREATH, (Reported) Entered as Reported by: BRIANNE MAY on 04/10/19838 Amlodipine Besylate (Norvasc) 10 Mg Tablet, 10 MG PO DAILY, (Reported) Entered as Reported by: MARCELLA SLOAN on 08/06/19 131 Atorvastatin Calcium (Atorvastatin Calcium) 80 Mg Tablet, 80 MG PO HS, (Reported) Entered as Reported by: BRIANNE MAY on 04/10/19838 Brimonidine Tartrate/Timolol (Combigan Eye Drops) 5 Ml Drops, 1 DROP OU BID, (Reported) Entered as Reported by: BRIANNE MAY on 04/10/19838 Bupropion HCl (Bupropion HCl Sr) 150 Mg Tablet.er, 300 MG PO DAILY, (Reported) Entered as Reported by: BRIANNE MAY on 04/10/19 08 Calcium Carbonate/Vitamin D3 (Calcium 600 + Vit D 200 Tablet) 1 Each Tablet, 2 TAB PO DAILY, (Reported) Entered as Reported by: BRIANNE MAY on 04/10/19838 Cholecalciferol (Vitamin D3) (D3-2000) 50 Mcg Capsule, 50 MCG PO 1000, (Reported) Entered as Reported by: MARCELLA SLOAN on 08/06/19 131 Clopidogrel Bisulfate (Clopidogrel) 75 Mg Tablet, 75 MG PO DAILY, (Reported) Entered as Reported by: BRIANNE MAY on 04/10/19838 Cyanocobalamin (Vitamin B-12) (Vitamin B12) 2,500 Mcg Tablet, 2,500 MCG PO D AILTheodore, (Reported) Entered as Reported by: MARCELLA SLOAN on 08/06/19 131 Cyclobenzaprine HCl (Cyclobenzaprine HCl) 10 Mg Tablet, 10 MG PO Q8H Prescribed by: LANA LEDESMA on 08/24/201901 Dextromethorphan HBr (Tussin Cough) 15 Mg/5 Ml Liquid, 10 ML PO Q4H PRN for COUGH, (Reported) Entered as Reported by: BRIANNE MAY on 04/10/19838 Diazepam (Valium) 5 Mg Tablet, 5 MG PO Q12H PRN for ANXIETY, (Reported) Entered as Reported by: BRIANNE MAY on 04/10/19838 Docusate Sodium (Colace) 100 Mg Capsule, 100 MG PO DAILY, (Reported) Entered as Reported by: BRIANNE MAY on 04/10/19838 Donepezil HCl (Donepezil HCl) 10 Mg Tablet, 10 MG PO HS, (Reported) Entered as Reported by: BRIANNE MAY on 04/10/19848 Doxazosin Mesylate (Cardura) 4 Mg Tablet, 4 MG PO BID, (Reported) Entered as Reported by: MARCELLA SLOAN on 08/06/19 1315 Fluticasone Propionate (Fluticasone Propionate) 16 Gm [place].susp, 1 SPRAY NS DA JANEEN PRN for ALLERGIES, (Reported) Entered as Reported by: BRIANNE MAY on 04/10/19838 Fluticasone/Salmeterol (Advair 100-50 Diskus) 1 Each Blst.w.dev, 1 PUFF INH BID, (Reported) Entered as Reported by: BRIANNE MAY on 04/10/19838 Hydralazine HCl (Hydralazine HCl) 50 Mg Tablet, 50 MG PO Q8H, (Reported) Entered as Reported by: MARCELLA SLOAN on 08/06/19 1315 Hydrocodone/Acetaminophen (Hydrocodone-Acetamin 5-325 mg) 1 Each Tablet, 1 TAB PO Q4H PRN for PAIN-MODERATE (5-7) Prescribed by: LANA LEDESMA on 08/24/201901 Insulin Glargine,Hum.rec.anlog (Lantus Solostar) 100 Unit/1 Ml Insuln.pen, 4 UNIT SQ HS, (Reported) Entered as Reported by: BRIANNE MAY on 04/10/19838 Insuln Asp Prt/Insulin Aspart (Novolog Mix 70-30 Flexpen Syrn) 300 Units/3 Ml Solution, SC TIDAC, (Reported) Entered as Reported by: BRIANNE MAY on 04/10/19838 Levothyroxine Sodium (Levothyroxine Sodium) 112 Mcg Tablet, 112 MCG PO 0600, (Reported) Entered as Reported by: BRIANNE MAY on 04/10/19838 Loratadine (Loratadine) 10 Mg Tablet, 10 MG PO DAILY PRN for ALLERGIES, (Reported) Entered as Reported by: BRIANNE MAY on 04/10/19838 Memantine HCl (Memantine HCl) 10 Mg Tablet, 10 MG PO DAILY, (Reported) Entered as Reported by: BRIANNE MAY on 04/10/19838 Metoprolol Succinate (Metoprolol Succinate) 100 Mg Tab.er.24h, 100 MG PO DAILY, (Reported) Entered as Reported by: BRIANNE MAY on 04/10/19838 Mirtazapine (Mirtazapine) 15 Mg Tablet, 22.5 MG PO HS, (Reported) Entered as Reported by: BRIANNE MAY on 04/10/19838 Multivitamin (Multivitamins) 1 Each Tablet, 1 TAB PO DAILY, (Reported) Entered as Reported by: BRIANNE MAY on 04/10/19838 Omeprazole (Omeprazole) 40 Mg Capsule.dr, 40 MG PO DAILY, (Reported) Entered as Reported by: BRIANNE MAY on 04/10/19838 Peg 400/Hypromellose/Glycerin (Artificial Tears Drops) 15 Ml Drops, 1 DROP OU UD PRN for DRY EYES, (Reported) Entered as Reported by: BRIANNE MAY on 04/10/19838 Polyethylene Glycol 3350 (Miralax) 17 Gm Powd.pack, 17 GM PO DAILY, (Reported) Entered as Reported by: BRIANNE MAY on 04/10/19838 Review of Systems Review of Systems Constitutional: no symptoms reported EENTM: no symptoms reported Respiratory: no symptoms reported Cardiovascular: no symptoms reported Gastrointestinal: no symptoms reported Musculoskeletal: back pain, joint pain, neck pain Skin: other (Abrasions) Psychiatric/Neurological: Headache All Other Systems Reviewed Negative Unless Noted: Yes Past Bifoxaa-Trpcpf-Hzjfqm Hx Patient Social History Tobacco Use?: No Use of E-Cig and/or Vaping dev: No Substance use?: No Alcohol Use?: No Pt feels they are or have been: No Immunizations Up To Date Tetanus Booster (TDap): Less than 5yrs Seasonal Allergies Seasonal Allergies: No Past Medical History Surgeries: Yes (inguinal hernia repair; EGD; colonoscopy; ) Appendectomy, CABG, Gallbladder, 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, Oophorectomy, Orthopedic Respiratory: Yes Emphysema Cardiac: Yes (hypertensive crisis ) High Cholesterol, Hypertension Neurological: Yes Dementia, Neuropathy, TIA Reproductive Disorders: No [employer]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 Genitourinary: Yes (incontinence, acute on chronic renal failure) Renal Failure Gastrointestinal: Yes (Hepatitis B) Gastroesophageal Reflux Musculoskeletal: Yes (neck injury ) Arthritis, Back Injury Endocrine: Yes (Hyponatremia hx) Diabetes, Insulin dep, Hypothyroidsim, Lupus HEENT: Yes Cataract, Glaucoma Loss of Vision: Bilateral Hearing Impairment: Denies Cancer: No Psychosocial: Yes Depression Integumentary: No Blood Disorders: Yes (Anemia, Iron deficiency) Family Medical History Heart Disease, Cancer, Diabetes, Renal Disease Physical Exam Vital Signs Vital Signs - First Documented 06/02/21 13:58 Temp 36.0 Pulse 58 Resp 16 B/P (MAP) 148/58 (88) Pulse Ox 97 O2 Delivery Room Air Capillary Refill : Less Than 3 Seconds Height, Weight, BMI Height: 5'8.00" Weight: 165lbs. 0.0oz. 74.960037jb; 26.00 BMI Method: General Appearance: No Apparent Distress, Chronically ill HEENT: PERRL/EOMI, TMs Normal Neck: Supple, Tender Midline Respiratory: Lungs Clear, No Respiratory Distress Cardiovascular: Regular Rate, Rhythm, Normal Peripheral Pulses Gastrointestinal: Non Tender, Soft Back: Other (No thoracic midline tenderness to palpation however patient has lumbar midline tenderness to palpation with no step-off or deformity) Extremity: Other (Mild tenderness palpation with range of motion of right knee and foot but no obvious deformity or swelling) Neurologic/Psychiatric: Alert, Oriented x3, No Motor/Sensory Deficits Skin: Warm/Dry, Other (Small abrasion on right anterior knee and top of the right foot. Contusion to right occipital region.) Progress/Results/Core Measures Suspected Sepsis SIRS Temperature: Pulse: 58 Respiratory Rate: 16 Blood Pressure 148 /58 Mean: 88 Results/Orders My Orders Orders - REBEKA SANTIAGO DO Ct Lumbar Spine Wo (06/02/21 14:12) Ct Pelvis Wo (06/02/21 14:12) Knee 3 View Right (06/02/21 14:12) Foot 3 View Right (06/02/21 14:12) Hydrocodone/Apap 5/325 Tablet (Lortab 5 (06/02/21 14:15) Ct Head/Cervical Spine Wo (06/02/21 14:12) Medications Given in ED Current Medications Medications Dose Ordered Sig/Nicole Route Start Time Stop Time Status Last Admin Dose Admin Acetaminophen/ Hydrocodone Bitart 2 ea ONCE ONCE PO 06/02/21 14:15 06/02/21 14:16 DC 06/02/21 14:37 2 EA Vital Signs/I&O 06/02/21 06/02/21 13:58 15:37 Temp 36.0 36.0 Pulse 58 62 Resp 16 16 B/P (MAP) 148/58 (88) 148/85 Pulse Ox 97 97 O2 Delivery Room Air Room Air Capillary Refill : Less Than 3 Seconds Blood Pressure Mean: 88 Progress Note : Progress Note I will check imaging treat pain and reassess. Patient's imaging came back negative for acute process other than an acute right toe fracture that was camilo taped. She says she feels much better here and she has a repeat normal neurologic exam so she will be discharged in stable condition told to follow-up primary care provider within 2 to 3 days for recheck and come back to the emergency department sooner with worsening pain neurologic changes or other general concerns. Patient aware and agreeable with plan and verbalized understanding of the above instructions. Departure Impression Primary Impression: Fracture of right toe Qualified Codes: S92.414A - Nondisplaced fracture of proximal phalanx of right great toe, initial encounter for closed fracture Additional Impressions: Scalp contusion Qualified Codes: S00.03XA - Contusion of scalp, initial encounter Acute cervical sprain Qualified Codes: S13.9XXA - Sprain of joints and ligaments of unspecified parts of neck, initial encounter Chronic low back pain Multiple abrasions Right knee sprain Disposition: 01 HOME, SELF-CARE Condition: Stable Departure-Patient Inst. Referrals: SELF,ADOLFO MENDOZA (PCP/Family) Primary Care Physician Patient Instructions: Toe Fracture REBEKA SANTIAGO DO Jun 02, 2021 15:13
[2021-06-02 15:37] VITALS: BP 148/85
== END 2021-06-02 15:44 | disposition home or self-care (01) ==
LOC: ER FS 13:58 → EDUNIT# 13:58 → ER FS 15:44
DX: S92.414A Nondisplaced fracture of proximal phalanx of right great toe, initial encounter for closed fracture (principal); S13.9XXA Sprain of joints and ligaments of unspecified parts of neck, initial encounter; S83.91XA Sprain of unspecified site of right knee, initial encounter; S00.03XA Contusion of scalp, initial encounter; G89.29 Other chronic pain; M54.50 Low back pain, unspecified; I10 Essential (primary) hypertension; K21.9 Gastro-esophageal reflux disease without esophagitis; E03.9 Hypothyroidism, unspecified; F32.9 Major depressive disorder, single episode, unspecified; E11.9 Type 2 diabetes mellitus without complications; E78.00 Pure hypercholesterolemia, unspecified; F03.90 Unspecified dementia, unspecified severity, without behavioral disturbance, psychotic disturbance, mood disturbance, and anxiety; H40.9 Unspecified glaucoma; Z86.73 Personal history of transient ischemic attack (TIA), and cerebral infarction without residual deficits; Z79.899 Other long term (current) drug therapy; Z79.890 Hormone replacement therapy; Z79.4 Long term (current) use of insulin; Z79.01 Long term (current) use of anticoagulants; W22.8XXA Striking against or struck by other objects, initial encounter
CPT/HCPCS: 70450; 72125; 72131; 72192; 73562; 73630

== ENCOUNTER 2021-06-19 16:29 | Emergency (ER) | payer MEDICARE, MEDICAID ==
--- OUTSIDE RECORDS SUMMARY | 2021-06-19 16:34 | XMS REPORT | Clinical Summary ---
Author Author [facility] Organization [facility] Address Unknown Phone Unavailable Care Team Providers Care Tube Teller Name Role Phone Self, Yaron MENDOZA PCP Source Comments Some departments are not documenting in the electronic medical record. If you d o not see the information that you expected, contact Release of Information in [facility] [employer] Information Management department at [phone] for further assistan ce in locating additional records.[facility] Allergies Comments Active Allergy Reactions Severity Noted [...] mouth into the lungs twice daily. Active dzwmlbkcnzu-cjeffantk-yqo Inhale 1 puff 0 anter (TRELEGY ELLIPTA) [...] Encounters Care Team Description Date Type Specialty Angie Mendes MD 06/19/2021 Refill Nephrology Sandra Saldaña APRN-INSPECTOR EXHAUST EMISSIONS 06/19/2021 Orders Only Nephrology Angie Mendes MD Chronic kidney disease, stage 5 (HCC) (P rimary Dx) 06/17/2021 Office Visit Nephrology 06/17/2021 Travel Sandra Saldaña APRN-INSPECTOR EXHAUST EMISSIONS Stage 5 chronic kidney disease not on ch ronic dialysis (HCC) (Primary Dx) 05/22/2021 Orders Only Nephrology Yaron Malik MD 05/21/2021 Orders Only Nephrology Sandra Saldaña VOIP NETWORK ENGINEER-INSPECTOR EXHAUST EMISSIONS 05/15/2021 Orders Only Nephrology Sandra Saldaña VOIP NETWORK ENGINEER-INSPECTOR EXHAUST EMISSIONS 05/12/2021 Orders Only Nephrology Sandra Saldaña, VOIP NETWORK ENGINEER-INSPECTOR EXHAUST EMISSIONS Chronic kidney disease, stage 5 (HCC) 04/30/2021 Orders Only Nephrology Sandra Saldaña VOIP NETWORK ENGINEER-INSPECTOR EXHAUST EMISSIONS 04/14/2021 Orders Only Nephrology Angie Mendes MD 03/27/2021 Refill Nephrology from Last 3 Months Surgical History [...] AM CDT Date Recorded COVID-19 Exposure Response 06/17/2021 12:51 PM DIRECTOR GLOBAL MARKET RESEARCH In the last month, have you been in contact with No / Unsure someone who was confirmed or suspected to have Coronavirus / COVID-19? Last Filed Vital Signs Reading Time Taken Comments Vital Sign 135/46 06/17/2021 1:37 PM DIRECTOR GLOBAL MARKET RESEARCH Blood Pressure 58 06/17/2021 1:37 PM DIRECTOR GLOBAL MARKET RESEARCH Pulse 36.2 C (97.2 F) 06/17/2021 1:37 PM DIRECTOR GLOBAL MARKET RESEARCH Temperature 16 06/17/2021 1:37 PM DIRECTOR GLOBAL MARKET RESEARCH Respiratory Rate 97% 06/17/2021 1:37 PM DIRECTOR GLOBAL MARKET RESEARCH Oxygen Saturation - - Inhaled Oxygen Concentration 75.5 kg (166 lb 6.4 oz) 06/17/2021 1:37 PM DIRECTOR GLOBAL MARKET RESEARCH Weight 172.7 cm (5' 8") 06/17/2021 1:37 PM DIRECTOR GLOBAL MARKET RESEARCH Height 25.3 06/17/2021 1:37 PM DIRECTOR GLOBAL MARKET RESEARCH Body Mass Index Plan of Treatment Health Maintenance Due Date Last Done Comments PNEUMONIA (PPSV23) 11/10/1946 VACCINE (1 of 4 - PCV13) DILATED EYE EXAM 11/10/1957 DTAP/TDAP VACCINES (1 - 11/10/1957 Tdap) FOOT EXAM 11/10/1957 MICROALBUMIN 11/10/1957 PHYSICAL (COMPREHENSIVE) 11/10/1957 EXAM SHINGLES RECOMBINANT 11/10/1989 VACCINE (1 of 2) OSTEOPOROSIS 11/10/2004 SCREENING/MONITORING INFLUENZA VACCINE 02/08/2021 04/05/2016, 05/06/2015, 05/08/2008 HBA1C 09/21/2021 03/24/2021, 11/19/2020, 10/24/2020, Additional history exists Goals Goal Patient Associated Recent Progress Patient-Stat Aut hor Goal Type Problems ed? Increase water intake Diet No Mcginnis, MICHELE Gutierrez Diabetic Blood Sugar Lifestyle No Mcginnis, Monitoring MICHELE Gutierrezfiscal technician Comments Procedure Name Priority Date/Time Associated Diag nosis HEMOGLOBIN & HEMATOCRIT Routine 05/20/2021 CBC AND DIFF Routine 05/12/2021 PHOSPHORUS Routine 05/12/2021 BASIC METABOLIC PANEL Routine 05/12/2021 HEMOGLOBIN & HEMATOCRIT Routine 05/06/2021 TSH WITH FREE T4 REFLEX Routine 04/14/2021 COMPREHENSIVE METABOLIC Routine 04/14/2021 PANEL 25-OH VITAMIN D (D2 + D3) Routine 04/14/2021 Boiler Installer maco kidney disease, stage 5 (HCC) VITAMIN B12 Routine 04/14/2021 CBC AND DIFF Routine 04/14/2021 HEMOGLOBIN & HEMATOCRIT Routine 03/24/2021 PHOSPHORUS Routine 03/24/2021 HEMOGLOBIN A1C Routine 03/24/2021 PHOSPHORUS Routine 03/24/2021 BASIC METABOLIC PANEL Routine 03/24/2021 LIPID PROFILE Routine 03/24/2021 BASIC METABOLIC PANEL Routine 03/24/2021 from Last 3 Months Results * (ABNORMAL) HEMOGLOBIN & HEMATOCRIT (05/20/2021) Only the most recent of 3 results within the time period is included. [facility] Hemoglobin 10.7 (L) [facility] Hematocrit 33.2 (L) [facility] Specimen Blood specimen (specimen) - Blood Narrative Performing Organization Address City/State/ZIP Code [place] [address] [address] LABORATORY * (ABNORMAL) CBC AND DIFF (05/12/2021) Only the most [...] [place] OTHER OUTSIDE LAB * (ABNORMAL) PHOSPHORUS (05/12/2021) Only the most recent of 3 results within the time period is included. Phosphorus 4.8 (H) OTHER OUTSIDE LAB Specimen Blood specimen (specimen) - Blood Narrative Performing Organization Address City/State/ZIP Code [place] OTHER OUTSIDE LAB * (ABNORMAL) BASIC METABOLIC PANEL (05/12/2021) Only the most recent of 3 [...] eGFR Non 6 (L) OTHER OUTSIDE LAB [place] eGFR 6 (L) OTHER OUTSIDE [place] LAB Anion Gap OTHER OUTSIDE LAB Specimen [...] [place] OTHER OUTSIDE LAB * (ABNORMAL) VITAMIN B12 (04/14/2021) Vitamin B12 >2000 (H) OTHER OUTSIDE LAB Specimen Blood specimen (specimen) - Blood Narrative Performing Organization Address City/State/ZIP Code [place] OTHER OUTSIDE LAB * (ABNORMAL) COMPREHENSIVE METABOLIC PANEL (04/14/2021) Sodium 141 OTHER [...] eGFR Non 6 (L) OTHER OUTSIDE LAB [place] eGFR 7 (L) OTHER OUTSIDE [place] LAB Anion Gap OTHER OUTSIDE LAB Specimen Blood specimen (specimen) - Blood Narrative Performing Organization Address City/State/ZIP Code [place] OTHER OUTSIDE LAB * HEMOGLOBIN A1C (03/24/2021) Hemoglobin A1C 5.2 IN CLINIC Specimen Blood specimen (specimen) - Blood Narrative Performing Organization Address City/State/ZIP Code [place] IN CLINIC * (ABNORMAL) LIPID PROFILE (03/24/2021) Cholesterol 98 OTHER OUTSIDE [...] / Dates Group Medicare BCBS [place] BCBS [id number] 2020-P [phone] [id number] [place] [address] Medicare MEDICARE MEDICARE [id number] 2004-P [phone] [address] [place] [address] Medicaid [employer] [place] [employer] [id number] 2018-P [phone] [address] Guarantor Name Account Relation to Date of Phone Daphney tripp Address Type Patient Jocelyne Ross Personal/F Self [address] [place] (Home) [place], [place] [address] Advance Directives Patient Field Map Editor Explanation Type Date Recorded Advance 01/24/2017 9:44 AM Directive/DPOA Date Inactivated Comments Code Status Date Activated 01/18/2020 4:19 PM Full Code 01/17/2020 3:30 AM Provider has discussed Code Status Yes w/Patient or Family? 01/17/2020 3:30 AM Full Code 01/16/2020 10:01 PM Provider has discussed Code Status No, more discussi on w/Patient or Family? needed Care Teams Start Date End Date Tube Teller Relationship Specialty 01/24/17 Yaron Malik MD PCP - General Family Medicine
--- OUTSIDE RECORDS SUMMARY | 2021-06-19 16:34 | XMS REPORT | Encounter Summary ---
Author Author [facility] Organization [facility] Address Unknown Phone Unavailable Care Team Providers Care Charging Operator Name Role Phone Self, Yaron MENDOZA PCP Reason for Visit * Reason Comments Chronic Kidney Disease Encounter Details Care Team Description Date Type Department Angie Mendes MD [address] [facility] [address] [place] [id number] Chronic kidney disease, stage 5 (HCC) (P rimary Dx) 06/17/2021 Office Visit Nephrology: [facility] [address] [place] [id number] Social History Date Tobacco Use Types Packs/Day Years Used Never Smoker 0 0 Smokeless Tobacco: Never Used Comments Alcohol Use Standard Drinks/Week Never 0 (1 standard drink = 0.6 o z pure alcohol) Sex Assigned at Date Recorded Female 04/16/2020 11:27 AM CDT Date Recorded COVID-19 Exposure Response 06/17/2021 12:51 PM HELP DESK TEAM LEADER In the last month, have you been in contact with No / Unsure someone who was confirmed or suspected to have Coronavirus / COVID-19? documented as of this encounter Last Filed Vital Signs Reading Time Taken Comments Vital Sign 135/46 06/17/2021 1:37 PM HELP DESK TEAM LEADER Blood Pressure 58 06/17/2021 1:37 PM HELP DESK TEAM LEADER Pulse 36.2 C (97.2 F) 06/17/2021 1:37 PM HELP DESK TEAM LEADER Temperature 16 06/17/2021 1:37 PM HELP DESK TEAM LEADER Respiratory Rate 97% 06/17/2021 1:37 PM HELP DESK TEAM LEADER Oxygen Saturation - - Inhaled Oxygen Concentration 75.5 kg (166 lb 6.4 oz) 06/17/2021 1:37 PM HELP DESK TEAM LEADER Weight 172.7 cm (5' 8") 06/17/2021 1:37 PM HELP DESK TEAM LEADER Height 25.3 06/17/2021 1:37 PM HELP DESK TEAM LEADER Body Mass Index documented in this encounter Functional Status Date of Assessment [...] impairment: Yes documented as of this encounter Progress Notes * Angie Mendes MD - 06/17/2021 1:20 PM HELP DESK TEAM LEADER Nephrology Visit Note Subjective: Date of Service: 06/17/2021 History of present illness: Jocelyne Ross is a 80 y.o. female patient with known history of diabetes for more than 40 years. Her diabetes has been complicated with diabetic retinopathy. David mcgraw is also known to have hypertension for almost 40 years. She reports poor bloo d pressure control in the past but it has been better controlled recently. She is also known to have coronary artery disease with history of bypass surgery lyndsey k in January 2002. She reports having several transient ischemic attacks with last one in 2014 is also known to have history of hepatitis B but this was treated ma ny years ago. Ms. Ross was previously maintained on Meloxicam for more than year between 2015 and 2016. She denies passing any kidney stones. She reports fami ly history of kidney disease in her daughter who has lupus nephritis, Greg mothe r and multiple aunts and uncles all had polycystic kidney disease. Ms. Ross had blood work done in January 2017 which showed creatinine up to 1.77 from 0.8 back in 2013. Ms. Ross does not believe she had any blood work between 2013 and 2016. Her renal function has been progressively worsening since then. Interval History Ms. Ross is here today for follow up. She has still been feeling well over the l ast few weeks. Her appetite has been declining. She has lost almost 6 pounds. She has been complaining of progressive weakness and fatigue along with recurre nt falls. She denies any nausea or vomiting. She denies any dyspnea. Her lower extremity edema has completely resolved. She denies taking any NSAIDs. Her BP cyr s been stable. She is scheduled to see vascular surgery on July 13. Review of Systems Constitutional: Positive for activity change, appetite change, fatigue and unexp ected weight change. HENT: Negative. Eyes: Negative. Negative for visual disturbance. Respiratory: Negative for cough, chest tightness and shortness of breath. Cardiovascular: Negative for chest pain and leg swelling. Gastrointestinal: Negative for abdominal pain, diarrhea, nausea and vomiting. Genitourinary: Negative for dysuria, frequency and hematuria. Musculoskeletal: Positive for arthralgias, back pain, gait problem, joint swelli ng, neck pain and neck stiffness. Skin: Negative for rash. Neurological: Positive for weakness. Negative for dizziness. Hematological: Does not bruise/bleed easily. Psychiatric/Behavioral: Positive for sleep disturbance. Medical History: Diagnosis Date Anxiety Carotid artery stenosis Cataract Chronic kidney disease ? Depression DM (diabetes mellitus) (HCC) with associated retinopathy (primarily right eye) and neuropathy GERD (gastroesophageal reflux disease) Glaucoma Hepatitis B Hypertension Joint pain Nausea PONV (postoperative nausea and vomiting) Pulmonary emphysema (HCC) Spinal stenosis Stroke (HCC) Unspecified glaucoma(365.9) Surgical History: Procedure Laterality Date APPENDECTOMY CHOLECYSTECTOMY HERNIA REPAIR HX CORONARY ARTERY BYPASS GRAFT HYSTERECTOMY LAPAROTOMY Family History Problem Relation Age of Onset Heart Disease Mother Stroke Mother Diabetes Father Hypertension Father SLE Daughter Diabetes Daughter Arthritis Daughter Hypertension Daughter Joint Pain Daughter Cancer Daughter Breast Social History Socioeconomic History Marital status: Spouse name: Not on file Number of children: Not on file Years of education: Not on file Highest education level: Not on file Occupational History Not on file Tobacco Use Smoking status: Never Smoker Smokeless tobacco: Never Used Substance and Sexual Activity Alcohol use: Never Alcohol/week: 0.0 standard drinks Drug use: Never Sexual activity: Not Currently Partners: Male control/protection: None Other Topics Concern Not on file Social History Narrative Not on file Objective: acetaminophen (TYLENOL) 500 mg tablet Take 500 mg by mouth every 6 hours as needed for Pain. Max of 4,000 mg of acetaminophen in 24 hours. albuterol (VENTOLIN HFA) 90 mcg/actuation inhaler Inhale 2 puffs by mouth in to the lungs every 6 hours as needed for Wheezing or Shortness of Breath. Shake well before use. albuterol 0.083% (PROVENTIL) 2.5 mg /3 mL (0.083 %) nebulizer solution Inhal e 3 mL solution by nebulizer as directed every 4 hours as needed for Wheezing or Shortness of Breath. amLODIPine (NORVASC) 10 mg tablet Take 10 mg by mouth daily. apixaban (ELIQUIS) 2.5 mg tablet Take 2.5 mg by mouth twice daily. artificial tears multi dose drop ophthalmic solution Apply 1 drop to both ey es daily as needed for Dry Eyes. atorvastatin (LIPITOR) 80 mg tablet Take 80 mg by mouth at bedtime daily. blood-glucose meter (EASY CHECK BLOOD GLUCOSE MIS) Use as directed. AC HS brimonidine (ALPHAGAN) 0.2 % ophthalmic solution Apply 1 drop to both eyes t wice daily. brimonidine-timolol (COMBIGAN) 0.2-0.5 % ophthalmic drop Apply 1 drop to lef t eye as directed twice daily. budesonide respule (PULMICORT) 0.5 mg/2 mL nebulizer solution Inhale 0.5 mg solution by nebulizer as directed twice daily. buPROPion SR (WELLBUTRIN-SR) 150 mg tablet Take 300 mg by mouth every mornin g. calcium carbonate/vitamin D-3 (OSCAL-500+D) 1250 mg/200 unit tablet Take 1 t ablet by mouth every morning. Calcium Carb 1250mg delivers 500mg elemental Ca carbidopa/levodopa (SINEMET) 25/100 mg tablet Take 1 tablet by mouth three t imes daily. Cholecalciferol (Vitamin D3) 50 mcg (2,000 unit) cap Take 2,000 Units by leighann th daily. clopiDOGrel (PLAVIX) 75 mg tablet Take 75 mg by mouth daily. cyanocobalamin (VITAMIN B-12) 1,000 mcg tablet Take one tablet by mouth el y. cyclobenzaprine (FLEXERIL) 10 mg tablet Take 10 mg by mouth every 8 hours as needed for Muscle Cramps. darbepoetin edel (ARANESP (POLYSORBATE)) 25 mcg/0.42 mL syrg Inject 0.42 mL under the skin every 14 days. docusate (COLACE) 100 mg capsule Take 100 mg by mouth daily. donepeziL (ARICEPT) 5 mg tablet Take one tablet by mouth at bedtime daily. doxazosin (CARDURA) 4 mg tablet Take 4 mg by mouth twice daily. fluticasone propionate (FLONASE) 50 mcg/actuation nasal spray Apply 1 spray to each nostril as directed daily as needed. Shake bottle gently before using. nfswvvrancj-mbjvumoxk-pdgzubvm (TRELEGY ELLIPTA) 100-62.5-25 mcg inhaler Inh dennis 1 puff by mouth into the lungs daily. furosemide (LASIX) 40 mg tablet TAKE 1 TABLET BY MOUTH ONCE A DAY ON TUESDAY, TUESDAY, AND TUESDAY IN THE MORNING gabapentin (NEURONTIN) 100 mg capsule Take 100 mg by mouth at bedtime daily. guaifenesin (TUSSIN COUGH PO) Take 10 mL by mouth every 48 hours as needed. hydrALAZINE (APRESOLINE) 50 mg tablet Take 50 mg by mouth three times daily. HYDROcodone/acetaminophen (NORCO) 5/325 mg tablet Take 1 tablet by mouth maureen ry 4 hours as needed for Pain Insulin Asp Prt-Insulin Aspart (NOVOLOG MIX 70-30 FLEXPEN) 100 unit/mL (70-3 0) inpn Inject 1-6 Units under the skin twice daily. Using a sliding scale insulin aspart (U-100) (NOVOLOG FLEXPEN U-100 INSULIN) 100 unit/mL (3 mL) in jection PEN every 8 hours. insulin glargine (LANTUS SOLOSTAR) 100 unit/mL (3 mL) injection PEN Inject 1 8 Units under the skin at bedtime daily. ipratropium/albuterol sulfate (DUONEB IN) Inhale by mouth into the lungs tw ice daily. levothyroxine (SYNTHROID) 137 mcg tablet 137 mcg daily 30 minutes before melina akfast. loratadine (CLARITIN) 10 mg tablet Take 10 mg by mouth every morning. memantine (NAMENDA) 10 mg tablet Take one tablet by mouth at bedtime daily. metoprolol XL (TOPROL XL) 100 mg extended release tablet Take one tablet by mouth daily. mirtazapine (REMERON) 15 mg tablet Take 1 tablet by mouth along with a 7.5mg tablet for a total dose of 22.5 mg daily at bedtime. mirtazapine (REMERON) 7.5 mg tablet Take 1 tablet by mouth along with a 15mg tablet for a total dose of 22.5mg daily at bedtime. [facility] Check hemoglobin every 2 weeks prior to gi ving Aranesp injection. Hold for hemoglobin level >10 g/dL omeprazole DR (PRILOSEC) 40 mg capsule Take 40 mg by mouth daily before ramon kfast. ondansetron (ZOFRAN) 4 mg tablet Take 4 mg by mouth every 8 hours as needed for Nausea or Vomiting. polyethylene glycol 3350 (MIRALAX) 17 g packet Take 17 g by mouth daily. PROCRIT 20,000 unit/mL injection INJECT 0.5 ML 10,000 UNITS UNDER THE SKIN E VERY 7 DAYS. HOLD IF HEMOGLOBIN ABOVE 10 G/DL INDICATIONS: ANEMIA IN CHRONIC KID VLAD DISEASE. sodium bicarbonate 650 mg tablet TAKE TWO TABLETS BY MOUTH TWICE DAILY. ULTICARE PEN NEEDLE 31 gauge x 1/4" ndle vitamins, multi w/minerals 9 mg iron-400 mcg tab Take 1 tablet by mouth ever y morning. Vitals: 06/17/21 1337 BP: 135/46 BP Source: Arm, Right Upper Patient Position: Sitting Pulse: 58 Resp: 16 Temp: 36.2 C (97.2 F) TempSrc: Temporal SpO2: 97% Weight: 75.5 kg (166 lb 6.4 oz) Height: 172.7 cm (68") PainSc: Ten Body mass index is 25.3 kg/m. Physical Exam Constitutional: Appearance: She is well-developed. Eyes: General: No scleral icterus. Pupils: Pupils are equal, round, and reactive to light. Neck: Thyroid: No thyromegaly. Vascular: No JVD. Cardiovascular: Rate and Rhythm: Normal rate and regular rhythm. Heart sounds: Normal heart sounds. No murmur heard. No friction rub. Pulmonary: Effort: No respiratory distress. Breath sounds: Normal breath sounds. No wheezing or rales. Abdominal: General: Bowel sounds are normal. There is no distension. Palpations: Abdomen is soft. There is no mass. Tenderness: There is no abdominal tenderness. Musculoskeletal: Cervical back: Neck supple. Lymphadenopathy: Cervical: No cervical adenopathy. Skin: General: Skin is warm. Coloration: Skin is not pale. Findings: No erythema or rash. Neurological: Mental Status: She is alert and oriented to person, place, and time. Creatinine Date Value Ref Range Status 05/12/2021 6.39 (H) Final 04/14/2021 5.84 (H) Final 03/24/2021 6.41 (H) Final 03/24/2021 6.36 (H) Final 03/10/2021 6.31 (H) Final 02/24/2021 6.27 (H) Final 02/10/2021 5.75 (H) Final 01/13/2021 5.62 (H) Final 11/19/2020 5.08 (H) Final 10/28/2020 4.94 (H) Final Assessment: Chronic kidney disease stage 5 -In the setting of diabetes, hypertension, NSAIDs use and aging. -Suspect proteinuria is secondary to diabetic nephropathy. -Unremarkable dysproteinemia workup. -She has family history of both lupus nephritis and polycystic kidney disease. -Renal US in 05/2018 showed left renal cyst and small left non obstructing stone . -Progressive decline in renal function overall. -Concerns about uremic signs and symptoms Hypertension: -Blood pressure has been better. -Would avoid tight BP control. Proteinuria: -Previously on ARB. Vitamin D deficiency: -On daily Cholecalciferol. Secondary hyperparathyroidism: -Check serum PTH Left renal cyst: -Seen on renal US in 05/2018. Nephrolithiasis: -Asymptomatic. -Incidental finding. Anemia: -In the setting of advanced CKD. -On ROBERTO Plan -Her current symptoms are concerning for uremia. Educated pt about uremic signs and symptoms. -She is a marginal candidate for dialysis due to age and co-morbidities. Discus sed the benefits and risks of dialysis. Pt would like a trial of dialysis. Bot h of her daughters are in agreement with initiation of dialysis. -She does not have a dialysis acces. She is currently scheduled to see vascular surgery on July 13 -Plan to arrange for tunneled dialysis catheter placement by IR -Arrange for outpatient dialysis locally with plan to initiate dialysis once she has TDC. Patient prefers to have outpatient dialysis in [place], [place] -Continue Lasix 40 mg PO three times weekly on MWF. -Continue oral sodium bicarbonate for now. -Continue Epogen 10,000 units weekly for Hgb less than 10.0 till she starts dial ysis. -Obtain daily weight. -Continue daily Cholecalciferol. -Would avoid tight BP control. -Educated about low-salt diet -Instructed about avoiding NSAIDs. -Avoid contrast exposure -Instructed to go to the ED if she develops acute symptoms including dyspnea, ch est pain, confusion and vomiting. DESK TEAM LEADER documented in this encounter Plan of Treatment Not on filedocumented as of this encounter Goals Goal Patient Associated Recent Progress Patient-Stat Aut hor Goal Type Problems ed? Increase water intake Diet No Mcginnis, MICHELE Gutierrez Diabetic Blood Sugar Lifestyle No Mcginnis, Monitoring MICHELE Gutierrez documented as of this encounter Visit Diagnoses Diagnosis Chronic kidney disease, stage 5 (HCC) - Primary documented in this encounter [...] encounter Care Teams Start Date End Date Charging Operator Relationship Specialty 01/24/17 Yaron Malik MD PCP - General Family Medicine documented as of this encounter
--- OUTSIDE RECORDS SUMMARY | 2021-06-19 16:34 | XMS REPORT | Encounter Summary ---
Author Author [facility] Organization [facility] Address Unknown Phone Unavailable Care Team Providers Care Graphic User Interface Designer Name Role Phone Self, Yaron MENDOZA PCP Encounter Details Care Team Description Date Type Department Sandra Saldaña, HAND QUILTER-EXTERMINATION SUPERVISOR [address] [place] [address] 06/19/2021 Orders Only Nephrology: [facility] [address] [place] [address]. [address], [address] [address] Social History Date Tobacco Use Types Packs/Day Years Used Never Smoker 0 0 Smokeless Tobacco: Never Used Comments Alcohol Use Standard Drinks/Week Never 0 (1 standard drink = 0.6 o z pure alcohol) Sex Assigned at Date Recorded Female 04/16/2020 11:27 AM CDT Date Recorded COVID-19 Exposure Response 06/17/2021 12:51 PM AIRCRAFT CYLINDER MECHANIC In the last month, have you been [...] encounter Care Teams Start Date End Date Graphic User Interface Designer Relationship Specialty 01/24/17 Yaron Malik MD PCP - General Family Medicine documented as of this encounter
--- OUTSIDE RECORDS SUMMARY | 2021-06-19 16:34 | XMS REPORT | Encounter Summary ---
Author Author [facility] Organization [facility] Address Unknown Phone Unavailable Care Team Providers Care Packaging Line Operator Name Role Phone Self, Yaron MENDOZA PCP Encounter Details Care Team Description Date Type Department 06/17/2021 Travel Social History Date Tobacco Use Types Packs/Day Years Used Never Smoker 0 0 Smokeless Tobacco: Never Used Comments Alcohol Use Standard Drinks/Week Never 0 (1 standard drink = 0.6 o z pure alcohol) Sex Assigned at Date Recorded Female 04/16/2020 11:27 AM CDT Date Recorded COVID-19 Exposure Response 06/17/2021 12:51 PM POLICE STENOGRAPHER In the last month, have you been [...] encounter Care Teams Start Date End Date Packaging Line Operator Relationship Specialty 01/24/17 Yaron Malik MD PCP - General Family Medicine documented as of this encounter
--- OUTSIDE RECORDS SUMMARY | 2021-06-19 16:34 | XMS REPORT | Encounter Summary ---
Author Author [facility] Organization [facility] Address Unknown Phone Unavailable Care Team Providers Care Jewel Sawyer Name Role Phone Self, Yaron MENDOZA PCP Reason for Visit * Reason Comments Medication Refill Encounter Details Care Team Description Date Type Department Angie Mendes MD [address] [facility] Lvl [address] [place] [id number] 06/19/2021 Refill Nephrology: [facility] 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 Routing to Dr. Mendes for approval. Lili Ruano RN' IFE documented in this encounter Plan of Treatment [...] encounter Care Teams Start Date End Date Jewel Sawyer Relationship Specialty 01/24/17 Yaron Malik MD PCP - General Family Medicine documented as of this encounter
--- NOTE | 2021-06-19 16:36 | ED General ---
General Stated Complaint: TREMORS History of Present Illness Date Seen by Provider: Jun 19, 2021 Time Seen by Provider: 16:36 Initial Comments 80-year-old female presents with coarse tremors. Patient has a history of coarse tremors but states that today they are severely worse. That she seems to be having more difficulty with her speech because of her tremors. Patient denies any recent illness, fever, chills, nausea, vomiting or any other systemic complaints. Patient denies any new medications. Patient denies chest pain, shortness of breath Allergies and Home Medications Allergies Coded Allergies: Iodinated Contrast Media (Unverified Allergy, Unknown, HIVES, 04/09/19) codeine (Unverified Allergy, Unknown, NERVOUSNESS, 04/09/19) latex (Unverified Allergy, Unknown, ITCHING, RASH, 04/09/19) lisinopril (Unverified Adverse Reaction, Unknown, 08/24/20) Per [facility] records shrimp (Unverified Adverse Reaction, Unknown, 08/24/20) per [facility] records sulfamethoxazole (Unverified Adverse Reaction, Unknown, 08/24/20) per [facility] record trimethoprim (Unverified Adverse Reaction, Unknown, 08/24/20) per [facility] record Patient Home Medication List Home Medication List Reviewed: Yes Acetaminophen (Tylenol Extra Strength) 500 Mg Tablet, 1,000 MG PO Q6H PRN for PAIN-MILD, (Reported) Entered as Reported by: BRIANNE MAY on 04/10/19 0839 Albuterol Sulfate (Albuterol Sulfate) 2.5 Mg/3 Ml Vial.neb, 2.5 MG NEB Q6H PRN for SHORTNESS OF BREATH, (Reported) Entered as Reported by: BRIANNE MAY on 04/10/19 0839 Albuterol Sulfate (Ventolin Hfa) 1 Puff Puff, 2 PUFF INH Q6H PRN for SHORTNESS OF BREATH, (Reported) Entered as Reported by: BRIANNE MAY on 04/10/19 0839 Amlodipine Besylate (Norvasc) 10 Mg Tablet, 10 MG PO DAILY, (Reported) Entered as Reported by: MARCELLA SLOAN on 08/06/19 1315 Atorvastatin Calcium (Atorvastatin Calcium) 80 Mg Tablet, 80 MG PO HS, (Reported) Entered as Reported by: BRIANNE MAY on 04/10/19838 Brimonidine Tartrate/Timolol (Combigan Eye Drops) 5 Ml Drops, 1 DROP OU BID, (Reported) Entered as Reported by: BRIANNE MAY on 04/10/19838 Bupropion HCl (Bupropion HCl Sr) 150 Mg Tablet.er, 300 MG PO DAILY, (Reported) Entered as Reported by: BRIANNE MAY on 04/10/19848 Calcium Carbonate/Vitamin D3 (Calcium 600 + Vit D 200 Tablet) 1 Each Tablet, 2 TAB PO DAILY, (Reported) Entered as Reported by: BRIANNE MAY on 04/10/19838 Cholecalciferol (Vitamin D3) (D3-2000) 50 Mcg Capsule, 50 MCG PO 1000, (Reported) Entered as Reported by: MARCELLA SLOAN on 08/06/19 131 Clopidogrel Bisulfate (Clopidogrel) 75 Mg Tablet, 75 MG PO DAILY, (Reported) Entered as Reported by: BRIANNE MAY on 04/10/19838 Cyanocobalamin (Vitamin B-12) (Vitamin B12) 2,500 Mcg Tablet, 2,500 MCG PO DAILY, (Reported) Entered as Reported by: MARCELLA SLOAN on 08/06/19 1315 Cyclobenzaprine HCl (Cyclobenzaprine HCl) 10 Mg Tablet, 10 MG PO Q8H Prescribed by: LANA LEDESMA on 08/24/20 190 Dextromethorphan HBr (Tussin Cough) 15 Mg/5 Ml Liquid, 10 ML PO Q4H PRN for COUGH, (Reported) Entered as Reported by: BRIANNE MAY on 04/10/19838 Diazepam (Valium) 5 Mg Tablet, 5 MG PO Q12H PRN for ANXIETY, (Reported) Entered as Reported by: BRIANNE MAY on 04/10/19838 Docusate Sodium (Colace) 100 Mg Capsule, 100 MG PO DAILY, (Reported) Entered as Reported by: BRIANNE MAY on 04/10/19838 Donepezil HCl (Donepezil HCl) 10 Mg Tablet, 10 MG PO HS, (Reported) Entered as Reported by: BRIANNE MAY on 04/10/19848 Doxazosin Mesylate (Cardura) 4 Mg Tablet, 4 MG PO BID, (Reported) Entered as Reported by: MARCELLA SLOAN on 08/06/19 1315 Fluticasone Propionate (Fluticasone Propionate) 16 Gm [place].susp, 1 SPRAY NS DAILY PRN for ALLERGIES, (Reported) Entered as Reported by: BRIANNE MAY on 04/10/19838 Fluticasone/Salmeterol (Advair 100-50 Diskus) 1 Each Blst.w.dev, 1 PUFF INH BID, (Reported) Entered as Reported by: BRIANNE MAY on 04/10/19838 Hydralazine HCl (Hydralazine HCl) 50 Mg Tablet, 50 MG PO Q8H, (Reported) Entered as Reported by: MARCELLA SLOAN on 08/06/19 131 Hydrocodone/Acetaminophen (Hydrocodone-Acetamin 5-325 mg) 1 Each Tablet, 1 TAB PO Q4H PRN for PAIN-MODERATE (5-7) Prescribed by: LANA LEDESMA on 08/24/201901 Insulin Glargine,Hum.rec.anlog (Lantus Solostar) 100 Unit/1 Ml Insuln.pen, 4 UNIT SQ HS, (Reported) Entered as Reported by: BRIANNE MAY on 04/10/19838 Insuln Asp Prt/Insulin Aspart (Novolog Mix 70-30 Flexpen Syrn) 300 Units/3 Ml Solution, SC TIDAC, (Reported) Entered as Reported by: BRIANNE MAY on 04/10/19838 Levothyroxine Sodium (Levothyroxine Sodium) 112 Mcg Tablet, 112 MCG PO 0600, (Reported) Entered as Reported by: BRIANNE MAY on 04/10/19838 Loratadine (Loratadine) 10 Mg Tablet, 10 MG PO DAILY PRN for ALLERGIES, (Reported) Entered as Reported by: BRIANNE MAY on 04/10/19838 Memantine HCl (Memantine HCl) 10 Mg Tablet, 10 MG PO DAILY, (Reported) Entered as Reported by: BRIANNE MAY on 04/10/19838 Metoprolol Succinate (Metoprolol Succinate) 100 Mg Tab.er.24h, 100 MG PO DAILY, (Reported) Entered as Reported by: BRIANNE MAY on 04/10/19838 Mirtazapine (Mirtazapine) 15 Mg Tablet, 22.5 MG PO HS, (Reported) Entered as Reported by: BRIANNE MAY on 04/10/19838 Multivitamin (Multivitamins) 1 Each Tablet, 1 TAB PO DAILY, (Reported) Entered as Reported by: BRIANNE MAY on 04/10/19838 Omeprazole (Omeprazole) 40 Mg Capsule.dr, 40 MG PO DAILY, (Reported) Entered as Reported by: BRIANNE MAY on 04/10/19838 Peg 400/Hypromellose/Glycerin (Artificial Tears Drops) 15 Ml Drops, 1 DROP OU UD PRN for DRY EYES, (Reported) Entered as Reported by: BRIANNE MAY on 04/10/19838 Polyethylene Glycol 3350 (Miralax) 17 Gm Powd.pack, 17 GM PO DAILY, (Reported) Entered as Reported by: BRIANNE MAY on 04/10/19838 Review of Systems Review of Systems Constitutional: No chills, No fever EENTM: no symptoms reported Respiratory: No cough, No short of breath Cardiovascular: No chest pain, No palpitations Gastrointestinal: No abdominal pain, No nausea, No vomiting Genitourinary: no symptoms reported Musculoskeletal: see HPI Skin: no symptoms reported Psychiatric/Neurological: See HPI, Tremors Hematologic/Lymphatic: No Symptoms Reported Past Nfglidw-Gcxtdg-Lqcbcl Hx Immunizations Up To Date Tetanus Booster (TDap): Less than 5yrs Seasonal Allergies Seasonal Allergies: No Past Medical History Surgeries: Yes (inguinal hernia repair; EGD; colonoscopy; ) Appendectomy, CABG, Gallbladder, 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, Oophorectomy, Orthopedic Respiratory: Yes Emphysema Cardiac: Yes (hypertensive crisis ) High Cholesterol, Hypertension Neurological: Yes Dementia, Neuropathy, TIA Reproductive Disorders: No 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 Genitourinary: Yes (incontinence, acute on chronic renal failure) Renal Failure Gastrointestinal: Yes (Hepatitis B) Gastroesophageal Reflux Musculoskeletal: Yes (neck injury ) Arthritis, Back Injury Endocrine: Yes (Hyponatremia hx) Diabetes, Insulin dep, Hypothyroidsim, Lupus HEENT: Yes Cataract, Glaucoma Loss of Vision: Bilateral Hearing Impairment: Denies Cancer: No Psychosocial: Yes Depression Integumentary: No Blood Disorders: Yes (Anemia, Iron deficiency) Family Medical History Heart Disease, Cancer, Diabetes, Renal Disease Physical Exam Vital Signs Vital Signs - First Documented 06/19/21 06/19/21 16:55 17:05 Temp 36.0 Pulse 66 Resp 20 B/P (MAP) 137/103 (114) O2 Delivery Room Air Capillary Refill : Height, Weight, BMI Height: 5'8.00" Weight: 165lbs. 0.0oz. 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 Norm as Tested Skin: Normal Color, Warm/Dry Focused Exam Lactate Level 06/19/21 16:46: Lactic Acid Level 1.74 Lactic Acid Level Laboratory Tests Test 06/19/21 16:46 Lactic Acid Level 1.74 MMOL/L (0.50-2.00) Progress/Results/Core Measures Suspected Sepsis SIRS Temperature: Pulse: Respiratory Rate: Laboratory Tests 06/19/21 16:46: White Blood Count 5.8 Blood Pressure / Mean: 06/19/21 16:46: Lactic Acid Level 1.74 Laboratory Tests 06/19/21 16:46: Creatinine 5.93H, Platelet Count 300, Total Bilirubin 0.2 Results/Orders Lab Results Laboratory Tests Test 06/19/21 16:43 06/19/21 16:46 Range/Units Glucometer 73 70-110 MG/DL White Blood Count 5.8 4.3-11.0 10^3/uL Red Blood Count 3.54 L 3.80-5.11 10^6/uL Hemoglobin 10.3 L 11.5-16.0 g/dL Hematocrit 33 L 35-52 % Mean Corpuscular Volume 94 80-99 fL Mean Corpuscular Hemoglobin 29 25-34 pg Mean Corpuscular Hemoglobin Concent 31 L 32-36 g/dL Red Cell Distribution Width 13.2 10.0-14.5 % Platelet Count 300 130-400 10^3/uL Mean Platelet Volume 9.1 9.0-12.2 fL Immature Granulocyte % (Auto) 1 % Neutrophils (%) (Auto) 70 42-75 % Lymphocytes (%) (Auto) 13 12-44 % Monocytes (%) (Auto) 13 H 0-12 % Eosinophils (%) (Auto) 4 0-10 % Basophils (%) (Auto) 1 0-10 % Neutrophils # (Auto) 4.0 1.8-7.8 X 10^3 Lymphocytes # (Auto) 0.8 L 1.0-4.0 X 10^3 Monocytes # (Auto) 0.7 0.0-1.0 X 10^3 Eosinophils # (Auto) 0.2 0.0-0.3 10^3/uL Basophils # (Auto) 0.0 0.0-0.1 10^3/uL Immature Granulocyte # (Auto) 0.0 0.0-0.1 10^3/uL Sodium Level 139 135-145 MMOL/L Potassium Level 4.2 3.6-5.0 MMOL/L Chloride Level 102 98-107 MMOL/L Carbon Dioxide Level 26 21-32 MMOL/L Anion Gap 11 5-14 MMOL/L Blood Urea Nitrogen 34 H 7-18 MG/DL Creatinine 5.93 H 0.60-1.30 MG/DL Estimat Glomerular Filtration Rate 7 BUN/Creatinine Ratio 6 Glucose Level 83 70-105 MG/DL Lactic Acid Level 1.74 0.50-2.00 MMOL/L Calcium Level 7.9 L 8.5-10.1 MG/DL Corrected Calcium 9.2 8.5-10.1 MG/DL Magnesium Level 2.3 1.6-2.4 MG/DL Total Bilirubin 0.2 0.1-1.0 MG/DL Aspartate Amino Transf (AST/SGOT) 28 5-34 U/L Alanine Aminotransferase (ALT/SGPT) < 5 0-55 U/L Alkaline Phosphatase 122 40-136 U/L Troponin I < 0.30 <0.30 NG/ML Total Protein 5.5 L 6.4-8.2 GM/DL Albumin 2.4 L 3.2-4.5 GM/DL My Orders Orders - JANE,IRIS L DO Ct Head Wo-R/O Stroke (06/19/21 16:37) Cbc With Automated Diff (06/19/21 16:37) Comprehensive Metabolic Panel (06/19/21 16:37) Lactic Acid Analyzer (06/19/21 16:37) Magnesium (06/19/21 16:37) Ua Culture If Indicated (06/19/21 16:37) Troponin I Fs (06/19/21 16:37) Accucheck Stat ONCE (06/19/21 16:37) Ekg Tracing (06/19/21 16:37) Monitor-Rhythm Ecg Trace Only (06/19/21 16:37) Diphenhydramine Injection (Benadryl Inje (06/19/21 16:38) Ammonia (06/19/21 16:46) Procalcitonin (Pct) (06/19/21 16:46) Vital Signs/I&O 06/19/21 06/19/21 16:55 17:05 Temp 36.0 Pulse 66 Resp 20 B/P (MAP) 137/103 (114) O2 Delivery Room Air Capillary Refill : Progress Note : Progress Note Patient's tremors improved and almost resolved following a little bit of Yovany adryl. Discussed with her and family that she would likely benefit from a medication review with her primary care provider. Patient's labs are near her baseline. Patient with a negative head CT. Patient stable and will be discharged back to the nursing care facility ECG Initial ECG Impression Date: Jun 19, 2021 Initial ECG Impression Time: 16:42 Initial ECG Rate: 57 Initial ECG Rhythm: Normal Sinus Initial ECG Intervals: [place] (224) Comment no acute findings, mild increased [place] interval Departure Impression Primary Impression: Chronic kidney disease Qualified Codes: N18.9 - Chronic kidney disease, unspecified Additional Impression: Coarse tremors Disposition: 01 HOME, SELF-CARE Condition: Stable Departure-Patient Inst. Referrals: SELF,ADOLFO MENDOZA (PCP/Family) Primary Care Physician Patient Instructions: Kidney Failure (DC) Add. Discharge Instructions: Follow-up with your primary care provider to review your current medications and for further outpatient evaluation and neurology consult if they feel it is warranted IRIS JANE DO Jun 19, 2021 16:36
[2021-06-19] MEDS ORDERED: diphenhydrAMINE 50 MG/ML INJ (BENADRYL) IV STA (16:38)
[2021-06-19 16:54] LABS: HEMATOCRIT 33 % (35-52); HEMOGLOBIN 10.3 g/dL (11.5-16.0); LYMPHOCYTES % (AUTO) 13 % (12-44); MEAN CORPUSCULAR HEMOGLOBIN 29 pg (25-34); MEAN CORPUSCULAR HGB CONC 31 g/dL (32-36); MEAN CORPUSCULAR VOLUME 94 fL (80-99); MEAN PLATELET VOLUME 9.1 fL (9.0-12.2); NEUTROPHILS % (AUTO) 70 % (42-75); PLATELET COUNT 300 10^3/uL (130-400); WHITE BLOOD COUNT 5.8 10^3/uL (4.3-11.0)
[2021-06-19 16:55] VITALS: BP 137/103
[2021-06-19 16:55] LABS: BASOPHILS % (AUTO) 1 % (0-10); EOSINOPHILS # (AUTO) 0.2 10^3/uL (0.0-0.3); EOSINOPHILS % (AUTO) 4 % (0-10); LYMPHOCYTES # (AUTO) 0.8 X 10^3 (1.0-4.0); MONOCYTES # (AUTO) 0.7 X 10^3 (0.0-1.0); MONOCYTES % (AUTO) 13 % (0-12)
[2021-06-19 17:05] LABS: ALANINE AMINOTRANSFERASE < 5 U/L (0-55); ALBUMIN 2.4 GM/DL (3.2-4.5); ALKALINE PHOSPHATASE 122 U/L (40-136); BILIRUBIN,TOTAL 0.2 MG/DL (0.1-1.0); BUN/CREATININE RATIO 6; CALCIUM 7.9 MG/DL (8.5-10.1); CARBON DIOXIDE 26 MMOL/L (21-32); CHLORIDE 102 MMOL/L (98-107); CREATININE SERUM 5.93 MG/DL (0.60-1.30); GFR ESTIMATED 7; GLUCOSE 83 MG/DL (70-105); MAGNESIUM 2.3 MG/DL (1.6-2.4); POTASSIUM 4.2 MMOL/L (3.6-5.0); SODIUM 139 MMOL/L (135-145); TOTAL PROTEIN 5.5 GM/DL (6.4-8.2)
--- NOTE | 2021-06-19 17:13 | Diagnostic Imaging Report ---
Clinical indications: Patient with slurred speech and tremors. Exam: Axial CT scan of the brain performed without IV contrast. High-resolution axial CT brain images with sagittal and coronal reformations were also created. Auto Exposure Controls were utilized during the CT exam to meet ALARA standards for radiation dose reduction. Comparison: Head CT without contrast dated 06/02/[address] dated 01/16/2020. Findings: There is no CT evidence of acute cerebral infarct, intracranial hemorrhage, brain herniation or midline shift. There is diffuse brain parenchymal volume loss. There are small areas of chronic infarct involving the medial aspect of the right occipital lobe and basilar aspect of the right temporal lobe. There are diffuse patchy and confluent areas of low-attenuation white matter changes involving both cerebral hemispheres suspected to represent chronic small vessel ischemic disease and leukoaraiosis. These findings have not significantly changed in the interim. There is no hydrocephalus, brain herniation or midline shift. Basal cisterns are unremarkable. The extracranial soft tissue, skull and orbits are unremarkable. Paranasal sinuses and mastoid air cells are clear. IMPRESSION: 1: There is no dense vessel sign seen. There is no definite CT evidence of interval acute cerebral infarction, intracranial hemorrhage, or mass seen. The diffuse low attenuation changes throughout the brain parenchyma may possibly obscure more subtle findings. If there is clinical concern for acute cerebral infarction, MRI of the brain would better evaluate. 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 Results of this report were discussed with Dr. Fabiano Momin via the telephone on 06/19/2021 at 1708 hours. Dictated by: Dictated on workstation # [id number]
== END 2021-06-19 17:50 | disposition home or self-care (01) ==
LOC: EDUNIT# 16:29 → ER FS 16:30
DX: E11.22 Type 2 diabetes mellitus with diabetic chronic kidney disease (principal); I12.9 Hypertensive chronic kidney disease with stage 1 through stage 4 chronic kidney disease, or unspecified chronic kidney disease; N18.9 Chronic kidney disease, unspecified; R25.1 Tremor, unspecified; E78.00 Pure hypercholesterolemia, unspecified; K21.9 Gastro-esophageal reflux disease without esophagitis; F03.90 Unspecified dementia, unspecified severity, without behavioral disturbance, psychotic disturbance, mood disturbance, and anxiety; E03.9 Hypothyroidism, unspecified; H40.9 Unspecified glaucoma; Z86.73 Personal history of transient ischemic attack (TIA), and cerebral infarction without residual deficits; Z79.4 Long term (current) use of insulin; Z79.890 Hormone replacement therapy; Z79.899 Other long term (current) drug therapy; Z79.01 Long term (current) use of anticoagulants
CPT/HCPCS: 36415; 70450; 80053; 82140; 82947; 83605; 83735; 84145; 84484; 85025; 93005; 93041; 96374

== ENCOUNTER 2021-08-17 11:02 | Emergency (ER) | payer MEDICARE, MEDICAID ==
[~2021-08-17 11:02] MED LIST changes: -PEG15DRO5 OU; +PEG15DRO6 OU
[2021-08-17] MEDS ORDERED: LIDOCAINE/EPI 2% 1:100,00 (XYLOCAINE) 20 ML VIAL INJ ONE (11:15)
[2021-08-17] MEDS ORDERED: TETANUS,DIPTH,PERTUSS P/F (BOOSTRIX) 0.5 ML VIAL IM ONE (11:15)
--- NOTE | 2021-08-17 11:16 | ED Fall/Injury ---
General Stated Complaint: FALL; HEAD INJ Source: patient, EMS Exam Limitations: no limitations History of Present Illness Date Seen by Provider: Aug 17, 2021 Time Seen by Provider: 11:03 Initial Comments 80-year-old female with past medical history of ESRD on HD as well as she is anticoagulated [facility] after she fell and hit the back of her head. This occurred less than an hour ago. She said she was bending over to grab something, her legs gave out, and she hit the back of her head. She remembers everything, denies passing out, and denies hurting anywhere else. She says she hit her left elbow but it is not hurting her. Last tetanus she believes was more than 10 years ago. She did get full dialysis on Tuesday but was on her way to get dialysis today when this occurred. She did not take her Eliquis yet this morning. She is otherwise denying any chest pain, shortness of breath, abdominal pain, nausea, vomiting, diarrhea, fever, chills, focal weakness or numbness, vision changes, or any other concerns. Allergies and Home Medications Allergies Coded Allergies: Iodinated Contrast Media (Unverified Allergy, Unknown, HIVES, 04/09/19) codeine (Unverified Allergy, Unknown, NERVOUSNESS, 04/09/19) latex (Unverified Allergy, Unknown, ITCHING, RASH, 04/09/19) lisinopril (Unverified Adverse Reaction, Unknown, 08/24/20) Per [facility] records shrimp (Unverified Adverse Reaction, Unknown, 08/24/20) per [facility] records sulfamethoxazole (Unverified Adverse Reaction, Unknown, 08/24/20) per [facility] record trimethoprim (Unverified Adverse Reaction, Unknown, 08/24/20) per [facility] record Patient Home Medication List Home Medication List Reviewed: Yes Acetaminophen (Tylenol Extra Strength) 500 Mg Tablet, 1,000 MG PO Q6H PRN for PAIN-MILD, (Reported) Entered as Reported by: BRIANNE MAY on 04/10/19 0810 Albuterol Sulfate (Albuterol Sulfate) 2.5 Mg/3 Ml Vial.neb, 2.5 MG NEB Q6H PRN for SHORTNESS OF BREATH, (Reported) Entered as Reported by: BRIANNE MAY on 04/10/19838 Albuterol Sulfate (Ventolin Hfa) 1 Puff Puff, 2 PUFF INH Q6H PRN for SHORTNESS OF BREATH, (Reported) Entered as Reported by: BRIANNE MAY on 04/10/19838 Amlodipine Besylate (Norvasc) 10 Mg Tablet, 10 MG PO DAILY, (Reported) Entered as Reported by: MARCELLA SLOAN on 08/06/19 131 Atorvastatin Calcium (Atorvastatin Calcium) 80 Mg Tablet, 80 MG PO HS, (Reported) Entered as Reported by: BRIANNE MAY on 04/10/19838 Brimonidine Tartrate/Timolol (Combigan Eye Drops) 5 Ml Drops, 1 DROP OU BID, (Reported) Entered as Reported by: BRIANNE MAY on 04/10/19838 Bupropion HCl (Bupropion HCl Sr) 150 Mg Tablet.er, 300 MG PO DAILY, (Reported) Entered as Reported by: BRIANNE MAY on 04/10/19848 Calcium Carbonate/Vitamin D3 (Calcium 600 + Vit D 200 Tablet) 1 Each Tablet, 2 TAB PO DAILY, (Reported) Entered as Reported by: BRIANNE MAY on 04/10/19838 Cholecalciferol (Vitamin D3) (D3-2000) 50 Mcg Capsule, 50 MCG PO 1000, (Reported ) Entered as Reported by: MARCELLA SLOAN on 08/06/19 131 Clopidogrel Bisulfate (Clopidogrel) 75 Mg Tablet, 75 MG PO DAILY, (Reported) Entered as Reported by: BRIANNE MAY on 04/10/19838 Cyanocobalamin (Vitamin B-12) (Vitamin B12) 2,500 Mcg Tablet, 2,500 MCG PO DAILY, (Reported) Entered as Reported by: MARCELLA SLOAN on 08/06/19 131 Cyclobenzaprine HCl (Cyclobenzaprine HCl) 10 Mg Tablet, 10 MG PO Q8H Prescribed by: LANA LEDESMA on 08/24/201901 Dextromethorphan HBr (Tussin Cough) 15 Mg/5 Ml Liquid, 10 ML PO Q4H PRN for COUGH, (Reported) Entered as Reported by: BRIANNE MAY on 04/10/19838 Diazepam (Valium) 5 Mg Tablet, 5 MG PO Q12H PRN for ANXIETY, (Reported) Entered as Reported by: BRIANNE MAY on 04/10/19838 Docusate Sodium (Colace) 100 Mg Capsule, 100 MG PO DAILY, (Reported) Entered as Reported by: BRIANNE MAY on 04/10/19838 Donepezil HCl (Donepezil HCl) 10 Mg Tablet, 10 MG PO HS, (Reported) Entered as Reported by: BRIANNE MAY on 04/10/19848 Doxazosin Mesylate (Cardura) 4 Mg Tablet, 4 MG PO BID, (Reported) Entered as Reported by: MARCELLA SLOAN on 08/06/19 131 Fluticasone Propionate (Fluticasone Propionate) 16 Gm Worden.susp, 1 SPRAY NS DAILY PRN for ALLERGIES, (Reported) Entered as Reported by: BRIANNE MAY on 04/10/19838 Fluticasone/Salmeterol (Advair 100-50 Diskus) 1 Each Blst.w.dev, 1 PUFF INH BID, (Reported) Entered as Reported by: BRIANNE MAY on 04/10/19838 Hydralazine HCl (Hydralazine HCl) 50 Mg Tablet, 50 MG PO Q8H, (Reported) Entered as Reported by: MARCELLA SLOAN on 08/06/19 131 Hydrocodone/Acetaminophen (Hydrocodone-Acetamin 5-325 mg) 1 Each Tablet, 1 TAB PO Q4H PRN for PAIN-MODERATE (5-7) Prescribed by: LANA LEDESMA on 08/24/20 190 Insulin Glargine,Hum.rec.anlog (Lantus Solostar) 100 Unit/1 Ml Insuln.pen, 4 UNIT SQ HS, (Reported) Entered as Reported by: BRIANNE MAY on 04/10/19838 Insuln Asp Prt/Insulin Aspart (Novolog Mix 70-30 Flexpen Syrn) 300 Units/3 Ml Solution, SC TIDAC, (Reported) Entered as Reported by: BRIANNE MAY on 04/10/19838 Levothyroxine Sodium (Levothyroxine Sodium) 112 Mcg Tablet, 112 MCG PO 0600, (Reported) Entered as Reported by: BRIANNE MAY on 04/10/19838 Loratadine (Loratadine) 10 Mg Tablet, 10 MG PO DAILY PRN for ALLERGIES, (Reported) Entered as Reported by: BRIANNE MAY on 04/10/19838 Memantine HCl (Memantine HCl) 10 Mg Tablet, 10 MG PO DAILY, (Reported) Entered as Reported by: BRIANNE MAY on 04/10/19838 Metoprolol Succinate (Metoprolol Succinate) 100 Mg Tab.er.24h, 100 MG PO DAILY, (Reported) Entered as Reported by: BRIANNE MAY on 04/10/19838 Mirtazapine (Mirtazapine) 15 Mg Tablet, 22.5 MG PO HS, (Reported) Entered as Reported by: BRIANNE MAY on 04/10/19838 Multivitamin (Multivitamins) 1 Each Tablet, 1 TAB PO DAILY, (Reported) Entered as Reported by: BRIANNE MAY on 04/10/19838 Omeprazole (Omeprazole) 40 Mg Capsule.dr, 40 MG PO DAILY, (Reported) Entered as Reported by: BRIANNE MAY on 04/10/19838 Peg 400/Hypromellose/Glycerin (Artificial Tears Drops) 15 Ml Drops, 1 DROP OU UD PRN for DRY EYES, (Reported) Entered as Reported by: BRIANNE MAY on 04/10/19838 Polyethylene Glycol 3350 (Miralax) 17 Gm Powd.pack, 17 GM PO DAILY, (Reported) Entered as Reported by: BRIANNE MAY on 04/10/19838 Review of Systems Review of Systems Constitutional: No chills, No fever Eyes: Denies Blurred Vision Ears, Nose, Mouth, Throat: no symptoms reported Respiratory: No cough, No short of breath Cardiovascular: No chest pain Gastrointestinal: No abdominal pain Genitourinary: no symptoms reported Musculoskeletal: no symptoms reported Skin: no symptoms reported Psychiatric/Neurological: No Symptoms Reported All Other Systems Reviewed Negative Unless Noted: Yes Past Fijdtbt-Eiujvp-Pnfipi Hx Patient Social History Tobacco Use?: No Immunizations Up To Date Tetanus Booster (TDap): Less than 5yrs Seasonal Allergies Seasonal Allergies: No Past Medical History Surgeries: Yes (inguinal hernia repair; EGD; colonoscopy; ) Appendectomy, CABG, Gallbladder, 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, Oophorectomy, Orthopedic Respiratory: Yes Emphysema Cardiac: Yes (hypertensive crisis ) High Cholesterol, Hypertension Neurological: Yes Dementia, Neuropathy, TIA Reproductive Disorders: No [employer] History: 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 Genitourinary: Yes (incontinence, acute on chronic renal failure) Renal Failure Gastrointestinal: Yes (Hepatitis B) Gastroesophageal Reflux Musculoskeletal: Yes (neck injury ) Arthritis, Back Injury Endocrine: Yes (Hyponatremia hx) Diabetes, Insulin dep, Hypothyroidsim, Lupus HEENT: Yes Cataract, Glaucoma Loss of Vision: Bilateral Hearing Impairment: Denies Cancer: No Psychosocial: Yes Depression Integumentary: No Blood Disorders: Yes (Anemia, Iron deficiency) Family Medical History Heart Disease, Cancer, Diabetes, Renal Disease Physical Exam Vital Signs Vital Signs - First Documented 08/17/21 11:31 Temp 35.9 Pulse 73 Resp 18 B/P (MAP) 150/70 (96) Capillary Refill : Height, Weight, BMI Height: 5'8.00" Weight: 165lbs. 0.0oz. [id number]; 26.00 BMI Method: General Appearance: WD/WN, no apparent distress HEENT: PERRL/EOMI, normal ENT inspection, pharynx normal, other (Hematoma to the back of her head with a lot of dried blood) Neck: non-tender, full range of motion, supple, normal inspection Cardiovascular: regular rate, rhythm, no edema, no murmur Respiratory: chest non-tender, lungs clear, normal breath sounds, no respiratory distress, no accessory muscle use Gastrointestinal: normal bowel sounds, non tender, soft Back: normal inspection, no CVA tenderness, no vertebral tenderness Extremities: normal range of motion, non-tender, normal inspection, no pedal edema, no calf tenderness Neurologic/Psychiatric: supervisor covering and lining II-XII nml as tested, no motor/sensory deficits, alert, normal mood/affect, oriented x 3 Skin: normal color, warm/dry Lymphatic: no adenopathy [place] Coma Score Best Eye Response: (4) Open Spontaneously Best Verbal Response: (5) Oriented Best Motor Response: (6) Obeys Commands Progress/Results/Core Measures Results/Orders My Orders Orders - BASILIA LÓPEZ MD Dipht,Pertuss(Acell),Tet Adult (Boostrix (08/17/21 11:15) Ct Head/Cervical Spine Wo (08/17/21 11:07) Lidocaine/Epi 2% 1:100,000 (Xylocaine/Ep (08/17/21 11:15) Vital Signs/I&O 08/17/21 11:31 Temp 35.9 Pulse 73 Resp 18 B/P (MAP) 150/70 (96) Progress Progress Note : Progress Note 80-year-old female with above history coming in after she bent down and fell earlier hitting the back of her head. No loss of consciousness and no real symptoms other than headache. ABCs were intact, GCS 15, vital stable on presentation. Physical exam with a hematoma to the back of her head as well as a skin tear to her left elbow. Tetanus updated today. CT head and cervical spine ordered and showed no intracranial abnormality or cervical spine abnormality that is acute other than the extracranial hematoma. Wounds were cleaned, and other than an abrasion on her head, she has no laceration that would need repair. Her oxygen at times will go down to 88% particularly when she was sleeping. She did miss dialysis once last week and did go the long weekend without it thus far. I suspect this will improve after getting fluid off of her. She was then discharged home in stable condition with strict return precautions. She should be able to go to dialysis upon discharge. Diagnostic Imaging Diagonstic Imaging: CT (head/c spine) Comments [facility]. [place], [place] NAME: BECCA ARCE [facility] REC#: [id number] PT STATUS: REG ER : 1940 PHYSICIAN: BASILIA LÓPEZ MD ADMIT DATE: 08/17/21/ER FS Draft Date of Exam:08/17/21 CT HEAD/CERVICAL SPINE WO PROCEDURE: CT head and CT cervical spine without contrast. TECHNIQUE: Multiple contiguous axial images were obtained through the brain and cervical spine without the use of intravenous contrast. Sagittal and coronal reformations through the cervical spine were then performed. Auto Exposure Controls were utilized during the CT exam to meet ALARA standards for radiation dose reduction. INDICATION: Fall. COMPARISON: Prior head CT from 06/19/2021. FINDINGS: CT HEAD: There is a large hematoma in the right occipital region. The ventricles and sulci are consistent with the patient's age. Moderate periventricular hypodensity is noted, consistent with senescent change. Encephalomalacia in the right occipital lobe is stable. No sulcal effacement is seen. There is no midline shift. No acute intra-axial or extra-axial hemorrhage is detected. The cisterns are patent. The visualized paranasal sinuses are clear. IMPRESSION: 1. Large right occipital scalp hematoma. 2. Chronic and senescent changes intracranially. No acute intracranial process is identified. CT CERVICAL SPINE: There is slight reversal of the normal cervical lordotic curvature. Minimal anterolisthesis of C4 on C5 is noted with minimal retrolisthesis of C5 on C6 and C6 on C7. There is significant degenerative disc disease at the C5-C6 and C6-C7 levels with disc space narrowing and marginal spurring. No fractures are identified. The odontoid is intact. IMPRESSION: Cervical spondylosis and listheses. No acute bony abnormality is detected. Dictated on workstation # [id number] Dict: 08/17/21 1128 Trans: 08/17/21 1135 [id number] Interpreted by: STUART THOMAS MD Electronically signed by: Departure Impression Primary Impression: Closed head injury Qualified Codes: S09.90XA - Unspecified injury of head, initial encounter Additional Impressions: Scalp hematoma Qualified Codes: S00.03XA - Contusion of scalp, initial encounter Skin tear Disposition: HOME, SELF-CARE Condition: Stable Departure-Patient Inst. Decision time for Depature: 12:24 Referrals: ADOLFO RHODES MD (PCP/Family) Primary Care Physician Patient Instructions: Concussion, Adult ED, Skin Abrasions Add. Discharge Instructions: The patient is okay to go to dialysis today if able. Would restart the blood thinners tomorrow morning. She may be slightly confused or have a headache from the concussion. Take Tylenol for the headache. If she becomes less responsive than I would want her reevaluated. BASILIA LÓPEZ MD Aug 17, 2021 11:16
[2021-08-17 11:31] VITALS: BP 150/70
--- NOTE | 2021-08-17 11:36 | Diagnostic Imaging Report ---
PROCEDURE: CT head and CT cervical spine without contrast. TECHNIQUE: Multiple contiguous axial images were obtained through the brain and cervical spine without the use of intravenous contrast. Sagittal and coronal reformations through the cervical spine were then performed. Auto Exposure Controls were utilized during the CT exam to meet ALARA standards for radiation dose reduction. INDICATION: Fall. COMPARISON: Prior head CT from 06/19/2021. FINDINGS: CT HEAD: There is a large hematoma in the right occipital region. The ventricles and sulci are consistent with the patient's age. Moderate periventricular hypodensity is noted, consistent with senescent change. Encephalomalacia in the right occipital lobe is stable. No sulcal effacement is seen. There is no midline shift. No acute intra-axial or extra-axial hemorrhage is detected. The cisterns are patent. The visualized paranasal sinuses are clear. IMPRESSION: 1. Large right occipital scalp hematoma. 2. Chronic and senescent changes intracranially. No acute intracranial process is identified. CT CERVICAL SPINE: There is slight reversal of the normal cervical lordotic curvature. Minimal anterolisthesis of C4 on C5 is noted with minimal retrolisthesis of C5 on C6 and C6 on C7. There is significant degenerative disc disease at the C5-C6 and C6-C7 levels with disc space narrowing and marginal spurring. No fractures are identified. The odontoid is intact. IMPRESSION: Cervical spondylosis and listheses. No acute bony abnormality is detected. Dictated by: Dictated on workstation # [id number]
[2021-08-18] MEDS ORDERED: ONDA4TAB11 PO (22:15)
[2021-08-18] MEDS ORDERED: AZIT250T12 PO (22:15)
[2021-08-18] MEDS ORDERED: BENZ100C18 PO (22:15)
== END 2021-08-17 12:30 | disposition home or self-care (01) ==
LOC: EDUNIT# 11:02 → ER FS 11:03
DX: S09.90XA Unspecified injury of head, initial encounter (principal); S00.03XA Contusion of scalp, initial encounter; I10 Essential (primary) hypertension; F03.90 Unspecified dementia, unspecified severity, without behavioral disturbance, psychotic disturbance, mood disturbance, and anxiety; K21.9 Gastro-esophageal reflux disease without esophagitis; E03.9 Hypothyroidism, unspecified; E78.00 Pure hypercholesterolemia, unspecified; F32.9 Major depressive disorder, single episode, unspecified; E11.9 Type 2 diabetes mellitus without complications; H40.9 Unspecified glaucoma; Z91.040 Latex allergy status; Z86.73 Personal history of transient ischemic attack (TIA), and cerebral infarction without residual deficits; Z79.01 Long term (current) use of anticoagulants; Z79.4 Long term (current) use of insulin; Z79.890 Hormone replacement therapy; Z79.899 Other long term (current) drug therapy; W22.8XXA Striking against or struck by other objects, initial encounter
CPT/HCPCS: 70450; 72125; 90715; 99283

== ENCOUNTER 2021-08-18 20:54 | Emergency (ER) | payer MEDICARE, MEDICAID ==
[~2021-08-18] VITALS: Ht 170 cm; Wt 79.0 kg
--- NOTE | 2021-08-18 21:05 | ED General ---
General Stated Complaint: HIGH PULSE,LABORED BREATHING History of Present Illness Date Seen by Provider: Aug 18, 2021 Time Seen by Provider: 21:00 Initial Comments 80-year-old female presents with "labored breathing" family brought her in states that she has been having a hard time breathing. She has been complaining of feeling of shortness of breath. That her heart rate is fast. Patient was seen yesterday in the ER following a fall. She had a negative head CT and cervical spine CT at that time. Patient had dialysis this morning. They report that she has had a little bit of complaints of shortness of breath since last week. That today however she feels quite a bit worse and that she "cannot get her breath" patient does use inhalers at home but has not used them today. They report that her heart rate was around 120s at home. Patient did have a couple episodes yesterday when she was sleeping when her oxygen dropped to 88 however rapidly rebounded. There is no complaints of shortness of breath at her ER visit yesterday. She was diagnosed with a concussion from her fall. Allergies and Home Medications Allergies Coded Allergies: Iodinated Contrast Media (Unverified Allergy, Unknown, HIVES, 04/09/19) codeine (Unverified Allergy, Unknown, NERVOUSNESS, 04/09/19) latex (Unverified Allergy, Unknown, ITCHING, RASH, 04/09/19) lisinopril (Unverified Adverse Reaction, Unknown, 08/24/20) Per [facility] records shrimp (Unverified Adverse Reaction, Unknown, 08/24/20) per [facility] records sulfamethoxazole (Unverified Adverse Reaction, Unknown, 08/24/20) per [facility] record trimethoprim (Unverified Adverse Reaction, Unknown, 08/24/20) per [facility] record Patient Home Medication List Home Medication List Reviewed: Yes Acetaminophen (Tylenol Extra Strength) 500 Mg Tablet, 1,000 MG PO Q6H PRN for PAIN-MILD, (Reported) Entered as Reported by: BRIANNE MAY on 04/10/19838 Albuterol Sulfate (Albuterol Sulfate) 2.5 Mg/3 Ml Vial.neb, 2.5 MG NEB Q6H PRN for SHORTNESS OF BREATH, (Reported) Entered as Reported by: BRIANNE MAY on 04/10/19838 Albuterol Sulfate (Ventolin Hfa) 1 Puff Puff, 2 PUFF INH Q6H PRN for SHORTNESS OF BREATH, (Reported) Entered as Reported by: BRIANNE MAY on 04/10/19838 Amlodipine Besylate (Norvasc) 10 Mg Tablet, 10 MG PO DAILY, (Reported) Entered as Reported by: MARCELLA SLOAN on 08/06/19 131 Atorvastatin Calcium (Atorvastatin Calcium) 80 Mg Tablet, 80 MG PO HS, (Reported) Entered as Reported by: BRIANNE MAY on 04/10/19838 Azithromycin (Azithromycin) 250 Mg Tablet, 250 MG PO DAILY Prescribed by: IRIS JANE on 08/18/212214 Benzonatate (Tessalon Perles) 100 Mg Capsule, 100 MG PO TID PRN for COUGH Prescribed by: IRIS JANE on 08/18/212214 Brimonidine Tartrate/Timolol (Combigan Eye Drops) 5 Ml Drops, 1 DROP OU BID, (R eported) Entered as Reported by: BRIANNE MAY on 04/10/19838 Bupropion HCl (Bupropion HCl Sr) 150 Mg Tablet.er, 300 MG PO DAILY, (Reported) Entered as Reported by: BRIANNE MAY on 04/10/19848 Calcium Carbonate/Vitamin D3 (Calcium 600 + Vit D 200 Tablet) 1 Each Tablet, 2 TAB PO DAILY, (Reported) Entered as Reported by: BRIANNE MAY on 04/10/19838 Cholecalciferol (Vitamin D3) (D3-2000) 50 Mcg Capsule, 50 MCG PO 1000, (Reported) Entered as Reported by: MARCELLA SLOAN on 08/06/19 131 Clopidogrel Bisulfate (Clopidogrel) 75 Mg Tablet, 75 MG PO DAILY, (Reported) Entered as Reported by: BRIANNE MAY on 04/10/19838 Cyanocobalamin (Vitamin B-12) (Vitamin B12) 2,500 Mcg Tablet, 2,500 MCG PO DAILY, (Reported) Entered as Reported by: MARCELLA SLOAN on 08/06/19 131 Cyclobenzaprine HCl (Cyclobenzaprine HCl) 10 Mg Tablet, 10 MG PO Q8H Prescribed by: LANA LEDESMA on 08/24/201901 Dextromethorphan HBr (Tussin Cough) 15 Mg/5 Ml Liquid, 10 ML PO Q4H PRN for COUGH, (Reported) Entered as Reported by: BRIANNE MAY on 04/10/19838 Diazepam (Valium) 5 Mg Tablet, 5 MG PO Q12H PRN for ANXIETY, (Reported) Entered as Reported by: BRIANNE MAY on 04/10/19838 Docusate Sodium (Colace) 100 Mg Capsule, 100 MG PO DAILY, (Reported) Entered as Reported by: BRIANNE MAY on 04/10/19838 Donepezil HCl (Donepezil HCl) 10 Mg Tablet, 10 MG PO HS, (Reported) Entered as Reported by: BRIANNE MAY on 04/10/19848 Doxazosin Mesylate (Cardura) 4 Mg Tablet, 4 MG PO BID, (Reported) Entered as Reported by: MARCELLA SLOAN on 08/06/19 131 Fluticasone Propionate (Fluticasone Propionate) 16 Gm [place].susp, 1 SPRAY NS DAILY PRN for ALLERGIES, (Reported) Entered as Reported by: BRIANNE MAY on 04/10/19838 Fluticasone/Salmeterol (Advair 100-50 Diskus) 1 Each Blst.w.dev, 1 PUFF INH BID, (Reported) Entered as Reported by: BRIANNE MAY on 04/10/19838 Hydralazine HCl (Hydralazine HCl) 50 Mg Tablet, 50 MG PO Q8H, (Reported) Entered as Reported by: MARCELLA SLOAN on 08/06/19 1315 Hydrocodone/Acetaminophen (Hydrocodone-Acetamin 5-325 mg) 1 Each Tablet, 1 TAB PO Q4H PRN for PAIN-MODERATE (5-7) Prescribed by: LANA LEDESMA on 08/24/20 190 Insulin Glargine,Hum.rec.anlog (Lantus Solostar) 100 Unit/1 Ml Insuln.pen, 4 UNIT SQ HS, (Reported) Entered as Reported by: BRIANNE MAY on 04/10/19838 Insuln Asp Prt/Insulin Aspart (Novolog Mix 70-30 Flexpen Syrn) 300 Units/3 Ml Solution, SC TIDAC, (Reported) Entered as Reported by: BRIANNE MAY on 04/10/19838 Levothyroxine Sodium (Levothyroxine Sodium) 112 Mcg Tablet, 112 MCG PO 0600, (Reported) Entered as Reported by: BRIANNE MAY on 04/10/19838 Loratadine (Loratadine) 10 Mg Tablet, 10 MG PO DAILY PRN for ALLERGIES, (Reported) Entered as Reported by: BRIANNE MAY on 04/10/19838 Memantine HCl (Memantine HCl) 10 Mg Tablet, 10 MG PO DAILY, (Reported) Entered as Reported by: BRIANNE MAY on 04/10/19838 Metoprolol Succinate (Metoprolol Succinate) 100 Mg Tab.er.24h, 100 MG PO DAILY, (Reported) Entered as Reported by: BRIANNE MAY on 04/10/19838 Mirtazapine (Mirtazapine) 15 Mg Tablet, 22.5 MG PO HS, (Reported) Entered as Reported by: BRIANNE MAY on 04/10/19838 Multivitamin (Multivitamins) 1 Each Tablet, 1 TAB PO DAILY, (Reported) Entered as Reported by: BRIANNE MAY on 04/10/19838 Omeprazole (Omeprazole) 40 Mg Capsule.dr, 40 MG PO DAILY, (Reported) Entered as Reported by: BRIANNE MAY on 04/10/19838 Ondansetron (Ondansetron Odt) 4 Mg Tab.rapdis, 4 MG PO Q6H PRN for NAUSEA/VOMITING Prescribed by: IRIS JANE on 08/18/212214 Peg 400/Hypromellose/Glycerin (Artificial Tears Drops) 15 Ml Drops, 1 DROP OU UD PRN for DRY EYES, (Reported) Entered as Reported by: BRIANNE MAY on 04/10/19838 Polyethylene Glycol 3350 (Miralax) 17 Gm Powd.pack, 17 GM PO DAILY, (Reported) Entered as Reported by: BRIANNE MAY on 04/10/19838 Review of Systems Review of Systems Constitutional: No chills, No fever Past Gkipkid-Vxihcu-Sleelk Hx Immunizations Up To Date Tetanus Booster (TDap): Less than 5yrs Seasonal Allergies Seasonal Allergies: No Past Medical History Surgeries: Yes (inguinal hernia repair; EGD; colonoscopy; ) Appendectomy, CABG, Gallbladder, 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, Oophorectomy, Orthopedic Respiratory: Yes Emphysema Cardiac: Yes (hypertensive crisis ) High Cholesterol, Hypertension Neurological: Yes Dementia, Neuropathy, TIA Reproductive Disorders: No [employer] History: 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 Genitourinary: Yes (incontinence, acute on chronic renal failure) Renal Failure Gastrointestinal: Yes (Hepatitis B) Gastroesophageal Reflux Musculoskeletal: Yes (neck injury ) Arthritis, Back Injury Endocrine: Yes (Hyponatremia hx) Diabetes, Insulin dep, Hypothyroidsim, Lupus HEENT: Yes Cataract, Glaucoma Loss of Vision: Bilateral Hearing Impairment: Denies Cancer: No Psychosocial: Yes Depression Integumentary: No Blood Disorders: Yes (Anemia, Iron deficiency) Family Medical History Heart Disease, Cancer, Diabetes, Renal Disease Physical Exam Vital Signs Vital Signs - First Documented 08/18/21 21:00 Temp 37.0 Pulse 131 Resp 21 B/P (MAP) 150/118 (129) Pulse Ox 94 O2 Delivery Room Air Capillary Refill : Height, Weight, BMI Height: 5'8.00" Weight: 165lbs. 0.0oz. 74.216688mz; 26.00 BMI Method: General Appearance: Anxious HEENT: Other (Small posterior scalp hematoma) Neck: Normal Inspection, Non Tender Respiratory: No Accessory Muscle Use, No Respiratory Distress, Wheezing Cardiovascular: Tachycardia Gastrointestinal: Non Tender, Soft; No Distended Neurologic/Psychiatric: Alert, Normal Mood/Affect Progress/Results/Core Measures Suspected Sepsis SIRS Temperature: Pulse: Respiratory Rate: Laboratory Tests 08/18/21 21:20: White Blood Count 8.4 Blood Pressure / Mean: Laboratory Tests 08/18/21 21:20: Creatinine 2.52H, Platelet Count 400, Total Bilirubin 0.3 Results/Orders Lab Results Laboratory Tests Test 08/18/21 21:20 Range/Units White Blood Count 8.4 4.3-11.0 10^3/uL Red Blood Count 3.83 3.80-5.11 10^6/uL Hemoglobin 10.9 L 11.5-16.0 g/dL Hematocrit 35 35-52 % Mean Corpuscular Volume 91 80-99 fL Mean Corpuscular Hemoglobin 29 25-34 pg Mean Corpuscular Hemoglobin Concent 31 L 32-36 g/dL Red Cell Distribution Width 15.1 H 10.0-14.5 % Platelet Count 400 130-400 10^3/uL Mean Platelet Volume 9.2 9.0-12.2 fL Immature Granulocyte % (Auto) 1 % Neutrophils (%) (Auto) 74 42-75 % Lymphocytes (%) (Auto) 12 12-44 % Monocytes (%) (Auto) 13 H 0-12 % Eosinophils (%) (Auto) 0 0-10 % Basophils (%) (Auto) 0 0-10 % Neutrophils # (Auto) 6.3 1.8-7.8 10^3/uL Lymphocytes # (Auto) 1.0 1.0-4.0 10^3/uL Monocytes # (Auto) 1.1 H 0.0-1.0 10^3/uL Eosinophils # (Auto) 0.0 0.0-0.3 10^3/uL Basophils # (Auto) 0.0 0.0-0.1 10^3/uL Immature Granulocyte # (Auto) 0.1 0.0-0.1 10^3/uL Sodium Level 139 135-145 MMOL/L Potassium Level 3.1 L 3.6-5.0 MMOL/L Chloride Level 94 L 98-107 MMOL/L Carbon Dioxide Level 30 21-32 MMOL/L Anion Gap 15 H 5-14 MMOL/L Blood Urea Nitrogen 12 7-18 MG/DL Creatinine 2.52 H 0.60-1.30 MG/DL Estimat Glomerular Filtration Rate 19 BUN/Creatinine Ratio 5 Glucose Level 84 70-105 MG/DL Calcium Level 8.4 L 8.5-10.1 MG/DL Corrected Calcium 9.4 8.5-10.1 MG/DL Magnesium Level 2.0 1.6-2.4 MG/DL Total Bilirubin 0.3 0.1-1.0 MG/DL Aspartate Amino Transf (AST/SGOT) 39 H 5-34 U/L Alanine Aminotransferase (ALT/SGPT) 21 0-55 U/L Alkaline Phosphatase 121 40-136 U/L C-Reactive Protein 15.38 H <0.50 MG/DL Total Protein 6.5 6.4-8.2 GM/DL Albumin 2.8 L 3.2-4.5 GM/DL My Orders Orders - JANE,IRIS L DO Ed Iv/Invasive Line Start (08/18/21 21:05) Ekg Tracing (08/18/21 21:05) Monitor-Rhythm Ecg Trace Only (08/18/21 21:05) Cbc With Automated Diff (08/18/21 21:05) Comprehensive Metabolic Panel (08/18/21 21:05) Magnesium (08/18/21 21:05) Crp Fs (08/18/21 21:05) Chest 1 View Ap/Pa Only (08/18/21 21:05) Albuterol/Ipra Inhalation Soln (Duoneb I (08/18/21 21:15) Svn Small Volume Nebulizer (08/18/21 21:05) Methylprednisolone Sod Succ (Solu-Medrol (08/18/21 21:39) Azithromycin Tablet (Zithromax Tablet) (08/18/21 21:45) Ondansetron Injection (Zofran Injectio (08/18/21 22:15) Benzonatate Capsule (Tessalon Perles) (08/18/21 22:15) Albuterol Pre-Mix Nebs (Rt) (Proventil (08/18/21 22:11) Svn Small Volume Nebulizer (08/18/21 22:11) Medications Given in ED Current Medications Medications Dose Ordered Sig/Nicole Route Start Time Stop Time Status Last Admin Dose Admin Albuterol/ Ipratropium 3 ml ONCE ONCE INH 08/18/21 21:15 08/18/21 21:16 DC 08/18/21 21:22 3 ML Azithromycin 500 mg ONCE ONCE PO 08/18/21 21:45 08/18/21 21:46 DC 08/18/21 21:51 500 MG Ondansetron HCl 4 mg ONCE ONCE IVP 08/18/21 22:15 08/18/21 22:16 DC 08/18/21 22:18 4 MG Vital Signs/I&O 08/18/21 08/18/21 21:00 21:00 Temp 37.0 Pulse 131 Resp 21 B/P (MAP) 150/118 (129) Pulse Ox 94 O2 Delivery Room Air Room Air Capillary Refill : Progress Note : Progress Note Patient's heart rate and oxygen greatly improved following a DuoNeb. Patient with what appears to be maybe an early pneumonia possibly on x-ray. I gave her a azithromycin in the ER along with Solu-Medrol. Just prior to discharge I also gave her an additional albuterol since she still had a mild wheeze. Patient looks significantly better than when she arrived. Patient was also given a Tessalon Perle to help with the cough along with Zofran since she was mildly nauseated. I did recommend that if her symptoms continue to worsen the check her for Covid at the half-way. Patient was stable and discharged home ECG Initial ECG Impression Date: Aug 18, 2021 Initial ECG Impression Time: 20:21 Initial ECG Rhythm: S.Tach Initial ECG Impression: Nonspecific Changes Diagnostic Imaging Diagonstic Imaging: Xray Plain Films/CT/US/NM/MRI: chest Comments CHEST 1 VIEW AP/PA ONLY INDICATION: Short of breath EXAMINATION: Chest 08/18/2021 COMPARISON: 05/17/2021 FINDINGS: Dual lumen catheter noted on the right with the tip of the junction of the SVC in the right atrium. Sternotomy wires and mediastinal clips are noted. There may be a mild infiltrate or atelectasis at the right lung base. Similar findings seen at the left lung base. There are no effusions. No pneumothorax. IMPRESSION: 1. Vague patchy airspace opacities at both lung bases which could represent atelectasis versus infiltrate. Reviewed: Reviewed by Me, Reviewed/Discussed Departure Impression Primary Impression: Pneumonia Qualified Codes: J18.9 - Pneumonia, unspecified organism Disposition: 01 HOME, SELF-CARE Condition: Stable Departure-Patient Inst. Referrals: SELFADOLFO MD (PCP/Family) Primary Care Physician Patient Instructions: Pneumonia, Adult (DC) Add. Discharge Instructions: Albuterol inhaler every 4 hours while awake for the next 24 hours Follow-up with the primary care provider in 2 to 3 days for recheck of symptoms Scripts Ondansetron (Ondansetron Odt) 4 Mg Tab.rapdis 4 MG PO Q6H PRN for NAUSEA/VOMITING, #20 TAB 0 Refills Prov: JANE,IRIS L DO 08/18/21 Benzonatate (TESSALON PERLES) 100 Mg Capsule 100 MG PO TID PRN for COUGH, #14 CAP Prov: JANE,IRIS L DO 08/18/21 Azithromycin (Azithromycin) 250 Mg Tablet 250 MG PO DAILY, #4 TAB 0 Refills Prov: JANE,IRIS L DO 08/18/21 JANE,IRIS L DO Aug 18, 2021 21:05
[2021-08-18] MEDS ORDERED: RT-ALBUTEROL/IPRATROPIUM 3 ML (DUONEB) VIAL INH ONE (21:15)
[2021-08-18 21:29] LABS: BASOPHILS % (AUTO) 0 % (0-10); EOSINOPHILS % (AUTO) 0 % (0-10); HEMATOCRIT 35 % (35-52); HEMOGLOBIN 10.9 g/dL (11.5-16.0); LYMPHOCYTES % (AUTO) 12 % (12-44); MEAN CORPUSCULAR HEMOGLOBIN 29 pg (25-34); MEAN CORPUSCULAR HGB CONC 31 g/dL (32-36); MEAN CORPUSCULAR VOLUME 91 fL (80-99); MEAN PLATELET VOLUME 9.2 fL (9.0-12.2); MONOCYTES # (AUTO) 1.1 10^3/uL (0.0-1.0); MONOCYTES % (AUTO) 13 % (0-12); NEUTROPHILS # (AUTO) 6.3 10^3/uL (1.8-7.8); NEUTROPHILS % (AUTO) 74 % (42-75); PLATELET COUNT 400 10^3/uL (130-400); WHITE BLOOD COUNT 8.4 10^3/uL (4.3-11.0)
--- NOTE | 2021-08-18 21:34 | Diagnostic Imaging Report ---
INDICATION: Short of breath EXAMINATION: Chest 08/18/2021 COMPARISON: 05/17/2021 FINDINGS: Dual lumen catheter noted on the right with the tip of the junction of the SVC in the right atrium. Sternotomy wires and mediastinal clips are noted. There may be a mild infiltrate or atelectasis at the right lung base. Similar findings seen at the left lung base. There are no effusions. No pneumothorax. IMPRESSION: 1. Vague patchy airspace opacities at both lung bases which could represent atelectasis versus infiltrate. Dictated by: Dictated on workstation # [id number]
[2021-08-18] MEDS ORDERED: methylPREDNISolone 125 MG (Solu-MEDROL) VIAL IV STA (21:39)
[2021-08-18] MEDS ORDERED: AZITHROMYCIN 250 MG TAB (ZITHROMAX) PO ONE (21:45)
[2021-08-18 21:52] LABS: BILIRUBIN,TOTAL 0.3 MG/DL (0.1-1.0); CALCIUM 8.4 MG/DL (8.5-10.1); CREATININE SERUM 2.52 MG/DL (0.60-1.30); POTASSIUM 3.1 MMOL/L (3.6-5.0); TOTAL PROTEIN 6.5 GM/DL (6.4-8.2)
[2021-08-18 21:53] LABS: ALBUMIN 2.8 GM/DL (3.2-4.5)
[2021-08-18] MEDS ORDERED: RT-ALBUTEROL SULF 2.5 MG/3 ML PRE-MIX VIAL INH STA (22:11)
[2021-08-18] MEDS ORDERED: ONDA4TAB11 PO (22:15)
[2021-08-18] MEDS ORDERED: BENZONATATE 100 MG (TESSALON) CAPSULE PO SCH (22:15)
[2021-08-18] MEDS ORDERED: AZIT250T12 PO (22:15)
[2021-08-18] MEDS ORDERED: ONDANSETRON 4 MG/2 ML (SDV) Z0FRAN IVP ONE (22:15)
[2021-08-18] MEDS ORDERED: BENZ100C18 PO (22:15)
[2021-08-18 22:40] VITALS: BP 154/82
== END 2021-08-18 22:40 | disposition home or self-care (01) ==
LOC: EDUNIT# 20:54 → ER FS 20:56
DX: S00.03XA Contusion of scalp, initial encounter (principal); J18.9 Pneumonia, unspecified organism; I10 Essential (primary) hypertension; F03.90 Unspecified dementia, unspecified severity, without behavioral disturbance, psychotic disturbance, mood disturbance, and anxiety; E78.00 Pure hypercholesterolemia, unspecified; E11.9 Type 2 diabetes mellitus without complications; K21.9 Gastro-esophageal reflux disease without esophagitis; F32.9 Major depressive disorder, single episode, unspecified; H40.9 Unspecified glaucoma; E03.9 Hypothyroidism, unspecified; Z91.040 Latex allergy status; Z86.73 Personal history of transient ischemic attack (TIA), and cerebral infarction without residual deficits; Z79.4 Long term (current) use of insulin; Z79.01 Long term (current) use of anticoagulants; Z79.890 Hormone replacement therapy; Z79.899 Other long term (current) drug therapy; W19.XXXA Unspecified fall, initial encounter
CPT/HCPCS: 36415; 71045; 80053; 83735; 85025; 86141; 93005; 93041

== ENCOUNTER 2021-09-02 19:27 | Emergency (ER) | payer MEDICARE, MEDICAID ==
[~2021-09-02] VITALS: Ht 165 cm; Wt 77.0 kg
[~2021-09-02 19:27] MED LIST changes: +BENZ100C18 PO; +ONDA4TAB11 PO
[2021-09-02] MEDS ORDERED: ONDANSETRON 4 MG (ZOFRAN) ORAL DISSOLVE TAB PO STA (19:50)
[2021-09-02 19:59] LABS: BILIRUBIN,URINE NEGATIVE (NEGATIVE); CLARITY,URINE TURBID; COLOR,URINE YELLOW; GLUCOSE, URINE (UA) NEGATIVE (NEGATIVE); KETONES,URINE NEGATIVE (NEGATIVE); LEUKOCYTE ESTERASE ,URINE 2+ (NEGATIVE); NITRITE,URINE NEGATIVE (NEGATIVE); PROTEIN,URINE 2+ (NEGATIVE)
[2021-09-02] MEDS ORDERED: ACETAMINOPHEN 500 MG TAB (TYLENOL) PO ONE (20:00)
[2021-09-02 20:05] LABS: BACTERIA,URINE LARGE /HPF; RBC,URINE RARE /HPF; WBC,URINE >100 /HPF
[2021-09-02 20:10] LABS: BASOPHILS % (AUTO) 1 % (0-10); EOSINOPHILS % (AUTO) 0 % (0-10); HEMATOCRIT 29 % (35-52); HEMOGLOBIN 9.5 g/dL (11.5-16.0); LYMPHOCYTES # (AUTO) 0.8 10^3/uL (1.0-4.0); LYMPHOCYTES % (AUTO) 16 % (12-44); MEAN CORPUSCULAR HEMOGLOBIN 29 pg (25-34); MEAN CORPUSCULAR HGB CONC 32 g/dL (32-36); MEAN CORPUSCULAR VOLUME 89 fL (80-99); MEAN PLATELET VOLUME 9.6 fL (9.0-12.2); MONOCYTES # (AUTO) 0.5 10^3/uL (0.0-1.0); MONOCYTES % (AUTO) 10 % (0-12); NEUTROPHILS # (AUTO) 3.6 10^3/uL (1.8-7.8); NEUTROPHILS % (AUTO) 73 % (42-75); PLATELET COUNT 305 10^3/uL (130-400); WHITE BLOOD COUNT 4.9 10^3/uL (4.3-11.0)
[2021-09-02 20:37] LABS: ALANINE AMINOTRANSFERASE 21 U/L (0-55); ALKALINE PHOSPHATASE 125 U/L (40-136); BILIRUBIN,TOTAL 0.3 MG/DL (0.1-1.0); BUN/CREATININE RATIO 3; CALCIUM 8.2 MG/DL (8.5-10.1); CARBON DIOXIDE 30 MMOL/L (21-32); CHLORIDE 97 MMOL/L (98-107); CREATININE SERUM 3.38 MG/DL (0.60-1.30); GFR ESTIMATED 13; GLUCOSE 63 MG/DL (70-105); MAGNESIUM 2.1 MG/DL (1.6-2.4); POTASSIUM 2.9 MMOL/L (3.6-5.0); SODIUM 139 MMOL/L (135-145)
[2021-09-02 20:38] LABS: ALBUMIN 2.1 GM/DL (3.2-4.5); TOTAL PROTEIN 5.6 GM/DL (6.4-8.2)
[2021-09-02] MEDS ORDERED: DEXTROSE 50% 50 ML (IMS) SYR IV ONE (20:45)
[2021-09-02] MEDS ORDERED: KCL 20 MEQ TAB (K-DUR) PO ONE (20:45)
[2021-09-02] MEDS ORDERED: cefTRIAXone 1 GM PRE-MIX 50 ML IV ONE (20:49)
--- NOTE | 2021-09-02 21:57 | ED General ---
General Chief Complaint: General Problems/Pain Stated Complaint: CONFUSION Nursing Triage Note: Pt daughter reports pt was at dialysis for 1.5hrs and pt wanted to leave. Pt daughter reports pt has been confused since dialysis. Pt is A&O x 4 and is c/o pain to vaginal area and stated "they put me on a bed and a metal holly hit my pussy and it hurts." Pt denies any other complaints. Source of Information: Patient Exam Limitations: No Limitations History of Present Illness Date Seen by Provider: Sep 02, 2021 Time Seen by Provider: 19:20 Initial Comments Patient is a 1-year-old female dialysis patient who presents with multiple medical complaints. Patient seen patient was confused at home. She is normally alert and oriented x4 but was confused prior to ED arrival and was noted to have a blood sugar in the 70s. Patient is alert and oriented x4 on ED arrival. She does complain of vaginal pain after hitting a metal holly today at dialysis. She complains of feeling cold but denies fever chills sweats. She denies headache, chest pain palpitation shortness of breath. No abdominal pain nausea vomiting. No other symptoms or complaints. Blood sugar on ED arrival 63. Additional history as per the patient's daughter Timing/Duration: 1-3 Hours Severity: Mild Modifying Factors: improves with Other Associated Systoms: Other Allergies and Home Medications Allergies Coded Allergies: Iodinated Contrast Media (Unverified Allergy, Unknown, HIVES, 04/09/19) codeine (Unverified Allergy, Unknown, NERVOUSNESS, 04/09/19) latex (Unverified Allergy, Unknown, ITCHING, RASH, 04/09/19) lisinopril (Unverified Adverse Reaction, Unknown, 08/24/20) Per [facility] records shrimp (Unverified Adverse Reaction, Unknown, 08/24/20) per [facility] records sulfamethoxazole (Unverified Adverse Reaction, Unknown, 08/24/20) per [facility] record trimethoprim (Unverified Adverse Reaction, Unknown, 08/24/20) per [facility] record Patient Home Medication List Home Medication List Reviewed: Yes Acetaminophen (Tylenol Extra Strength) 500 Mg Tablet, 1,000 MG PO Q6H PRN for PAIN-MILD, (Reported) Entered as Reported by: BRIANNE MAY on 10/07/29 838 Albuterol Sulfate (Albuterol Sulfate) 2.5 Mg/3 Ml Vial.neb, 2.5 MG NEB Q6H PRN for SHORTNESS OF BREATH, (Reported) Entered as Reported by: BRIANNE MAY on 04/10/19838 Albuterol Sulfate (Ventolin Hfa) 1 Puff Puff, 2 PUFF INH Q6H PRN for SHORTNESS OF BREATH, (Reported) Entered as Reported by: BRIANNE MAY on 04/10/19838 Amlodipine Besylate (Norvasc) 10 Mg Tablet, 10 MG PO DAILY, (Reported) Entered as Reported by: MARCELLA SLOAN on 08/06/19 131 Atorvastatin Calcium (Atorvastatin Calcium) 80 Mg Tablet, 80 MG PO HS, (Reported) Entered as Reported by: BRIANNE MAY on 04/10/19838 Azithromycin (Azithromycin) 250 Mg Tablet, 250 MG PO DAILY Prescribed by: IRIS JANE on 08/18/212214 Benzonatate (Tessalon Perles) 100 Mg Capsule, 100 MG PO TID PRN for COUGH Prescribed by: IRIS JANE on 08/18/212214 Brimonidine Tartrate/Timolol (Combigan Eye Drops) 5 Ml Drops, 1 DROP OU BID, (Reported) Entered as Reported by: BRIANNE MAY on 04/10/19838 Bupropion HCl (Bupropion HCl Sr) 150 Mg Tablet.er, 300 MG PO DAILY, (Reported) Entered as Reported by: BRIANNE MAY on 04/10/19848 Calcium Carbonate/Vitamin D3 (Calcium 600 + Vit D 200 Tablet) 1 Each Tablet, 2 TAB PO DAILY, (Reported) Entered as Reported by: BRIANNE MAY on 04/10/19838 Cholecalciferol (Vitamin D3) (D3-2000) 50 Mcg Capsule, 50 MCG PO 1000, (Reported) Entered as Reported by: MARCELLA SLOAN on 08/06/19 1315 Clopidogrel Bisulfate (Clopidogrel) 75 Mg Tablet, 75 MG PO DAILY, (Reported) Entered as Reported by: BRIANNE MAY on 04/10/19838 Cyanocobalamin (Vitamin B-12) (Vitamin B12) 2,500 Mcg Tablet, 2,500 MCG PO DAILY, (Reported) Entered as Reported by: MARCELLA SLOAN on 08/06/19 1315 Cyclobenzaprine HCl (Cyclobenzaprine HCl) 10 Mg Tablet, 10 MG PO Q8H Prescribed by: LANA LEDESMA on 08/24/201901 Dextromethorphan HBr (Tussin Cough) 15 Mg/5 Ml Liquid, 10 ML PO Q4H PRN for COUGH, (Reported) Entered as Reported by: BRIANNE MAY on 04/10/19 08 Diazepam (Valium) 5 Mg Tablet, 5 MG PO Q12H PRN for ANXIETY, (Reported) Entered as Reported by: BRIANNE MAY on 04/10/19 08 Docusate Sodium (Colace) 100 Mg Capsule, 100 MG PO DAILY, (Reported) Entered as Reported by: BRIANNE MAY on 04/10/19 08 Donepezil HCl (Donepezil HCl) 10 Mg Tablet, 10 MG PO HS, (Reported) Entered as Reported by: BRIANNE MAY on 04/10/19 0849 Doxazosin Mesylate (Cardura) 4 Mg Tablet, 4 MG PO BID, (Reported) Entered as Reported by: MARCELLA SLOAN on 08/06/19 131 Fluticasone Propionate (Fluticasone Propionate) 16 Gm [place].susp, 1 SPRAY NS DAILY PRN for ALLERGIES, (Reported) Entered as Reported by: BRIANNE MAY on 04/10/19 0839 Fluticasone/Salmeterol (Advair 100-50 Diskus) 1 Each Blst.w.dev, 1 PUFF INH BID, (Reported) Entered as Reported by: BRIANNE MAY on 04/10/19 0839 Hydralazine HCl (Hydralazine HCl) 50 Mg Tablet, 50 MG PO Q8H, (Reported) Entered as Reported by: MARCELLA SLOAN on 08/06/19 1315 Hydrocodone/Acetaminophen (Hydrocodone-Acetamin 5-325 mg) 1 Each Tablet, 1 TAB PO Q4H PRN for PAIN-MODERATE (5-7) Prescribed by: LANA LEDESMA on 08/24/201901 Insulin Glargine,Hum.rec.anlog (Lantus Solostar) 100 Unit/1 Ml Insuln.pen, 4 UNIT SQ HS, (Reported) Entered as Reported by: BRIANNE MAY on 04/10/19838 Insuln Asp Prt/Insulin Aspart (Novolog Mix 70-30 Flexpen Syrn) 300 Units/3 Ml Solution, SC TIDAC, (Reported) Entered as Reported by: BRIANNE MAY on 04/10/19838 Levothyroxine Sodium (Levothyroxine Sodium) 112 Mcg Tablet, 112 MCG PO 0600, (Reported) Entered as Reported by: BRIANNE MAY on 04/10/19838 Loratadine (Loratadine) 10 Mg Tablet, 10 MG PO DAILY PRN for ALLERGIES, (Reported) Entered as Reported by: BRIANNE MAY on 04/10/19838 Memantine HCl (Memantine HCl) 10 Mg Tablet, 10 MG PO DAILY, (Reported) Entered as Reported by: BRIANNE MAY on 04/10/19838 Metoprolol Succinate (Metoprolol Succinate) 100 Mg Tab.er.24h, 100 MG PO DAILY, (Reported) Entered as Reported by: BRIANNE MAY on 04/10/19838 Mirtazapine (Mirtazapine) 15 Mg Tablet, 22.5 MG PO HS, (Reported) Entered as Reported by: BRIANNE MAY on 04/10/19838 Multivitamin (Multivitamins) 1 Each Tablet, 1 TAB PO DAILY, (Reported) Entered as Reported by: BRIANNE MAY on 04/10/19838 Omeprazole (Omeprazole) 40 Mg Capsule.dr, 40 MG PO DAILY, (Reported) Entered as Reported by: BRIANNE MAY on 04/10/19838 Ondansetron (Ondansetron Odt) 4 Mg Tab.rapdis, 4 MG PO Q6H PRN for N AUSEA/VOMITING Prescribed by: IRIS JANE on 08/18/215 Peg 400/Hypromellose/Glycerin (Artificial Tears Drops) 15 Ml Drops, 1 DROP OU UD PRN for DRY EYES, (Reported) Entered as Reported by: BRIANNE MAY on 04/10/19838 Polyethylene Glycol 3350 (Miralax) 17 Gm Powd.pack, 17 GM PO DAILY, (Reported) Entered as Reported by: BRIANNE MAY on 04/10/19838 Review of Systems Review of Systems Constitutional: see HPI EENTM: see HPI Respiratory: see HPI Cardiovascular: see HPI Gastrointestinal: see HPI Genitourinary: see HPI Musculoskeletal: see HPI Skin: see HPI Psychiatric/Neurological: See HPI Hematologic/Lymphatic: See HPI Immunological/Allergic: see HPI All Other Systems Reviewed Negative Unless Noted: Yes Past Ggyldtm-Bpxudu-Fhqjib Hx Patient Social History Tobacco Use?: Yes Use of E-Cig and/or Vaping dev: No Substance use?: No Alcohol Use?: No Pt feels they are or have been: No Immunizations Up To Date Tetanus Booster (TDap): Less than 5yrs Seasonal Allergies Seasonal Allergies: No Past Medical History Surgeries: Yes (inguinal hernia repair; EGD; colonoscopy; ) Appendectomy, CABG, Gallbladder, 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, Oophorectomy, Orthopedic Respiratory: Yes Emphysema Cardiac: Yes (hypertensive crisis ) High Cholesterol, Hypertension Neurological: Yes Dementia, Neuropathy, TIA Reproductive Disorders: No [employer] History: 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 Genitourinary: Yes (incontinence, acute on chronic renal failure) Renal Failure Gastrointestinal: Yes (Hepatitis B) Gastroesophageal Reflux Musculoskeletal: Yes (neck injury ) Arthritis, Back Injury Endocrine: Yes (Hyponatremia hx) Diabetes, Insulin dep, Hypothyroidsim, Lupus HEENT: Yes Cataract, Glaucoma Loss of Vision: Bilateral Hearing Impairment: Denies Cancer: No Psychosocial: Yes Depression Integumentary: No Blood Disorders: Yes (Anemia, Iron deficiency) Family Medical History Heart Disease, Cancer, Diabetes, Renal Disease Physical Exam Vital Signs Vital Signs - First Documented 09/02/21 19:40 Temp 36.5 Pulse 97 Resp 16 B/P (MAP) 131/94 (106) Pulse Ox 98 O2 Delivery Room Air Capillary Refill : Less Than 3 Seconds Height, Weight, BMI Height: 5'8.00" Weight: 165lbs. 0.0oz. 74.529253vg; 28.00 BMI Method: General Appearance: WD/WN, Anxious Eyes: Bilateral Eye PERRL, Bilateral Eye EOMI HEENT: PERRL/EOMI, Normal ENT Inspection Neck: Non Tender, Supple Respiratory: Lungs Clear Cardiovascular: Regular Rate, Rhythm Gastrointestinal: Non Tender (Small contusion in inner vulva), Soft Genital/Rectal: Other Neurologic/Psychiatric: Oriented x3, No Motor/Sensory Deficits, Normal Mood/A ffect Focused Exam Sepsis Stage: Ruled Out Progress/Results/Core Measures Suspected Sepsis SIRS Temperature: Pulse: 97 Respiratory Rate: 16 Laboratory Tests 09/02/21 20:00: White Blood Count 4.9 Blood Pressure 131 /94 Mean: 106 Laboratory Tests 09/02/21 20:00: Creatinine 3.38H, Platelet Count 305, Total Bilirubin 0.3 Results/Orders Lab Results Laboratory Tests Test 09/02/21 19:45 09/02/21 20:00 09/02/21 21:24 Range/Units Urine Color YELLOW Urine Clarity TURBID Urine pH 8.0 5-9 Urine Specific [place] 1.020 1.016-1.022 Urine Protein 2+ H NEGATIVE Urine Glucose (UA) NEGATIVE NEGATIVE Urine Ketones NEGATIVE NEGATIVE Urine Nitrite NEGATIVE NEGATIVE Urine Bilirubin NEGATIVE NEGATIVE Urine Urobilinogen 0.2 < = 1.0 MG/DL Urine Leukocyte Esterase 2+ H NEGATIVE Urine RBC (Auto) TRACE-I H NEGATIVE Urine RBC RARE /HPF Urine WBC >100 H /HPF Urine Squamous Epithelial Cells NONE /HPF Urine Crystals NONE /LPF Urine Bacteria LARGE H /HPF Urine Casts NONE /LPF Urine Mucus NEGATIVE /LPF Urine Culture Indicated YES White Blood Count 4.9 4.3-11.0 10^3/uL Red Blood Count 3.28 L 3.80-5.11 10^6/uL Hemoglobin 9.5 L 11.5-16.0 g/dL Hematocrit 29 L 35-52 % Mean Corpuscular Volume 89 80-99 fL Mean Corpuscular Hemoglobin 29 25-34 pg Mean Corpuscular Hemoglobin Concent 32 32-36 g/dL Red Cell Distribution Width 15.9 H 10.0-14.5 % Platelet Count 305 130-400 10^3/uL Mean Platelet Volume 9.6 9.0-12.2 fL Immature Granulocyte % (Auto) 0 % Neutrophils (%) (Auto) 73 42-75 % Lymphocytes (%) (Auto) 16 12-44 % Monocytes (%) (Auto) 10 0-12 % Eosinophils (%) (Auto) 0 0-10 % Basophils (%) (Auto) 1 0-10 % Neutrophils # (Auto) 3.6 1.8-7.8 10^3/uL Lymphocytes # (Auto) 0.8 L 1.0-4.0 10^3/uL Monocytes # (Auto) 0.5 0.0-1.0 10^3/uL Eosinophils # (Auto) 0.0 0.0-0.3 10^3/uL Basophils # (Auto) 0.0 0.0-0.1 10^3/uL Immature Granulocyte # (Auto) 0.0 0.0-0.1 10^3/uL Sodium Level 139 135-145 MMOL/L Potassium Level 2.9 L 3.6-5.0 MMOL/L Chloride Level 97 L 98-107 MMOL/L Carbon Dioxide Level 30 21-32 MMOL/L Anion Gap 12 5-14 MMOL/L Blood Urea Nitrogen 10 7-18 MG/DL Creatinine 3.38 H 0.60-1.30 MG/DL Estimat Glomerular Filtration Rate 13 BUN/Creatinine Ratio 3 Glucose Level 63 L 70-105 MG/DL Calcium Level 8.2 L 8.5-10.1 MG/DL Corrected Calcium 9.7 8.5-10.1 MG/DL Magnesium Level 2.1 1.6-2.4 MG/DL Total Bilirubin 0.3 0.1-1.0 MG/DL Aspartate Amino Transf (AST/SGOT) 38 H 5-34 U/L Alanine Aminotransferase (ALT/SGPT) 21 0-55 U/L Alkaline Phosphatase 125 40-136 U/L Troponin I < 0.30 <0.30 NG/ML Total Protein 5.6 L 6.4-8.2 GM/DL Albumin 2.1 L 3.2-4.5 GM/DL Glucometer 149 H 70-110 MG/DL My Orders Orders - LANA LEDESMA DO Cbc With Automated Diff (09/02/21 19:50) Comprehensive Metabolic Panel (09/02/21 19:50) Ua Culture If Indicated (09/02/21 19:50) Troponin I Fs (09/02/21 19:50) Ondansetron Oral Dissolve Tab (Zofran (09/02/21 19:50) Magnesium (09/02/21 19:50) Acetaminophen Tablet (Tylenol Tablet) (09/02/21 20:00) Urine Culture (09/02/21 19:45) Ceftriaxone 1 Gm Pre-Mix (Rocephin 1 Gm (09/03/21 09:00) D50w (Emergency) Syringe (Dextrose 50% 5 (09/02/21 20:45) Potassium Chloride (Tablet) (K Dur Table (09/02/21 20:45) Ceftriaxone 1 Gm Pre-Mix (Rocephin 1 Gm (09/02/21 20:49) Medications Given in ED Current Medications Medications Dose Ordered Sig/Nicole Route Start Time Stop Time Status Last Admin Dose Admin Acetaminophen 1,000 mg ONCE ONCE PO 09/02/21 20:00 09/02/21 20:06 DC 09/02/21 20:12 1,000 MG Dextrose 25 ml ONCE ONCE IV 09/02/21 20:45 09/02/21 20:46 DC 09/02/21 20:55 25 ML Potassium Chloride 40 meq ONCE ONCE PO 09/02/21 20:45 09/02/21 20:46 DC 09/02/21 20:56 40 MEQ Vital Signs/I&O 09/02/21 19:40 Temp 36.5 Pulse 97 Resp 16 B/P (MAP) 131/94 (106) Pulse Ox 98 O2 Delivery Room Air Capillary Refill : Less Than 3 Seconds Blood Pressure Mean: 106 Departure Communication (Admissions) Patient remains alert and oriented. Urinary tract infection treated with Rocephin. Pain addressed. Potassium replaced. Blood sugar improved with dextrose and applesauce. Patient to follow-up with her dialysis provider tomorrow. Return precautions reviewed Impression Primary Impression: Urinary tract infection Additional Impressions: Hypoglycemia Hypokalemia Contusion of vulva Disposition: HOME, SELF-CARE Condition: Stable Departure-Patient Inst. Decision time for Depature: 22:00 Referrals: ADOLFO RHODES MD (PCP/Family) Primary Care Physician Patient Instructions: Contusion (DC), Hypokalemia, Low Blood Sugar, Adult (DC) Add. Discharge Instructions: Please eat complex carbs upon returning home and do not take evening's insulin. Fill antibiotics as prescribed and complete full course and follow-up with your PCP and or refrigeration engineer. All discharge instructions reviewed with patient and/or family. Voiced understanding. Scripts Cefdinir (Cefdinir) 300 Mg Capsule 300 MG PO DAILY, #5 CAP Prov: LANA LEDESMA DO 09/02/21 LANA LEDESMA DO Sep 02, 2021 21:57
[2021-09-02] MEDS ORDERED: CEFD300C3 PO (22:02)
[2021-09-02 22:05] VITALS: BP 152/53
[2021-09-03] MEDS ORDERED: cefTRIAXone 1 GM PRE-MIX 50 ML IV SCH (09:00)
== END 2021-09-02 22:05 | disposition home or self-care (01) ==
LOC: EDUNIT# 19:27 → ER FS 19:28
DX: S30.23XA Contusion of vagina and vulva, initial encounter (principal); N39.0 Urinary tract infection, site not specified; E11.649 Type 2 diabetes mellitus with hypoglycemia without coma; E87.6 Hypokalemia; Z72.0 Tobacco use; Z91.040 Latex allergy status; Z79.4 Long term (current) use of insulin; W22.8XXA Striking against or struck by other objects, initial encounter
CPT/HCPCS: 36415; 80053; 81000; 82947; 83735; 84484; 85025; 87077; 87088